=== PATIENT | female | born 1945 | race Caucasian/White ===

== ENCOUNTER 2018-06-24 15:10 | Inpatient (IN) | payer MEDICARE ==
[~2018-06-24] VITALS: Ht 165.1 cm; Wt 98.0 kg
[~2018-06-24 15:10] MED LIST: ACET500T33 PO; ESOM40CA25 PO; GABA300S PO; LEVO50TA5 PO; LISI-130 PO; LOVA40TA2 PO; MELO7.5T29 PO; METF500T16 PO; MULT1TAB52 PO; OMEP20CA5 PO; PARO30TA3 PO
[2018-06-24] MEDS ORDERED: IV NORMAL SALINE 1000ML BAG 1,000 ML IV SCH (16:10)
[2018-06-24] MEDS ORDERED: ONDANSETRON PF 4 MG/2 ML VIAL. IV ONE (16:15)
--- NOTE | 2018-06-24 16:31 | PHYS DOC ---
Past Medical History Past Medical History: Bronchitis, Diabetes-Type II, High Cholesterol, Hypertension, Hyperthyroid Past Surgical History: Cervical Fusion, Hysterectomy, Knee Replacement, Other Additional Past Surgical Histo: DILAT FOOT, CATARACTS, THYROIDECTOMY, BREAST REDUX Alcohol Use: Rarely Drug Use: None Adult General Chief Complaint Chief Complaint: NAUSEA/VOMITING/DIARRHA HPI HPI Patient is a 72 year old female who presents with states for the last week she' s had nausea and vomiting right after she eats and female. Patient does have a history of acid reflux and states that she does feel like is acting up more so after she is eating. Patient states she has the nausea and the burning in her epigastric especially after eating. Patient currently has no abdominal pain but has a slight headache and a 5 out of 10 frontal lobe. Review of Systems Review of Systems Constitutional: Denies fever or chills [] Eyes: Denies change in visual acuity, redness, or eye pain [] HENT: Denies nasal congestion or sore throat [] Respiratory: Denies cough or shortness of breath [] Cardiovascular: No additional information not addressed in HPI [] GI: epigastric abdominal pain, nausea, vomiting, denies bloody stools or diarrhea [] : Denies dysuria or hematuria [] Musculoskeletal: Denies back pain or joint pain [] Integument: Denies rash or skin lesions [] Neurologic: Denies headache, focal weakness or sensory changes [] Endocrine: Denies polyuria or polydipsia [] All other systems were reviewed and found to be within normal limits, except as documented in this note. Current Medications Current Medications Current Medications Medications (Trade) Dose Ordered Sig/Alexi Start Time Stop Time Status Last Admin Dose Admin Ceftriaxone Sodium (Rocephin) 1 gm 1X ONCE 06/24/18 20:45 06/24/18 20:46 DC 06/24/18 20:48 1 GM Info (CONTRAST GIVEN -- Rx MONITORING) 1 each PRN DAILY PRN 06/24/18 18:30 06/26/18 18:29 Iohexol (Omnipaque 300 Mg/ml) 75 ml 1X ONCE 06/24/18 18:30 06/24/18 18:31 DC 06/24/18 18:29 75 ML Ondansetron HCl (Zofran) 4 mg 1X ONCE 06/24/18 16:15 06/24/18 16:16 DC 06/24/18 18:27 4 MG Pantoprazole Sodium (PROTONIX VIAL for IV PUSH) 40 mg 1X ONCE 06/24/18 16:45 06/24/18 16:48 DC 06/24/18 18:27 40 MG Sodium Chloride 1,000 ml @ 1,000 mls/hr Q1H 06/24/18 16:10 06/24/18 17:09 DC 06/24/18 18:27 1,000 MLS/HR Allergies Allergies Allergies Coded Allergies Type Severity Reaction Last Updated Verified No Known Drug Allergies 01/15/15 No Physical Exam Physical Exam Constitutional: Well developed, well nourished, no acute distress, non-toxic appearance. [] HENT: Normocephalic, atraumatic, bilateral external ears normal, oropharynx moist, no oral exudates, nose normal. [] Eyes: PERRLA, EOMI, conjunctiva normal, no discharge. [] Neck: Normal range of motion, no tenderness, supple, no stridor. [] Cardiovascular:Heart rate regular rhythm, no murmur [] Lungs & Thorax: Bilateral breath sounds clear to auscultation [] Abdomen: Bowel sounds normal, soft, no tenderness, no masses, no pulsatile masses. [] Skin: Warm, dry, no erythema, no rash. [] Back: No tenderness, no CVA tenderness. [] Extremities: No tenderness, no cyanosis, no clubbing, ROM intact, no edema. [] Neurologic: Alert and oriented X 3, normal motor function, normal sensory function, no focal deficits noted. [] Psychologic: Affect normal, judgement normal, mood normal. Normal Physical Exam[] Current Patient Data Vital Signs Vital Signs Date Time Temp Pulse Resp B/P (MAP) Pulse Ox O2 Delivery O2 Flow Rate FiO2 06/24/18 19:34 190/81 (117) Room Air 06/24/18 18:52 66 20 97 06/24/18 16:16 98.7 98.7 Lab Values Laboratory Tests Test 06/24/18 17:24 06/24/18 19:30 White Blood Count 9.8 x10^3/uL (4.0-11.0) Red Blood Count 4.44 x10^6/uL (3.50-5.40) Hemoglobin 12.2 g/dL (12.0-15.5) Hematocrit 37.3 % (36.0-47.0) Mean Corpuscular Volume 84 fL (79-100) Mean Corpuscular Hemoglobin 27 pg (25-35) Mean Corpuscular Hemoglobin Concent 33 g/dL (31-37) Red Cell Distribution Width 14.8 % (11.5-14.5) H Platelet Count 234 x10^3/uL (140-400) Neutrophils (%) (Auto) 85 % (31-73) H Lymphocytes (%) (Auto) 9 % (24-48) L Monocytes (%) (Auto) 6 % (0-9) Eosinophils (%) (Auto) 0 % (0-3) Basophils (%) (Auto) 0 % (0-3) Neutrophils # (Auto) 8.3 x10^3uL (1.8-7.7) H Lymphocytes # (Auto) 0.8 x10^3/uL (1.0-4.8) L Monocytes # (Auto) 0.5 x10^3/uL (0.0-1.1) Eosinophils # (Auto) 0.0 x10^3/uL (0.0-0.7) Basophils # (Auto) 0.0 x10^3/uL (0.0-0.2) Segmented Neutrophils % 86 % (35-66) H Band Neutrophils % 1 % (0-9) Lymphocytes % 10 % (24-48) L Monocytes % 3 % (0-10) Platelet Estimate Adequate (ADEQUATE) Sodium Level 126 mmol/L (136-145) L Potassium Level 4.6 mmol/L (3.5-5.1) Chloride Level 93 mmol/L (98-107) L Carbon Dioxide Level 25 mmol/L (21-32) Anion Gap 8 (6-14) Blood Urea Nitrogen 15 mg/dL (7-20) Creatinine 0.8 mg/dL (0.6-1.0) Estimated GFR (Cockcroft-Gault) 70.3 BUN/Creatinine Ratio 19 (6-20) Glucose Level 111 mg/dL (70-99) H Calcium Level 9.1 mg/dL (8.5-10.1) Total Bilirubin 0.4 mg/dL (0.2-1.0) Aspartate Amino Transferase (AST) 18 U/L (15-37) Alanine Aminotransferase (ALT) 15 U/L (14-59) Alkaline Phosphatase 85 U/L (46-116) Troponin I Quantitative < 0.017 ng/mL (0.000-0.055) Total Protein 7.2 g/dL (6.4-8.2) Albumin 4.2 g/dL (3.4-5.0) Albumin/Globulin Ratio 1.4 (1.0-1.7) Lipase 171 U/L (73-393) Urine Collection Type Unknown Urine Color Yellow Urine Clarity Turbid Urine pH 5.5 Urine Specific [place] >=1.030 Urine Protein Negative mg/dL (NEG-TRACE) Urine Glucose (UA) Negative mg/dL (NEG) Urine Ketones (Stick) 40 mg/dL (NEG) Urine Blood Large (NEG) Urine Nitrite Negative (NEG) Urine Bilirubin Small (NEG) Urine Urobilinogen Dipstick 1.0 mg/dL (0.2 mg/dL) Urine Leukocyte Esterase Trace (NEG) Urine RBC 11-20 /HPF (0-2) Urine WBC 1-4 /HPF (0-4) Urine Squamous Epithelial Cells Mod /LPF Urine Bacteria Many /HPF (0-FEW) Urine Mucus Marked /LPF Laboratory Tests 06/24/18 17:24 Laboratory Tests 06/24/18 17:24 EKG EKG Sinus Rhythm and no STEMI Interpretation Time: [address] Metz Radiology/Procedures Radiology/Procedures [] Impressions: [facility] [address] [place] [address] IMAGING REPORT Signed PATIENT: ROBERT READ ACCOUNT: [id number] : 1945 LOCATION: ER AGE: 72 SEX: F EXAM STATUS: REG ER ORD. PHYSICIAN: ENOCH CAMPOS APRN REASON: Nausea vomiting, OMNI 300, 75ml PROCEDURE: CT ABD PELV W/ IV CONTRST ONLY CT ABD PELV W/ IV CONTRST ONLY Indication: Nausea and vomiting Technique: Postcontrast CT imaging was performed of the abdomen and pelvis, multiplanar reconstruction images submitted. One or more of the following individualized dose reduction techniques were utilized for this examination: 1. Automated exposure control 2. Adjustment of the mA and/or kV according to patient size 3. Use of iterative reconstruction technique. Comparison: August 07, 2014 Findings: There is no abnormality of the limited visualized lung bases. There are small to moderate-sized hiatal hernia. No focal abnormalities identified of the pancreas, spleen, liver. Gallbladder is present without obvious intraluminal abnormality by CT. Both kidneys and hands, no hydronephrosis. There is a small hypodense lesion of the superior right kidney about 0.8 cm, difficult to accurately characterize given small size, slightly larger than previously. Accurate evaluation of bowel is limited without oral contrast Bowel is not significantly dilated. There is scattered colonic diverticulosis, not associated with significant localized inflammatory type change. Segment of bowel in the left upper quadrant of the abdomen with internal stool density is likely cecum, somewhat more deviated to the left on this exam although previously was more centrally located. Appendix cannot be confidently identified. There is no free air or significant free fluid. There is multilevel lumbar facet degenerative change and degenerative disc disease. There is mild grade 1 anterior spondylolisthesis L4-5 and L5-S1. There is at least moderate spinal stenosis L4-5. IMPRESSION: 1. Cecum is deviated to the left upper quadrant, previously somewhat more centrally located, evidence of floppy cecum. Bowel is not significantly dilated. Appendix cannot be confidently identified. There is colonic diverticulosis greatest of the sigmoid colon without obvious evidence of diverticulitis. There is small to moderate size hiatal hernia. Electronically signed by: Krupa Govea MD (06/24/2018 6:42 PM) [facility] DICTATED and SIGNED BY: KRUPA GOVEA MD DATE: 06/24/18 184 Course & Med Decision Making Course & Med Decision Making Patient is a 72 year old female who presents with states for the last week she' s had nausea and vomiting right after she eats and female. Patient does have a history of acid reflux and states that she does feel like is acting up more so after she is eating. Patient states she has the nausea and the burning in her epigastric especially after eating. Patient currently has no abdominal pain but has a slight headache and a 5 out of 10 frontal lobe. Patient denies chest pain , abdominal pain, generalized body aches, nausea vomiting, diarrhea, bloody diarrhea, dysuria, dizziness, fever at this time. Alert and oriented. Speaks in full clear sentences. Skin is pink warm and dry. Mucous membranes are moist. 1+ peripheral edema and pedal's. Abdomen is soft and nontender. Lungs are clear in upper lobes but diminished in lower lobes. Chest xray shows no acute findings. CT ABD PELV shows 1. Cecum is deviated to the left upper quadrant, previously somewhat more centrally located, evidence of floppy cecum. Bowel is not significantly dilated. Appendix cannot be confidently identified. There is colonic diverticulosis greatest of the sigmoid colon without obvious evidence of diverticulitis. There is small to moderate size hiatal hernia. I have spoken to Dr Vazquez and he states to admit the patient and have GI see the patient and consult him. Patient also has a UTI and will be treated with antibiotics. Patient is given a dose of Rocephin in the ED. The patient was told that she has been be admitted to the hospital and she stated that [employer] her insurance would not cover the hospital stay. Patient then stated that she wanted to be transferred to [facility]. I have talked [facility] in the accepting physician and their household appliances salesperson declined to accept the patient because they are at capacity. I then called [facility] and they too declined to accept the patient because they're at capacity. I also called [facility] and they do not take [employer]. The patient then called [employer] and Levi said that since the patient was being admitted through the emergency room that they would cover inpatient stay. Patient has decided to stay for inpatient at our facility. Dragon Disclaimer Dragon Disclaimer This electronic medical record was generated, in whole or in part, using a voice recognition dictation system. Departure Departure Impression: Primary Impression: Vomiting Additional Impression: Mobile cecum Disposition: ADMITTED INPATIENT Admitting Physician: Suha Lowry Condition: STABLE Referrals: YKLAH SCOTT MD (PCP) Problem Qualifiers Primary Impression: Vomiting Vomiting type: unspecified Vomiting Intractability: non-intractable Nausea presence: with nausea Qualified Codes: R11.2 - Nausea with vomiting, unspecified ENOCH CAMPOS APRN Jun 24, 2018 16:31
[2018-06-24] MEDS ORDERED: PANTOPRAZOLE IV PUSH 40 MG VIAL. IVP ONE (16:45)
[2018-06-24 17:38] LABS: BASO % 0 % (0-3); EOS % 0 % (0-3); HEMATOCRIT 37.3 % (36.0-47.0); HEMOGLOBIN 12.2 g/dL (12.0-15.5); LYMPH # 0.8 x10^3/uL (1.0-4.8); LYMPH % 9 % (24-48); MEAN CORPUSCULAR HEMOGLOBIN 27 pg (25-35); MEAN CORPUSCULAR HGB CONC 33 g/dL (31-37); MEAN CORPUSCULAR VOLUME 84 fL (79-100); MONO # 0.5 x10^3/uL (0.0-1.1); MONO % 6 % (0-9); NEUT # 8.3 x10^3uL (1.8-7.7); NEUT % 85 % (31-73); PLATELET COUNT 234 x10^3/uL (140-400); RED BLOOD COUNT 4.44 x10^6/uL (3.50-5.40); RED CELL DISTRIBUTION WIDTH 14.8 % (11.5-14.5); WHITE BLOOD COUNT 9.8 x10^3/uL (4.0-11.0)
[2018-06-24 17:46] LABS: CALCIUM 9.1 mg/dL (8.5-10.1); CREATININE 0.8 mg/dL (0.6-1.0); GFR 70.3; POTASSIUM 4.6 mmol/L (3.5-5.1)
[2018-06-24 17:52] LABS: ALBUMIN 4.2 g/dL (3.4-5.0); ALBUMIN/GLOBULIN RATIO 1.4 (1.0-1.7); TOTAL BILIRUBIN 0.4 mg/dL (0.2-1.0); TOTAL PROTEIN 7.2 g/dL (6.4-8.2)
[2018-06-24 17:53] LABS: % BANDS 1 % (0-9); % LYMPHS 10 % (24-48); % MONOS 3 % (0-10); % SEGS 86 % (35-66); PLT ESTIMATE ADEQUATE (ADEQUATE)
[2018-06-24] MEDS ORDERED: IOHEXOL 300 MG/ML 100ML VIAL. IV ONE (18:30)
[2018-06-24] MEDS ORDERED: CONTRAST GIVEN. MC PRN (18:30)
--- NOTE | 2018-06-24 18:45 | RAD ---
CT ABD PELV W/ IV CONTRST ONLY Indication: Nausea and vomiting Technique: Postcontrast CT imaging was performed of the abdomen and pelvis, multiplanar reconstruction images submitted. One or more of the following individualized dose reduction techniques were utilized for this examination: 1. Automated exposure control 2. Adjustment of the mA and/or kV according to patient size 3. Use of iterative reconstruction technique. Comparison: August 07, 2014 Findings: There is no abnormality of the limited visualized lung bases. There are small to moderate-sized hiatal hernia. No focal abnormalities identified of the pancreas, spleen, liver. Gallbladder is present without obvious intraluminal abnormality by CT. Both kidneys and hands, no hydronephrosis. There is a small hypodense lesion of the superior right kidney about 0.8 cm, difficult to accurately characterize given small size, slightly larger than previously. Accurate evaluation of bowel is limited without oral contrast Bowel is not significantly dilated. There is scattered colonic diverticulosis, not associated with significant localized inflammatory type change. Segment of bowel in the left upper quadrant of the abdomen with internal stool density is likely cecum, somewhat more deviated to the left on this exam although previously was more centrally located. Appendix cannot be confidently identified. There is no free air or significant free fluid. There is multilevel lumbar facet degenerative change and degenerative disc disease. There is mild grade 1 anterior spondylolisthesis L4-5 and L5-S1. There is at least moderate spinal stenosis L4-5. IMPRESSION: 1. Cecum is deviated to the left upper quadrant, previously somewhat more centrally located, evidence of floppy cecum. Bowel is not significantly dilated. Appendix cannot be confidently identified. There is colonic diverticulosis greatest of the sigmoid colon without obvious evidence of diverticulitis. There is small to moderate size hiatal hernia. Electronically signed by: Lai Villalobos MD (06/24/2018 6:42 PM) [facility]
--- NOTE | 2018-06-24 18:53 | RAD ---
PORTABLE CHEST 1V History: EPIGASTRIC PAIN Comparison: August 07, 2014 Findings: AP portable view of the chest is submitted. Heart size is stable. There is no lobar infiltrate, pleural fluid, pneumothorax. Impression: 1. No acute radiographic abnormality is identified. Electronically signed by: Lai Villalobos MD (06/24/2018 6:50 PM) [facility]
[2018-06-24 19:43] LABS: BILIRUBIN,URINE SMALL (NEG); CLARITY,URINE TURBID; COLOR,URINE YELLOW; NITRITE,URINE NEGATIVE (NEG); PH,URINE 5.5; PROTEIN,URINE NEGATIVE (NEG-TRACE)
[2018-06-24 19:49] LABS: SQUAMOUS EPITHELIAL CELL,UR MOD /LPF
[2018-06-24 19:51] LABS: BACTERIA,URINE MANY /HPF (0-FEW)
[2018-06-24] MEDS ORDERED: cefTRIAXone IV Push 1 GM VIAL. IVP ONE (20:45)
[2018-06-25] VITALS (7 sets, daily range): BP systolic 112–169; BP diastolic 53–72
[2018-06-25] MEDS ORDERED: ACETAMINOPHEN 325 MG TABLET. PO PRN (00:45)
[2018-06-25] MEDS ORDERED: fentaNYL PF VIAL 100 MCG/2 ML VIAL IV PRN (00:45)
[2018-06-25] MEDS ORDERED: ONDANSETRON PF 4 MG/2 ML VIAL. IV PRN (00:45)
--- NOTE | 2018-06-25 02:52 | NUR ---
Only drinks occasionally. 4 times/year Addendum: 06/25/18 at 0318 by VÍCTOR GILMAN RN Amended: Links added.
--- NOTE | 2018-06-25 02:56 | NUR ---
Pt's sister (PARRISDENIA) stated pt. has lost about 100 lbs. in a year due to facility only having 2 meals/day plan. Addendum: 06/25/18 at 0318 by VÍCTOR GILMAN RN Amended: Links added.
[2018-06-25] MEDS ORDERED: LISI10TA2 PO (03:45)
--- NOTE | 2018-06-25 03:47 | NUR ---
The patient, ROBERT READ, 72 y/o, F was admitted by BARBARA REYES MD. Pt arrived on unit at 0120 by wheelchair. Pt. A&Ox4, RA, VSS with elevated BP. Pt.'s sister Starr (DPOA) at bedside and helped answer admission questions. Pt. was given written information regarding hospital policies, unit procedures and contact persons. Valuables were taken by sister Starr to her home. Wallet left in room with insurance card and some spare change. Call light within reach, bed low. Will continue to monitor.
--- NOTE | 2018-06-25 06:45 | NUR ---
Dr. Hill and Dr. Vazquez consulted this morning.
[2018-06-25] MEDS: IV NORMAL SALINE 1000ML BAG 1,000 ML IV SCH (09:30)
--- NOTE | 2018-06-25 09:36 | PDOC2 ---
CONSULT Date of Consult Date of Consult DATE: 06/25/18 TIME: 09:31 Reason for Consult Reason for Consult: N/V/D reflux Referring Physician Referring Physician: Termulo Identification/Chief Complaint Chief Complaint N/V/D Source Source: Chart review, Patient History of Present Illness Reason for Visit: 72 yo F present from [place] with c/o N/V/D, also notes reflux more of an issue recently. Chart notes that pt has lost 100 lbs recently. Pt seen in hospital room, somewhat poor historian. Currently comfortable. Past Medical History Cardiovascular: HTN, Syncope, Hyperlipidemia, Other Pulmonary: Asthma, Bronchitis CENTRAL NERVOUS SYSTEM: Migraine GI: Diverticulosis, GERD Heme/Onc: Other Psych: Anxiety, Depression Renal/: Chronic renal failure, Urinary Incontinence Endocrine: Diabetes, Hypothyroidism Past Surgical History Past Surgical History: Cataract Removal, Total knee replacement, Tubal Ligation , Hysterectomy, Other Family History Family History: Hypertension Social History ALCOHOL: occassional Drugs: None Lives: Care Home Current Problem List Problem List Problems Medical Problems: (1) Mobile cecum Status: Acute (2) Vomiting Status: Acute Current Medications Current Medications Current Medications Sodium Chloride 1,000 ml @ 1,000 mls/hr Q1H IV Last administered on 06/24/18at 18:27; Start 06/24/18 at 16:10; Stop 06/24/18 at 17:09; Status DC Ondansetron HCl (Zofran) 4 mg 1X ONCE IV Last administered on 06/24/18at 18:27 ; Start 06/24/18 at 16:15; Stop 06/24/18 at 16:16; Status DC Pantoprazole Sodium (PROTONIX VIAL for IV PUSH) 40 mg 1X ONCE IVP Last administered on 06/24/18at 18:27; Start 06/24/18 at 16:45; Stop 06/24/18 at 16:48 ; Status DC Iohexol (Omnipaque 300 Mg/ml) 75 ml 1X ONCE IV Last administered on 06/24/18at 18:29; Start 06/24/18 at 18:30; Stop 06/24/18 at 18:31; Status DC Info (CONTRAST GIVEN -- Rx MONITORING) 1 each PRN DAILY PRN MC SEE COMMENTS; Start 06/24/18 at 18:30; Stop 06/26/18 at 18:29 Ceftriaxone Sodium (Rocephin) 1 gm 1X ONCE IVP Last administered on 06/24/18at 20:48; Start 06/24/18 at 20:45; Stop 06/24/18 at 20:46; Status DC Ondansetron HCl (Zofran) 4 mg PRN Q8HRS PRN IV NAUSEA/VOMITING; Start 06/25/18 at 00:45; Stop 06/26/18 at 00:44 Fentanyl Citrate (Fentanyl 2ml Vial) 50 mcg PRN Q1HR PRN IV PAIN; Start at 00:45; Stop 06/26/18 at 00:44 Acetaminophen (Tylenol) 650 mg PRN Q4HRS PRN PO FEVER; Start 06/25/18 at 00:45 ; Stop 06/26/18 at 00:44 Sodium Chloride 1,000 ml @ 75 mls/hr [id number] IV ; Start 06/25/18 at 09:30; Status UNV Active Scripts Active Reported Lisinopril 10 Mg Tablet 1 Tab PO DAILY Multivitamins (Multivitamin) 1 Each Tablet 1 Tab PO DAILY Prilosec (Omeprazole) 20 Mg Capsule.dr 1 Cap PO DAILY Tylenol Extra Strength (Acetaminophen) 500 Mg Tablet 500 Mg PO Meloxicam 7.5 Mg Tablet 7.5 Mg PO DAILY Lovastatin 40 Mg Tablet 40 Mg PO HS Paroxetine Hcl 30 Mg Tablet 30 Mg PO DAILY Levothyroxine Sodium 50 Mcg Tablet 50 Mcg PO DAILYAC Allergies Allergies: Coded Allergies: No Known Drug Allergies (Unverified , 01/15/15) ROS Gastrointestinal: Yes Nausea, Yes Vomiting Physical Exam General: Alert, Cooperative, No acute distress HEENT: Atraumatic Lungs: Normal air movement Abdomen: Soft, No tenderness Extremities: No clubbing, No cyanosis Skin: No rashes, No breakdown Neuro: Normal speech, Sensation intact Psych/Mental Status: Mood NL Vitals VITALS Vital Signs Date Time Temp Pulse Resp B/P (MAP) Pulse Ox O2 Delivery O2 Flow Rate FiO2 06/25/18 07:00 98.1 67 17 122/63 (82) 97 Room Air 98.1 Labs Labs Laboratory Tests Test 06/24/18 17:24 06/24/18 19:30 06/25/18 02:38 White Blood Count 9.8 x10^3/uL (4.0-11.0) Red Blood Count 4.44 x10^6/uL (3.50-5.40) Hemoglobin 12.2 g/dL (12.0-15.5) Hematocrit 37.3 % (36.0-47.0) Mean Corpuscular Volume 84 fL (79-100) Mean Corpuscular Hemoglobin 27 pg (25-35) Mean Corpuscular Hemoglobin Concent 33 g/dL (31-37) Red Cell Distribution Width 14.8 % (11.5-14.5) Platelet Count 234 x10^3/uL (140-400) Neutrophils (%) (Auto) 85 % (31-73) Lymphocytes (%) (Auto) 9 % (24-48) Monocytes (%) (Auto) 6 % (0-9) Eosinophils (%) (Auto) 0 % (0-3) Basophils (%) (Auto) 0 % (0-3) Neutrophils # (Auto) 8.3 x10^3uL (1.8-7.7) Lymphocytes # (Auto) 0.8 x10^3/uL (1.0-4.8) Monocytes # (Auto) 0.5 x10^3/uL (0.0-1.1) Eosinophils # (Auto) 0.0 x10^3/uL (0.0-0.7) Basophils # (Auto) 0.0 x10^3/uL (0.0-0.2) Segmented Neutrophils % 86 % (35-66) Band Neutrophils % 1 % (0-9) Lymphocytes % 10 % (24-48) Monocytes % 3 % (0-10) Platelet Estimate Adequate (ADEQUATE) Sodium Level 126 mmol/L (136-145) Potassium Level 4.6 mmol/L (3.5-5.1) Chloride Level 93 mmol/L (98-107) Carbon Dioxide Level 25 mmol/L (21-32) Anion Gap 8 (6-14) Blood Urea Nitrogen 15 mg/dL (7-20) Creatinine 0.8 mg/dL (0.6-1.0) Estimated GFR (Cockcroft-Gault) 70.3 BUN/Creatinine Ratio 19 (6-20) Glucose Level 111 mg/dL (70-99) Calcium Level 9.1 mg/dL (8.5-10.1) Total Bilirubin 0.4 mg/dL (0.2-1.0) Aspartate Amino Transf (AST/SGOT) 18 U/L (15-37) Alanine Aminotransferase (ALT/SGPT) 15 U/L (14-59) Alkaline Phosphatase 85 U/L (46-116) Troponin I Quantitative < 0.017 ng/mL (0.000-0.055) Total Protein 7.2 g/dL (6.4-8.2) Albumin 4.2 g/dL (3.4-5.0) Albumin/Globulin Ratio 1.4 (1.0-1.7) Lipase 171 U/L (73-393) Urine Collection Type Unknown Urine Color Yellow Urine Clarity Turbid Urine pH 5.5 Urine Specific [place] >=1.030 Urine Protein Negative mg/dL (NEG-TRACE) Urine Glucose (UA) Negative mg/dL (NEG) Urine Ketones (Stick) 40 mg/dL (NEG) Urine Blood Large (NEG) Urine Nitrite Negative (NEG) Urine Bilirubin Small (NEG) Urine Urobilinogen Dipstick 1.0 mg/dL (0.2 mg/dL) Urine Leukocyte Esterase Trace (NEG) Urine RBC 11-20 /HPF (0-2) Urine WBC 1-4 /HPF (0-4) Urine Squamous Epithelial Cells Mod /LPF Urine Bacteria Many /HPF (0-FEW) Urine Mucus Marked /LPF Glucose (Fingerstick) 96 mg/dL (70-99) Laboratory Tests Test 06/24/18 17:24 06/24/18 19:30 06/25/18 02:38 White Blood Count 9.8 x10^3/uL (4.0-11.0) Red Blood Count 4.44 x10^6/uL (3.50-5.40) Hemoglobin 12.2 g/dL (12.0-15.5) Hematocrit 37.3 % (36.0-47.0) Mean Corpuscular Volume 84 fL (79-100) Mean Corpuscular Hemoglobin 27 pg (25-35) Mean Corpuscular Hemoglobin Concent 33 g/dL (31-37) Red Cell Distribution Width 14.8 % (11.5-14.5) Platelet Count 234 x10^3/uL (140-400) Neutrophils (%) (Auto) 85 % (31-73) Lymphocytes (%) (Auto) 9 % (24-48) Monocytes (%) (Auto) 6 % (0-9) Eosinophils (%) (Auto) 0 % (0-3) Basophils (%) (Auto) 0 % (0-3) Neutrophils # (Auto) 8.3 x10^3uL (1.8-7.7) Lymphocytes # (Auto) 0.8 x10^3/uL (1.0-4.8) Monocytes # (Auto) 0.5 x10^3/uL (0.0-1.1) Eosinophils # (Auto) 0.0 x10^3/uL (0.0-0.7) Basophils # (Auto) 0.0 x10^3/uL (0.0-0.2) Segmented Neutrophils % 86 % (35-66) Band Neutrophils % 1 % (0-9) Lymphocytes % 10 % (24-48) Monocytes % 3 % (0-10) Platelet Estimate Adequate (ADEQUATE) Sodium Level 126 mmol/L (136-145) Potassium Level 4.6 mmol/L (3.5-5.1) Chloride Level 93 mmol/L (98-107) Carbon Dioxide Level 25 mmol/L (21-32) Anion Gap 8 (6-14) Blood Urea Nitrogen 15 mg/dL (7-20) Creatinine 0.8 mg/dL (0.6-1.0) Estimated GFR (Cockcroft-Gault) 70.3 BUN/Creatinine Ratio 19 (6-20) Glucose Level 111 mg/dL (70-99) Calcium Level 9.1 mg/dL (8.5-10.1) Total Bilirubin 0.4 mg/dL (0.2-1.0) Aspartate Amino Transf (AST/SGOT) 18 U/L (15-37) Alanine Aminotransferase (ALT/SGPT) 15 U/L (14-59) Alkaline Phosphatase 85 U/L (46-116) Troponin I Quantitative < 0.017 ng/mL (0.000-0.055) Total Protein 7.2 g/dL (6.4-8.2) Albumin 4.2 g/dL (3.4-5.0) Albumin/Globulin Ratio 1.4 (1.0-1.7) Lipase 171 U/L (73-393) Urine Collection Type Unknown Urine Color Yellow Urine Clarity Turbid Urine pH 5.5 Urine Specific [place] >=1.030 Urine Protein Negative mg/dL (NEG-TRACE) Urine Glucose (UA) Negative mg/dL (NEG) Urine Ketones (Stick) 40 mg/dL (NEG) Urine Blood Large (NEG) Urine Nitrite Negative (NEG) Urine Bilirubin Small (NEG) Urine Urobilinogen Dipstick 1.0 mg/dL (0.2 mg/dL) Urine Leukocyte Esterase Trace (NEG) Urine RBC 11-20 /HPF (0-2) Urine WBC 1-4 /HPF (0-4) Urine Squamous Epithelial Cells Mod /LPF Urine Bacteria Many /HPF (0-FEW) Urine Mucus Marked /LPF Glucose (Fingerstick) 96 mg/dL (70-99) Images Images CT without obstruction, but mobile cecum Assessment/Plan Assessment/Plan N/V/D, suspect gastroenteritis agree with IV and supportive care agree with GI consultation. Mobile cecum may be contributing and pt may ultimately be helped by right colectomy, but favor w/u first. Thanks for consult! MAGDALENO LANE MD Jun 25, 2018 09:36
--- NOTE | 2018-06-25 11:17 | HP ---
ADMIT DATE: 06/25/2018 CHIEF COMPLAINT: Nausea, vomiting, diarrhea. HISTORY OF PRESENT ILLNESS: The patient is a pleasant 72-year-old female who presented to the ER with nausea, vomiting and diarrhea for the past week. It occurs mainly after she eats, rated at 5/10. She has associated weakness. She tried to increase her home meds, but that did not seem to help, describes as irritating. While in the ER, we did a CAT scan showing a mobile cecum. I have discussed the case with the ER physician. We are going to admit the patient and consult GI and General Surgery. PAST MEDICAL HISTORY: Bronchitis, diabetes, hypertension, hyperlipidemia, hyperthyroidism, cervical fusion, hysterectomy, knee replacement, foot surgery, cataract surgery, thyroidectomy, breast reduction. ALLERGIES: None. FAMILY HISTORY: Diabetes. SOCIAL HISTORY: She does not drink, smoke or take drugs. MEDICATIONS: Reviewed, please refer to the MRAD. She is on lovastatin, lisinopril, meloxicam, Tylenol, paroxetine, Prilosec, Synthroid, and vitamins. REVIEW OF SYSTEMS: GENERAL: No history of weight change, weakness or fevers. SKIN: No bruising, hair changes or rashes. EYES: No blurred, double or loss of vision. NOSE AND THROAT: No history of nosebleeds, hoarseness or sore throat. HEART: No history of palpitations, chest pain or shortness of breath on exertion. LUNGS: Denies cough, hemoptysis, wheezing or shortness of breath. GASTROINTESTINAL: Complains of abdominal pain and nausea. GENITOURINARY: No history of frequency, urgency, hesitancy or nocturia. NEUROLOGIC: Denies history of numbness, tingling, tremor or weakness. PSYCHIATRIC: No history of panic, anxiety or depression. ENDOCRINE: No history of heat or cold intolerance, polyuria or polydipsia. EXTREMITIES: Denies muscle weakness, joint pain, pain on walking or stiffness. PHYSICAL EXAMINATION: VITAL SIGNS: Temperature afebrile, pulse 98, respirations 18, blood pressure 144/90. HEART: Normal S1, S2. LUNGS: Clear to auscultation. ABDOMEN: Soft, tender in the epigastrium. Decreased bowel sounds. EXTREMITIES: No edema. SKIN: No rashes. ENDOCRINE: No thyromegaly. LYMPHATICS: No cervical nodes. HEMATOPOIETIC: No bruising. PSYCHIATRIC: She is stable. LABORATORY DATA: Hematology is normal. Electrolytes normal other than sodium of 126 and chloride of 93. Her glucose is slightly high at 111. Chest x-ray negative. CT of the abdomen shows evidence of "floppy cecum." There is also a [id number] sized hiatal hernia. ASSESSMENT AND PLAN: Nausea, vomiting, diarrhea, abdominal pain and a floppy cecum. The patient has been admitted. We will consult General Surgery and GI. DVT prophylaxis. Home meds, IV fluids, full code, p.r.nPorfirio Deras. ARIANNA LUCAS DO DR: KILEY/[email or web address] JOB#: [id number] / [id number]
--- NOTE | 2018-06-25 13:52 | PDOC2 ---
CONSULT Date of Consult Date of Consult DATE: 06/25/18 TIME: 13:50 Reason for Consult Reason for Consult: N/V abd pain/weight loss Past Medical History Cardiovascular: HTN, Syncope, Hyperlipidemia, Other Pulmonary: Asthma, Bronchitis CENTRAL NERVOUS SYSTEM: Migraine GI: Diverticulosis, GERD Heme/Onc: Other Psych: Anxiety, Depression Renal/: Chronic renal failure, Urinary Incontinence Endocrine: Diabetes, Hypothyroidism Past Surgical History Past Surgical History: Cataract Removal, Total knee replacement, Tubal Ligation , Hysterectomy, Other Family History Family History: Hypertension Social History ALCOHOL: occassional Drugs: None Lives: Group Home Current Problem List Problem List Problems Medical Problems: (1) Mobile cecum Status: Acute (2) Vomiting Status: Acute Current Medications Current Medications Current Medications Sodium Chloride 1,000 ml @ 1,000 mls/hr Q1H IV Last administered on 06/24/18 18:27; Start 06/24/18 at 16:10; Stop 06/24/18 at 17:09; Status DC Ondansetron HCl (Zofran) 4 mg 1X ONCE IV Last administered on 06/24/18 18:27 ; Start 06/24/18 at 16:15; Stop 06/24/18 at 16:16; Status DC Pantoprazole Sodium (PROTONIX VIAL for IV PUSH) 40 mg 1X ONCE IVP Last administered on 06/24/18 18:27; Start 06/24/18 at 16:45; Stop 06/24/18 at 16:48 ; Status DC Iohexol (Omnipaque 300 Mg/ml) 75 ml 1X ONCE IV Last administered on 06/24/18 18:29; Start 06/24/18 at 18:30; Stop 06/24/18 at 18:31; Status DC Info (CONTRAST GIVEN -- Rx MONITORING) 1 each PRN DAILY PRN MC SEE COMMENTS; Start 06/24/18 at 18:30; Stop 06/26/18 at 18:29 Ceftriaxone Sodium (Rocephin) 1 gm 1X ONCE IVP Last administered on 06/24/18at 20:48; Start 06/24/18 at 20:45; Stop 06/24/18 at 20:46; Status DC Ondansetron HCl (Zofran) 4 mg PRN Q8HRS PRN IV NAUSEA/VOMITING; Start 06/25/18 at 00:45; Stop 06/26/18 at 00:44 Fentanyl Citrate (Fentanyl 2ml Vial) 50 mcg PRN Q1HR PRN IV PAIN; Start at 00:45; Stop 06/26/18 at 00:44 Acetaminophen (Tylenol) 650 mg PRN Q4HRS PRN PO FEVER; Start 06/25/18 at 00:45 ; Stop 06/26/18 at 00:44 Sodium Chloride 1,000 ml @ 75 mls/hr [id number] IV ; Start 06/25/18 at 09:30 Ceftriaxone Sodium (Rocephin) 1 gm Q24H IVP ; Start 06/25/18 at 21:00 Lisinopril (Prinivil) 10 mg DAILY PO ; Start 06/26/18 at 09:00 Active Scripts Active Reported Lisinopril 10 Mg Tablet 1 Tab PO DAILY Multivitamins (Multivitamin) 1 Each Tablet 1 Tab PO DAILY Prilosec (Omeprazole) 20 Mg Capsule.dr 1 Cap PO DAILY Tylenol Extra Strength (Acetaminophen) 500 Mg Tablet 500 Mg PO Lovastatin 40 Mg Tablet 40 Mg PO HS Paroxetine Hcl 30 Mg Tablet 30 Mg PO DAILY Levothyroxine Sodium 50 Mcg Tablet 50 Mcg PO DAILYAC Allergies Allergies: Coded Allergies: No Known Drug Allergies (Unverified , 01/15/15) Vitals VITALS Vital Signs Date Time Temp Pulse Resp B/P (MAP) Pulse Ox O2 Delivery O2 Flow Rate FiO2 06/25/18 11:00 98.5 68 17 132/72 (92) 98 Room Air 98.5 Labs Labs Laboratory Tests Test 06/24/18 17:24 06/24/18 19:30 06/25/18 02:38 White Blood Count 9.8 x10^3/uL (4.0-11.0) Red Blood Count 4.44 x10^6/uL (3.50-5.40) Hemoglobin 12.2 g/dL (12.0-15.5) Hematocrit 37.3 % (36.0-47.0) Mean Corpuscular Volume 84 fL (79-100) Mean Corpuscular Hemoglobin 27 pg (25-35) Mean Corpuscular Hemoglobin Concent 33 g/dL (31-37) Red Cell Distribution Width 14.8 % (11.5-14.5) Platelet Count 234 x10^3/uL (140-400) Neutrophils (%) (Auto) 85 % (31-73) Lymphocytes (%) (Auto) 9 % (24-48) Monocytes (%) (Auto) 6 % (0-9) Eosinophils (%) (Auto) 0 % (0-3) Basophils (%) (Auto) 0 % (0-3) Neutrophils # (Auto) 8.3 x10^3uL (1.8-7.7) Lymphocytes # (Auto) 0.8 x10^3/uL (1.0-4.8) Monocytes # (Auto) 0.5 x10^3/uL (0.0-1.1) Eosinophils # (Auto) 0.0 x10^3/uL (0.0-0.7) Basophils # (Auto) 0.0 x10^3/uL (0.0-0.2) Segmented Neutrophils % 86 % (35-66) Band Neutrophils % 1 % (0-9) Lymphocytes % 10 % (24-48) Monocytes % 3 % (0-10) Platelet Estimate Adequate (ADEQUATE) Sodium Level 126 mmol/L (136-145) Potassium Level 4.6 mmol/L (3.5-5.1) Chloride Level 93 mmol/L (98-107) Carbon Dioxide Level 25 mmol/L (21-32) Anion Gap 8 (6-14) Blood Urea Nitrogen 15 mg/dL (7-20) Creatinine 0.8 mg/dL (0.6-1.0) Estimated GFR (Cockcroft-Gault) 70.3 BUN/Creatinine Ratio 19 (6-20) Glucose Level 111 mg/dL (70-99) Calcium Level 9.1 mg/dL (8.5-10.1) Total Bilirubin 0.4 mg/dL (0.2-1.0) Aspartate Amino Transf (AST/SGOT) 18 U/L (15-37) Alanine Aminotransferase (ALT/SGPT) 15 U/L (14-59) Alkaline Phosphatase 85 U/L (46-116) Troponin I Quantitative < 0.017 ng/mL (0.000-0.055) Total Protein 7.2 g/dL (6.4-8.2) Albumin 4.2 g/dL (3.4-5.0) Albumin/Globulin Ratio 1.4 (1.0-1.7) Lipase 171 U/L (73-393) Urine Collection Type Unknown Urine Color Yellow Urine Clarity Turbid Urine pH 5.5 Urine Specific [place] >=1.030 Urine Protein Negative mg/dL (NEG-TRACE) Urine Glucose (UA) Negative mg/dL (NEG) Urine Ketones (Stick) 40 mg/dL (NEG) Urine Blood Large (NEG) Urine Nitrite Negative (NEG) Urine Bilirubin Small (NEG) Urine Urobilinogen Dipstick 1.0 mg/dL (0.2 mg/dL) Urine Leukocyte Esterase Trace (NEG) Urine RBC 11-20 /HPF (0-2) Urine WBC 1-4 /HPF (0-4) Urine Squamous Epithelial Cells Mod /LPF Urine Bacteria Many /HPF (0-FEW) Urine Mucus Marked /LPF Glucose (Fingerstick) 96 mg/dL (70-99) Laboratory Tests Test 06/24/18 17:24 06/24/18 19:30 06/25/18 02:38 White Blood Count 9.8 x10^3/uL (4.0-11.0) Red Blood Count 4.44 x10^6/uL (3.50-5.40) Hemoglobin 12.2 g/dL (12.0-15.5) Hematocrit 37.3 % (36.0-47.0) Mean Corpuscular Volume 84 fL (79-100) Mean Corpuscular Hemoglobin 27 pg (25-35) Mean Corpuscular Hemoglobin Concent 33 g/dL (31-37) Red Cell Distribution Width 14.8 % (11.5-14.5) Platelet Count 234 x10^3/uL (140-400) Neutrophils (%) (Auto) 85 % (31-73) Lymphocytes (%) (Auto) 9 % (24-48) Monocytes (%) (Auto) 6 % (0-9) Eosinophils (%) (Auto) 0 % (0-3) Basophils (%) (Auto) 0 % (0-3) Neutrophils # (Auto) 8.3 x10^3uL (1.8-7.7) Lymphocytes # (Auto) 0.8 x10^3/uL (1.0-4.8) Monocytes # (Auto) 0.5 x10^3/uL (0.0-1.1) Eosinophils # (Auto) 0.0 x10^3/uL (0.0-0.7) Basophils # (Auto) 0.0 x10^3/uL (0.0-0.2) Segmented Neutrophils % 86 % (35-66) Band Neutrophils % 1 % (0-9) Lymphocytes % 10 % (24-48) Monocytes % 3 % (0-10) Platelet Estimate Adequate (ADEQUATE) Sodium Level 126 mmol/L (136-145) Potassium Level 4.6 mmol/L (3.5-5.1) Chloride Level 93 mmol/L (98-107) Carbon Dioxide Level 25 mmol/L (21-32) Anion Gap 8 (6-14) Blood Urea Nitrogen 15 mg/dL (7-20) Creatinine 0.8 mg/dL (0.6-1.0) Estimated GFR (Cockcroft-Gault) 70.3 BUN/Creatinine Ratio 19 (6-20) Glucose Level 111 mg/dL (70-99) Calcium Level 9.1 mg/dL (8.5-10.1) Total Bilirubin 0.4 mg/dL (0.2-1.0) Aspartate Amino Transf (AST/SGOT) 18 U/L (15-37) Alanine Aminotransferase (ALT/SGPT) 15 U/L (14-59) Alkaline Phosphatase 85 U/L (46-116) Troponin I Quantitative < 0.017 ng/mL (0.000-0.055) Total Protein 7.2 g/dL (6.4-8.2) Albumin 4.2 g/dL (3.4-5.0) Albumin/Globulin Ratio 1.4 (1.0-1.7) Lipase 171 U/L (73-393) Urine Collection Type Unknown Urine Color Yellow Urine Clarity Turbid Urine pH 5.5 Urine Specific [place] >=1.030 Urine Protein Negative mg/dL (NEG-TRACE) Urine Glucose (UA) Negative mg/dL (NEG) Urine Ketones (Stick) 40 mg/dL (NEG) Urine Blood Large (NEG) Urine Nitrite Negative (NEG) Urine Bilirubin Small (NEG) Urine Urobilinogen Dipstick 1.0 mg/dL (0.2 mg/dL) Urine Leukocyte Esterase Trace (NEG) Urine RBC 11-20 /HPF (0-2) Urine WBC 1-4 /HPF (0-4) Urine Squamous Epithelial Cells Mod /LPF Urine Bacteria Many /HPF (0-FEW) Urine Mucus Marked /LPF Glucose (Fingerstick) 96 mg/dL (70-99) Assessment/Plan Assessment/Plan N/V- with haital hernia and possible partial cecal volvulus. Most likely multifactorial in etiology Plan GES followed by UGi xray to assess hernia prior to possible endoscopic evaluation Full ntoe dictated JULIO SETPHENS MD Jun 25, 2018 13:52
--- NOTE | 2018-06-25 19:12 | CONS ---
DATE OF CONSULTATION: 06/25/2018 REFERRING PHYSICIAN: Dr. Quinn. REASON FOR CONSULTATION: Abnormal CT scan, hiatal hernia, possible multiple cecum. HISTORY OF PRESENT ILLNESS: A 72-year-old female who presented to the hospital with nausea, vomiting, diarrhea over the past week with increased difficulties after she eats. She states she has had a hiatal hernia with last endoscopy with Dr. Rabago approximately a year or year and half ago, which revealed a hiatal hernia at that time. She also has longstanding diabetes with questionable control and is seen in further evaluation. Denies any change in her bowel habits. She states that she has not undergone colonoscopy for 4 years. There has been no bleeding, diarrhea, or constipation. Hemoglobin is normal at 12.2 at this time and due to ongoing symptoms, GI consultation is requested. PAST MEDICAL HISTORY: Diabetes, hypertension, hyperlipidemia, hypothyroidism, status post hysterectomy, knee replacement, thyroidectomy, breast reduction. ALLERGIES: None. MEDICATIONS: Presently include lisinopril, Rocephin. SOCIAL HISTORY: She is retired. Does not drink or smoke. FAMILY HISTORY: Noncontributory. REVIEW OF SYSTEMS: Per records. PHYSICAL EXAMINATION: GENERAL: Reveals a well-nourished, well-developed female. VITAL SIGNS: Temperature 98.5, pulse 66, respirations 17, blood pressure is 132/72. HEENT: Normocephalic, atraumatic head. Pupils and extraocular muscles are not tested. Sclerae anicteric. NECK: Supple. LUNGS: Clear. CARDIOVASCULAR: Reveals an S1, S2 without S3, S4 or appreciable murmur. ABDOMEN: Soft abdomen, normal bowel sounds without appreciable hepatosplenomegaly. EXTREMITIES: Reveals no cyanosis, clubbing, edema. LABORATORY STUDIES: Hemoglobin 12.2, hematocrit 37.3, white count 9.8, platelet count is 234,000. Chemistry: Sodium 126, potassium 4.6, chloride 93, BUN 15, creatinine 0.8, glucose is 114, total bilirubin 0.4, calcium 9.1, AST of 18, ALT of 15, alkaline phosphatase of 85, total protein 7.2, albumin 4.2, lipase is 171. CT scan reveals floppy cecum, moderate sized hiatal hernia. IMPRESSION: Nausea and vomiting with 100-pound weight loss over the past several years, most likely is multifactorial etiology, gastroparesis, hiatal hernia certainly in the differential. Cecal volvulus is unlikely because of the chronic blood loss. The patient previously is deferred interval colonoscopies due to issues with the prep and living alone. Therefore, we will proceed with gastric emptying study and upper GI x-ray to further assess her hernia to assess for potential repair prior to possible endoscopic evaluation with EGD and/or colonoscopy. I thank, Dr. Quinn for allowing us to consult and participate in this patient's care. JULIO STEPHENS MD DR: LUCI/guanakito JOB#: [id number] / [id number]
[2018-06-25] MEDS: CALCIUM CARBONATE 500 MG TAB.CHEW PO PRN (22:23)
[2018-06-25] MEDS: ATORVASTATIN CALCIUM 10 MG TABLET. PO SCH (22:23)
[2018-06-25] MEDS: LACTOBACILLUS RHAMNOSUS GG 1 CAPSULE. PO SCH (22:23)
[2018-06-25] MEDS: cefTRIAXone IV Push 1 GM VIAL. IVP SCH (22:24)
[2018-06-26 03:00] VITALS: BP 124/76
[2018-06-26] MEDS: IV NORMAL SALINE 1000ML BAG 1,000 ML IV SCH ×2 (05:39→12:10)
[2018-06-26] MEDS: LEVOTHYROXINE 50 MCG TABLET PO SCH (06:00)
[2018-06-26 06:55] LABS: BASO % 1 % (0-3); EOS # 0.1 x10^3/uL (0.0-0.7); EOS % 2 % (0-3); HEMATOCRIT 32.2 % (36.0-47.0); HEMOGLOBIN 10.6 g/dL (12.0-15.5); LYMPH # 1.3 x10^3/uL (1.0-4.8); LYMPH % 27 % (24-48); MEAN CORPUSCULAR HEMOGLOBIN 28 pg (25-35); MEAN CORPUSCULAR HGB CONC 33 g/dL (31-37); MEAN CORPUSCULAR VOLUME 84 fL (79-100); MONO # 0.4 x10^3/uL (0.0-1.1); MONO % 8 % (0-9); NEUT % 62 % (31-73); PLATELET COUNT 197 x10^3/uL (140-400); RED BLOOD COUNT 3.84 x10^6/uL (3.50-5.40); RED CELL DISTRIBUTION WIDTH 14.6 % (11.5-14.5); WHITE BLOOD COUNT 4.8 x10^3/uL (4.0-11.0)
[2018-06-26 07:00] VITALS: BP 157/81
[2018-06-26 07:28] LABS: ALBUMIN 2.9 g/dL (3.4-5.0); ALBUMIN/GLOBULIN RATIO 0.9 (1.0-1.7); CALCIUM 8.3 mg/dL (8.5-10.1); CREATININE 0.6 mg/dL (0.6-1.0); POTASSIUM 3.5 mmol/L (3.5-5.1); TOTAL BILIRUBIN 0.3 mg/dL (0.2-1.0); TOTAL PROTEIN 6.2 g/dL (6.4-8.2)
[2018-06-26] MEDS ORDERED: PANTOPRAZOLE 40 MG TABLET.DR. PO SCH (07:30)
[2018-06-26] MEDS: PARoxetine 10 MG TABLET PO SCH (07:50)
[2018-06-26] MEDS: LISINOPRIL 10 MG TABLET PO SCH (07:50)
[2018-06-26] MEDS: LACTOBACILLUS RHAMNOSUS GG 1 CAPSULE. PO SCH ×2 (07:50→21:18)
[2018-06-26] MEDS: MULTIVITAMIN with MINERAL TABLET. PO SCH (07:50)
--- NOTE | 2018-06-26 07:50 | NUR ---
Chart review done. Pt admitted w/ n/v w/ notes indicating weakness. May benefit from PT/OT Eval and Treat. Addendum: 06/26/18 at 0750 by ASHLEY MILES OT Amended: Links added.
--- NOTE | 2018-06-26 08:57 | EKG ---
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
--- NOTE | 2018-06-26 10:39 | PDOC ---
LEONOR DANGELO DREDGE PIPEMAN 06/26/18 1039: SURGICAL PROGRESS NOTE Subjective no complaints just back from gastric emptying denies pain or n/v Vital Signs Vital Signs Date Time Temp Pulse Resp B/P (MAP) Pulse Ox O2 Delivery O2 Flow Rate FiO2 06/26/18 08:00 Room Air 06/26/18 07:00 98.0 72 18 157/81 (106) 98 98.0 I&O Intake and Output 06/26/18 06:59 Intake Total 475 ml Balance 475 ml Intake Oral 475 ml # Voids 5 # Bowel Movements 1 General: Alert, Oriented X3, Cooperative, No acute distress Abdomen: Soft, No tenderness Labs Laboratory Tests Test 06/24/18 17:24 06/24/18 19:30 06/25/18 02:38 06/25/18 02:49 White Blood Count 9.8 x10^3/uL (4.0-11.0) Red Blood Count 4.44 x10^6/uL (3.50-5.40) Hemoglobin 12.2 g/dL (12.0-15.5) Hematocrit 37.3 % (36.0-47.0) Mean Corpuscular Volume 84 fL (79-100) Mean Corpuscular Hemoglobin 27 pg (25-35) Mean Corpuscular Hemoglobin Concent 33 g/dL (31-37) Red Cell Distribution Width 14.8 % (11.5-14.5) Platelet Count 234 x10^3/uL (140-400) Neutrophils (%) (Auto) 85 % (31-73) Lymphocytes (%) (Auto) 9 % (24-48) Monocytes (%) (Auto) 6 % (0-9) Eosinophils (%) (Auto) 0 % (0-3) Basophils (%) (Auto) 0 % (0-3) Neutrophils # (Auto) 8.3 x10^3uL (1.8-7.7) Lymphocytes # (Auto) 0.8 x10^3/uL (1.0-4.8) Monocytes # (Auto) 0.5 x10^3/uL (0.0-1.1) Eosinophils # (Auto) 0.0 x10^3/uL (0.0-0.7) Basophils # (Auto) 0.0 x10^3/uL (0.0-0.2) Segmented Neutrophils % 86 % (35-66) Band Neutrophils % 1 % (0-9) Lymphocytes % 10 % (24-48) Monocytes % 3 % (0-10) Platelet Estimate Adequate (ADEQUATE) Sodium Level 126 mmol/L (136-145) Potassium Level 4.6 mmol/L (3.5-5.1) Chloride Level 93 mmol/L (98-107) Carbon Dioxide Level 25 mmol/L (21-32) Anion Gap 8 (6-14) Blood Urea Nitrogen 15 mg/dL (7-20) Creatinine 0.8 mg/dL (0.6-1.0) Estimated GFR (Cockcroft-Gault) 70.3 BUN/Creatinine Ratio 19 (6-20) Glucose Level 111 mg/dL (70-99) Calcium Level 9.1 mg/dL (8.5-10.1) Total Bilirubin 0.4 mg/dL (0.2-1.0) Aspartate Amino Transf (AST/SGOT) 18 U/L (15-37) Alanine Aminotransferase (ALT/SGPT) 15 U/L (14-59) Alkaline Phosphatase 85 U/L (46-116) Troponin I Quantitative < 0.017 ng/mL (0.000-0.055) Total Protein 7.2 g/dL (6.4-8.2) Albumin 4.2 g/dL (3.4-5.0) Albumin/Globulin Ratio 1.4 (1.0-1.7) Lipase 171 U/L (73-393) Urine Collection Type Unknown Urine Color Yellow Urine Clarity Turbid Urine pH 5.5 Urine Specific [place] >=1.030 Urine Protein Negative mg/dL (NEG-TRACE) Urine Glucose (UA) Negative mg/dL (NEG) Urine Ketones (Stick) 40 mg/dL (NEG) Urine Blood Large (NEG) Urine Nitrite Negative (NEG) Urine Bilirubin Small (NEG) Urine Urobilinogen Dipstick 1.0 mg/dL (0.2 mg/dL) Urine Leukocyte Esterase Trace (NEG) Urine RBC 11-20 /HPF (0-2) Urine WBC 1-4 /HPF (0-4) Urine Squamous Epithelial Cells Mod /LPF Urine Bacteria Many /HPF (0-FEW) Urine Mucus Marked /LPF Glucose (Fingerstick) 96 mg/dL (70-99) Nasal Screen MRSA (PCR) Negative (Negative) Test 06/26/18 06:11 White Blood Count 4.8 x10^3/uL (4.0-11.0) Red Blood Count 3.84 x10^6/uL (3.50-5.40) Hemoglobin 10.6 g/dL (12.0-15.5) Hematocrit 32.2 % (36.0-47.0) Mean Corpuscular Volume 84 fL (79-100) Mean Corpuscular Hemoglobin 28 pg (25-35) Mean Corpuscular Hemoglobin Concent 33 g/dL (31-37) Red Cell Distribution Width 14.6 % (11.5-14.5) Platelet Count 197 x10^3/uL (140-400) Neutrophils (%) (Auto) 62 % (31-73) Lymphocytes (%) (Auto) 27 % (24-48) Monocytes (%) (Auto) 8 % (0-9) Eosinophils (%) (Auto) 2 % (0-3) Basophils (%) (Auto) 1 % (0-3) Neutrophils # (Auto) 3.0 x10^3uL (1.8-7.7) Lymphocytes # (Auto) 1.3 x10^3/uL (1.0-4.8) Monocytes # (Auto) 0.4 x10^3/uL (0.0-1.1) Eosinophils # (Auto) 0.1 x10^3/uL (0.0-0.7) Basophils # (Auto) 0.0 x10^3/uL (0.0-0.2) Sodium Level 134 mmol/L (136-145) Potassium Level 3.5 mmol/L (3.5-5.1) Chloride Level 99 mmol/L (98-107) Carbon Dioxide Level 27 mmol/L (21-32) Anion Gap 8 (6-14) Blood Urea Nitrogen 8 mg/dL (7-20) Creatinine 0.6 mg/dL (0.6-1.0) Estimated GFR (Cockcroft-Gault) 98.0 BUN/Creatinine Ratio 13 (6-20) Glucose Level 89 mg/dL (70-99) Calcium Level 8.3 mg/dL (8.5-10.1) Total Bilirubin 0.3 mg/dL (0.2-1.0) Aspartate Amino Transf (AST/SGOT) 17 U/L (15-37) Alanine Aminotransferase (ALT/SGPT) 11 U/L (14-59) Alkaline Phosphatase 66 U/L (46-116) Total Protein 6.2 g/dL (6.4-8.2) Albumin 2.9 g/dL (3.4-5.0) Albumin/Globulin Ratio 0.9 (1.0-1.7) Laboratory Tests Test 06/26/18 06:11 White Blood Count 4.8 x10^3/uL (4.0-11.0) Red Blood Count 3.84 x10^6/uL (3.50-5.40) Hemoglobin 10.6 g/dL (12.0-15.5) Hematocrit 32.2 % (36.0-47.0) Mean Corpuscular Volume 84 fL (79-100) Mean Corpuscular Hemoglobin 28 pg (25-35) Mean Corpuscular Hemoglobin Concent 33 g/dL (31-37) Red Cell Distribution Width 14.6 % (11.5-14.5) Platelet Count 197 x10^3/uL (140-400) Neutrophils (%) (Auto) 62 % (31-73) Lymphocytes (%) (Auto) 27 % (24-48) Monocytes (%) (Auto) 8 % (0-9) Eosinophils (%) (Auto) 2 % (0-3) Basophils (%) (Auto) 1 % (0-3) Neutrophils # (Auto) 3.0 x10^3uL (1.8-7.7) Lymphocytes # (Auto) 1.3 x10^3/uL (1.0-4.8) Monocytes # (Auto) 0.4 x10^3/uL (0.0-1.1) Eosinophils # (Auto) 0.1 x10^3/uL (0.0-0.7) Basophils # (Auto) 0.0 x10^3/uL (0.0-0.2) Sodium Level 134 mmol/L (136-145) Potassium Level 3.5 mmol/L (3.5-5.1) Chloride Level 99 mmol/L (98-107) Carbon Dioxide Level 27 mmol/L (21-32) Anion Gap 8 (6-14) Blood Urea Nitrogen 8 mg/dL (7-20) Creatinine 0.6 mg/dL (0.6-1.0) Estimated GFR (Cockcroft-Gault) 98.0 BUN/Creatinine Ratio 13 (6-20) Glucose Level 89 mg/dL (70-99) Calcium Level 8.3 mg/dL (8.5-10.1) Total Bilirubin 0.3 mg/dL (0.2-1.0) Aspartate Amino Transf (AST/SGOT) 17 U/L (15-37) Alanine Aminotransferase (ALT/SGPT) 11 U/L (14-59) Alkaline Phosphatase 66 U/L (46-116) Total Protein 6.2 g/dL (6.4-8.2) Albumin 2.9 g/dL (3.4-5.0) Albumin/Globulin Ratio 0.9 (1.0-1.7) Problem List Problems Medical Problems: (1) Mobile cecum Status: Acute (2) Vomiting Status: Acute Assessment/Plan Gi workup MAGDALENO LANE MD 06/26/18 1417: SURGICAL PROGRESS NOTE Assessment/Plan Pt seen and examined. Agree with Ms. Dangelo's note Pt without new c/o, some reflux abd soft, NTTP cont w/u per GI LEONOR DANGELO APRN Jun 26, 2018 10:[address] MD Jun 26, 2018 14:17
--- NOTE | 2018-06-26 10:54 | PDOC ---
PROGRESS NOTES Chief Complaint Chief Complaint Abnormal abdominal CT: floppy cecum, small to moderate hernia, diverticulosis UTI: many bacteria, trace LE Nausea and Vomiting - resolved History of Present Illness History of Present Illness Patient seen and examined at bedside, just returned from gastric emptying study. Patient resting in NAD and has no new complaints. Nausea and vomiting has resolved. Upper GI Xray scheduled for later today. GI following. Patient feels like she is able to ambulate well with her walker. Vitals Vitals Vital Signs Date Time Temp Pulse Resp B/P (MAP) Pulse Ox O2 Delivery O2 Flow Rate FiO2 06/26/18 08:00 Room Air 06/26/18 07:00 98.0 72 18 157/81 (106) 98 98.0 Physical Exam General: Alert, Oriented X3, Cooperative, No acute distress Heart: Regular rate, No murmurs Lungs: Clear, Other Abdomen: Normal bowel sounds, Soft, No tenderness Extremities: No clubbing, No cyanosis Skin: No rashes, No breakdown Labs LABS Laboratory Tests Test 06/26/18 06:11 White Blood Count 4.8 x10^3/uL (4.0-11.0) Red Blood Count 3.84 x10^6/uL (3.50-5.40) Hemoglobin 10.6 g/dL (12.0-15.5) Hematocrit 32.2 % (36.0-47.0) Mean Corpuscular Volume 84 fL (79-100) Mean Corpuscular Hemoglobin 28 pg (25-35) Mean Corpuscular Hemoglobin Concent 33 g/dL (31-37) Red Cell Distribution Width 14.6 % (11.5-14.5) Platelet Count 197 x10^3/uL (140-400) Neutrophils (%) (Auto) 62 % (31-73) Lymphocytes (%) (Auto) 27 % (24-48) Monocytes (%) (Auto) 8 % (0-9) Eosinophils (%) (Auto) 2 % (0-3) Basophils (%) (Auto) 1 % (0-3) Neutrophils # (Auto) 3.0 x10^3uL (1.8-7.7) Lymphocytes # (Auto) 1.3 x10^3/uL (1.0-4.8) Monocytes # (Auto) 0.4 x10^3/uL (0.0-1.1) Eosinophils # (Auto) 0.1 x10^3/uL (0.0-0.7) Basophils # (Auto) 0.0 x10^3/uL (0.0-0.2) Sodium Level 134 mmol/L (136-145) Potassium Level 3.5 mmol/L (3.5-5.1) Chloride Level 99 mmol/L (98-107) Carbon Dioxide Level 27 mmol/L (21-32) Anion Gap 8 (6-14) Blood Urea Nitrogen 8 mg/dL (7-20) Creatinine 0.6 mg/dL (0.6-1.0) Estimated GFR (Cockcroft-Gault) 98.0 BUN/Creatinine Ratio 13 (6-20) Glucose Level 89 mg/dL (70-99) Calcium Level 8.3 mg/dL (8.5-10.1) Total Bilirubin 0.3 mg/dL (0.2-1.0) Aspartate Amino Transf (AST/SGOT) 17 U/L (15-37) Alanine Aminotransferase (ALT/SGPT) 11 U/L (14-59) Alkaline Phosphatase 66 U/L (46-116) Total Protein 6.2 g/dL (6.4-8.2) Albumin 2.9 g/dL (3.4-5.0) Albumin/Globulin Ratio 0.9 (1.0-1.7) Review of Systems Review of Systems Denies chest pain Denies nausea Denies vomiting Assessment and Plan Assessmemt and Plan Problems Medical Problems: (1) Mobile cecum Status: Acute (2) Vomiting Status: Acute Assessment: Abnormal abdominal CT: floppy cecum, small to moderate hernia, diverticulosis UTI: many bacteria, trace LE Nausea and Vomiting - resolved Plan: Appreciate GI input, Xrays scheduled for today Awaiting upper GI xray and gastric emptying study Continue ceftriaxone for UTI SNU eval PT/OT Continue home meds Continue IVF Review labs in the am Comment Review of Relevant I have reviewed the following items kyler (where applicable) has been applied. Labs Laboratory Tests Test 06/24/18 17:24 06/24/18 19:30 06/25/18 02:38 06/25/18 02:49 White Blood Count 9.8 x10^3/uL (4.0-11.0) Red Blood Count 4.44 x10^6/uL (3.50-5.40) Hemoglobin 12.2 g/dL (12.0-15.5) Hematocrit 37.3 % (36.0-47.0) Mean Corpuscular Volume 84 fL (79-100) Mean Corpuscular Hemoglobin 27 pg (25-35) Mean Corpuscular Hemoglobin Concent 33 g/dL (31-37) Red Cell Distribution Width 14.8 % (11.5-14.5) Platelet Count 234 x10^3/uL (140-400) Neutrophils (%) (Auto) 85 % (31-73) Lymphocytes (%) (Auto) 9 % (24-48) Monocytes (%) (Auto) 6 % (0-9) Eosinophils (%) (Auto) 0 % (0-3) Basophils (%) (Auto) 0 % (0-3) Neutrophils # (Auto) 8.3 x10^3uL (1.8-7.7) Lymphocytes # (Auto) 0.8 x10^3/uL (1.0-4.8) Monocytes # (Auto) 0.5 x10^3/uL (0.0-1.1) Eosinophils # (Auto) 0.0 x10^3/uL (0.0-0.7) Basophils # (Auto) 0.0 x10^3/uL (0.0-0.2) Segmented Neutrophils % 86 % (35-66) Band Neutrophils % 1 % (0-9) Lymphocytes % 10 % (24-48) Monocytes % 3 % (0-10) Platelet Estimate Adequate (ADEQUATE) Sodium Level 126 mmol/L (136-145) Potassium Level 4.6 mmol/L (3.5-5.1) Chloride Level 93 mmol/L (98-107) Carbon Dioxide Level 25 mmol/L (21-32) Anion Gap 8 (6-14) Blood Urea Nitrogen 15 mg/dL (7-20) Creatinine 0.8 mg/dL (0.6-1.0) Estimated GFR (Cockcroft-Gault) 70.3 BUN/Creatinine Ratio 19 (6-20) Glucose Level 111 mg/dL (70-99) Calcium Level 9.1 mg/dL (8.5-10.1) Total Bilirubin 0.4 mg/dL (0.2-1.0) Aspartate Amino Transf (AST/SGOT) 18 U/L (15-37) Alanine Aminotransferase (ALT/SGPT) 15 U/L (14-59) Alkaline Phosphatase 85 U/L (46-116) Troponin I Quantitative < 0.017 ng/mL (0.000-0.055) Total Protein 7.2 g/dL (6.4-8.2) Albumin 4.2 g/dL (3.4-5.0) Albumin/Globulin Ratio 1.4 (1.0-1.7) Lipase 171 U/L (73-393) Urine Collection Type Unknown Urine Color Yellow Urine Clarity Turbid Urine pH 5.5 Urine Specific House >=1.030 Urine Protein Negative mg/dL (NEG-TRACE) Urine Glucose (UA) Negative mg/dL (NEG) Urine Ketones (Stick) 40 mg/dL (NEG) Urine Blood Large (NEG) Urine Nitrite Negative (NEG) Urine Bilirubin Small (NEG) Urine Urobilinogen Dipstick 1.0 mg/dL (0.2 mg/dL) Urine Leukocyte Esterase Trace (NEG) Urine RBC 11-20 /HPF (0-2) Urine WBC 1-4 /HPF (0-4) Urine Squamous Epithelial Cells Mod /LPF Urine Bacteria Many /HPF (0-FEW) Urine Mucus Marked /LPF Glucose (Fingerstick) 96 mg/dL (70-99) Nasal Screen MRSA (PCR) Negative (Negative) Test 06/26/18 06:11 White Blood Count 4.8 x10^3/uL (4.0-11.0) Red Blood Count 3.84 x10^6/uL (3.50-5.40) Hemoglobin 10.6 g/dL (12.0-15.5) Hematocrit 32.2 % (36.0-47.0) Mean Corpuscular Volume 84 fL (79-100) Mean Corpuscular Hemoglobin 28 pg (25-35) Mean Corpuscular Hemoglobin Concent 33 g/dL (31-37) Red Cell Distribution Width 14.6 % (11.5-14.5) Platelet Count 197 x10^3/uL (140-400) Neutrophils (%) (Auto) 62 % (31-73) Lymphocytes (%) (Auto) 27 % (24-48) Monocytes (%) (Auto) 8 % (0-9) Eosinophils (%) (Auto) 2 % (0-3) Basophils (%) (Auto) 1 % (0-3) Neutrophils # (Auto) 3.0 x10^3uL (1.8-7.7) Lymphocytes # (Auto) 1.3 x10^3/uL (1.0-4.8) Monocytes # (Auto) 0.4 x10^3/uL (0.0-1.1) Eosinophils # (Auto) 0.1 x10^3/uL (0.0-0.7) Basophils # (Auto) 0.0 x10^3/uL (0.0-0.2) Sodium Level 134 mmol/L (136-145) Potassium Level 3.5 mmol/L (3.5-5.1) Chloride Level 99 mmol/L (98-107) Carbon Dioxide Level 27 mmol/L (21-32) Anion Gap 8 (6-14) Blood Urea Nitrogen 8 mg/dL (7-20) Creatinine 0.6 mg/dL (0.6-1.0) Estimated GFR (Cockcroft-Gault) 98.0 BUN/Creatinine Ratio 13 (6-20) Glucose Level 89 mg/dL (70-99) Calcium Level 8.3 mg/dL (8.5-10.1) Total Bilirubin 0.3 mg/dL (0.2-1.0) Aspartate Amino Transf (AST/SGOT) 17 U/L (15-37) Alanine Aminotransferase (ALT/SGPT) 11 U/L (14-59) Alkaline Phosphatase 66 U/L (46-116) Total Protein 6.2 g/dL (6.4-8.2) Albumin 2.9 g/dL (3.4-5.0) Albumin/Globulin Ratio 0.9 (1.0-1.7) Laboratory Tests Test 06/26/18 06:11 White Blood Count 4.8 x10^3/uL (4.0-11.0) Red Blood Count 3.84 x10^6/uL (3.50-5.40) Hemoglobin 10.6 g/dL (12.0-15.5) Hematocrit 32.2 % (36.0-47.0) Mean Corpuscular Volume 84 fL (79-100) Mean Corpuscular Hemoglobin 28 pg (25-35) Mean Corpuscular Hemoglobin Concent 33 g/dL (31-37) Red Cell Distribution Width 14.6 % (11.5-14.5) Platelet Count 197 x10^3/uL (140-400) Neutrophils (%) (Auto) 62 % (31-73) Lymphocytes (%) (Auto) 27 % (24-48) Monocytes (%) (Auto) 8 % (0-9) Eosinophils (%) (Auto) 2 % (0-3) Basophils (%) (Auto) 1 % (0-3) Neutrophils # (Auto) 3.0 x10^3uL (1.8-7.7) Lymphocytes # (Auto) 1.3 x10^3/uL (1.0-4.8) Monocytes # (Auto) 0.4 x10^3/uL (0.0-1.1) Eosinophils # (Auto) 0.1 x10^3/uL (0.0-0.7) Basophils # (Auto) 0.0 x10^3/uL (0.0-0.2) Sodium Level 134 mmol/L (136-145) Potassium Level 3.5 mmol/L (3.5-5.1) Chloride Level 99 mmol/L (98-107) Carbon Dioxide Level 27 mmol/L (21-32) Anion Gap 8 (6-14) Blood Urea Nitrogen 8 mg/dL (7-20) Creatinine 0.6 mg/dL (0.6-1.0) Estimated GFR (Cockcroft-Gault) 98.0 BUN/Creatinine Ratio 13 (6-20) Glucose Level 89 mg/dL (70-99) Calcium Level 8.3 mg/dL (8.5-10.1) Total Bilirubin 0.3 mg/dL (0.2-1.0) Aspartate Amino Transf (AST/SGOT) 17 U/L (15-37) Alanine Aminotransferase (ALT/SGPT) 11 U/L (14-59) Alkaline Phosphatase 66 U/L (46-116) Total Protein 6.2 g/dL (6.4-8.2) Albumin 2.9 g/dL (3.4-5.0) Albumin/Globulin Ratio 0.9 (1.0-1.7) Medications Current Medications Sodium Chloride 1,000 ml @ 1,000 mls/hr Q1H IV Last administered on 06/24/18 18:27; Start 06/24/18 at 16:10; Stop 06/24/18 at 17:09; Status DC Ondansetron HCl (Zofran) 4 mg 1X ONCE IV Last administered on 06/24/18 18:27 ; Start 06/24/18 at 16:15; Stop 06/24/18 at 16:16; Status DC Pantoprazole Sodium (PROTONIX VIAL for IV PUSH) 40 mg 1X ONCE IVP Last administered on 06/24/18 18:27; Start 06/24/18 at 16:45; Stop 06/24/18 at 16:48 ; Status DC Iohexol (Omnipaque 300 Mg/ml) 75 ml 1X ONCE IV Last administered on 06/24/18 18:29; Start 06/24/18 at 18:30; Stop 06/24/18 at 18:31; Status DC Info (CONTRAST GIVEN -- Rx MONITORING) 1 each PRN DAILY PRN MC SEE COMMENTS; Start 06/24/18 at 18:30; Stop 06/26/18 at 18:29 Ceftriaxone Sodium (Rocephin) 1 gm 1X ONCE IVP Last administered on 06/24/18at 20:48; Start 06/24/18 at 20:45; Stop 06/24/18 at 20:46; Status DC Ondansetron HCl (Zofran) 4 mg PRN Q8HRS PRN IV NAUSEA/VOMITING Last administered on 06/25/18at 19:14; Start 06/25/18 at 00:45; Stop 06/26/18 at 00:44 ; Status DC Fentanyl Citrate (Fentanyl 2ml Vial) 50 mcg PRN Q1HR PRN IV PAIN; Start at 00:45; Stop 06/26/18 at 00:44; Status DC Acetaminophen (Tylenol) 650 mg PRN Q4HRS PRN PO FEVER; Start 06/25/18 at 00:45 ; Stop 06/26/18 at 00:44; Status DC Sodium Chloride 1,000 ml @ 75 mls/hr [id number] IV Last administered on at 05:39; Start 06/25/18 at 09:30 Ceftriaxone Sodium (Rocephin) 1 gm Q24H IVP Last administered on 06/25/18 22: 24; Start 06/25/18 at 21:00 Lisinopril (Prinivil) 10 mg DAILY PO ; Start 06/26/18 at 09:00 Levothyroxine Sodium (Synthroid) 50 mcg DAILY06 PO ; Start 06/26/18 at 06:00 Atorvastatin Calcium (Lipitor) 10 mg QHS PO Last administered on 06/25/18at 22: 23; Start 06/25/18 at 21:00 Multivitamins (Thera M Plus) 1 tab DAILY PO ; Start 06/26/18 at 09:00 Pantoprazole Sodium (Protonix) 40 mg DAILYAC PO ; Start 06/26/18 at 07:30 Paroxetine HCl (Paxil) 30 mg DAILY PO ; Start 06/26/18 at 09:00 Lactobacillus Rhamnosus (Culturelle) 1 cap BID PO Last administered on at 22:23; Start 06/25/18 at 21:00 Calcium Carbonate/ Glycine (Tums) 1,000 mg PRN AFTMEALHC PRN PO INDIGESTION Last administered on 06/25/18at 22:23; Start 06/25/18 at 20:45 Active Scripts Active Reported Lisinopril 10 Mg Tablet 1 Tab PO DAILY Multivitamins (Multivitamin) 1 Each Tablet 1 Tab PO DAILY Prilosec (Omeprazole) 20 Mg Capsule.dr 1 Cap PO DAILY Tylenol Extra Strength (Acetaminophen) 500 Mg Tablet 500 Mg PO Lovastatin 40 Mg Tablet 40 Mg PO HS Paroxetine Hcl 30 Mg Tablet 30 Mg PO DAILY Levothyroxine Sodium 50 Mcg Tablet 50 Mcg PO DAILYAC Vitals/I & O Vital Sign - Last 24 Hours 06/25/18 06/25/18 06/25/18 06/25/18 11:00 15:00 19:00 20:00 Temp 98.5 98.1 98.3 98.5 98.1 98.3 Pulse 68 75 70 Resp 17 17 16 B/P (MAP) 132/72 (92) 125/58 (80) 115/56 (75) Pulse Ox 98 98 98 O2 Delivery Room Air Room Air Room Air Room Air 06/25/18 06/26/18 06/26/18 06/26/18 22:50 03:00 07:00 08:00 Temp 98.1 98.9 98.0 98.1 98.9 98.0 Pulse 69 66 72 Resp 16 18 18 B/P (MAP) 132/68 (89) 124/76 (92) 157/81 (106) Pulse Ox 96 94 98 O2 Delivery Room Air Room Air Room Air Room Air Intake and Output 06/25/18 06/25/18 06/26/18 15:00 23:00 07:00 Intake Total 350 ml 125 ml Balance 350 ml 125 ml ARIANNA LUCAS III DO Jun 26, 2018 10:54
--- NOTE | 2018-06-26 13:28 | PDOC ---
Subjective: Subjective: GES in process. Feels okay except has heartburn. Denies abd pain. Stooled early yesterday morning. Objective: Vital Signs: Vital Signs Date Time Temp Pulse Resp B/P (MAP) Pulse Ox O2 Delivery O2 Flow Rate FiO2 06/26/18 08:00 Room Air 06/26/18 07:00 98.0 72 18 157/81 (106) 98 98.0 Labs: Laboratory Tests Test 06/26/18 06:11 White Blood Count 4.8 x10^3/uL Red Blood Count 3.84 x10^6/uL Hemoglobin 10.6 g/dL Hematocrit 32.2 % Mean Corpuscular Volume 84 fL Mean Corpuscular Hemoglobin 28 pg Mean Corpuscular Hemoglobin Concent 33 g/dL Red Cell Distribution Width 14.6 % Platelet Count 197 x10^3/uL Neutrophils (%) (Auto) 62 % Lymphocytes (%) (Auto) 27 % Monocytes (%) (Auto) 8 % Eosinophils (%) (Auto) 2 % Basophils (%) (Auto) 1 % Neutrophils # (Auto) 3.0 x10^3uL Lymphocytes # (Auto) 1.3 x10^3/uL Monocytes # (Auto) 0.4 x10^3/uL Eosinophils # (Auto) 0.1 x10^3/uL Basophils # (Auto) 0.0 x10^3/uL Sodium Level 134 mmol/L Potassium Level 3.5 mmol/L Chloride Level 99 mmol/L Carbon Dioxide Level 27 mmol/L Anion Gap 8 Blood Urea Nitrogen 8 mg/dL Creatinine 0.6 mg/dL Estimated GFR (Cockcroft-Gault) 98.0 BUN/Creatinine Ratio 13 Glucose Level 89 mg/dL Calcium Level 8.3 mg/dL Total Bilirubin 0.3 mg/dL Aspartate Amino Transf (AST/SGOT) 17 U/L Alanine Aminotransferase (ALT/SGPT) 11 U/L Alkaline Phosphatase 66 U/L Total Protein 6.2 g/dL Albumin 2.9 g/dL Albumin/Globulin Ratio 0.9 Imaging: CT A/P IMPRESSION: 1. Cecum is deviated to the left upper quadrant, previously somewhat more centrally located, evidence of floppy cecum. Bowel is not significantly dilated. Appendix cannot be confidently identified. There is colonic diverticulosis greatest of the sigmoid colon without obvious evidence of diverticulitis. There is small to moderate size hiatal hernia. PE: GEN: NAD LUNGS: CTAB HEART: RRR ABD: NABS, S/ND/NT NEURO/PSYCH: A & O 3 A/P: N/v, weight loss Heartburn - on PPI here and at home Anemia Abnormal CT - "floppy cecum" -- Await GES. If unrevealing, consider UGI as next step prior to possible EGD and/ or colonoscopy. Continue PPI - will increase to BID. Check anemia parameters for completeness. BRENDA TAPIA Jun 26, 2018 13:28 JULIO STEPHENS MD Jun 26, 2018 13:32
[2018-06-26] MEDS ORDERED: POLYETHYLENE GLYCOL 3350 17 GM PACKET. PO PRN (13:30)
--- NOTE | 2018-06-26 14:25 | RAD ---
Radionuclide gastric emptying study, 06/26/2018: HISTORY: Nausea and vomiting for 3 weeks The study was performed utilizing a solid test meal radiolabeled with 2 mCi of technetium 99m sulfur colloid. The following gastric retention values were obtained: 1 hour- 51 percent (normal is less than 60 percent) 2 hours- 46 percent ( normal is less than 60 percent) 3 hours- 26 percent (normal is less than 30 percent) 4 hours- 16 percent (normal is less than 10 percent) A normal gastric T1/2 of 71 minutes was also calculated. IMPRESSION: Slightly increased retention of gastric contents at 4 hours as described above. Electronically signed by: Natanael Trevino MD (06/26/2018 2:22 PM) [facility]
[2018-06-26 15:00] VITALS: BP 146/72
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
[2018-06-26] MEDS: PANTOPRAZOLE 40 MG TABLET.DR. PO SCH (16:38)
[2018-06-26 19:00] VITALS: BP 121/68
[2018-06-26] MEDS: CALCIUM CARBONATE 500 MG TAB.CHEW PO PRN (19:57)
[2018-06-26] MEDS: ATORVASTATIN CALCIUM 10 MG TABLET. PO SCH (21:18)
[2018-06-26] MEDS: cefTRIAXone IV Push 1 GM VIAL. IVP SCH (21:18)
[2018-06-26 23:00] VITALS: BP 134/68
[2018-06-27] MEDS: IV NORMAL SALINE 1000ML BAG 1,000 ML IV SCH ×2 (02:58→17:19)
[2018-06-27 03:00] VITALS: BP 166/79
[2018-06-27] MEDS: LEVOTHYROXINE 50 MCG TABLET PO SCH (05:31)
--- NOTE | 2018-06-27 05:50 | NUR ---
RN paged MD regarding pain meds for patient due to stomach cramping/pain.
[2018-06-27] MEDS: PANTOPRAZOLE 40 MG TABLET.DR. PO SCH ×2 (06:35→16:30)
[2018-06-27 07:00] VITALS: BP 128/70
[2018-06-27] MEDS ORDERED: BARIUM SULFATE 60% 355 ML SUSP PO ONE (07:45)
[2018-06-27] MEDS ORDERED: SIMETHICONE/SOD BICARB/CITRIC ACID PACKET. PO ONE (07:45)
[2018-06-27] MEDS ORDERED: BARIUM SULFATE 340 GM SUSPENSION. PO ONE (07:45)
[2018-06-27 08:45] LABS: BASO % 1 % (0-3); EOS # 0.1 x10^3/uL (0.0-0.7); EOS % 2 % (0-3); HEMATOCRIT 35.4 % (36.0-47.0); HEMOGLOBIN 11.5 g/dL (12.0-15.5); LYMPH # 1.4 x10^3/uL (1.0-4.8); LYMPH % 26 % (24-48); MEAN CORPUSCULAR HEMOGLOBIN 28 pg (25-35); MEAN CORPUSCULAR HGB CONC 33 g/dL (31-37); MEAN CORPUSCULAR VOLUME 85 fL (79-100); MONO # 0.4 x10^3/uL (0.0-1.1); MONO % 7 % (0-9); NEUT # 3.5 x10^3uL (1.8-7.7); NEUT % 65 % (31-73); PLATELET COUNT 218 x10^3/uL (140-400); RED BLOOD COUNT 4.19 x10^6/uL (3.50-5.40); RED CELL DISTRIBUTION WIDTH 15.1 % (11.5-14.5); WHITE BLOOD COUNT 5.4 x10^3/uL (4.0-11.0)
[2018-06-27] MEDS: LACTOBACILLUS RHAMNOSUS GG 1 CAPSULE. PO SCH ×2 (09:06→21:33)
[2018-06-27] MEDS: MULTIVITAMIN with MINERAL TABLET. PO SCH (09:06)
[2018-06-27] MEDS: LISINOPRIL 10 MG TABLET PO SCH (09:07)
[2018-06-27 09:08] LABS: ALBUMIN 3.4 g/dL (3.4-5.0); CALCIUM 8.7 mg/dL (8.5-10.1); CREATININE 0.7 mg/dL (0.6-1.0); POTASSIUM 3.6 mmol/L (3.5-5.1); TOTAL BILIRUBIN 0.2 mg/dL (0.2-1.0); TOTAL PROTEIN 6.7 g/dL (6.4-8.2)
[2018-06-27] MEDS: PARoxetine 10 MG TABLET PO SCH (09:08)
--- NOTE | 2018-06-27 09:35 | PDOC ---
LEONOR DANGELO GAS [employer]TER 06/27/18 0935: SURGICAL PROGRESS NOTE Subjective continued upper abdominal pain Vital Signs Vital Signs Date Time Temp Pulse Resp B/P (MAP) Pulse Ox O2 Delivery O2 Flow Rate FiO2 06/27/18 09:07 90 128/70 06/27/18 07:00 98.0 18 96 Room Air 98.0 General: Alert, Oriented X3, Cooperative, No acute distress Abdomen: Soft, Other (TTP upper abdomen) Labs Laboratory Tests Test 06/26/18 06:11 06/27/18 07:47 White Blood Count 4.8 x10^3/uL (4.0-11.0) 5.4 x10^3/uL (4.0-11.0) Red Blood Count 3.84 x10^6/uL (3.50-5.40) 4.19 x10^6/uL (3.50-5.40) Hemoglobin 10.6 g/dL (12.0-15.5) 11.5 g/dL (12.0-15.5) Hematocrit 32.2 % (36.0-47.0) 35.4 % (36.0-47.0) Mean Corpuscular Volume 84 fL (79-100) 85 fL (79-100) Mean Corpuscular Hemoglobin 28 pg (25-35) 28 pg (25-35) Mean Corpuscular Hemoglobin Concent 33 g/dL (31-37) 33 g/dL (31-37) Red Cell Distribution Width 14.6 % (11.5-14.5) 15.1 % (11.5-14.5) Platelet Count 197 x10^3/uL (140-400) 218 x10^3/uL (140-400) Neutrophils (%) (Auto) 62 % (31-73) 65 % (31-73) Lymphocytes (%) (Auto) 27 % (24-48) 26 % (24-48) Monocytes (%) (Auto) 8 % (0-9) 7 % (0-9) Eosinophils (%) (Auto) 2 % (0-3) 2 % (0-3) Basophils (%) (Auto) 1 % (0-3) 1 % (0-3) Neutrophils # (Auto) 3.0 x10^3uL (1.8-7.7) 3.5 x10^3uL (1.8-7.7) Lymphocytes # (Auto) 1.3 x10^3/uL (1.0-4.8) 1.4 x10^3/uL (1.0-4.8) Monocytes # (Auto) 0.4 x10^3/uL (0.0-1.1) 0.4 x10^3/uL (0.0-1.1) Eosinophils # (Auto) 0.1 x10^3/uL (0.0-0.7) 0.1 x10^3/uL (0.0-0.7) Basophils # (Auto) 0.0 x10^3/uL (0.0-0.2) 0.0 x10^3/uL (0.0-0.2) Reticulocyte Count (auto) 1.3 % (0.5-2.5) Sodium Level 134 mmol/L (136-145) 135 mmol/L (136-145) Potassium Level 3.5 mmol/L (3.5-5.1) 3.6 mmol/L (3.5-5.1) Chloride Level 99 mmol/L (98-107) 98 mmol/L (98-107) Carbon Dioxide Level 27 mmol/L (21-32) 28 mmol/L (21-32) Anion Gap 8 (6-14) 9 (6-14) Blood Urea Nitrogen 8 mg/dL (7-20) 5 mg/dL (7-20) Creatinine 0.6 mg/dL (0.6-1.0) 0.7 mg/dL (0.6-1.0) Estimated GFR (Cockcroft-Gault) 98.0 82.0 BUN/Creatinine Ratio 13 (6-20) 7 (6-20) Glucose Level 89 mg/dL (70-99) 83 mg/dL (70-99) Calcium Level 8.3 mg/dL (8.5-10.1) 8.7 mg/dL (8.5-10.1) Iron Level 35 ug/dL (50-170) Total Iron Binding Capacity 247 ug/dL (250-450) Iron Saturation 14 % (15-34) Total Bilirubin 0.3 mg/dL (0.2-1.0) 0.2 mg/dL (0.2-1.0) Aspartate Amino Transf (AST/SGOT) 17 U/L (15-37) 20 U/L (15-37) Alanine Aminotransferase (ALT/SGPT) 11 U/L (14-59) 10 U/L (14-59) Alkaline Phosphatase 66 U/L (46-116) 72 U/L (46-116) Total Protein 6.2 g/dL (6.4-8.2) 6.7 g/dL (6.4-8.2) Albumin 2.9 g/dL (3.4-5.0) 3.4 g/dL (3.4-5.0) Albumin/Globulin Ratio 0.9 (1.0-1.7) 1.0 (1.0-1.7) Vitamin B12 Level 1341 pg/mL (247-911) Laboratory Tests Test 06/27/18 07:47 White Blood Count 5.4 x10^3/uL (4.0-11.0) Red Blood Count 4.19 x10^6/uL (3.50-5.40) Hemoglobin 11.5 g/dL (12.0-15.5) Hematocrit 35.4 % (36.0-47.0) Mean Corpuscular Volume 85 fL (79-100) Mean Corpuscular Hemoglobin 28 pg (25-35) Mean Corpuscular Hemoglobin Concent 33 g/dL (31-37) Red Cell Distribution Width 15.1 % (11.5-14.5) Platelet Count 218 x10^3/uL (140-400) Neutrophils (%) (Auto) 65 % (31-73) Lymphocytes (%) (Auto) 26 % (24-48) Monocytes (%) (Auto) 7 % (0-9) Eosinophils (%) (Auto) 2 % (0-3) Basophils (%) (Auto) 1 % (0-3) Neutrophils # (Auto) 3.5 x10^3uL (1.8-7.7) Lymphocytes # (Auto) 1.4 x10^3/uL (1.0-4.8) Monocytes # (Auto) 0.4 x10^3/uL (0.0-1.1) Eosinophils # (Auto) 0.1 x10^3/uL (0.0-0.7) Basophils # (Auto) 0.0 x10^3/uL (0.0-0.2) Sodium Level 135 mmol/L (136-145) Potassium Level 3.6 mmol/L (3.5-5.1) Chloride Level 98 mmol/L (98-107) Carbon Dioxide Level 28 mmol/L (21-32) Anion Gap 9 (6-14) Blood Urea Nitrogen 5 mg/dL (7-20) Creatinine 0.7 mg/dL (0.6-1.0) Estimated GFR (Cockcroft-Gault) 82.0 BUN/Creatinine Ratio 7 (6-20) Glucose Level 83 mg/dL (70-99) Calcium Level 8.7 mg/dL (8.5-10.1) Total Bilirubin 0.2 mg/dL (0.2-1.0) Aspartate Amino Transf (AST/SGOT) 20 U/L (15-37) Alanine Aminotransferase (ALT/SGPT) 10 U/L (14-59) Alkaline Phosphatase 72 U/L (46-116) Total Protein 6.7 g/dL (6.4-8.2) Albumin 3.4 g/dL (3.4-5.0) Albumin/Globulin Ratio 1.0 (1.0-1.7) Problem List Problems Medical Problems: (1) Mobile cecum Status: Acute (2) Vomiting Status: Acute Assessment/Plan noted upper GI planned work up per GI MAGDALENO LANE MD 06/27/18 1549: SURGICAL PROGRESS NOTE Assessment/Plan Pt seen and examined. Agree with Ms. Dangelo's note Pt with c/o mild abd upset abd soft, NTTP cont w/u per GI LEONOR DANGELO APRN Jun 27, 2018 09:[address] MD Jun 27, 2018 15:49
--- NOTE | 2018-06-27 10:47 | NUR ---
SW following. Discussed with RN, pt having procedure tomorrow. Will discharge home to [facility], with [facility] . SW will continue to follow.
[2018-06-27 11:00] VITALS: BP 147/79
--- NOTE | 2018-06-27 11:25 | PDOC ---
PROGRESS NOTES Chief Complaint Chief Complaint Abnormal abdominal CT: floppy cecum, small to moderate hernia, diverticulosis UTI: many bacteria, trace LE Nausea and Vomiting - resolved History of Present Illness History of Present Illness Patient seen and examined at bedside, patient was scheduled for Upper GI series today. Patient resting in NAD and has no new complaints. Nausea and vomiting has resolved.GI following. She has no new complaints. Discussed case with GI, upper GI series likely later today or tomorrow, patient is not NPO Vitals Vitals Vital Signs Date Time Temp Pulse Resp B/P (MAP) Pulse Ox O2 Delivery O2 Flow Rate FiO2 06/27/18 09:07 90 128/70 06/27/18 07:00 98.0 18 96 Room Air 98.0 Physical Exam General: Alert, Oriented X3, Cooperative, No acute distress Heart: Regular rate, No murmurs Lungs: Clear, Other Abdomen: Normal bowel sounds, Soft, Other (tender L and R upper quadrants) Extremities: No clubbing, No cyanosis, No edema Skin: No rashes, No breakdown, No significant lesion Labs LABS Laboratory Tests Test 06/27/18 07:47 White Blood Count 5.4 x10^3/uL (4.0-11.0) Red Blood Count 4.19 x10^6/uL (3.50-5.40) Hemoglobin 11.5 g/dL (12.0-15.5) Hematocrit 35.4 % (36.0-47.0) Mean Corpuscular Volume 85 fL (79-100) Mean Corpuscular Hemoglobin 28 pg (25-35) Mean Corpuscular Hemoglobin Concent 33 g/dL (31-37) Red Cell Distribution Width 15.1 % (11.5-14.5) Platelet Count 218 x10^3/uL (140-400) Neutrophils (%) (Auto) 65 % (31-73) Lymphocytes (%) (Auto) 26 % (24-48) Monocytes (%) (Auto) 7 % (0-9) Eosinophils (%) (Auto) 2 % (0-3) Basophils (%) (Auto) 1 % (0-3) Neutrophils # (Auto) 3.5 x10^3uL (1.8-7.7) Lymphocytes # (Auto) 1.4 x10^3/uL (1.0-4.8) Monocytes # (Auto) 0.4 x10^3/uL (0.0-1.1) Eosinophils # (Auto) 0.1 x10^3/uL (0.0-0.7) Basophils # (Auto) 0.0 x10^3/uL (0.0-0.2) Sodium Level 135 mmol/L (136-145) Potassium Level 3.6 mmol/L (3.5-5.1) Chloride Level 98 mmol/L (98-107) Carbon Dioxide Level 28 mmol/L (21-32) Anion Gap 9 (6-14) Blood Urea Nitrogen 5 mg/dL (7-20) Creatinine 0.7 mg/dL (0.6-1.0) Estimated GFR (Cockcroft-Gault) 82.0 BUN/Creatinine Ratio 7 (6-20) Glucose Level 83 mg/dL (70-99) Calcium Level 8.7 mg/dL (8.5-10.1) Total Bilirubin 0.2 mg/dL (0.2-1.0) Aspartate Amino Transf (AST/SGOT) 20 U/L (15-37) Alanine Aminotransferase (ALT/SGPT) 10 U/L (14-59) Alkaline Phosphatase 72 U/L (46-116) Total Protein 6.7 g/dL (6.4-8.2) Albumin 3.4 g/dL (3.4-5.0) Albumin/Globulin Ratio 1.0 (1.0-1.7) Review of Systems Review of Systems Reports stomach cramping Denies nausea, vomiting Assessment and Plan Assessmemt and Plan Problems Medical Problems: (1) Mobile cecum Status: Acute (2) Vomiting Status: Acute Assessment: Abnormal abdominal CT: floppy cecum, small to moderate hernia, diverticulosis UTI: many bacteria, trace LE Nausea and Vomiting - resolved Plan: Continue ceftriaxone Continue IVF Reviewed GES showed slightly increased retention of gastric contents at 4 hours Possible upper GI series later today Patient would like to discharge home with home health Review labs in the am PT/OT Comment Review of Relevant I have reviewed the following items kyler (where applicable) has been applied. Labs Laboratory Tests Test 06/26/18 06:11 06/27/18 07:47 White Blood Count 4.8 x10^3/uL (4.0-11.0) 5.4 x10^3/uL (4.0-11.0) Red Blood Count 3.84 x10^6/uL (3.50-5.40) 4.19 x10^6/uL (3.50-5.40) Hemoglobin 10.6 g/dL (12.0-15.5) 11.5 g/dL (12.0-15.5) Hematocrit 32.2 % (36.0-47.0) 35.4 % (36.0-47.0) Mean Corpuscular Volume 84 fL (79-100) 85 fL (79-100) Mean Corpuscular Hemoglobin 28 pg (25-35) 28 pg (25-35) Mean Corpuscular Hemoglobin Concent 33 g/dL (31-37) 33 g/dL (31-37) Red Cell Distribution Width 14.6 % (11.5-14.5) 15.1 % (11.5-14.5) Platelet Count 197 x10^3/uL (140-400) 218 x10^3/uL (140-400) Neutrophils (%) (Auto) 62 % (31-73) 65 % (31-73) Lymphocytes (%) (Auto) 27 % (24-48) 26 % (24-48) Monocytes (%) (Auto) 8 % (0-9) 7 % (0-9) Eosinophils (%) (Auto) 2 % (0-3) 2 % (0-3) Basophils (%) (Auto) 1 % (0-3) 1 % (0-3) Neutrophils # (Auto) 3.0 x10^3uL (1.8-7.7) 3.5 x10^3uL (1.8-7.7) Lymphocytes # (Auto) 1.3 x10^3/uL (1.0-4.8) 1.4 x10^3/uL (1.0-4.8) Monocytes # (Auto) 0.4 x10^3/uL (0.0-1.1) 0.4 x10^3/uL (0.0-1.1) Eosinophils # (Auto) 0.1 x10^3/uL (0.0-0.7) 0.1 x10^3/uL (0.0-0.7) Basophils # (Auto) 0.0 x10^3/uL (0.0-0.2) 0.0 x10^3/uL (0.0-0.2) Reticulocyte Count (auto) 1.3 % (0.5-2.5) Sodium Level 134 mmol/L (136-145) 135 mmol/L (136-145) Potassium Level 3.5 mmol/L (3.5-5.1) 3.6 mmol/L (3.5-5.1) Chloride Level 99 mmol/L (98-107) 98 mmol/L (98-107) Carbon Dioxide Level 27 mmol/L (21-32) 28 mmol/L (21-32) Anion Gap 8 (6-14) 9 (6-14) Blood Urea Nitrogen 8 mg/dL (7-20) 5 mg/dL (7-20) Creatinine 0.6 mg/dL (0.6-1.0) 0.7 mg/dL (0.6-1.0) Estimated GFR (Cockcroft-Gault) 98.0 82.0 BUN/Creatinine Ratio 13 (6-20) 7 (6-20) Glucose Level 89 mg/dL (70-99) 83 mg/dL (70-99) Calcium Level 8.3 mg/dL (8.5-10.1) 8.7 mg/dL (8.5-10.1) Iron Level 35 ug/dL (50-170) Total Iron Binding Capacity 247 ug/dL (250-450) Iron Saturation 14 % (15-34) Total Bilirubin 0.3 mg/dL (0.2-1.0) 0.2 mg/dL (0.2-1.0) Aspartate Amino Transf (AST/SGOT) 17 U/L (15-37) 20 U/L (15-37) Alanine Aminotransferase (ALT/SGPT) 11 U/L (14-59) 10 U/L (14-59) Alkaline Phosphatase 66 U/L (46-116) 72 U/L (46-116) Total Protein 6.2 g/dL (6.4-8.2) 6.7 g/dL (6.4-8.2) Albumin 2.9 g/dL (3.4-5.0) 3.4 g/dL (3.4-5.0) Albumin/Globulin Ratio 0.9 (1.0-1.7) 1.0 (1.0-1.7) Vitamin B12 Level 1341 pg/mL (247-911) Laboratory Tests Test 06/27/18 07:47 White Blood Count 5.4 x10^3/uL (4.0-11.0) Red Blood Count 4.19 x10^6/uL (3.50-5.40) Hemoglobin 11.5 g/dL (12.0-15.5) Hematocrit 35.4 % (36.0-47.0) Mean Corpuscular Volume 85 fL (79-100) Mean Corpuscular Hemoglobin 28 pg (25-35) Mean Corpuscular Hemoglobin Concent 33 g/dL (31-37) Red Cell Distribution Width 15.1 % (11.5-14.5) Platelet Count 218 x10^3/uL (140-400) Neutrophils (%) (Auto) 65 % (31-73) Lymphocytes (%) (Auto) 26 % (24-48) Monocytes (%) (Auto) 7 % (0-9) Eosinophils (%) (Auto) 2 % (0-3) Basophils (%) (Auto) 1 % (0-3) Neutrophils # (Auto) 3.5 x10^3uL (1.8-7.7) Lymphocytes # (Auto) 1.4 x10^3/uL (1.0-4.8) Monocytes # (Auto) 0.4 x10^3/uL (0.0-1.1) Eosinophils # (Auto) 0.1 x10^3/uL (0.0-0.7) Basophils # (Auto) 0.0 x10^3/uL (0.0-0.2) Sodium Level 135 mmol/L (136-145) Potassium Level 3.6 mmol/L (3.5-5.1) Chloride Level 98 mmol/L (98-107) Carbon Dioxide Level 28 mmol/L (21-32) Anion Gap 9 (6-14) Blood Urea Nitrogen 5 mg/dL (7-20) Creatinine 0.7 mg/dL (0.6-1.0) Estimated GFR (Cockcroft-Gault) 82.0 BUN/Creatinine Ratio 7 (6-20) Glucose Level 83 mg/dL (70-99) Calcium Level 8.7 mg/dL (8.5-10.1) Total Bilirubin 0.2 mg/dL (0.2-1.0) Aspartate Amino Transf (AST/SGOT) 20 U/L (15-37) Alanine Aminotransferase (ALT/SGPT) 10 U/L (14-59) Alkaline Phosphatase 72 U/L (46-116) Total Protein 6.7 g/dL (6.4-8.2) Albumin 3.4 g/dL (3.4-5.0) Albumin/Globulin Ratio 1.0 (1.0-1.7) Medications Current Medications Sodium Chloride 1,000 ml @ 1,000 mls/hr Q1H IV Last administered on 06/24/18 18:27; Start 06/24/18 at 16:10; Stop 06/24/18 at 17:09; Status DC Ondansetron HCl (Zofran) 4 mg 1X ONCE IV Last administered on 06/24/18 18:27 ; Start 06/24/18 at 16:15; Stop 06/24/18 at 16:16; Status DC Pantoprazole Sodium (PROTONIX VIAL for IV PUSH) 40 mg 1X ONCE IVP Last administered on 06/24/18 18:27; Start 06/24/18 at 16:45; Stop 06/24/18 at 16:48 ; Status DC Iohexol (Omnipaque 300 Mg/ml) 75 ml 1X ONCE IV Last administered on 06/24/18 18:29; Start 06/24/18 at 18:30; Stop 06/24/18 at 18:31; Status DC Info (CONTRAST GIVEN -- Rx MONITORING) 1 each PRN DAILY PRN MC SEE COMMENTS; Start 06/24/18 at 18:30; Stop 06/26/18 at 18:29; Status DC Ceftriaxone Sodium (Rocephin) 1 gm 1X ONCE IVP Last administered on 06/24/18at 20:48; Start 06/24/18 at 20:45; Stop 06/24/18 at 20:46; Status DC Ondansetron HCl (Zofran) 4 mg PRN Q8HRS PRN IV NAUSEA/VOMITING Last administered on 06/25/18at 19:14; Start 06/25/18 at 00:45; Stop 06/26/18 at 00:44 ; Status DC Fentanyl Citrate (Fentanyl 2ml Vial) 50 mcg PRN Q1HR PRN IV PAIN; Start at 00:45; Stop 06/26/18 at 00:44; Status DC Acetaminophen (Tylenol) 650 mg PRN Q4HRS PRN PO FEVER; Start 06/25/18 at 00:45 ; Stop 06/26/18 at 00:44; Status DC Sodium Chloride 1,000 ml @ 75 mls/hr [id number] IV Last administered on 02:58; Start 06/25/18 at 09:30 Ceftriaxone Sodium (Rocephin) 1 gm Q24H IVP Last administered on 06/26/18 21: 18; Start 06/25/18 at 21:00 Lisinopril (Prinivil) 10 mg DAILY PO Last administered on 06/27/18 09:07; Start 06/26/18 at 09:00 Levothyroxine Sodium (Synthroid) 50 mcg DAILY06 PO Last administered on 05:31; Start 06/26/18 at 06:00 Atorvastatin Calcium (Lipitor) 10 mg QHS PO Last administered on 06/26/18 21: 18; Start 06/25/18 at 21:00 Multivitamins (Thera M Plus) 1 tab DAILY PO Last administered on 06/27/18 09: 06; Start 06/26/18 at 09:00 Pantoprazole Sodium (Protonix) 40 mg DAILYAC PO ; Start 06/26/18 at 07:30; Stop 06/26/18 at 13:28; Status DC Paroxetine HCl (Paxil) 30 mg DAILY PO Last administered on 06/27/18 09:08; Start 06/26/18 at 09:00 Lactobacillus Rhamnosus (Culturelle) 1 cap BID PO Last administered on 09:06; Start 06/25/18 at 21:00 Calcium Carbonate/ Glycine (Tums) 1,000 mg PRN AFTMEALHC PRN PO INDIGESTION Last administered on 06/26/18 19:57; Start 06/25/18 at 20:45 Pantoprazole Sodium (Protonix) 40 mg BIDAC PO Last administered on 06/27/18 06 :35; Start 06/26/18 at 16:30 Polyethylene Glycol (miraLAX PACKET) 17 gm PRN DAILY PRN PO CONSTIPATION; Start 06/26/18 at 13:30 Barium Sulfate (Liquid E-Z Paque) 355 ml 1X ONCE PO ; Start 06/27/18 at 07:45; Stop 06/27/18 at 07:46; Status DC Barium Sulfate (E-Z-Hd) 340 gm 1X ONCE PO ; Start 06/27/18 at 07:45; Stop 06/27 at 07:46; Status DC Simethicone/ Sodium Bicarb/ Citric Ac (E-Z-Gas) 1 packet 1X ONCE PO ; Start at 07:45; Stop 06/27/18 at 07:46; Status DC Acetaminophen (Tylenol) 650 mg PRN Q6HRS PRN PO MILD PAIN; Start 06/27/18 at 10 :30 Active Scripts Active Reported Lisinopril 10 Mg Tablet 1 Tab PO DAILY Multivitamins (Multivitamin) 1 Each Tablet 1 Tab PO DAILY Prilosec (Omeprazole) 20 Mg Capsule.dr 1 Cap PO DAILY Tylenol Extra Strength (Acetaminophen) 500 Mg Tablet 500 Mg PO Lovastatin 40 Mg Tablet 40 Mg PO HS Paroxetine Hcl 30 Mg Tablet 30 Mg PO DAILY Levothyroxine Sodium 50 Mcg Tablet 50 Mcg PO DAILYAC Vitals/I & O Vital Sign - Last 24 Hours 06/26/18 06/26/18 06/26/18 06/26/18 15:00 19:00 20:35 23:00 Temp 97.8 98.4 98.2 97.8 98.4 98.2 Pulse 81 77 65 Resp 18 18 18 B/P (MAP) 146/72 (96) 121/68 (85) 134/68 (90) Pulse Ox 100 96 96 O2 Delivery Room Air Room Air Room Air Room Air 06/27/18 06/27/18 06/27/18 03:00 07:00 09:07 Temp 98.2 98.0 98.2 98.0 Pulse 74 90 90 Resp 18 18 B/P (MAP) 166/79 (108) 128/70 (89) 128/70 Pulse Ox 96 96 O2 Delivery Room Air Room Air ARIANNA LUCAS III DO Jun 27, 2018 11:25
--- NOTE | 2018-06-27 12:39 | PDOC ---
Subjective: Subjective: Has some mid abdominal discomfort. Heartburn is better. Says she ate breakfast so they can't do the test. No stool for a couple days. Objective: Objective: Dr. Quinn called this morning inquiring about possible discharge to rehab. Vital Signs: Vital Signs Date Time Temp Pulse Resp B/P (MAP) Pulse Ox O2 Delivery O2 Flow Rate FiO2 06/27/18 11:00 98.2 72 18 147/79 (101) 97 Room Air 98.2 Labs: Laboratory Tests Test 06/27/18 07:47 White Blood Count 5.4 x10^3/uL Red Blood Count 4.19 x10^6/uL Hemoglobin 11.5 g/dL Hematocrit 35.4 % Mean Corpuscular Volume 85 fL Mean Corpuscular Hemoglobin 28 pg Mean Corpuscular Hemoglobin Concent 33 g/dL Red Cell Distribution Width 15.1 % Platelet Count 218 x10^3/uL Neutrophils (%) (Auto) 65 % Lymphocytes (%) (Auto) 26 % Monocytes (%) (Auto) 7 % Eosinophils (%) (Auto) 2 % Basophils (%) (Auto) 1 % Neutrophils # (Auto) 3.5 x10^3uL Lymphocytes # (Auto) 1.4 x10^3/uL Monocytes # (Auto) 0.4 x10^3/uL Eosinophils # (Auto) 0.1 x10^3/uL Basophils # (Auto) 0.0 x10^3/uL Sodium Level 135 mmol/L Potassium Level 3.6 mmol/L Chloride Level 98 mmol/L Carbon Dioxide Level 28 mmol/L Anion Gap 9 Blood Urea Nitrogen 5 mg/dL Creatinine 0.7 mg/dL Estimated GFR (Cockcroft-Gault) 82.0 BUN/Creatinine Ratio 7 Glucose Level 83 mg/dL Calcium Level 8.7 mg/dL Total Bilirubin 0.2 mg/dL Aspartate Amino Transf (AST/SGOT) 20 U/L Alanine Aminotransferase (ALT/SGPT) 10 U/L Alkaline Phosphatase 72 U/L Total Protein 6.7 g/dL Albumin 3.4 g/dL Albumin/Globulin Ratio 1.0 Imaging: GES 06/26/18 1 hour- 51 percent (normal is less than 60 percent) 2 hours- 46 percent ( normal is less than 60 percent) 3 hours- 26 percent (normal is less than 30 percent) 4 hours- 16 percent (normal is less than 10 percent) A normal gastric T1/2 of 71 minutes was also calculated. IMPRESSION: Slightly increased retention of gastric contents at 4 hours as described above. PE: GEN: NAD LUNGS: CTAB HEART: RRR ABD: BS+, soft, vaguely periumbilical discomfort NEURO/PSYCH: A & O 3 A/P: Abd discomfort Heartburn - improved, continues on PPI Anemia - seems likely chronic illness Abnormal CT - "floppy cecum" Very slightly delayed gastric emptying -- Apparently UGI rescheduled to tomorrow. Continue PPI, increase Miralax. Try dicyclomine and/or GI cocktail. BRENDA TAPIA Jun 27, 2018 12:39
[2018-06-27] MEDS ORDERED: POLYETHYLENE GLYCOL 3350 17 GM PACKET. PO PRN (12:45)
[2018-06-27] MEDS ORDERED: LIDO:MAALOX 1:1 20 ML SINGLE DOSE. PO PRN (12:45)
[2018-06-27] MEDS: POLYETHYLENE GLYCOL 3350 17 GM PACKET. PO SCH (13:06)
[2018-06-27 15:00] VITALS: BP 141/75
[2018-06-27 19:25] VITALS: BP 163/82
[2018-06-27] MEDS: ATORVASTATIN CALCIUM 10 MG TABLET. PO SCH (21:33)
[2018-06-27] MEDS: cefTRIAXone IV Push 1 GM VIAL. IVP SCH (21:34)
[2018-06-27 23:39] VITALS: BP 142/75
[2018-06-28 03:10] VITALS: BP 130/66
[2018-06-28] MEDS: IV NORMAL SALINE 1000ML BAG 1,000 ML IV SCH ×2 (04:21→16:38)
[2018-06-28 05:05] LABS: BASO % 1 % (0-3); EOS # 0.1 x10^3/uL (0.0-0.7); EOS % 2 % (0-3); HEMATOCRIT 30.4 % (36.0-47.0); HEMOGLOBIN 10.2 g/dL (12.0-15.5); LYMPH # 1.6 x10^3/uL (1.0-4.8); LYMPH % 28 % (24-48); MEAN CORPUSCULAR HEMOGLOBIN 28 pg (25-35); MEAN CORPUSCULAR HGB CONC 34 g/dL (31-37); MEAN CORPUSCULAR VOLUME 83 fL (79-100); MONO # 0.4 x10^3/uL (0.0-1.1); MONO % 7 % (0-9); NEUT # 3.5 x10^3uL (1.8-7.7); NEUT % 63 % (31-73); PLATELET COUNT 187 x10^3/uL (140-400); RED BLOOD COUNT 3.66 x10^6/uL (3.50-5.40); RED CELL DISTRIBUTION WIDTH 14.4 % (11.5-14.5); WHITE BLOOD COUNT 5.6 x10^3/uL (4.0-11.0)
[2018-06-28 05:25] LABS: ALBUMIN/GLOBULIN RATIO 0.9 (1.0-1.7); CALCIUM 7.9 mg/dL (8.5-10.1); CREATININE 0.7 mg/dL (0.6-1.0); POTASSIUM 3.6 mmol/L (3.5-5.1); TOTAL BILIRUBIN 0.2 mg/dL (0.2-1.0); TOTAL PROTEIN 6.4 g/dL (6.4-8.2)
[2018-06-28] MEDS: LEVOTHYROXINE 50 MCG TABLET PO SCH (05:56)
[2018-06-28 07:00] VITALS: BP 148/74
[2018-06-28] MEDS: PANTOPRAZOLE 40 MG TABLET.DR. PO SCH ×2 (07:30→16:39)
[2018-06-28] MEDS ORDERED: BARIUM SULFATE 60% 355 ML SUSP PO ONE (08:45)
[2018-06-28] MEDS ORDERED: SIMETHICONE/SOD BICARB/CITRIC ACID PACKET. PO ONE (08:45)
[2018-06-28] MEDS ORDERED: BARIUM SULFATE 340 GM SUSPENSION. PO ONE (08:45)
[2018-06-28] MEDS: POLYETHYLENE GLYCOL 3350 17 GM PACKET. PO SCH (09:00)
[2018-06-28] MEDS: PARoxetine 10 MG TABLET PO SCH (09:00)
--- NOTE | 2018-06-28 09:05 | NUR ---
SW following. Discussed with RN, pt having procedure this morning. Pt to discharge back to [facility] with for PT/OT/RN. SW will continue to follow for discharge paperwork. RN notified.
--- NOTE | 2018-06-28 09:09 | PDOC ---
SURGICAL PROGRESS NOTE Subjective Pt with c/o upset stomach last night Vital Signs Vital Signs Date Time Temp Pulse Resp B/P (MAP) Pulse Ox O2 Delivery O2 Flow Rate FiO2 06/28/18 07:00 98.2 69 18 148/74 (98) 93 Room Air 98.2 I&O Intake and Output 06/28/18 06:59 Intake Total 1120 ml Balance 1120 ml Intake Oral 120 ml IV Total 1000 ml # Voids 4 General: Alert, Oriented X3, Cooperative, No acute distress Abdomen: Soft, Other (mild periumbilical TTP) Labs Laboratory Tests Test 06/27/18 07:47 06/28/18 03:25 White Blood Count 5.4 x10^3/uL (4.0-11.0) 5.6 x10^3/uL (4.0-11.0) Red Blood Count 4.19 x10^6/uL (3.50-5.40) 3.66 x10^6/uL (3.50-5.40) Hemoglobin 11.5 g/dL (12.0-15.5) 10.2 g/dL (12.0-15.5) Hematocrit 35.4 % (36.0-47.0) 30.4 % (36.0-47.0) Mean Corpuscular Volume 85 fL (79-100) 83 fL (79-100) Mean Corpuscular Hemoglobin 28 pg (25-35) 28 pg (25-35) Mean Corpuscular Hemoglobin Concent 33 g/dL (31-37) 34 g/dL (31-37) Red Cell Distribution Width 15.1 % (11.5-14.5) 14.4 % (11.5-14.5) Platelet Count 218 x10^3/uL (140-400) 187 x10^3/uL (140-400) Neutrophils (%) (Auto) 65 % (31-73) 63 % (31-73) Lymphocytes (%) (Auto) 26 % (24-48) 28 % (24-48) Monocytes (%) (Auto) 7 % (0-9) 7 % (0-9) Eosinophils (%) (Auto) 2 % (0-3) 2 % (0-3) Basophils (%) (Auto) 1 % (0-3) 1 % (0-3) Neutrophils # (Auto) 3.5 x10^3uL (1.8-7.7) 3.5 x10^3uL (1.8-7.7) Lymphocytes # (Auto) 1.4 x10^3/uL (1.0-4.8) 1.6 x10^3/uL (1.0-4.8) Monocytes # (Auto) 0.4 x10^3/uL (0.0-1.1) 0.4 x10^3/uL (0.0-1.1) Eosinophils # (Auto) 0.1 x10^3/uL (0.0-0.7) 0.1 x10^3/uL (0.0-0.7) Basophils # (Auto) 0.0 x10^3/uL (0.0-0.2) 0.0 x10^3/uL (0.0-0.2) Sodium Level 135 mmol/L (136-145) 130 mmol/L (136-145) Potassium Level 3.6 mmol/L (3.5-5.1) 3.6 mmol/L (3.5-5.1) Chloride Level 98 mmol/L (98-107) 95 mmol/L (98-107) Carbon Dioxide Level 28 mmol/L (21-32) 26 mmol/L (21-32) Anion Gap 9 (6-14) 9 (6-14) Blood Urea Nitrogen 5 mg/dL (7-20) 6 mg/dL (7-20) Creatinine 0.7 mg/dL (0.6-1.0) 0.7 mg/dL (0.6-1.0) Estimated GFR (Cockcroft-Gault) 82.0 82.0 BUN/Creatinine Ratio 7 (6-20) 9 (6-20) Glucose Level 83 mg/dL (70-99) 83 mg/dL (70-99) Calcium Level 8.7 mg/dL (8.5-10.1) 7.9 mg/dL (8.5-10.1) Total Bilirubin 0.2 mg/dL (0.2-1.0) 0.2 mg/dL (0.2-1.0) Aspartate Amino Transf (AST/SGOT) 20 U/L (15-37) 17 U/L (15-37) Alanine Aminotransferase (ALT/SGPT) 10 U/L (14-59) 11 U/L (14-59) Alkaline Phosphatase 72 U/L (46-116) 61 U/L (46-116) Total Protein 6.7 g/dL (6.4-8.2) 6.4 g/dL (6.4-8.2) Albumin 3.4 g/dL (3.4-5.0) 3.0 g/dL (3.4-5.0) Albumin/Globulin Ratio 1.0 (1.0-1.7) 0.9 (1.0-1.7) Laboratory Tests Test 06/28/18 03:25 White Blood Count 5.6 x10^3/uL (4.0-11.0) Red Blood Count 3.66 x10^6/uL (3.50-5.40) Hemoglobin 10.2 g/dL (12.0-15.5) Hematocrit 30.4 % (36.0-47.0) Mean Corpuscular Volume 83 fL (79-100) Mean Corpuscular Hemoglobin 28 pg (25-35) Mean Corpuscular Hemoglobin Concent 34 g/dL (31-37) Red Cell Distribution Width 14.4 % (11.5-14.5) Platelet Count 187 x10^3/uL (140-400) Neutrophils (%) (Auto) 63 % (31-73) Lymphocytes (%) (Auto) 28 % (24-48) Monocytes (%) (Auto) 7 % (0-9) Eosinophils (%) (Auto) 2 % (0-3) Basophils (%) (Auto) 1 % (0-3) Neutrophils # (Auto) 3.5 x10^3uL (1.8-7.7) Lymphocytes # (Auto) 1.6 x10^3/uL (1.0-4.8) Monocytes # (Auto) 0.4 x10^3/uL (0.0-1.1) Eosinophils # (Auto) 0.1 x10^3/uL (0.0-0.7) Basophils # (Auto) 0.0 x10^3/uL (0.0-0.2) Sodium Level 130 mmol/L (136-145) Potassium Level 3.6 mmol/L (3.5-5.1) Chloride Level 95 mmol/L (98-107) Carbon Dioxide Level 26 mmol/L (21-32) Anion Gap 9 (6-14) Blood Urea Nitrogen 6 mg/dL (7-20) Creatinine 0.7 mg/dL (0.6-1.0) Estimated GFR (Cockcroft-Gault) 82.0 BUN/Creatinine Ratio 9 (6-20) Glucose Level 83 mg/dL (70-99) Calcium Level 7.9 mg/dL (8.5-10.1) Total Bilirubin 0.2 mg/dL (0.2-1.0) Aspartate Amino Transf (AST/SGOT) 17 U/L (15-37) Alanine Aminotransferase (ALT/SGPT) 11 U/L (14-59) Alkaline Phosphatase 61 U/L (46-116) Total Protein 6.4 g/dL (6.4-8.2) Albumin 3.0 g/dL (3.4-5.0) Albumin/Globulin Ratio 0.9 (1.0-1.7) Problem List Problems Medical Problems: (1) Mobile cecum Status: Acute (2) Vomiting Status: Acute Assessment/Plan abd pain cont w/u per GI MAGDALENO LANE MD Jun 28, 2018 09:08
--- NOTE | 2018-06-28 09:25 | RAD ---
Upper GI, 06/28/2018: History: Nausea and vomiting The study was performed utilizing thin liquid barium. 2.9 minutes of fluoroscopy time was utilized. 13 static and dynamic fluoroscopic sequences were recorded. The study was partially limited by the patient's poor mobility. The swallowing mechanism is intact. There is a mildly prominent cricopharyngeal impression in the cervical esophagus without evidence of obstruction with the thin liquid. The esophageal peristalsis is mildly decreased with mild dilatation of the esophagus. There is a moderate-sized hiatal hernia. Gastroesophageal reflux was evident in the supine position. The stomach is otherwise unremarkable. The visualized proximal smiled bowel loops show no abnormality. IMPRESSION: 1. Moderate sized hiatal hernia with gastroesophageal reflux. 2. Mild presbyesophagus. 3. Mildly prominent cricopharyngeal impression in the cervical esophagus without evidence of associated obstruction.
[2018-06-28] MEDS: LACTOBACILLUS RHAMNOSUS GG 1 CAPSULE. PO SCH ×2 (09:55→21:01)
[2018-06-28] MEDS: MULTIVITAMIN with MINERAL TABLET. PO SCH (09:56)
[2018-06-28] MEDS: LISINOPRIL 10 MG TABLET PO SCH (09:56)
[2018-06-28] MEDS: ACETAMINOPHEN 325 MG TABLET. PO PRN (09:58)
--- NOTE | 2018-06-28 10:12 | PDOC ---
Objective: Objective: RN called and asked me to explain UGI results. Vital Signs: Vital Signs Date Time Temp Pulse Resp B/P (MAP) Pulse Ox O2 Delivery O2 Flow Rate FiO2 06/28/18 09:56 69 148/74 06/28/18 07:00 98.2 18 93 Room Air 98.2 Labs: Laboratory Tests Test 06/28/18 03:25 White Blood Count 5.6 x10^3/uL Red Blood Count 3.66 x10^6/uL Hemoglobin 10.2 g/dL Hematocrit 30.4 % Mean Corpuscular Volume 83 fL Mean Corpuscular Hemoglobin 28 pg Mean Corpuscular Hemoglobin Concent 34 g/dL Red Cell Distribution Width 14.4 % Platelet Count 187 x10^3/uL Neutrophils (%) (Auto) 63 % Lymphocytes (%) (Auto) 28 % Monocytes (%) (Auto) 7 % Eosinophils (%) (Auto) 2 % Basophils (%) (Auto) 1 % Neutrophils # (Auto) 3.5 x10^3uL Lymphocytes # (Auto) 1.6 x10^3/uL Monocytes # (Auto) 0.4 x10^3/uL Eosinophils # (Auto) 0.1 x10^3/uL Basophils # (Auto) 0.0 x10^3/uL Sodium Level 130 mmol/L Potassium Level 3.6 mmol/L Chloride Level 95 mmol/L Carbon Dioxide Level 26 mmol/L Anion Gap 9 Blood Urea Nitrogen 6 mg/dL Creatinine 0.7 mg/dL Estimated GFR (Cockcroft-Gault) 82.0 BUN/Creatinine Ratio 9 Glucose Level 83 mg/dL Calcium Level 7.9 mg/dL Total Bilirubin 0.2 mg/dL Aspartate Amino Transf (AST/SGOT) 17 U/L Alanine Aminotransferase (ALT/SGPT) 11 U/L Alkaline Phosphatase 61 U/L Total Protein 6.4 g/dL Albumin 3.0 g/dL Albumin/Globulin Ratio 0.9 Imaging: UGI 06/28 IMPRESSION: 1. Moderate sized hiatal hernia with gastroesophageal reflux. 2. Mild presbyesophagus. 3. Mildly prominent cricopharyngeal impression in the cervical esophagus without evidence of associated obstruction. PE: was out of room when I went by A/P: Abd discomfort - hiatal hernia, GERD, slightly delayed gastric emptying Presbyesophagus and prominent cricopharyngeal impression - no dysphagia complaints ACD Abnormal CT - "floppy cecum" -- Will return to discussed UGI results and check symptoms. Okay to resume diet per GI. BRENDA TAPIA Jun 28, 2018 10:12
[2018-06-28 11:00] VITALS: BP 111/60
--- NOTE | 2018-06-28 14:00 | PDOC ---
PROGRESS NOTES Chief Complaint Chief Complaint Abnormal abdominal CT: floppy cecum, Moderate hiatal hernia Delayed gastric emptying diverticulosis UTI: many bacteria, trace LE Nausea and Vomiting - resolved History of Present Illness History of Present Illness Patient seen and examined at bedside Underwent Upper GI series today. Patient resting in NAD and has no new complaints. Nausea and vomiting has resolved. GI following. Patient is not NPO Vitals Vitals Vital Signs Date Time Temp Pulse Resp B/P (MAP) Pulse Ox O2 Delivery O2 Flow Rate FiO2 06/28/18 11:00 98.0 73 18 111/60 (77) 95 Room Air 98.0 Physical Exam General: Alert, Oriented X3, Cooperative, No acute distress Heart: Regular rate, No murmurs Lungs: Clear, Other Abdomen: Soft, Other (mild periumbilical TTP) Extremities: No clubbing, No cyanosis, No edema Skin: No rashes, No breakdown, No significant lesion Labs LABS Laboratory Tests Test 06/28/18 03:25 White Blood Count 5.6 x10^3/uL (4.0-11.0) Red Blood Count 3.66 x10^6/uL (3.50-5.40) Hemoglobin 10.2 g/dL (12.0-15.5) Hematocrit 30.4 % (36.0-47.0) Mean Corpuscular Volume 83 fL (79-100) Mean Corpuscular Hemoglobin 28 pg (25-35) Mean Corpuscular Hemoglobin Concent 34 g/dL (31-37) Red Cell Distribution Width 14.4 % (11.5-14.5) Platelet Count 187 x10^3/uL (140-400) Neutrophils (%) (Auto) 63 % (31-73) Lymphocytes (%) (Auto) 28 % (24-48) Monocytes (%) (Auto) 7 % (0-9) Eosinophils (%) (Auto) 2 % (0-3) Basophils (%) (Auto) 1 % (0-3) Neutrophils # (Auto) 3.5 x10^3uL (1.8-7.7) Lymphocytes # (Auto) 1.6 x10^3/uL (1.0-4.8) Monocytes # (Auto) 0.4 x10^3/uL (0.0-1.1) Eosinophils # (Auto) 0.1 x10^3/uL (0.0-0.7) Basophils # (Auto) 0.0 x10^3/uL (0.0-0.2) Sodium Level 130 mmol/L (136-145) Potassium Level 3.6 mmol/L (3.5-5.1) Chloride Level 95 mmol/L (98-107) Carbon Dioxide Level 26 mmol/L (21-32) Anion Gap 9 (6-14) Blood Urea Nitrogen 6 mg/dL (7-20) Creatinine 0.7 mg/dL (0.6-1.0) Estimated GFR (Cockcroft-Gault) 82.0 BUN/Creatinine Ratio 9 (6-20) Glucose Level 83 mg/dL (70-99) Calcium Level 7.9 mg/dL (8.5-10.1) Total Bilirubin 0.2 mg/dL (0.2-1.0) Aspartate Amino Transf (AST/SGOT) 17 U/L (15-37) Alanine Aminotransferase (ALT/SGPT) 11 U/L (14-59) Alkaline Phosphatase 61 U/L (46-116) Total Protein 6.4 g/dL (6.4-8.2) Albumin 3.0 g/dL (3.4-5.0) Albumin/Globulin Ratio 0.9 (1.0-1.7) Review of Systems Review of Systems Pt reports some abd pain Denies CP, SOB, ALVAREZ, n/v/d Assessment and Plan Assessmemt and Plan Problems Medical Problems: (1) Mobile cecum Status: Acute (2) Vomiting Status: Acute Assessment: Abnormal abdominal CT: floppy cecum, Moderate hiatal hernia Delayed gastric emptying diverticulosis UTI: many bacteria, trace LE Nausea and Vomiting - resolved Plan: Continue ABx Reviewed GES showed slightly increased retention of gastric contents at 4 hours Reviewed upper GI series- no obstruction, mod hiatal hernia, mild presbyesophagus, prominent cricopharyngeal impression Review labs in the am PT/OT Plan to D/C when okay with GI, pt prefers to go home with HH Comment Review of Relevant I have reviewed the following items kyler (where applicable) has been applied. Labs Laboratory Tests Test 06/27/18 07:47 06/28/18 03:25 White Blood Count 5.4 x10^3/uL (4.0-11.0) 5.6 x10^3/uL (4.0-11.0) Red Blood Count 4.19 x10^6/uL (3.50-5.40) 3.66 x10^6/uL (3.50-5.40) Hemoglobin 11.5 g/dL (12.0-15.5) 10.2 g/dL (12.0-15.5) Hematocrit 35.4 % (36.0-47.0) 30.4 % (36.0-47.0) Mean Corpuscular Volume 85 fL (79-100) 83 fL (79-100) Mean Corpuscular Hemoglobin 28 pg (25-35) 28 pg (25-35) Mean Corpuscular Hemoglobin Concent 33 g/dL (31-37) 34 g/dL (31-37) Red Cell Distribution Width 15.1 % (11.5-14.5) 14.4 % (11.5-14.5) Platelet Count 218 x10^3/uL (140-400) 187 x10^3/uL (140-400) Neutrophils (%) (Auto) 65 % (31-73) 63 % (31-73) Lymphocytes (%) (Auto) 26 % (24-48) 28 % (24-48) Monocytes (%) (Auto) 7 % (0-9) 7 % (0-9) Eosinophils (%) (Auto) 2 % (0-3) 2 % (0-3) Basophils (%) (Auto) 1 % (0-3) 1 % (0-3) Neutrophils # (Auto) 3.5 x10^3uL (1.8-7.7) 3.5 x10^3uL (1.8-7.7) Lymphocytes # (Auto) 1.4 x10^3/uL (1.0-4.8) 1.6 x10^3/uL (1.0-4.8) Monocytes # (Auto) 0.4 x10^3/uL (0.0-1.1) 0.4 x10^3/uL (0.0-1.1) Eosinophils # (Auto) 0.1 x10^3/uL (0.0-0.7) 0.1 x10^3/uL (0.0-0.7) Basophils # (Auto) 0.0 x10^3/uL (0.0-0.2) 0.0 x10^3/uL (0.0-0.2) Sodium Level 135 mmol/L (136-145) 130 mmol/L (136-145) Potassium Level 3.6 mmol/L (3.5-5.1) 3.6 mmol/L (3.5-5.1) Chloride Level 98 mmol/L (98-107) 95 mmol/L (98-107) Carbon Dioxide Level 28 mmol/L (21-32) 26 mmol/L (21-32) Anion Gap 9 (6-14) 9 (6-14) Blood Urea Nitrogen 5 mg/dL (7-20) 6 mg/dL (7-20) Creatinine 0.7 mg/dL (0.6-1.0) 0.7 mg/dL (0.6-1.0) Estimated GFR (Cockcroft-Gault) 82.0 82.0 BUN/Creatinine Ratio 7 (6-20) 9 (6-20) Glucose Level 83 mg/dL (70-99) 83 mg/dL (70-99) Calcium Level 8.7 mg/dL (8.5-10.1) 7.9 mg/dL (8.5-10.1) Total Bilirubin 0.2 mg/dL (0.2-1.0) 0.2 mg/dL (0.2-1.0) Aspartate Amino Transf (AST/SGOT) 20 U/L (15-37) 17 U/L (15-37) Alanine Aminotransferase (ALT/SGPT) 10 U/L (14-59) 11 U/L (14-59) Alkaline Phosphatase 72 U/L (46-116) 61 U/L (46-116) Total Protein 6.7 g/dL (6.4-8.2) 6.4 g/dL (6.4-8.2) Albumin 3.4 g/dL (3.4-5.0) 3.0 g/dL (3.4-5.0) Albumin/Globulin Ratio 1.0 (1.0-1.7) 0.9 (1.0-1.7) Laboratory Tests Test 06/28/18 03:25 White Blood Count 5.6 x10^3/uL (4.0-11.0) Red Blood Count 3.66 x10^6/uL (3.50-5.40) Hemoglobin 10.2 g/dL (12.0-15.5) Hematocrit 30.4 % (36.0-47.0) Mean Corpuscular Volume 83 fL (79-100) Mean Corpuscular Hemoglobin 28 pg (25-35) Mean Corpuscular Hemoglobin Concent 34 g/dL (31-37) Red Cell Distribution Width 14.4 % (11.5-14.5) Platelet Count 187 x10^3/uL (140-400) Neutrophils (%) (Auto) 63 % (31-73) Lymphocytes (%) (Auto) 28 % (24-48) Monocytes (%) (Auto) 7 % (0-9) Eosinophils (%) (Auto) 2 % (0-3) Basophils (%) (Auto) 1 % (0-3) Neutrophils # (Auto) 3.5 x10^3uL (1.8-7.7) Lymphocytes # (Auto) 1.6 x10^3/uL (1.0-4.8) Monocytes # (Auto) 0.4 x10^3/uL (0.0-1.1) Eosinophils # (Auto) 0.1 x10^3/uL (0.0-0.7) Basophils # (Auto) 0.0 x10^3/uL (0.0-0.2) Sodium Level 130 mmol/L (136-145) Potassium Level 3.6 mmol/L (3.5-5.1) Chloride Level 95 mmol/L (98-107) Carbon Dioxide Level 26 mmol/L (21-32) Anion Gap 9 (6-14) Blood Urea Nitrogen 6 mg/dL (7-20) Creatinine 0.7 mg/dL (0.6-1.0) Estimated GFR (Cockcroft-Gault) 82.0 BUN/Creatinine Ratio 9 (6-20) Glucose Level 83 mg/dL (70-99) Calcium Level 7.9 mg/dL (8.5-10.1) Total Bilirubin 0.2 mg/dL (0.2-1.0) Aspartate Amino Transf (AST/SGOT) 17 U/L (15-37) Alanine Aminotransferase (ALT/SGPT) 11 U/L (14-59) Alkaline Phosphatase 61 U/L (46-116) Total Protein 6.4 g/dL (6.4-8.2) Albumin 3.0 g/dL (3.4-5.0) Albumin/Globulin Ratio 0.9 (1.0-1.7) Microbiology 06/24/18 Urine Culture - Final, Complete 06/24/18 Urine Culture Result 1 (DARRELL) - Final, Complete 06/24/18 Urine Culture Result 2 (DARRELL) - Final, Complete Medications Current Medications Sodium Chloride 1,000 ml @ 1,000 mls/hr Q1H IV Last administered on 06/24/18 18:27; Start 06/24/18 at 16:10; Stop 06/24/18 at 17:09; Status DC Ondansetron HCl (Zofran) 4 mg 1X ONCE IV Last administered on 06/24/18 18:27 ; Start 06/24/18 at 16:15; Stop 06/24/18 at 16:16; Status DC Pantoprazole Sodium (PROTONIX VIAL for IV PUSH) 40 mg 1X ONCE IVP Last administered on 06/24/18 18:27; Start 06/24/18 at 16:45; Stop 06/24/18 at 16:48 ; Status DC Iohexol (Omnipaque 300 Mg/ml) 75 ml 1X ONCE IV Last administered on 06/24/18 18:29; Start 06/24/18 at 18:30; Stop 06/24/18 at 18:31; Status DC Info (CONTRAST GIVEN -- Rx MONITORING) 1 each PRN DAILY PRN MC SEE COMMENTS; Start 06/24/18 at 18:30; Stop 06/26/18 at 18:29; Status DC Ceftriaxone Sodium (Rocephin) 1 gm 1X ONCE IVP Last administered on 06/24/18at 20:48; Start 06/24/18 at 20:45; Stop 06/24/18 at 20:46; Status DC Ondansetron HCl (Zofran) 4 mg PRN Q8HRS PRN IV NAUSEA/VOMITING Last administered on 06/25/18at 19:14; Start 06/25/18 at 00:45; Stop 06/26/18 at 00:44 ; Status DC Fentanyl Citrate (Fentanyl 2ml Vial) 50 mcg PRN Q1HR PRN IV PAIN; Start at 00:45; Stop 06/26/18 at 00:44; Status DC Acetaminophen (Tylenol) 650 mg PRN Q4HRS PRN PO FEVER; Start 06/25/18 at 00:45 ; Stop 06/26/18 at 00:44; Status DC Sodium Chloride 1,000 ml @ 75 mls/hr [id number] IV Last administered on 04:21; Start 06/25/18 at 09:30 Ceftriaxone Sodium (Rocephin) 1 gm Q24H IVP Last administered on 06/27/18 21: 34; Start 06/25/18 at 21:00 Lisinopril (Prinivil) 10 mg DAILY PO Last administered on 06/28/18 09:56; Start 06/26/18 at 09:00 Levothyroxine Sodium (Synthroid) 50 mcg DAILY06 PO Last administered on 05:31; Start 06/26/18 at 06:00 Atorvastatin Calcium (Lipitor) 10 mg QHS PO Last administered on 06/27/18 21: 33; Start 06/25/18 at 21:00 Multivitamins (Thera M Plus) 1 tab DAILY PO Last administered on 06/28/18 09: 56; Start 06/26/18 at 09:00 Pantoprazole Sodium (Protonix) 40 mg DAILYAC PO ; Start 06/26/18 at 07:30; Stop 06/26/18 at 13:28; Status DC Paroxetine HCl (Paxil) 30 mg DAILY PO Last administered on 06/27/18 09:08; Start 06/26/18 at 09:00; Stop 06/28/18 at 10:33; Status DC Lactobacillus Rhamnosus (Culturelle) 1 cap BID PO Last administered on 09:55; Start 06/25/18 at 21:00 Calcium Carbonate/ Glycine (Tums) 1,000 mg PRN AFTMEALHC PRN PO INDIGESTION Last administered on 06/26/18 19:57; Start 06/25/18 at 20:45 Pantoprazole Sodium (Protonix) 40 mg BIDAC PO Last administered on 06/27/18 06 :35; Start 06/26/18 at 16:30 Polyethylene Glycol (miraLAX PACKET) 17 gm PRN DAILY PRN PO CONSTIPATION; Start 06/26/18 at 13:30; Stop 06/27/18 at 12:37; Status DC Barium Sulfate (Liquid E-Z Paque) 355 ml 1X ONCE PO ; Start 06/27/18 at 07:45; Stop 06/27/18 at 07:46; Status DC Barium Sulfate (E-Z-Hd) 340 gm 1X ONCE PO ; Start 06/27/18 at 07:45; Stop 06/27 at 07:46; Status DC Simethicone/ Sodium Bicarb/ Citric Ac (E-Z-Gas) 1 packet 1X ONCE PO ; Start at 07:45; Stop 06/27/18 at 07:46; Status DC Acetaminophen (Tylenol) 650 mg PRN Q6HRS PRN PO MILD PAIN Last administered on 06/28/18at 09:58; Start 06/27/18 at 10:30 Polyethylene Glycol (miraLAX PACKET) 17 gm DAILY PO Last administered on at 13:06; Start 06/27/18 at 13:30 Polyethylene Glycol (miraLAX PACKET) 17 gm PRN DAILY PRN PO CONSTIPATION; Start 06/27/18 at 12:45 Dicyclomine HCl (Bentyl) 10 mg PRN TID PRN PO abd pain; Start 06/27/18 at 12:45 Multi-Ingredient Mouthwash/Gargle (Gi Cocktail) 20 ml PRN QID PRN PO CHEST PAIN ; Start 06/27/18 at 12:45 Barium Sulfate (E-Z-Hd) 340 gm 1X ONCE PO ; Start 06/28/18 at 08:45; Stop 06/28 at 08:48; Status DC Barium Sulfate (Liquid E-Z Paque) 355 ml 1X ONCE PO Last administered on at 09:00; Start 06/28/18 at 08:45; Stop 06/28/18 at 08:48; Status DC Simethicone/ Sodium Bicarb/ Citric Ac (E-Z-Gas) 1 packet 1X ONCE PO ; Start at 08:45; Stop 06/28/18 at 08:48; Status DC Active Scripts Active Reported Lisinopril 10 Mg Tablet 1 Tab PO DAILY Multivitamins (Multivitamin) 1 Each Tablet 1 Tab PO DAILY Prilosec (Omeprazole) 20 Mg Capsule. 1 Cap PO DAILY Tylenol Extra Strength (Acetaminophen) 500 Mg Tablet 500 Mg PO Lovastatin 40 Mg Tablet 40 Mg PO HS Paroxetine Hcl 30 Mg Tablet 30 Mg PO DAILY Levothyroxine Sodium 50 Mcg Tablet 50 Mcg PO DAILYAC Vitals/I & O Vital Sign - Last 24 Hours 06/27/18 06/27/18 06/27/18 06/27/18 15:00 19:25 19:59 23:39 Temp 98.0 98.5 98.5 98.0 98.5 98.5 Pulse 70 103 93 Resp 18 18 B/P (MAP) 141/75 (97) 163/82 (109) 142/75 (97) Pulse Ox 95 94 93 O2 Delivery Room Air Room Air Room Air Room Air 06/28/18 06/28/18 06/28/18 06/28/18 03:10 07:00 09:56 11:00 Temp 98.5 98.2 98.0 98.5 98.2 98.0 Pulse 67 69 69 73 Resp 18 B/P (MAP) 130/66 (87) 148/74 (98) 148/74 111/60 (77) Pulse Ox 94 93 95 O2 Delivery Room Air Room Air Room Air Intake and Output 06/27/18 06/27/18 06/28/18 15:00 23:00 07:00 Intake Total 1120 ml Balance 1120 ml ARIANNA LUCAS III DO Jun 28, 2018 14:00
[2018-06-28 15:00] VITALS: BP 128/68
[2018-06-28 19:00] VITALS: BP 184/94
[2018-06-28] MEDS: CALCIUM CARBONATE 500 MG TAB.CHEW PO PRN (19:36)
[2018-06-28] MEDS: cefTRIAXone IV Push 1 GM VIAL. IVP SCH (21:01)
[2018-06-28] MEDS: ATORVASTATIN CALCIUM 10 MG TABLET. PO SCH (21:01)
--- NOTE | 2018-06-28 22:03 | NUR ---
PT has recommended pt ambulates with SBA TID using WK, will share with 4N team. Pt has shown some signs of confusion, stating someone told her she was scheduled to get an EGD in the morning, (this nurse spoke with Radha Gann who confirmed that pt was not), pt also stated she vomited on the floor this evening, and that Analia MERCHANDISE PRESENTATION MANAGER had cleaned it up, however, this had not happened. Perhaps UTI may be causing some of the confusion, just want to update everybody. Also, pt has been has been on ADA diet since admission, not sure why her diet isn't cardiac? pls change for breakfast
[2018-06-28 23:00] VITALS: BP 147/85
[2018-06-29 03:00] VITALS: BP 145/74
[2018-06-29 03:25] LABS: BASO % 0 % (0-3); EOS # 0.1 x10^3/uL (0.0-0.7); EOS % 2 % (0-3); HEMATOCRIT 30.4 % (36.0-47.0); HEMOGLOBIN 10.2 g/dL (12.0-15.5); LYMPH # 1.3 x10^3/uL (1.0-4.8); LYMPH % 22 % (24-48); MEAN CORPUSCULAR HEMOGLOBIN 28 pg (25-35); MEAN CORPUSCULAR HGB CONC 34 g/dL (31-37); MEAN CORPUSCULAR VOLUME 83 fL (79-100); MONO # 0.5 x10^3/uL (0.0-1.1); MONO % 8 % (0-9); NEUT # 4.1 x10^3uL (1.8-7.7); NEUT % 68 % (31-73); PLATELET COUNT 188 x10^3/uL (140-400); RED BLOOD COUNT 3.68 x10^6/uL (3.50-5.40); RED CELL DISTRIBUTION WIDTH 14.5 % (11.5-14.5)
[2018-06-29 03:40] LABS: ALBUMIN 2.9 g/dL (3.4-5.0); CREATININE 0.5 mg/dL (0.6-1.0); GFR 120.9; POTASSIUM 3.7 mmol/L (3.5-5.1); TOTAL BILIRUBIN 0.4 mg/dL (0.2-1.0); TOTAL PROTEIN 5.9 g/dL (6.4-8.2)
[2018-06-29] MEDS: LEVOTHYROXINE 50 MCG TABLET PO SCH (05:48)
[2018-06-29] MEDS: IV NORMAL SALINE 1000ML BAG 1,000 ML IV SCH ×2 (05:49→20:32)
[2018-06-29 07:00] VITALS: BP 128/69
[2018-06-29] MEDS: POLYETHYLENE GLYCOL 3350 17 GM PACKET. PO SCH (08:29)
[2018-06-29] MEDS: LACTOBACILLUS RHAMNOSUS GG 1 CAPSULE. PO SCH ×2 (08:29→20:33)
[2018-06-29] MEDS: PANTOPRAZOLE 40 MG TABLET.DR. PO SCH ×2 (08:29→17:24)
[2018-06-29] MEDS: MULTIVITAMIN with MINERAL TABLET. PO SCH (08:29)
[2018-06-29] MEDS: LISINOPRIL 10 MG TABLET PO SCH (08:29)
--- NOTE | 2018-06-29 10:37 | PDOC ---
LEONOR DANGELO DEPUTY JAILER 06/29/18 1037: SURGICAL PROGRESS NOTE Subjective still with abdominal cramping eating some no emesis Vital Signs Vital Signs Date Time Temp Pulse Resp B/P (MAP) Pulse Ox O2 Delivery O2 Flow Rate FiO2 06/29/18 08:29 75 128/69 06/29/18 08:00 Room Air 06/29/18 07:00 97.9 16 100 97.9 I&O Intake and Output 06/29/18 06:59 Intake Total 300 ml Output Total 240 ml Balance 60 ml Intake Oral 300 ml Output Urine Total 240 ml # Voids 4 General: Alert, Oriented X3, Cooperative, No acute distress Abdomen: Soft Labs Laboratory Tests Test 06/28/18 03:25 06/29/18 02:55 White Blood Count 5.6 x10^3/uL (4.0-11.0) 6.0 x10^3/uL (4.0-11.0) Red Blood Count 3.66 x10^6/uL (3.50-5.40) 3.68 x10^6/uL (3.50-5.40) Hemoglobin 10.2 g/dL (12.0-15.5) 10.2 g/dL (12.0-15.5) Hematocrit 30.4 % (36.0-47.0) 30.4 % (36.0-47.0) Mean Corpuscular Volume 83 fL (79-100) 83 fL (79-100) Mean Corpuscular Hemoglobin 28 pg (25-35) 28 pg (25-35) Mean Corpuscular Hemoglobin Concent 34 g/dL (31-37) 34 g/dL (31-37) Red Cell Distribution Width 14.4 % (11.5-14.5) 14.5 % (11.5-14.5) Platelet Count 187 x10^3/uL (140-400) 188 x10^3/uL (140-400) Neutrophils (%) (Auto) 63 % (31-73) 68 % (31-73) Lymphocytes (%) (Auto) 28 % (24-48) 22 % (24-48) Monocytes (%) (Auto) 7 % (0-9) 8 % (0-9) Eosinophils (%) (Auto) 2 % (0-3) 2 % (0-3) Basophils (%) (Auto) 1 % (0-3) 0 % (0-3) Neutrophils # (Auto) 3.5 x10^3uL (1.8-7.7) 4.1 x10^3uL (1.8-7.7) Lymphocytes # (Auto) 1.6 x10^3/uL (1.0-4.8) 1.3 x10^3/uL (1.0-4.8) Monocytes # (Auto) 0.4 x10^3/uL (0.0-1.1) 0.5 x10^3/uL (0.0-1.1) Eosinophils # (Auto) 0.1 x10^3/uL (0.0-0.7) 0.1 x10^3/uL (0.0-0.7) Basophils # (Auto) 0.0 x10^3/uL (0.0-0.2) 0.0 x10^3/uL (0.0-0.2) Sodium Level 130 mmol/L (136-145) 123 mmol/L (136-145) Potassium Level 3.6 mmol/L (3.5-5.1) 3.7 mmol/L (3.5-5.1) Chloride Level 95 mmol/L (98-107) 90 mmol/L (98-107) Carbon Dioxide Level 26 mmol/L (21-32) 27 mmol/L (21-32) Anion Gap 9 (6-14) 6 (6-14) Blood Urea Nitrogen 6 mg/dL (7-20) 6 mg/dL (7-20) Creatinine 0.7 mg/dL (0.6-1.0) 0.5 mg/dL (0.6-1.0) Estimated GFR (Cockcroft-Gault) 82.0 120.9 BUN/Creatinine Ratio 9 (6-20) 12 (6-20) Glucose Level 83 mg/dL (70-99) 82 mg/dL (70-99) Calcium Level 7.9 mg/dL (8.5-10.1) 8.0 mg/dL (8.5-10.1) Total Bilirubin 0.2 mg/dL (0.2-1.0) 0.4 mg/dL (0.2-1.0) Aspartate Amino Transf (AST/SGOT) 17 U/L (15-37) 22 U/L (15-37) Alanine Aminotransferase (ALT/SGPT) 11 U/L (14-59) 11 U/L (14-59) Alkaline Phosphatase 61 U/L (46-116) 62 U/L (46-116) Total Protein 6.4 g/dL (6.4-8.2) 5.9 g/dL (6.4-8.2) Albumin 3.0 g/dL (3.4-5.0) 2.9 g/dL (3.4-5.0) Albumin/Globulin Ratio 0.9 (1.0-1.7) 1.0 (1.0-1.7) Laboratory Tests Test 06/29/18 02:55 White Blood Count 6.0 x10^3/uL (4.0-11.0) Red Blood Count 3.68 x10^6/uL (3.50-5.40) Hemoglobin 10.2 g/dL (12.0-15.5) Hematocrit 30.4 % (36.0-47.0) Mean Corpuscular Volume 83 fL (79-100) Mean Corpuscular Hemoglobin 28 pg (25-35) Mean Corpuscular Hemoglobin Concent 34 g/dL (31-37) Red Cell Distribution Width 14.5 % (11.5-14.5) Platelet Count 188 x10^3/uL (140-400) Neutrophils (%) (Auto) 68 % (31-73) Lymphocytes (%) (Auto) 22 % (24-48) Monocytes (%) (Auto) 8 % (0-9) Eosinophils (%) (Auto) 2 % (0-3) Basophils (%) (Auto) 0 % (0-3) Neutrophils # (Auto) 4.1 x10^3uL (1.8-7.7) Lymphocytes # (Auto) 1.3 x10^3/uL (1.0-4.8) Monocytes # (Auto) 0.5 x10^3/uL (0.0-1.1) Eosinophils # (Auto) 0.1 x10^3/uL (0.0-0.7) Basophils # (Auto) 0.0 x10^3/uL (0.0-0.2) Sodium Level 123 mmol/L (136-145) Potassium Level 3.7 mmol/L (3.5-5.1) Chloride Level 90 mmol/L (98-107) Carbon Dioxide Level 27 mmol/L (21-32) Anion Gap 6 (6-14) Blood Urea Nitrogen 6 mg/dL (7-20) Creatinine 0.5 mg/dL (0.6-1.0) Estimated GFR (Cockcroft-Gault) 120.9 BUN/Creatinine Ratio 12 (6-20) Glucose Level 82 mg/dL (70-99) Calcium Level 8.0 mg/dL (8.5-10.1) Total Bilirubin 0.4 mg/dL (0.2-1.0) Aspartate Amino Transf (AST/SGOT) 22 U/L (15-37) Alanine Aminotransferase (ALT/SGPT) 11 U/L (14-59) Alkaline Phosphatase 62 U/L (46-116) Total Protein 5.9 g/dL (6.4-8.2) Albumin 2.9 g/dL (3.4-5.0) Albumin/Globulin Ratio 1.0 (1.0-1.7) Problem List Problems Medical Problems: (1) Mobile cecum Status: Acute (2) Vomiting Status: Acute Assessment/Plan abd pain noted hyponatremia will review with MAGDALENO Donahue MD 06/29/18 1116: SURGICAL PROGRESS NOTE Assessment/Plan Pt seen and examined. Agree with Ms. Dangelo's note Pt now with large emesis, no stool since 06/25. abd soft, mild TTP cont w/u per GI hyponatremia noted, defer to primary poor surgical candidate LEONOR DANGELO APRN Jun 29, 2018 10:[address] MD Jun 29, 2018 11:16
--- NOTE | 2018-06-29 10:39 | PDOC ---
PROGRESS NOTES Chief Complaint Chief Complaint hyponatremia, euvolemic, has been on 75hr NS Abnormal abdominal CT: floppy cecum, Moderate hiatal hernia Delayed gastric emptying diverticulosis UTI Nausea and Vomiting - History of Present Illness History of Present Illness vomited again this AM appears wear and lethargic s/p Upper GI series yesterday, symptoms not much better Patient resting in NAD GI following. Vitals Vitals Vital Signs Date Time Temp Pulse Resp B/P (MAP) Pulse Ox O2 Delivery O2 Flow Rate FiO2 06/29/18 08:29 75 128/69 06/29/18 08:00 Room Air 06/29/18 07:00 97.9 16 100 97.9 Physical Exam General: Alert, Oriented X3, Cooperative, No acute distress Heart: Regular rate, No murmurs Lungs: Clear, Other Abdomen: Soft Extremities: No clubbing, No cyanosis, No edema Skin: No rashes, No breakdown, No significant lesion Labs LABS Laboratory Tests Test 06/29/18 02:55 White Blood Count 6.0 x10^3/uL (4.0-11.0) Red Blood Count 3.68 x10^6/uL (3.50-5.40) Hemoglobin 10.2 g/dL (12.0-15.5) Hematocrit 30.4 % (36.0-47.0) Mean Corpuscular Volume 83 fL (79-100) Mean Corpuscular Hemoglobin 28 pg (25-35) Mean Corpuscular Hemoglobin Concent 34 g/dL (31-37) Red Cell Distribution Width 14.5 % (11.5-14.5) Platelet Count 188 x10^3/uL (140-400) Neutrophils (%) (Auto) 68 % (31-73) Lymphocytes (%) (Auto) 22 % (24-48) Monocytes (%) (Auto) 8 % (0-9) Eosinophils (%) (Auto) 2 % (0-3) Basophils (%) (Auto) 0 % (0-3) Neutrophils # (Auto) 4.1 x10^3uL (1.8-7.7) Lymphocytes # (Auto) 1.3 x10^3/uL (1.0-4.8) Monocytes # (Auto) 0.5 x10^3/uL (0.0-1.1) Eosinophils # (Auto) 0.1 x10^3/uL (0.0-0.7) Basophils # (Auto) 0.0 x10^3/uL (0.0-0.2) Sodium Level 123 mmol/L (136-145) Potassium Level 3.7 mmol/L (3.5-5.1) Chloride Level 90 mmol/L (98-107) Carbon Dioxide Level 27 mmol/L (21-32) Anion Gap 6 (6-14) Blood Urea Nitrogen 6 mg/dL (7-20) Creatinine 0.5 mg/dL (0.6-1.0) Estimated GFR (Cockcroft-Gault) 120.9 BUN/Creatinine Ratio 12 (6-20) Glucose Level 82 mg/dL (70-99) Calcium Level 8.0 mg/dL (8.5-10.1) Total Bilirubin 0.4 mg/dL (0.2-1.0) Aspartate Amino Transf (AST/SGOT) 22 U/L (15-37) Alanine Aminotransferase (ALT/SGPT) 11 U/L (14-59) Alkaline Phosphatase 62 U/L (46-116) Total Protein 5.9 g/dL (6.4-8.2) Albumin 2.9 g/dL (3.4-5.0) Albumin/Globulin Ratio 1.0 (1.0-1.7) Review of Systems Review of Systems no pain + weakness, + nausea Assessment and Plan Assessmemt and Plan Problems Medical Problems: (1) Mobile cecum Status: Acute (2) Vomiting Status: Acute Comment Review of Relevant I have reviewed the following items kyler (where applicable) has been applied. Labs Laboratory Tests Test 06/28/18 03:25 06/29/18 02:55 White Blood Count 5.6 x10^3/uL (4.0-11.0) 6.0 x10^3/uL (4.0-11.0) Red Blood Count 3.66 x10^6/uL (3.50-5.40) 3.68 x10^6/uL (3.50-5.40) Hemoglobin 10.2 g/dL (12.0-15.5) 10.2 g/dL (12.0-15.5) Hematocrit 30.4 % (36.0-47.0) 30.4 % (36.0-47.0) Mean Corpuscular Volume 83 fL (79-100) 83 fL (79-100) Mean Corpuscular Hemoglobin 28 pg (25-35) 28 pg (25-35) Mean Corpuscular Hemoglobin Concent 34 g/dL (31-37) 34 g/dL (31-37) Red Cell Distribution Width 14.4 % (11.5-14.5) 14.5 % (11.5-14.5) Platelet Count 187 x10^3/uL (140-400) 188 x10^3/uL (140-400) Neutrophils (%) (Auto) 63 % (31-73) 68 % (31-73) Lymphocytes (%) (Auto) 28 % (24-48) 22 % (24-48) Monocytes (%) (Auto) 7 % (0-9) 8 % (0-9) Eosinophils (%) (Auto) 2 % (0-3) 2 % (0-3) Basophils (%) (Auto) 1 % (0-3) 0 % (0-3) Neutrophils # (Auto) 3.5 x10^3uL (1.8-7.7) 4.1 x10^3uL (1.8-7.7) Lymphocytes # (Auto) 1.6 x10^3/uL (1.0-4.8) 1.3 x10^3/uL (1.0-4.8) Monocytes # (Auto) 0.4 x10^3/uL (0.0-1.1) 0.5 x10^3/uL (0.0-1.1) Eosinophils # (Auto) 0.1 x10^3/uL (0.0-0.7) 0.1 x10^3/uL (0.0-0.7) Basophils # (Auto) 0.0 x10^3/uL (0.0-0.2) 0.0 x10^3/uL (0.0-0.2) Sodium Level 130 mmol/L (136-145) 123 mmol/L (136-145) Potassium Level 3.6 mmol/L (3.5-5.1) 3.7 mmol/L (3.5-5.1) Chloride Level 95 mmol/L (98-107) 90 mmol/L (98-107) Carbon Dioxide Level 26 mmol/L (21-32) 27 mmol/L (21-32) Anion Gap 9 (6-14) 6 (6-14) Blood Urea Nitrogen 6 mg/dL (7-20) 6 mg/dL (7-20) Creatinine 0.7 mg/dL (0.6-1.0) 0.5 mg/dL (0.6-1.0) Estimated GFR (Cockcroft-Gault) 82.0 120.9 BUN/Creatinine Ratio 9 (6-20) 12 (6-20) Glucose Level 83 mg/dL (70-99) 82 mg/dL (70-99) Calcium Level 7.9 mg/dL (8.5-10.1) 8.0 mg/dL (8.5-10.1) Total Bilirubin 0.2 mg/dL (0.2-1.0) 0.4 mg/dL (0.2-1.0) Aspartate Amino Transf (AST/SGOT) 17 U/L (15-37) 22 U/L (15-37) Alanine Aminotransferase (ALT/SGPT) 11 U/L (14-59) 11 U/L (14-59) Alkaline Phosphatase 61 U/L (46-116) 62 U/L (46-116) Total Protein 6.4 g/dL (6.4-8.2) 5.9 g/dL (6.4-8.2) Albumin 3.0 g/dL (3.4-5.0) 2.9 g/dL (3.4-5.0) Albumin/Globulin Ratio 0.9 (1.0-1.7) 1.0 (1.0-1.7) Laboratory Tests Test 06/29/18 02:55 White Blood Count 6.0 x10^3/uL (4.0-11.0) Red Blood Count 3.68 x10^6/uL (3.50-5.40) Hemoglobin 10.2 g/dL (12.0-15.5) Hematocrit 30.4 % (36.0-47.0) Mean Corpuscular Volume 83 fL (79-100) Mean Corpuscular Hemoglobin 28 pg (25-35) Mean Corpuscular Hemoglobin Concent 34 g/dL (31-37) Red Cell Distribution Width 14.5 % (11.5-14.5) Platelet Count 188 x10^3/uL (140-400) Neutrophils (%) (Auto) 68 % (31-73) Lymphocytes (%) (Auto) 22 % (24-48) Monocytes (%) (Auto) 8 % (0-9) Eosinophils (%) (Auto) 2 % (0-3) Basophils (%) (Auto) 0 % (0-3) Neutrophils # (Auto) 4.1 x10^3uL (1.8-7.7) Lymphocytes # (Auto) 1.3 x10^3/uL (1.0-4.8) Monocytes # (Auto) 0.5 x10^3/uL (0.0-1.1) Eosinophils # (Auto) 0.1 x10^3/uL (0.0-0.7) Basophils # (Auto) 0.0 x10^3/uL (0.0-0.2) Sodium Level 123 mmol/L (136-145) Potassium Level 3.7 mmol/L (3.5-5.1) Chloride Level 90 mmol/L (98-107) Carbon Dioxide Level 27 mmol/L (21-32) Anion Gap 6 (6-14) Blood Urea Nitrogen 6 mg/dL (7-20) Creatinine 0.5 mg/dL (0.6-1.0) Estimated GFR (Cockcroft-Gault) 120.9 BUN/Creatinine Ratio 12 (6-20) Glucose Level 82 mg/dL (70-99) Calcium Level 8.0 mg/dL (8.5-10.1) Total Bilirubin 0.4 mg/dL (0.2-1.0) Aspartate Amino Transf (AST/SGOT) 22 U/L (15-37) Alanine Aminotransferase (ALT/SGPT) 11 U/L (14-59) Alkaline Phosphatase 62 U/L (46-116) Total Protein 5.9 g/dL (6.4-8.2) Albumin 2.9 g/dL (3.4-5.0) Albumin/Globulin Ratio 1.0 (1.0-1.7) Microbiology 06/24/18 Urine Culture - Final, Complete 06/24/18 Urine Culture Result 1 (DARRELL) - Final, Complete 06/24/18 Urine Culture Result 2 (DARRELL) - Final, Complete Medications Current Medications Sodium Chloride 1,000 ml @ 1,000 mls/hr Q1H IV Last administered on 06/24/18 18:27; Start 06/24/18 at 16:10; Stop 06/24/18 at 17:09; Status DC Ondansetron HCl (Zofran) 4 mg 1X ONCE IV Last administered on 06/24/18 18:27 ; Start 06/24/18 at 16:15; Stop 06/24/18 at 16:16; Status DC Pantoprazole Sodium (PROTONIX VIAL for IV PUSH) 40 mg 1X ONCE IVP Last administered on 06/24/18 18:27; Start 06/24/18 at 16:45; Stop 06/24/18 at 16:48 ; Status DC Iohexol (Omnipaque 300 Mg/ml) 75 ml 1X ONCE IV Last administered on 06/24/18 18:29; Start 06/24/18 at 18:30; Stop 06/24/18 at 18:31; Status DC Info (CONTRAST GIVEN -- Rx MONITORING) 1 each PRN DAILY PRN MC SEE COMMENTS; Start 06/24/18 at 18:30; Stop 06/26/18 at 18:29; Status DC Ceftriaxone Sodium (Rocephin) 1 gm 1X ONCE IVP Last administered on 06/24/18 20:48; Start 06/24/18 at 20:45; Stop 06/24/18 at 20:46; Status DC Ondansetron HCl (Zofran) 4 mg PRN Q8HRS PRN IV NAUSEA/VOMITING Last administered on 06/25/18 19:14; Start 06/25/18 at 00:45; Stop 06/26/18 at 00:44 ; Status DC Fentanyl Citrate (Fentanyl 2ml Vial) 50 mcg PRN Q1HR PRN IV PAIN; Start at 00:45; Stop 06/26/18 at 00:44; Status DC Acetaminophen (Tylenol) 650 mg PRN Q4HRS PRN PO FEVER; Start 06/25/18 at 00:45 ; Stop 06/26/18 at 00:44; Status DC Sodium Chloride 1,000 ml @ 75 mls/hr [id number] IV Last administered on at 05:49; Start 06/25/18 at 09:30; Stop 06/29/18 at 09:47; Status DC Ceftriaxone Sodium (Rocephin) 1 gm Q24H IVP Last administered on 06/28/18 21: 01; Start 06/25/18 at 21:00 Lisinopril (Prinivil) 10 mg DAILY PO Last administered on 06/29/18 08:29; Start 06/26/18 at 09:00 Levothyroxine Sodium (Synthroid) 50 mcg DAILY06 PO Last administered on 05:48; Start 06/26/18 at 06:00 Atorvastatin Calcium (Lipitor) 10 mg QHS PO Last administered on 06/28/18 21: 01; Start 06/25/18 at 21:00 Multivitamins (Thera M Plus) 1 tab DAILY PO Last administered on 06/29/18 08: 29; Start 06/26/18 at 09:00 Pantoprazole Sodium (Protonix) 40 mg DAILYAC PO ; Start 06/26/18 at 07:30; Stop 06/26/18 at 13:28; Status DC Paroxetine HCl (Paxil) 30 mg DAILY PO Last administered on 06/27/18 09:08; Start 06/26/18 at 09:00; Stop 06/28/18 at 10:33; Status DC Lactobacillus Rhamnosus (Culturelle) 1 cap BID PO Last administered on 08:29; Start 06/25/18 at 21:00 Calcium Carbonate/ Glycine (Tums) 1,000 mg PRN AFTMEALHC PRN PO INDIGESTION Last administered on 06/28/18 19:36; Start 06/25/18 at 20:45 Pantoprazole Sodium (Protonix) 40 mg BIDAC PO Last administered on 06/29/18 08 :29; Start 06/26/18 at 16:30 Polyethylene Glycol (miraLAX PACKET) 17 gm PRN DAILY PRN PO CONSTIPATION; Start 06/26/18 at 13:30; Stop 06/27/18 at 12:37; Status DC Barium Sulfate (Liquid E-Z Paque) 355 ml 1X ONCE PO ; Start 06/27/18 at 07:45; Stop 06/27/18 at 07:46; Status DC Barium Sulfate (E-Z-Hd) 340 gm 1X ONCE PO ; Start 06/27/18 at 07:45; Stop 06/27 at 07:46; Status DC Simethicone/ Sodium Bicarb/ Citric Ac (E-Z-Gas) 1 packet 1X ONCE PO ; Start at 07:45; Stop 06/27/18 at 07:46; Status DC Acetaminophen (Tylenol) 650 mg PRN Q6HRS PRN PO MILD PAIN Last administered on 06/28/18at 09:58; Start 06/27/18 at 10:30 Polyethylene Glycol (miraLAX PACKET) 17 gm DAILY PO Last administered on at 08:29; Start 06/27/18 at 13:30 Polyethylene Glycol (miraLAX PACKET) 17 gm PRN DAILY PRN PO CONSTIPATION; Start 06/27/18 at 12:45 Dicyclomine HCl (Bentyl) 10 mg PRN TID PRN PO abd pain; Start 06/27/18 at 12:45 Multi-Ingredient Mouthwash/Gargle (Gi Cocktail) 20 ml PRN QID PRN PO CHEST PAIN ; Start 06/27/18 at 12:45 Barium Sulfate (E-Z-Hd) 340 gm 1X ONCE PO ; Start 06/28/18 at 08:45; Stop 06/28 at 08:48; Status DC Barium Sulfate (Liquid E-Z Paque) 355 ml 1X ONCE PO Last administered on at 09:00; Start 06/28/18 at 08:45; Stop 06/28/18 at 08:48; Status DC Simethicone/ Sodium Bicarb/ Citric Ac (E-Z-Gas) 1 packet 1X ONCE PO ; Start at 08:45; Stop 06/28/18 at 08:48; Status DC Active Scripts Active Reported Lisinopril 10 Mg Tablet 1 Tab PO DAILY Multivitamins (Multivitamin) 1 Each Tablet 1 Tab PO DAILY Prilosec (Omeprazole) 20 Mg Capsule.dr 1 Cap PO DAILY Tylenol Extra Strength (Acetaminophen) 500 Mg Tablet 500 Mg PO Lovastatin 40 Mg Tablet 40 Mg PO HS Paroxetine Hcl 30 Mg Tablet 30 Mg PO DAILY Levothyroxine Sodium 50 Mcg Tablet 50 Mcg PO DAILYAC Vitals/I & O Vital Sign - Last 24 Hours 3/06/28/18 06/28/18 06/28/18 11:00 15:00 19:00 20:00 Temp 98.0 98.0 98.2 98.0 98.0 98.2 Pulse 73 64 66 Resp 18 18 18 B/P (MAP) 111/60 (77) 128/68 (88) 184/94 (124) Pulse Ox 95 94 94 O2 Delivery Room Air Room Air Room Air Room Air 06/28/18 06/29/18 06/29/18 06/29/18 23:00 03:00 07:00 08:00 Temp 98.4 98.6 97.9 98.4 98.6 97.9 Pulse 70 66 75 Resp 18 18 16 B/P (MAP) 147/85 (105) 145/74 (97) 128/69 (88) Pulse Ox 95 97 100 O2 Delivery Room Air Room Air Room Air Room Air 06/29/18 08:29 Pulse 75 B/P (MAP) 128/69 Intake and Output 06/28/18 06/28/18 06/29/18 15:00 23:00 07:00 Intake Total 300 ml Output Total 240 ml Balance 300 ml -240 ml VENKATA CHAMBERLAIN MD Jun 29, 2018 10:39
[2018-06-29 11:00] VITALS: BP 137/65
--- NOTE | 2018-06-29 11:30 | NUR ---
SW following. Discussed with RN, pt sodium level has changed, possibly staying one more night before discharging back to [facility] with On license of [facility]. Referral has been faxed to [facility]. SW will continue to follow.
--- NOTE | 2018-06-29 11:38 | PDOC ---
Subjective: Subjective: Vomited this morning, has upper abd discomfort, hasn't stooled since Sun. Says "I've had EGDs in the past w/ Dr. Rabago" - seems to indicate she does not desire to repeat this exam, but hard to say. Objective: Objective: Reviewed nursing notes - questionable reports of vomiting last night. However, this morning, aide in room reports vomited breakfast. Today's RN says her family is here and says "the only reason she came here is for an EGD." Vital Signs: Vital Signs Date Time Temp Pulse Resp B/P (MAP) Pulse Ox O2 Delivery O2 Flow Rate FiO2 06/29/18 08:29 75 128/69 06/29/18 08:00 Room Air 06/29/18 07:00 97.9 16 100 97.9 Labs: Laboratory Tests Test 06/29/18 02:55 White Blood Count 6.0 x10^3/uL Red Blood Count 3.68 x10^6/uL Hemoglobin 10.2 g/dL Hematocrit 30.4 % Mean Corpuscular Volume 83 fL Mean Corpuscular Hemoglobin 28 pg Mean Corpuscular Hemoglobin Concent 34 g/dL Red Cell Distribution Width 14.5 % Platelet Count 188 x10^3/uL Neutrophils (%) (Auto) 68 % Lymphocytes (%) (Auto) 22 % Monocytes (%) (Auto) 8 % Eosinophils (%) (Auto) 2 % Basophils (%) (Auto) 0 % Neutrophils # (Auto) 4.1 x10^3uL Lymphocytes # (Auto) 1.3 x10^3/uL Monocytes # (Auto) 0.5 x10^3/uL Eosinophils # (Auto) 0.1 x10^3/uL Basophils # (Auto) 0.0 x10^3/uL Sodium Level 123 mmol/L Potassium Level 3.7 mmol/L Chloride Level 90 mmol/L Carbon Dioxide Level 27 mmol/L Anion Gap 6 Blood Urea Nitrogen 6 mg/dL Creatinine 0.5 mg/dL Estimated GFR (Cockcroft-Gault) 120.9 BUN/Creatinine Ratio 12 Glucose Level 82 mg/dL Calcium Level 8.0 mg/dL Total Bilirubin 0.4 mg/dL Aspartate Amino Transf (AST/SGOT) 22 U/L Alanine Aminotransferase (ALT/SGPT) 11 U/L Alkaline Phosphatase 62 U/L Total Protein 5.9 g/dL Albumin 2.9 g/dL Albumin/Globulin Ratio 1.0 PE: GEN: holding emesis basin LUNGS: room air HEART: RRR ABD: soft, quiet BS, vaguely tender epigastrium NEURO/PSYCH: A & O 3 A/P: Vomiting, upper abd discomfort Hiatal hernia, GERD, slightly delayed gastric emptying, presbyesophagus ACD, hyponatremia -- Need to review w/ Dr. Hill - previous recs to consider Fabi fundoplication if symptoms persist - now family requests EGD. BRENDA TAPIA Jun 29, 2018 11:38
--- NOTE | 2018-06-29 12:31 | PDOC2 ---
CONSULT Date of Consult Date of Consult DATE: 06/29/18 TIME: 12:25 Identification/Chief Complaint Chief Complaint ABD PAIN WITH N/V Source Source: Chart review History of Present Illness Reason for Visit: THIS IS A 72 YR OLD WITH N/V AND ABD PAIN. NOTED TO HAVE AN A LOW NA OF 126 ON ADMIT THEN 133 AND NOW 123. HAD BEEN ON PAXIL AT HOME. HAS RECEIVED SOME HYPOTONIC SALINE WELL AND ON AN DELMA-I. CURRENTLY UNDERGOING GI AND SURGERY EVAL. ASYMPTOMATIC WITH THE LOW NA. ALSO HAS A MILD UTI FOR WHICH SHE IS ON ANTIBIOTICS Past Medical History Cardiovascular: HTN, Syncope, Hyperlipidemia, Other Pulmonary: Asthma, Bronchitis CENTRAL NERVOUS SYSTEM: Migraine GI: Diverticulosis, GERD Heme/Onc: Other Psych: Anxiety, Depression Renal/: Chronic renal failure, Urinary Incontinence Endocrine: Diabetes, Hypothyroidism Past Surgical History Past Surgical History: Cataract Removal, Total knee replacement, Tubal Ligation , Hysterectomy, Other Family History Family History: Hypertension Social History ALCOHOL: occassional Drugs: None Lives: [facility] Current Problem List Problem List Problems Medical Problems: (1) Mobile cecum Status: Acute (2) Vomiting Status: Acute Current Medications Current Medications Current Medications Sodium Chloride 1,000 ml @ 1,000 mls/hr Q1H IV Last administered on 06/24/18at 18:27; Start 06/24/18 at 16:10; Stop 06/24/18 at 17:09; Status DC Ondansetron HCl (Zofran) 4 mg 1X ONCE IV Last administered on 06/24/18 18:27 ; Start 06/24/18 at 16:15; Stop 06/24/18 at 16:16; Status DC Pantoprazole Sodium (PROTONIX VIAL for IV PUSH) 40 mg 1X ONCE IVP Last administered on 06/24/18at 18:27; Start 06/24/18 at 16:45; Stop 06/24/18 at 16:48 ; Status DC Iohexol (Omnipaque 300 Mg/ml) 75 ml 1X ONCE IV Last administered on 06/24/18at 18:29; Start 06/24/18 at 18:30; Stop 06/24/18 at 18:31; Status DC Info (CONTRAST GIVEN -- Rx MONITORING) 1 each PRN DAILY PRN MC SEE COMMENTS; Start 06/24/18 at 18:30; Stop 06/26/18 at 18:29; Status DC Ceftriaxone Sodium (Rocephin) 1 gm 1X ONCE IVP Last administered on 06/24/18at 20:48; Start 06/24/18 at 20:45; Stop 06/24/18 at 20:46; Status DC Ondansetron HCl (Zofran) 4 mg PRN Q8HRS PRN IV NAUSEA/VOMITING Last administered on 06/25/18at 19:14; Start 06/25/18 at 00:45; Stop 06/26/18 at 00:44 ; Status DC Fentanyl Citrate (Fentanyl 2ml Vial) 50 mcg PRN Q1HR PRN IV PAIN; Start at 00:45; Stop 06/26/18 at 00:44; Status DC Acetaminophen (Tylenol) 650 mg PRN Q4HRS PRN PO FEVER; Start 06/25/18 at 00:45 ; Stop 06/26/18 at 00:44; Status DC Sodium Chloride 1,000 ml @ 75 mls/hr [id number] IV Last administered on at 05:49; Start 06/25/18 at 09:30; Stop 06/29/18 at 09:47; Status DC Ceftriaxone Sodium (Rocephin) 1 gm Q24H IVP Last administered on 06/28/18at 21: 01; Start 06/25/18 at 21:00 Lisinopril (Prinivil) 10 mg DAILY PO Last administered on 06/29/18 08:29; Start 06/26/18 at 09:00 Levothyroxine Sodium (Synthroid) 50 mcg DAILY06 PO Last administered on at 05:48; Start 06/26/18 at 06:00 Atorvastatin Calcium (Lipitor) 10 mg QHS PO Last administered on 06/28/18at 21: 01; Start 06/25/18 at 21:00 Multivitamins (Thera M Plus) 1 tab DAILY PO Last administered on 06/29/18at 08: 29; Start 06/26/18 at 09:00 Pantoprazole Sodium (Protonix) 40 mg DAILYAC PO ; Start 06/26/18 at 07:30; Stop 06/26/18 at 13:28; Status DC Paroxetine HCl (Paxil) 30 mg DAILY PO Last administered on 06/27/18at 09:08; Start 06/26/18 at 09:00; Stop 06/28/18 at 10:33; Status DC Lactobacillus Rhamnosus (Culturelle) 1 cap BID PO Last administered on at 08:29; Start 06/25/18 at 21:00 Calcium Carbonate/ Glycine (Tums) 1,000 mg PRN AFTMEALHC PRN PO INDIGESTION Last administered on 06/28/18at 19:36; Start 06/25/18 at 20:45 Pantoprazole Sodium (Protonix) 40 mg BIDAC PO Last administered on 06/29/18at 08 :29; Start 06/26/18 at 16:30 Polyethylene Glycol (miraLAX PACKET) 17 gm PRN DAILY PRN PO CONSTIPATION; Start 06/26/18 at 13:30; Stop 06/27/18 at 12:37; Status DC Barium Sulfate (Liquid E-Z Paque) 355 ml 1X ONCE PO ; Start 06/27/18 at 07:45; Stop 06/27/18 at 07:46; Status DC Barium Sulfate (E-Z-Hd) 340 gm 1X ONCE PO ; Start 06/27/18 at 07:45; Stop 06/27 at 07:46; Status DC Simethicone/ Sodium Bicarb/ Citric Ac (E-Z-Gas) 1 packet 1X ONCE PO ; Start at 07:45; Stop 06/27/18 at 07:46; Status DC Acetaminophen (Tylenol) 650 mg PRN Q6HRS PRN PO MILD PAIN Last administered on 06/28/18at 09:58; Start 06/27/18 at 10:30 Polyethylene Glycol (miraLAX PACKET) 17 gm DAILY PO Last administered on at 08:29; Start 06/27/18 at 13:30 Polyethylene Glycol (miraLAX PACKET) 17 gm PRN DAILY PRN PO CONSTIPATION; Start 06/27/18 at 12:45 Dicyclomine HCl (Bentyl) 10 mg PRN TID PRN PO abd pain; Start 06/27/18 at 12:45 Multi-Ingredient Mouthwash/Gargle (Gi Cocktail) 20 ml PRN QID PRN PO CHEST PAIN ; Start 06/27/18 at 12:45 Barium Sulfate (E-Z-Hd) 340 gm 1X ONCE PO ; Start 06/28/18 at 08:45; Stop 06/28 at 08:48; Status DC Barium Sulfate (Liquid E-Z Paque) 355 ml 1X ONCE PO Last administered on at 09:00; Start 06/28/18 at 08:45; Stop 06/28/18 at 08:48; Status DC Simethicone/ Sodium Bicarb/ Citric Ac (E-Z-Gas) 1 packet 1X ONCE PO ; Start at 08:45; Stop 06/28/18 at 08:48; Status DC Active Scripts Active Reported Lisinopril 10 Mg Tablet 1 Tab PO DAILY Multivitamins (Multivitamin) 1 Each Tablet 1 Tab PO DAILY Prilosec (Omeprazole) 20 Mg Capsule.dr 1 Cap PO DAILY Tylenol Extra Strength (Acetaminophen) 500 Mg Tablet 500 Mg PO Lovastatin 40 Mg Tablet 40 Mg PO HS Paroxetine Hcl 30 Mg Tablet 30 Mg PO DAILY Levothyroxine Sodium 50 Mcg Tablet 50 Mcg PO DAILYAC Allergies Allergies: Coded Allergies: No Known Drug Allergies (Unverified , 01/15/15) Physical Exam General: Alert, Cooperative, No acute distress HEENT: Atraumatic, PERRLA, EOMI, Mucous membr. moist/pink Lungs: Clear to auscultation Heart: Regular rate, Normal S1 Abdomen: Normal bowel sounds, Soft, No tenderness, Other Extremities: No clubbing, No cyanosis Skin: No breakdown Neuro: Normal speech, Sensation intact Psych/Mental Status: Mental status NL, Mood NL MUSCULOSKELETAL: No joint tenderness, No deformity, No swelling Vitals VITALS Vital Signs Date Time Temp Pulse Resp B/P (MAP) Pulse Ox O2 Delivery O2 Flow Rate FiO2 06/29/18 08:29 75 128/69 06/29/18 08:00 Room Air 06/29/18 07:00 97.9 16 100 97.9 Labs Labs Laboratory Tests Test 06/28/18 03:25 06/29/18 02:55 White Blood Count 5.6 x10^3/uL (4.0-11.0) 6.0 x10^3/uL (4.0-11.0) Red Blood Count 3.66 x10^6/uL (3.50-5.40) 3.68 x10^6/uL (3.50-5.40) Hemoglobin 10.2 g/dL (12.0-15.5) 10.2 g/dL (12.0-15.5) Hematocrit 30.4 % (36.0-47.0) 30.4 % (36.0-47.0) Mean Corpuscular Volume 83 fL (79-100) 83 fL (79-100) Mean Corpuscular Hemoglobin 28 pg (25-35) 28 pg (25-35) Mean Corpuscular Hemoglobin Concent 34 g/dL (31-37) 34 g/dL (31-37) Red Cell Distribution Width 14.4 % (11.5-14.5) 14.5 % (11.5-14.5) Platelet Count 187 x10^3/uL (140-400) 188 x10^3/uL (140-400) Neutrophils (%) (Auto) 63 % (31-73) 68 % (31-73) Lymphocytes (%) (Auto) 28 % (24-48) 22 % (24-48) Monocytes (%) (Auto) 7 % (0-9) 8 % (0-9) Eosinophils (%) (Auto) 2 % (0-3) 2 % (0-3) Basophils (%) (Auto) 1 % (0-3) 0 % (0-3) Neutrophils # (Auto) 3.5 x10^3uL (1.8-7.7) 4.1 x10^3uL (1.8-7.7) Lymphocytes # (Auto) 1.6 x10^3/uL (1.0-4.8) 1.3 x10^3/uL (1.0-4.8) Monocytes # (Auto) 0.4 x10^3/uL (0.0-1.1) 0.5 x10^3/uL (0.0-1.1) Eosinophils # (Auto) 0.1 x10^3/uL (0.0-0.7) 0.1 x10^3/uL (0.0-0.7) Basophils # (Auto) 0.0 x10^3/uL (0.0-0.2) 0.0 x10^3/uL (0.0-0.2) Sodium Level 130 mmol/L (136-145) 123 mmol/L (136-145) Potassium Level 3.6 mmol/L (3.5-5.1) 3.7 mmol/L (3.5-5.1) Chloride Level 95 mmol/L (98-107) 90 mmol/L (98-107) Carbon Dioxide Level 26 mmol/L (21-32) 27 mmol/L (21-32) Anion Gap 9 (6-14) 6 (6-14) Blood Urea Nitrogen 6 mg/dL (7-20) 6 mg/dL (7-20) Creatinine 0.7 mg/dL (0.6-1.0) 0.5 mg/dL (0.6-1.0) Estimated GFR (Cockcroft-Gault) 82.0 120.9 BUN/Creatinine Ratio 9 (6-20) 12 (6-20) Glucose Level 83 mg/dL (70-99) 82 mg/dL (70-99) Calcium Level 7.9 mg/dL (8.5-10.1) 8.0 mg/dL (8.5-10.1) Total Bilirubin 0.2 mg/dL (0.2-1.0) 0.4 mg/dL (0.2-1.0) Aspartate Amino Transf (AST/SGOT) 17 U/L (15-37) 22 U/L (15-37) Alanine Aminotransferase (ALT/SGPT) 11 U/L (14-59) 11 U/L (14-59) Alkaline Phosphatase 61 U/L (46-116) 62 U/L (46-116) Total Protein 6.4 g/dL (6.4-8.2) 5.9 g/dL (6.4-8.2) Albumin 3.0 g/dL (3.4-5.0) 2.9 g/dL (3.4-5.0) Albumin/Globulin Ratio 0.9 (1.0-1.7) 1.0 (1.0-1.7) Laboratory Tests Test 06/29/18 02:55 White Blood Count 6.0 x10^3/uL (4.0-11.0) Red Blood Count 3.68 x10^6/uL (3.50-5.40) Hemoglobin 10.2 g/dL (12.0-15.5) Hematocrit 30.4 % (36.0-47.0) Mean Corpuscular Volume 83 fL (79-100) Mean Corpuscular Hemoglobin 28 pg (25-35) Mean Corpuscular Hemoglobin Concent 34 g/dL (31-37) Red Cell Distribution Width 14.5 % (11.5-14.5) Platelet Count 188 x10^3/uL (140-400) Neutrophils (%) (Auto) 68 % (31-73) Lymphocytes (%) (Auto) 22 % (24-48) Monocytes (%) (Auto) 8 % (0-9) Eosinophils (%) (Auto) 2 % (0-3) Basophils (%) (Auto) 0 % (0-3) Neutrophils # (Auto) 4.1 x10^3uL (1.8-7.7) Lymphocytes # (Auto) 1.3 x10^3/uL (1.0-4.8) Monocytes # (Auto) 0.5 x10^3/uL (0.0-1.1) Eosinophils # (Auto) 0.1 x10^3/uL (0.0-0.7) Basophils # (Auto) 0.0 x10^3/uL (0.0-0.2) Sodium Level 123 mmol/L (136-145) Potassium Level 3.7 mmol/L (3.5-5.1) Chloride Level 90 mmol/L (98-107) Carbon Dioxide Level 27 mmol/L (21-32) Anion Gap 6 (6-14) Blood Urea Nitrogen 6 mg/dL (7-20) Creatinine 0.5 mg/dL (0.6-1.0) Estimated GFR (Cockcroft-Gault) 120.9 BUN/Creatinine Ratio 12 (6-20) Glucose Level 82 mg/dL (70-99) Calcium Level 8.0 mg/dL (8.5-10.1) Total Bilirubin 0.4 mg/dL (0.2-1.0) Aspartate Amino Transf (AST/SGOT) 22 U/L (15-37) Alanine Aminotransferase (ALT/SGPT) 11 U/L (14-59) Alkaline Phosphatase 62 U/L (46-116) Total Protein 5.9 g/dL (6.4-8.2) Albumin 2.9 g/dL (3.4-5.0) Albumin/Globulin Ratio 1.0 (1.0-1.7) Assessment/Plan Assessment/Plan IMP HYPONATREMIA UTI N/V ABD PAIN PLAN OFF SSRI D/C DELMA-I START NORVASC LABS IN AM LOW FLOW NS URINE LYTES AND TSH LUI JACKSON MD Jun 29, 2018 12:31
[2018-06-29] MEDS ORDERED: ONDANSETRON PF 4 MG/2 ML VIAL. IV PRN (12:45)
[2018-06-29 15:00] VITALS: BP 141/77
[2018-06-29 15:21] LABS: BILIRUBIN,URINE NEGATIVE (NEG); CLARITY,URINE CLEAR; COLOR,URINE YELLOW; NITRITE,URINE NEGATIVE (NEG); PROTEIN,URINE NEGATIVE (NEG-TRACE); UROBILINOGEN,URINE 0.2 mg/dL (0.2 mg/dL)
[2018-06-29 15:40] LABS: BACTERIA,URINE 0 /HPF (0-FEW); SQUAMOUS EPITHELIAL CELL,UR FEW /LPF; WBC,URINE 0 /HPF (0-4)
[2018-06-29 19:20] VITALS: BP 146/77
--- NOTE | 2018-06-29 19:46 | NUR ---
Dr. Díaz notified, regard to low NA-123. IVF restarted.
[2018-06-29] MEDS: ATORVASTATIN CALCIUM 10 MG TABLET. PO SCH (20:33)
[2018-06-29] MEDS: cefTRIAXone IV Push 1 GM VIAL. IVP SCH (20:34)
[2018-06-29] MEDS: ACETAMINOPHEN 325 MG TABLET. PO PRN (20:35)
[2018-06-29 23:15] VITALS: BP 136/77
[2018-06-30 02:10] LABS: UR POTASSIUM 25.8 mmol/L (Not Estab.)
[2018-06-30 03:17] VITALS: BP 132/74
[2018-06-30] MEDS: ACETAMINOPHEN 325 MG TABLET. PO PRN ×2 (03:45→13:40)
[2018-06-30] MEDS: LEVOTHYROXINE 50 MCG TABLET PO SCH (06:00)
[2018-06-30 07:00] VITALS: BP 146/70
[2018-06-30] MEDS ORDERED: IV RINGERS,LACTATED 1000ML 1,000 ML IV SCH (07:00)
[2018-06-30 07:23] LABS: BASO % 0 % (0-3); EOS # 0.1 x10^3/uL (0.0-0.7); EOS % 2 % (0-3); HEMATOCRIT 30.9 % (36.0-47.0); HEMOGLOBIN 10.3 g/dL (12.0-15.5); LYMPH # 0.8 x10^3/uL (1.0-4.8); LYMPH % 18 % (24-48); MEAN CORPUSCULAR HEMOGLOBIN 28 pg (25-35); MEAN CORPUSCULAR HGB CONC 34 g/dL (31-37); MEAN CORPUSCULAR VOLUME 82 fL (79-100); MONO # 0.4 x10^3/uL (0.0-1.1); MONO % 9 % (0-9); NEUT # 3.4 x10^3uL (1.8-7.7); NEUT % 71 % (31-73); PLATELET COUNT 172 x10^3/uL (140-400); RED BLOOD COUNT 3.76 x10^6/uL (3.50-5.40); RED CELL DISTRIBUTION WIDTH 14.5 % (11.5-14.5); WHITE BLOOD COUNT 4.7 x10^3/uL (4.0-11.0)
[2018-06-30] MEDS: PANTOPRAZOLE 40 MG TABLET.DR. PO SCH ×3 (07:30→16:30)
[2018-06-30 07:43] LABS: ALBUMIN 2.9 g/dL (3.4-5.0); CALCIUM 7.8 mg/dL (8.5-10.1); CREATININE 0.6 mg/dL (0.6-1.0); POTASSIUM 3.4 mmol/L (3.5-5.1); TOTAL BILIRUBIN 0.4 mg/dL (0.2-1.0); TOTAL PROTEIN 5.9 g/dL (6.4-8.2)
[2018-06-30 07:55] LABS: FREE T4 0.86 ng/dL (0.76-1.46); THYROID STIM HORMONE (TSH) 3.209 uIU/mL (0.358-3.74)
--- NOTE | 2018-06-30 08:58 | NUR ---
SW following. Discussed with RN, pt having an EGD today so possible will not discharge back to [facility] today. [facility] has accepted pt, just need home health orders faxed at discharge. JOEY will continue to follow.
--- NOTE | 2018-06-30 08:59 | PDOC ---
LEONOR OLIVAREZ LOSS CONTROL TECHNICIAN 06/30/18 0859: SURGICAL PROGRESS NOTE Subjective she reports not as much pain today Vital Signs Vital Signs Date Time Temp Pulse Resp B/P (MAP) Pulse Ox O2 Delivery O2 Flow Rate FiO2 06/30/18 07:00 97.5 62 16 146/70 (95) 97 Room Air 97.5 I&O Intake and Output 06/30/18 07:00 Intake Total 664 ml Balance 664 ml Intake Oral 240 ml IV Total 424 ml # Voids 6 General: Alert, Oriented X3, Cooperative Abdomen: Soft, No tenderness Labs Laboratory Tests Test 06/29/18 02:55 06/29/18 13:30 06/30/18 06:23 White Blood Count 6.0 x10^3/uL (4.0-11.0) 4.7 x10^3/uL (4.0-11.0) Red Blood Count 3.68 x10^6/uL (3.50-5.40) 3.76 x10^6/uL (3.50-5.40) Hemoglobin 10.2 g/dL (12.0-15.5) 10.3 g/dL (12.0-15.5) Hematocrit 30.4 % (36.0-47.0) 30.9 % (36.0-47.0) Mean Corpuscular Volume 83 fL (79-100) 82 fL (79-100) Mean Corpuscular Hemoglobin 28 pg (25-35) 28 pg (25-35) Mean Corpuscular Hemoglobin Concent 34 g/dL (31-37) 34 g/dL (31-37) Red Cell Distribution Width 14.5 % (11.5-14.5) 14.5 % (11.5-14.5) Platelet Count 188 x10^3/uL (140-400) 172 x10^3/uL (140-400) Neutrophils (%) (Auto) 68 % (31-73) 71 % (31-73) Lymphocytes (%) (Auto) 22 % (24-48) 18 % (24-48) Monocytes (%) (Auto) 8 % (0-9) 9 % (0-9) Eosinophils (%) (Auto) 2 % (0-3) 2 % (0-3) Basophils (%) (Auto) 0 % (0-3) 0 % (0-3) Neutrophils # (Auto) 4.1 x10^3uL (1.8-7.7) 3.4 x10^3uL (1.8-7.7) Lymphocytes # (Auto) 1.3 x10^3/uL (1.0-4.8) 0.8 x10^3/uL (1.0-4.8) Monocytes # (Auto) 0.5 x10^3/uL (0.0-1.1) 0.4 x10^3/uL (0.0-1.1) Eosinophils # (Auto) 0.1 x10^3/uL (0.0-0.7) 0.1 x10^3/uL (0.0-0.7) Basophils # (Auto) 0.0 x10^3/uL (0.0-0.2) 0.0 x10^3/uL (0.0-0.2) Sodium Level 123 mmol/L (136-145) 117 mmol/L (136-145) Potassium Level 3.7 mmol/L (3.5-5.1) 3.4 mmol/L (3.5-5.1) Chloride Level 90 mmol/L (98-107) 84 mmol/L (98-107) Carbon Dioxide Level 27 mmol/L (21-32) 24 mmol/L (21-32) Anion Gap 6 (6-14) 9 (6-14) Blood Urea Nitrogen 6 mg/dL (7-20) 5 mg/dL (7-20) Creatinine 0.5 mg/dL (0.6-1.0) 0.6 mg/dL (0.6-1.0) Estimated GFR (Cockcroft-Gault) 120.9 98.0 BUN/Creatinine Ratio 12 (6-20) 8 (6-20) Glucose Level 82 mg/dL (70-99) 75 mg/dL (70-99) Calcium Level 8.0 mg/dL (8.5-10.1) 7.8 mg/dL (8.5-10.1) Total Bilirubin 0.4 mg/dL (0.2-1.0) 0.4 mg/dL (0.2-1.0) Aspartate Amino Transf (AST/SGOT) 22 U/L (15-37) 24 U/L (15-37) Alanine Aminotransferase (ALT/SGPT) 11 U/L (14-59) 13 U/L (14-59) Alkaline Phosphatase 62 U/L (46-116) 64 U/L (46-116) Total Protein 5.9 g/dL (6.4-8.2) 5.9 g/dL (6.4-8.2) Albumin 2.9 g/dL (3.4-5.0) 2.9 g/dL (3.4-5.0) Albumin/Globulin Ratio 1.0 (1.0-1.7) 1.0 (1.0-1.7) Urine Collection Type Unknown Urine Color Yellow Urine Clarity Clear Urine pH 7.0 Urine Specific [place] 1.020 Urine Protein Negative mg/dL (NEG-TRACE) Urine Glucose (UA) Negative mg/dL (NEG) Urine Ketones (Stick) 40 mg/dL (NEG) Urine Blood Negative (NEG) Urine Nitrite Negative (NEG) Urine Bilirubin Negative (NEG) Urine Urobilinogen Dipstick 0.2 mg/dL (0.2 mg/dL) Urine Leukocyte Esterase Negative (NEG) Urine RBC 3-5 /HPF (0-2) Urine WBC 0 /HPF (0-4) Urine Squamous Epithelial Cells Few /LPF Urine Bacteria 0 /HPF (0-FEW) Urine Mucus Slight /LPF Urine Random Creatinine 63.2 mg/dL (Not Estab.) Urine Sodium 241 mmol/L (Not Estab.) Urine Potassium 25.8 mmol/L (Not Estab.) Urine Chloride 216 mmol/L (Not Estab.) Thyroid Stimulating Hormone (TSH) 3.209 uIU/mL (0.358-3.74) Free Thyroxine 0.86 ng/dL (0.76-1.46) Laboratory Tests Test 06/29/18 13:30 06/30/18 06:23 Urine Collection Type Unknown Urine Color Yellow Urine Clarity Clear Urine pH 7.0 Urine Specific [place] 1.020 Urine Protein Negative mg/dL (NEG-TRACE) Urine Glucose (UA) Negative mg/dL (NEG) Urine Ketones (Stick) 40 mg/dL (NEG) Urine Blood Negative (NEG) Urine Nitrite Negative (NEG) Urine Bilirubin Negative (NEG) Urine Urobilinogen Dipstick 0.2 mg/dL (0.2 mg/dL) Urine Leukocyte Esterase Negative (NEG) Urine RBC 3-5 /HPF (0-2) Urine WBC 0 /HPF (0-4) Urine Squamous Epithelial Cells Few /LPF Urine Bacteria 0 /HPF (0-FEW) Urine Mucus Slight /LPF Urine Random Creatinine 63.2 mg/dL (Not Estab.) Urine Sodium 241 mmol/L (Not Estab.) Urine Potassium 25.8 mmol/L (Not Estab.) Urine Chloride 216 mmol/L (Not Estab.) White Blood Count 4.7 x10^3/uL (4.0-11.0) Red Blood Count 3.76 x10^6/uL (3.50-5.40) Hemoglobin 10.3 g/dL (12.0-15.5) Hematocrit 30.9 % (36.0-47.0) Mean Corpuscular Volume 82 fL (79-100) Mean Corpuscular Hemoglobin 28 pg (25-35) Mean Corpuscular Hemoglobin Concent 34 g/dL (31-37) Red Cell Distribution Width 14.5 % (11.5-14.5) Platelet Count 172 x10^3/uL (140-400) Neutrophils (%) (Auto) 71 % (31-73) Lymphocytes (%) (Auto) 18 % (24-48) Monocytes (%) (Auto) 9 % (0-9) Eosinophils (%) (Auto) 2 % (0-3) Basophils (%) (Auto) 0 % (0-3) Neutrophils # (Auto) 3.4 x10^3uL (1.8-7.7) Lymphocytes # (Auto) 0.8 x10^3/uL (1.0-4.8) Monocytes # (Auto) 0.4 x10^3/uL (0.0-1.1) Eosinophils # (Auto) 0.1 x10^3/uL (0.0-0.7) Basophils # (Auto) 0.0 x10^3/uL (0.0-0.2) Sodium Level 117 mmol/L (136-145) Potassium Level 3.4 mmol/L (3.5-5.1) Chloride Level 84 mmol/L (98-107) Carbon Dioxide Level 24 mmol/L (21-32) Anion Gap 9 (6-14) Blood Urea Nitrogen 5 mg/dL (7-20) Creatinine 0.6 mg/dL (0.6-1.0) Estimated GFR (Cockcroft-Gault) 98.0 BUN/Creatinine Ratio 8 (6-20) Glucose Level 75 mg/dL (70-99) Calcium Level 7.8 mg/dL (8.5-10.1) Total Bilirubin 0.4 mg/dL (0.2-1.0) Aspartate Amino Transf (AST/SGOT) 24 U/L (15-37) Alanine Aminotransferase (ALT/SGPT) 13 U/L (14-59) Alkaline Phosphatase 64 U/L (46-116) Total Protein 5.9 g/dL (6.4-8.2) Albumin 2.9 g/dL (3.4-5.0) Albumin/Globulin Ratio 1.0 (1.0-1.7) Thyroid Stimulating Hormone (TSH) 3.209 uIU/mL (0.358-3.74) Free Thyroxine 0.86 ng/dL (0.76-1.46) Problem List Problems Medical Problems: (1) Mobile cecum Status: Acute (2) Vomiting Status: Acute Assessment/Plan plans for EGD noted GI recs for possible Fabi will review with MAGDALENO Garnica MD 06/30/18 1228: SURGICAL PROGRESS NOTE Assessment/Plan Pt seen and examined. Agree with Ms. Olivarez's note Pt notes persistent issues with nausea, reflux abd soft, pain at "6" agree with EGD, will ask Dr. Hankins to evaluate pt this weekend. LEONOR OLIVAREZ APRN Jun 30, 2018 08:[address] MD Jun 30, 2018 12:28
[2018-06-30] MEDS: MULTIVITAMIN with MINERAL TABLET. PO SCH ×2 (09:00→13:39)
[2018-06-30] MEDS: LACTOBACILLUS RHAMNOSUS GG 1 CAPSULE. PO SCH ×3 (09:00→20:52)
[2018-06-30] MEDS: LISINOPRIL 10 MG TABLET PO SCH (09:00)
[2018-06-30] MEDS: POLYETHYLENE GLYCOL 3350 17 GM PACKET. PO SCH ×2 (09:00→13:39)
[2018-06-30] MEDS: CEFDINIR 300 MG CAPSULE PO SCH ×3 (09:00→20:52)
[2018-06-30] MEDS ORDERED: SODIUM CHLORIDE 3 % 500 ML IV ONE (09:45)
[2018-06-30 11:00] VITALS: BP 158/68
--- NOTE | 2018-06-30 11:07 | PDOC ---
Subjective: Subjective: Headache and mid abd discomfort. Would like some pudding. Objective: Objective: EGD cancelled w/ hyponatremia. Vital Signs: Vital Signs Date Time Temp Pulse Resp B/P (MAP) Pulse Ox O2 Delivery O2 Flow Rate FiO2 06/30/18 07:00 97.5 62 16 146/70 (95) 97 Room Air 97.5 Labs: Laboratory Tests Test 06/29/18 13:30 06/30/18 06:23 Urine Collection Type Unknown Urine Color Yellow Urine Clarity Clear Urine pH 7.0 Urine Specific [place] 1.020 Urine Protein Negative mg/dL Urine Glucose (UA) Negative mg/dL Urine Ketones (Stick) 40 mg/dL Urine Blood Negative Urine Nitrite Negative Urine Bilirubin Negative Urine Urobilinogen Dipstick 0.2 mg/dL Urine Leukocyte Esterase Negative Urine RBC 3-5 /HPF Urine WBC 0 /HPF Urine Squamous Epithelial Cells Few /LPF Urine Bacteria 0 /HPF Urine Mucus Slight /LPF Urine Random Creatinine 63.2 mg/dL Urine Sodium 241 mmol/L Urine Potassium 25.8 mmol/L Urine Chloride 216 mmol/L White Blood Count 4.7 x10^3/uL Red Blood Count 3.76 x10^6/uL Hemoglobin 10.3 g/dL Hematocrit 30.9 % Mean Corpuscular Volume 82 fL Mean Corpuscular Hemoglobin 28 pg Mean Corpuscular Hemoglobin Concent 34 g/dL Red Cell Distribution Width 14.5 % Platelet Count 172 x10^3/uL Neutrophils (%) (Auto) 71 % Lymphocytes (%) (Auto) 18 % Monocytes (%) (Auto) 9 % Eosinophils (%) (Auto) 2 % Basophils (%) (Auto) 0 % Neutrophils # (Auto) 3.4 x10^3uL Lymphocytes # (Auto) 0.8 x10^3/uL Monocytes # (Auto) 0.4 x10^3/uL Eosinophils # (Auto) 0.1 x10^3/uL Basophils # (Auto) 0.0 x10^3/uL Sodium Level 117 mmol/L Potassium Level 3.4 mmol/L Chloride Level 84 mmol/L Carbon Dioxide Level 24 mmol/L Anion Gap 9 Blood Urea Nitrogen 5 mg/dL Creatinine 0.6 mg/dL Estimated GFR (Cockcroft-Gault) 98.0 BUN/Creatinine Ratio 8 Glucose Level 75 mg/dL Calcium Level 7.8 mg/dL Total Bilirubin 0.4 mg/dL Aspartate Amino Transf (AST/SGOT) 24 U/L Alanine Aminotransferase (ALT/SGPT) 13 U/L Alkaline Phosphatase 64 U/L Total Protein 5.9 g/dL Albumin 2.9 g/dL Albumin/Globulin Ratio 1.0 Thyroid Stimulating Hormone (TSH) 3.209 uIU/mL Free Thyroxine 0.86 ng/dL PE: GEN: NAD LUNGS: CTAB HEART: RRR ABD: NABS, S/ND, periumbilical/epigastric discomfort NEURO/PSYCH: A & O 3, quiet A/P: Vomiting, upper abd discomfort Hiatal hernia, GERD, slightly delayed gastric emptying Presbyesophagus - denies dysphagia ACD Hyponatremia - per renal -- Try full liquids per her request. If tolerates diet, can pursue EGD as outpt - previously d/w sister who had preferred inpt EGD - ?Tuesday per hyponatremia issues. Continue PPI. BRENDA TAPIA Jun 30, 2018 11:07
[2018-06-30] MEDS: IV NORMAL SALINE 1000ML BAG 1,000 ML IV SCH (11:39)
--- NOTE | 2018-06-30 11:45 | PDOC ---
Renal-Progress Notes Subjective Notes Notes TIRED History of Present Illness Hx of present illness STABLE Vitals Vitals Vital Signs Date Time Temp Pulse Resp B/P (MAP) Pulse Ox O2 Delivery O2 Flow Rate FiO2 06/30/18 07:00 97.5 62 16 146/70 (95) 97 Room Air 97.5 Weight Weight [ ] I.O. Intake and Output Intake and Output 06/30/18 06:59 Intake Total 664 ml Balance 664 ml Intake Oral 240 ml IV Total 424 ml # Voids 6 Labs Labs Laboratory Tests Test 06/29/18 13:30 06/30/18 06:23 Urine Collection Type Unknown Urine Color Yellow Urine Clarity Clear Urine pH 7.0 Urine Specific [place] 1.020 Urine Protein Negative mg/dL (NEG-TRACE) Urine Glucose (UA) Negative mg/dL (NEG) Urine Ketones (Stick) 40 mg/dL (NEG) Urine Blood Negative (NEG) Urine Nitrite Negative (NEG) Urine Bilirubin Negative (NEG) Urine Urobilinogen Dipstick 0.2 mg/dL (0.2 mg/dL) Urine Leukocyte Esterase Negative (NEG) Urine RBC 3-5 /HPF (0-2) Urine WBC 0 /HPF (0-4) Urine Squamous Epithelial Cells Few /LPF Urine Bacteria 0 /HPF (0-FEW) Urine Mucus Slight /LPF Urine Random Creatinine 63.2 mg/dL (Not Estab.) Urine Sodium 241 mmol/L (Not Estab.) Urine Potassium 25.8 mmol/L (Not Estab.) Urine Chloride 216 mmol/L (Not Estab.) White Blood Count 4.7 x10^3/uL (4.0-11.0) Red Blood Count 3.76 x10^6/uL (3.50-5.40) Hemoglobin 10.3 g/dL (12.0-15.5) Hematocrit 30.9 % (36.0-47.0) Mean Corpuscular Volume 82 fL (79-100) Mean Corpuscular Hemoglobin 28 pg (25-35) Mean Corpuscular Hemoglobin Concent 34 g/dL (31-37) Red Cell Distribution Width 14.5 % (11.5-14.5) Platelet Count 172 x10^3/uL (140-400) Neutrophils (%) (Auto) 71 % (31-73) Lymphocytes (%) (Auto) 18 % (24-48) Monocytes (%) (Auto) 9 % (0-9) Eosinophils (%) (Auto) 2 % (0-3) Basophils (%) (Auto) 0 % (0-3) Neutrophils # (Auto) 3.4 x10^3uL (1.8-7.7) Lymphocytes # (Auto) 0.8 x10^3/uL (1.0-4.8) Monocytes # (Auto) 0.4 x10^3/uL (0.0-1.1) Eosinophils # (Auto) 0.1 x10^3/uL (0.0-0.7) Basophils # (Auto) 0.0 x10^3/uL (0.0-0.2) Sodium Level 117 mmol/L (136-145) Potassium Level 3.4 mmol/L (3.5-5.1) Chloride Level 84 mmol/L (98-107) Carbon Dioxide Level 24 mmol/L (21-32) Anion Gap 9 (6-14) Blood Urea Nitrogen 5 mg/dL (7-20) Creatinine 0.6 mg/dL (0.6-1.0) Estimated GFR (Cockcroft-Gault) 98.0 BUN/Creatinine Ratio 8 (6-20) Glucose Level 75 mg/dL (70-99) Calcium Level 7.8 mg/dL (8.5-10.1) Total Bilirubin 0.4 mg/dL (0.2-1.0) Aspartate Amino Transf (AST/SGOT) 24 U/L (15-37) Alanine Aminotransferase (ALT/SGPT) 13 U/L (14-59) Alkaline Phosphatase 64 U/L (46-116) Total Protein 5.9 g/dL (6.4-8.2) Albumin 2.9 g/dL (3.4-5.0) Albumin/Globulin Ratio 1.0 (1.0-1.7) Thyroid Stimulating Hormone (TSH) 3.209 uIU/mL (0.358-3.74) Free Thyroxine 0.86 ng/dL (0.76-1.46) Micro Micro Microbiology 06/24/18 Urine Culture - Final, Complete 06/24/18 Urine Culture Result 1 (DARRELL) - Final, Complete 06/24/18 Urine Culture Result 2 (DARRELL) - Final, Complete Review of Systems Constitutional: yes: alert, oriented Ears/Nose/Throat: Yes: no symptom reported Eyes: Yes: no symptom reported Pulmonary: Yes no symptom reported Cardiovascular: Yes no symptom reported Gastrointestional: Yes: constipation Genitourinary: Yes: no symptom reported Musculoskeletal: Yes: muscle stiffness Skin: Yes no symptom reported Psychiatric/Neurological: Yes: no symptom reported Endocrine: Yes: no symptom reported Hematologic/Lymphatic: Yes: no symptom reported Physical Exam General Appearance: no apparent distress Skin: warm Respiratory: bilateral CTA Heart: S1S2 Abdomen: soft, bowel sounds present Genitourinary: bladder flat Extremities: pulses present Neurology: alert, oriented Assessment Assessment IMP HYPONATREMIA UTI N/V ABD PAIN PLAN OFF SSRI D/C DELMA-I START [facility] LABS IN AM 3% SALINE LUI JACKSON MD Jun 30, 2018 11:45
[2018-06-30] MEDS: DICYCLOMINE HCL 10 MG CAPSULE PO PRN (13:39)
[2018-06-30 13:48] LABS: CALCIUM 7.9 mg/dL (8.5-10.1); CREATININE 0.6 mg/dL (0.6-1.0); POTASSIUM 3.5 mmol/L (3.5-5.1)
[2018-06-30 15:00] VITALS: BP 126/60
--- NOTE | 2018-06-30 16:21 | PDOC ---
PROGRESS NOTES Chief Complaint Chief Complaint hyponatremia, SIADH Abnormal abdominal CT: floppy cecum, Moderate hiatal hernia Delayed gastric emptying diverticulosis UTI Nausea and Vomiting - History of Present Illness History of Present Illness start 3% NS renal following discussed with GI, egd on tuesday risk too high today with Na that low appears wear and lethargic s/p Upper GI series yesterday, symptoms not much better Patient resting in NAD discussed with sister Vitals Vitals Vital Signs Date Time Temp Pulse Resp B/P (MAP) Pulse Ox O2 Delivery O2 Flow Rate FiO2 06/30/18 15:00 97.7 67 18 126/60 (82) 95 Room Air 97.7 Physical Exam General: Alert, Oriented X3, Cooperative Heart: Regular rate, Normal S1 Lungs: Clear, Other Abdomen: Soft, No tenderness Extremities: No clubbing, No cyanosis Skin: No breakdown Labs LABS Laboratory Tests Test 06/30/18 06:23 06/30/18 13:15 White Blood Count 4.7 x10^3/uL (4.0-11.0) Red Blood Count 3.76 x10^6/uL (3.50-5.40) Hemoglobin 10.3 g/dL (12.0-15.5) Hematocrit 30.9 % (36.0-47.0) Mean Corpuscular Volume 82 fL (79-100) Mean Corpuscular Hemoglobin 28 pg (25-35) Mean Corpuscular Hemoglobin Concent 34 g/dL (31-37) Red Cell Distribution Width 14.5 % (11.5-14.5) Platelet Count 172 x10^3/uL (140-400) Neutrophils (%) (Auto) 71 % (31-73) Lymphocytes (%) (Auto) 18 % (24-48) Monocytes (%) (Auto) 9 % (0-9) Eosinophils (%) (Auto) 2 % (0-3) Basophils (%) (Auto) 0 % (0-3) Neutrophils # (Auto) 3.4 x10^3uL (1.8-7.7) Lymphocytes # (Auto) 0.8 x10^3/uL (1.0-4.8) Monocytes # (Auto) 0.4 x10^3/uL (0.0-1.1) Eosinophils # (Auto) 0.1 x10^3/uL (0.0-0.7) Basophils # (Auto) 0.0 x10^3/uL (0.0-0.2) Sodium Level 117 mmol/L (136-145) 119 mmol/L (136-145) Potassium Level 3.4 mmol/L (3.5-5.1) 3.5 mmol/L (3.5-5.1) Chloride Level 84 mmol/L (98-107) 84 mmol/L (98-107) Carbon Dioxide Level 24 mmol/L (21-32) 26 mmol/L (21-32) Anion Gap 9 (6-14) 9 (6-14) Blood Urea Nitrogen 5 mg/dL (7-20) 5 mg/dL (7-20) Creatinine 0.6 mg/dL (0.6-1.0) 0.6 mg/dL (0.6-1.0) Estimated GFR (Cockcroft-Gault) 98.0 98.0 BUN/Creatinine Ratio 8 (6-20) Glucose Level 75 mg/dL (70-99) 85 mg/dL (70-99) Calcium Level 7.8 mg/dL (8.5-10.1) 7.9 mg/dL (8.5-10.1) Total Bilirubin 0.4 mg/dL (0.2-1.0) Aspartate Amino Transf (AST/SGOT) 24 U/L (15-37) Alanine Aminotransferase (ALT/SGPT) 13 U/L (14-59) Alkaline Phosphatase 64 U/L (46-116) Total Protein 5.9 g/dL (6.4-8.2) Albumin 2.9 g/dL (3.4-5.0) Albumin/Globulin Ratio 1.0 (1.0-1.7) Thyroid Stimulating Hormone (TSH) 3.209 uIU/mL (0.358-3.74) Free Thyroxine 0.86 ng/dL (0.76-1.46) Assessment and Plan Assessmemt and Plan Problems Medical Problems: (1) Mobile cecum Status: Acute (2) Vomiting Status: Acute Comment Review of Relevant I have reviewed the following items kyler (where applicable) has been applied. Labs Laboratory Tests Test 06/29/18 02:55 06/29/18 13:30 06/30/18 06:23 06/30/18 13:15 White Blood Count 6.0 x10^3/uL (4.0-11.0) 4.7 x10^3/uL (4.0-11.0) Red Blood Count 3.68 x10^6/uL (3.50-5.40) 3.76 x10^6/uL (3.50-5.40) Hemoglobin 10.2 g/dL (12.0-15.5) 10.3 g/dL (12.0-15.5) Hematocrit 30.4 % (36.0-47.0) 30.9 % (36.0-47.0) Mean Corpuscular Volume 83 fL (79-100) 82 fL (79-100) Mean Corpuscular Hemoglobin 28 pg (25-35) 28 pg (25-35) Mean Corpuscular Hemoglobin Concent 34 g/dL (31-37) 34 g/dL (31-37) Red Cell Distribution Width 14.5 % (11.5-14.5) 14.5 % (11.5-14.5) Platelet Count 188 x10^3/uL (140-400) 172 x10^3/uL (140-400) Neutrophils (%) (Auto) 68 % (31-73) 71 % (31-73) Lymphocytes (%) (Auto) 22 % (24-48) 18 % (24-48) Monocytes (%) (Auto) 8 % (0-9) 9 % (0-9) Eosinophils (%) (Auto) 2 % (0-3) 2 % (0-3) Basophils (%) (Auto) 0 % (0-3) 0 % (0-3) Neutrophils # (Auto) 4.1 x10^3uL (1.8-7.7) 3.4 x10^3uL (1.8-7.7) Lymphocytes # (Auto) 1.3 x10^3/uL (1.0-4.8) 0.8 x10^3/uL (1.0-4.8) Monocytes # (Auto) 0.5 x10^3/uL (0.0-1.1) 0.4 x10^3/uL (0.0-1.1) Eosinophils # (Auto) 0.1 x10^3/uL (0.0-0.7) 0.1 x10^3/uL (0.0-0.7) Basophils # (Auto) 0.0 x10^3/uL (0.0-0.2) 0.0 x10^3/uL (0.0-0.2) Sodium Level 123 mmol/L (136-145) 117 mmol/L (136-145) 119 mmol/L (136-145) Potassium Level 3.7 mmol/L (3.5-5.1) 3.4 mmol/L (3.5-5.1) 3.5 mmol/L (3.5-5.1) Chloride Level 90 mmol/L (98-107) 84 mmol/L (98-107) 84 mmol/L (98-107) Carbon Dioxide Level 27 mmol/L (21-32) 24 mmol/L (21-32) 26 mmol/L (21-32) Anion Gap 6 (6-14) 9 (6-14) 9 (6-14) Blood Urea Nitrogen 6 mg/dL (7-20) 5 mg/dL (7-20) 5 mg/dL (7-20) Creatinine 0.5 mg/dL (0.6-1.0) 0.6 mg/dL (0.6-1.0) 0.6 mg/dL (0.6-1.0) Estimated GFR (Cockcroft-Gault) 120.9 98.0 98.0 BUN/Creatinine Ratio 12 (6-20) 8 (6-20) Glucose Level 82 mg/dL (70-99) 75 mg/dL (70-99) 85 mg/dL (70-99) Calcium Level 8.0 mg/dL (8.5-10.1) 7.8 mg/dL (8.5-10.1) 7.9 mg/dL (8.5-10.1) Total Bilirubin 0.4 mg/dL (0.2-1.0) 0.4 mg/dL (0.2-1.0) Aspartate Amino Transf (AST/SGOT) 22 U/L (15-37) 24 U/L (15-37) Alanine Aminotransferase (ALT/SGPT) 11 U/L (14-59) 13 U/L (14-59) Alkaline Phosphatase 62 U/L (46-116) 64 U/L (46-116) Total Protein 5.9 g/dL (6.4-8.2) 5.9 g/dL (6.4-8.2) Albumin 2.9 g/dL (3.4-5.0) 2.9 g/dL (3.4-5.0) Albumin/Globulin Ratio 1.0 (1.0-1.7) 1.0 (1.0-1.7) Urine Collection Type Unknown Urine Color Yellow Urine Clarity Clear Urine pH 7.0 Urine Specific [place] 1.020 Urine Protein Negative mg/dL (NEG-TRACE) Urine Glucose (UA) Negative mg/dL (NEG) Urine Ketones (Stick) 40 mg/dL (NEG) Urine Blood Negative (NEG) Urine Nitrite Negative (NEG) Urine Bilirubin Negative (NEG) Urine Urobilinogen Dipstick 0.2 mg/dL (0.2 mg/dL) Urine Leukocyte Esterase Negative (NEG) Urine RBC 3-5 /HPF (0-2) Urine WBC 0 /HPF (0-4) Urine Squamous Epithelial Cells Few /LPF Urine Bacteria 0 /HPF (0-FEW) Urine Mucus Slight /LPF Urine Random Creatinine 63.2 mg/dL (Not Estab.) Urine Sodium 241 mmol/L (Not Estab.) Urine Potassium 25.8 mmol/L (Not Estab.) Urine Chloride 216 mmol/L (Not Estab.) Thyroid Stimulating Hormone (TSH) 3.209 uIU/mL (0.358-3.74) Free Thyroxine 0.86 ng/dL (0.76-1.46) Laboratory Tests Test 06/30/18 06:23 06/30/18 13:15 White Blood Count 4.7 x10^3/uL (4.0-11.0) Red Blood Count 3.76 x10^6/uL (3.50-5.40) Hemoglobin 10.3 g/dL (12.0-15.5) Hematocrit 30.9 % (36.0-47.0) Mean Corpuscular Volume 82 fL (79-100) Mean Corpuscular Hemoglobin 28 pg (25-35) Mean Corpuscular Hemoglobin Concent 34 g/dL (31-37) Red Cell Distribution Width 14.5 % (11.5-14.5) Platelet Count 172 x10^3/uL (140-400) Neutrophils (%) (Auto) 71 % (31-73) Lymphocytes (%) (Auto) 18 % (24-48) Monocytes (%) (Auto) 9 % (0-9) Eosinophils (%) (Auto) 2 % (0-3) Basophils (%) (Auto) 0 % (0-3) Neutrophils # (Auto) 3.4 x10^3uL (1.8-7.7) Lymphocytes # (Auto) 0.8 x10^3/uL (1.0-4.8) Monocytes # (Auto) 0.4 x10^3/uL (0.0-1.1) Eosinophils # (Auto) 0.1 x10^3/uL (0.0-0.7) Basophils # (Auto) 0.0 x10^3/uL (0.0-0.2) Sodium Level 117 mmol/L (136-145) 119 mmol/L (136-145) Potassium Level 3.4 mmol/L (3.5-5.1) 3.5 mmol/L (3.5-5.1) Chloride Level 84 mmol/L (98-107) 84 mmol/L (98-107) Carbon Dioxide Level 24 mmol/L (21-32) 26 mmol/L (21-32) Anion Gap 9 (6-14) 9 (6-14) Blood Urea Nitrogen 5 mg/dL (7-20) 5 mg/dL (7-20) Creatinine 0.6 mg/dL (0.6-1.0) 0.6 mg/dL (0.6-1.0) Estimated GFR (Cockcroft-Gault) 98.0 98.0 BUN/Creatinine Ratio 8 (6-20) Glucose Level 75 mg/dL (70-99) 85 mg/dL (70-99) Calcium Level 7.8 mg/dL (8.5-10.1) 7.9 mg/dL (8.5-10.1) Total Bilirubin 0.4 mg/dL (0.2-1.0) Aspartate Amino Transf (AST/SGOT) 24 U/L (15-37) Alanine Aminotransferase (ALT/SGPT) 13 U/L (14-59) Alkaline Phosphatase 64 U/L (46-116) Total Protein 5.9 g/dL (6.4-8.2) Albumin 2.9 g/dL (3.4-5.0) Albumin/Globulin Ratio 1.0 (1.0-1.7) Thyroid Stimulating Hormone (TSH) 3.209 uIU/mL (0.358-3.74) Free Thyroxine 0.86 ng/dL (0.76-1.46) Microbiology 06/24/18 Urine Culture - Final, Complete 06/24/18 Urine Culture Result 1 (DARRELL) - Final, Complete 06/24/18 Urine Culture Result 2 (DARRELL) - Final, Complete Medications Current Medications Sodium Chloride 1,000 ml @ 1,000 mls/hr Q1H IV Last administered on 06/24/18 18:27; Start 06/24/18 at 16:10; Stop 06/24/18 at 17:09; Status DC Ondansetron HCl (Zofran) 4 mg 1X ONCE IV Last administered on 06/24/18 18:27 ; Start 06/24/18 at 16:15; Stop 06/24/18 at 16:16; Status DC Pantoprazole Sodium (PROTONIX VIAL for IV PUSH) 40 mg 1X ONCE IVP Last administered on 06/24/18 18:27; Start 06/24/18 at 16:45; Stop 06/24/18 at 16:48 ; Status DC Iohexol (Omnipaque 300 Mg/ml) 75 ml 1X ONCE IV Last administered on 06/24/18 18:29; Start 06/24/18 at 18:30; Stop 06/24/18 at 18:31; Status DC Info (CONTRAST GIVEN -- Rx MONITORING) 1 each PRN DAILY PRN MC SEE COMMENTS; Start 06/24/18 at 18:30; Stop 06/26/18 at 18:29; Status DC Ceftriaxone Sodium (Rocephin) 1 gm 1X ONCE IVP Last administered on 06/24/18at 20:48; Start 06/24/18 at 20:45; Stop 06/24/18 at 20:46; Status DC Ondansetron HCl (Zofran) 4 mg PRN Q8HRS PRN IV NAUSEA/VOMITING Last administered on 06/25/18 19:14; Start 06/25/18 at 00:45; Stop 06/26/18 at 00:44 ; Status DC Fentanyl Citrate (Fentanyl 2ml Vial) 50 mcg PRN Q1HR PRN IV PAIN; Start at 00:45; Stop 06/26/18 at 00:44; Status DC Acetaminophen (Tylenol) 650 mg PRN Q4HRS PRN PO FEVER; Start 06/25/18 at 00:45 ; Stop 06/26/18 at 00:44; Status DC Sodium Chloride 1,000 ml @ 75 mls/hr [id number] IV Last administered on 05:49; Start 06/25/18 at 09:30; Stop 06/29/18 at 09:47; Status DC Ceftriaxone Sodium (Rocephin) 1 gm Q24H IVP Last administered on 06/29/18at 20: 34; Start 06/25/18 at 21:00; Stop 06/29/18 at 23:59; Status DC Lisinopril (Prinivil) 10 mg DAILY PO Last administered on 06/29/18 08:29; Start 06/26/18 at 09:00; Stop 06/30/18 at 11:46; Status DC Levothyroxine Sodium (Synthroid) 50 mcg DAILY06 PO Last administered on 05:48; Start 06/26/18 at 06:00 Atorvastatin Calcium (Lipitor) 10 mg QHS PO Last administered on 06/29/18 20: 33; Start 06/25/18 at 21:00 Multivitamins (Thera M Plus) 1 tab DAILY PO Last administered on 06/30/18at 13: 39; Start 06/26/18 at 09:00 Pantoprazole Sodium (Protonix) 40 mg DAILYAC PO ; Start 06/26/18 at 07:30; Stop 06/26/18 at 13:28; Status DC Paroxetine HCl (Paxil) 30 mg DAILY PO Last administered on 06/27/18 09:08; Start 06/26/18 at 09:00; Stop 06/28/18 at 10:33; Status DC Lactobacillus Rhamnosus (Culturelle) 1 cap BID PO Last administered on at 13:42; Start 06/25/18 at 21:00 Calcium Carbonate/ Glycine (Tums) 1,000 mg PRN AFTMEALHC PRN PO INDIGESTION Last administered on 3/27/19at 19:36; Start 06/25/18 at 20:45 Pantoprazole Sodium (Protonix) 40 mg BIDAC PO Last administered on 06/30/18at 13 :39; Start 06/26/18 at 16:30 Polyethylene Glycol (miraLAX PACKET) 17 gm PRN DAILY PRN PO CONSTIPATION; Start 06/26/18 at 13:30; Stop 06/27/18 at 12:37; Status DC Barium Sulfate (Liquid E-Z Paque) 355 ml 1X ONCE PO ; Start 06/27/18 at 07:45; Stop 06/27/18 at 07:46; Status DC Barium Sulfate (E-Z-Hd) 340 gm 1X ONCE PO ; Start 06/27/18 at 07:45; Stop 06/27 at 07:46; Status DC Simethicone/ Sodium Bicarb/ Citric Ac (E-Z-Gas) 1 packet 1X ONCE PO ; Start at 07:45; Stop 06/27/18 at 07:46; Status DC Acetaminophen (Tylenol) 650 mg PRN Q6HRS PRN PO MILD PAIN Last administered on 06/30/18at 13:40; Start 06/27/18 at 10:30 Polyethylene Glycol (miraLAX PACKET) 17 gm DAILY PO Last administered on at 13:39; Start 06/27/18 at 13:30 Polyethylene Glycol (miraLAX PACKET) 17 gm PRN DAILY PRN PO CONSTIPATION; Start 06/27/18 at 12:45 Dicyclomine HCl (Bentyl) 10 mg PRN TID PRN PO abd pain Last administered on at 13:39; Start 06/27/18 at 12:45 Multi-Ingredient Mouthwash/Gargle (Gi Cocktail) 20 ml PRN QID PRN PO CHEST PAIN ; Start 06/27/18 at 12:45 Barium Sulfate (E-Z-Hd) 340 gm 1X ONCE PO ; Start 06/28/18 at 08:45; Stop 06/28 at 08:48; Status DC Barium Sulfate (Liquid E-Z Paque) 355 ml 1X ONCE PO Last administered on at 09:00; Start 06/28/18 at 08:45; Stop 06/28/18 at 08:48; Status DC Simethicone/ Sodium Bicarb/ Citric Ac (E-Z-Gas) 1 packet 1X ONCE PO ; Start at 08:45; Stop 06/28/18 at 08:48; Status DC Ondansetron HCl (Zofran) 4 mg PRN Q6HRS PRN IV NAUSEA/VOMITING Last administered on 06/30/18at 14:54; Start 06/29/18 at 12:45 Cefdinir (Omnicef) 300 mg BID PO Last administered on 06/30/18at 13:39; Start at 09:00 Ringer's Solution 1,000 ml @ 50 mls/hr Q20H IV ; Start 06/30/18 at 07:00; Stop 06/30/18 at 18:59 Sodium Chloride 1,000 ml @ 60 mls/hr [id number] IV Last administered on at 20:32; Start 06/29/18 at 20:00 Sodium Chloride 500 ml @ 50 mls/hr 1X ONCE IV Last administered on 06/30/18at 10:43; Start 06/30/18 at 09:45; Stop 06/30/18 at 19:44 Amlodipine Besylate (Norvasc) 5 mg DAILY PO ; Start 07/01/18 at 09:00 Active Scripts Active Reported Lisinopril 10 Mg Tablet 1 Tab PO DAILY Multivitamins (Multivitamin) 1 Each Tablet 1 Tab PO DAILY Prilosec (Omeprazole) 20 Mg Capsule.dr 1 Cap PO DAILY Tylenol Extra Strength (Acetaminophen) 500 Mg Tablet 500 Mg PO Lovastatin 40 Mg Tablet 40 Mg PO HS Paroxetine Hcl 30 Mg Tablet 30 Mg PO DAILY Levothyroxine Sodium 50 Mcg Tablet 50 Mcg PO DAILYAC Vitals/I & O Vital Sign - Last 24 Hours 06/29/18 06/29/18 06/29/18 06/30/18 19:20 20:00 23:15 03:17 Temp 98.5 98.6 98.6 98.5 98.6 98.6 Pulse 69 69 68 Resp 18 18 18 B/P (MAP) 146/77 (100) 136/77 (96) 132/74 (93) Pulse Ox 94 93 94 O2 Delivery Room Air Room Air Room Air Room Air 06/30/18 06/30/18 06/30/18 06/30/18 07:00 08:00 11:00 15:00 Temp 97.5 97.7 97.7 97.5 97.7 97.7 Pulse 62 67 67 Resp 16 16 18 B/P (MAP) 146/70 (95) 158/68 (98) 126/60 (82) Pulse Ox 97 97 95 O2 Delivery Room Air Room Air Room Air Room Air Intake and Output 06/29/18 06/29/18 06/30/18 15:00 23:00 07:00 Intake Total 240 ml 424 ml Balance 240 ml 424 ml VENKATA CHAMBERLAIN MD Jun 30, 2018 16:21
[2018-06-30 18:02] LABS: CALCIUM 7.9 mg/dL (8.5-10.1); CREATININE 0.7 mg/dL (0.6-1.0); POTASSIUM 3.4 mmol/L (3.5-5.1)
--- NOTE | 2018-06-30 18:25 | NUR ---
Critical sodium [address] Dela Cruz. Received orders to continue the hypertonic fluids @ 50mL/hr. Labs will be rechecked after infusion is complete.
[2018-06-30 19:00] VITALS: BP 142/67
[2018-06-30] MEDS: CALCIUM CARBONATE 500 MG TAB.CHEW PO PRN (19:15)
[2018-06-30] MEDS: ATORVASTATIN CALCIUM 10 MG TABLET. PO SCH (20:52)
[2018-06-30 23:00] VITALS: BP 138/70
[2018-07-01 02:55] LABS: ALBUMIN 2.9 g/dL (3.4-5.0); ALBUMIN/GLOBULIN RATIO 1.1 (1.0-1.7); CALCIUM 7.8 mg/dL (8.5-10.1); CREATININE 0.5 mg/dL (0.6-1.0); GFR 120.9; POTASSIUM 3.4 mmol/L (3.5-5.1); TOTAL BILIRUBIN 0.4 mg/dL (0.2-1.0); TOTAL PROTEIN 5.5 g/dL (6.4-8.2)
[2018-07-01 03:00] VITALS: BP 120/61
[2018-07-01 03:58] LABS: BASO % 1 % (0-3); EOS # 0.1 x10^3/uL (0.0-0.7); EOS % 2 % (0-3); HEMATOCRIT 30.9 % (36.0-47.0); HEMOGLOBIN 10.4 g/dL (12.0-15.5); LYMPH # 0.8 x10^3/uL (1.0-4.8); LYMPH % 18 % (24-48); MEAN CORPUSCULAR HEMOGLOBIN 28 pg (25-35); MEAN CORPUSCULAR HGB CONC 34 g/dL (31-37); MEAN CORPUSCULAR VOLUME 82 fL (79-100); MONO # 0.5 x10^3/uL (0.0-1.1); MONO % 12 % (0-9); NEUT # 2.9 x10^3uL (1.8-7.7); NEUT % 68 % (31-73); PLATELET COUNT 166 x10^3/uL (140-400); RED BLOOD COUNT 3.77 x10^6/uL (3.50-5.40); RED CELL DISTRIBUTION WIDTH 14.5 % (11.5-14.5); WHITE BLOOD COUNT 4.2 x10^3/uL (4.0-11.0)
[2018-07-01] MEDS: LEVOTHYROXINE 50 MCG TABLET PO SCH (05:54)
[2018-07-01] MEDS: IV NORMAL SALINE 1000ML BAG 1,000 ML IV SCH ×2 (05:54→22:00)
[2018-07-01 07:00] VITALS: BP 151/75
[2018-07-01] MEDS: POLYETHYLENE GLYCOL 3350 17 GM PACKET. PO SCH (09:00)
[2018-07-01] MEDS: CEFDINIR 300 MG CAPSULE PO SCH ×2 (09:29→21:01)
[2018-07-01] MEDS: LACTOBACILLUS RHAMNOSUS GG 1 CAPSULE. PO SCH ×2 (09:30→21:01)
[2018-07-01] MEDS: PANTOPRAZOLE 40 MG TABLET.DR. PO SCH ×2 (09:31→17:25)
[2018-07-01] MEDS: amLODIPine BESYLATE 5 MG TABLET PO SCH (09:31)
[2018-07-01 11:00] VITALS: BP 132/66
[2018-07-01] MEDS ORDERED: POTASSIUM CHLORIDE 20 MEQ TABLET.ER. PO ONE ×2 (11:30→17:17)
[2018-07-01] MEDS ORDERED: CALCIUM GLUCONATE 1,000 MG in IV DEXTROSE 5% 100ML 100 ML IV ONE (11:30)
[2018-07-01 15:00] VITALS: BP 141/72
--- NOTE | 2018-07-01 15:01 | PDOC ---
PROGRESS NOTES Subjective Subjective pt seen with sister, not much energy, but tolerating liquids Objective Objective Vital Signs Date Time Temp Pulse Resp B/P (MAP) Pulse Ox O2 Delivery O2 Flow Rate FiO2 07/01/18 09:31 79 151/75 07/01/18 07:00 18 94 Room Air 07/01/18 03:00 97.9 97.9 Intake and Output 07/01/18 07:00 Output Total 200 ml Balance -200 ml Output Urine Total 200 ml # Voids 5 Physical Exam Abdomen: Soft, No tenderness Heart: Regular rate Extremities: No clubbing, No cyanosis General: Alert, Oriented X3 Lungs: Clear to auscultation Assessment Assessment Problems Medical Problems: (1) Mobile cecum Status: Acute (2) Vomiting Status: Acute Plan Plan of Care Tolerating clears, EGD scheduled Tuesday. Current eval reviewed, mod to large hiatal hernia with no signs of obstruction; pt admitted with vomiting, long standing heartburn. Await EGD results, surgical repair of hernia and toupet fundoplication may be of benefit. Comment Review of Relevant I have reviewed the following items kyler (where applicable) has been applied. Labs Laboratory Tests Test 06/30/18 06:23 06/30/18 13:15 06/30/18 17:25 07/01/18 02:25 White Blood Count 4.7 x10^3/uL (4.0-11.0) 4.2 x10^3/uL (4.0-11.0) Red Blood Count 3.76 x10^6/uL (3.50-5.40) 3.77 x10^6/uL (3.50-5.40) Hemoglobin 10.3 g/dL (12.0-15.5) 10.4 g/dL (12.0-15.5) Hematocrit 30.9 % (36.0-47.0) 30.9 % (36.0-47.0) Mean Corpuscular Volume 82 fL (79-100) 82 fL (79-100) Mean Corpuscular Hemoglobin 28 pg (25-35) 28 pg (25-35) Mean Corpuscular Hemoglobin Concent 34 g/dL (31-37) 34 g/dL (31-37) Red Cell Distribution Width 14.5 % (11.5-14.5) 14.5 % (11.5-14.5) Platelet Count 172 x10^3/uL (140-400) 166 x10^3/uL (140-400) Neutrophils (%) (Auto) 71 % (31-73) 68 % (31-73) Lymphocytes (%) (Auto) 18 % (24-48) 18 % (24-48) Monocytes (%) (Auto) 9 % (0-9) 12 % (0-9) Eosinophils (%) (Auto) 2 % (0-3) 2 % (0-3) Basophils (%) (Auto) 0 % (0-3) 1 % (0-3) Neutrophils # (Auto) 3.4 x10^3uL (1.8-7.7) 2.9 x10^3uL (1.8-7.7) Lymphocytes # (Auto) 0.8 x10^3/uL (1.0-4.8) 0.8 x10^3/uL (1.0-4.8) Monocytes # (Auto) 0.4 x10^3/uL (0.0-1.1) 0.5 x10^3/uL (0.0-1.1) Eosinophils # (Auto) 0.1 x10^3/uL (0.0-0.7) 0.1 x10^3/uL (0.0-0.7) Basophils # (Auto) 0.0 x10^3/uL (0.0-0.2) 0.0 x10^3/uL (0.0-0.2) Sodium Level 117 mmol/L (136-145) 119 mmol/L (136-145) 117 mmol/L (136-145) 122 mmol/L (136-145) Potassium Level 3.4 mmol/L (3.5-5.1) 3.5 mmol/L (3.5-5.1) 3.4 mmol/L (3.5-5.1) 3.4 mmol/L (3.5-5.1) Chloride Level 84 mmol/L (98-107) 84 mmol/L (98-107) 84 mmol/L (98-107) 89 mmol/L (98-107) Carbon Dioxide Level 24 mmol/L (21-32) 26 mmol/L (21-32) 26 mmol/L (21-32) 25 mmol/L (21-32) Anion Gap 9 (6-14) 9 (6-14) 7 (6-14) 9 (6-14) Blood Urea Nitrogen 5 mg/dL (7-20) 5 mg/dL (7-20) 6 mg/dL (7-20) 4 mg/dL (7- 20) Creatinine 0.6 mg/dL (0.6-1.0) 0.6 mg/dL (0.6-1.0) 0.7 mg/dL (0.6-1.0) 0.5 mg/dL (0.6-1.0) Estimated GFR (Cockcroft-Gault) 98.0 98.0 82.0 120.9 BUN/Creatinine Ratio 8 (6-20) 8 (6-20) Glucose Level 75 mg/dL (70-99) 85 mg/dL (70-99) 118 mg/dL (70-99) 82 mg/dL (70-99) Calcium Level 7.8 mg/dL (8.5-10.1) 7.9 mg/dL (8.5-10.1) 7.9 mg/dL (8.5-10.1) 7.8 mg/dL (8.5-10.1) Total Bilirubin 0.4 mg/dL (0.2-1.0) 0.4 mg/dL (0.2-1.0) Aspartate Amino Transf (AST/SGOT) 24 U/L (15-37) 21 U/L (15-37) Alanine Aminotransferase (ALT/SGPT) 13 U/L (14-59) 13 U/L (14-59) Alkaline Phosphatase 64 U/L (46-116) 66 U/L (46-116) Total Protein 5.9 g/dL (6.4-8.2) 5.5 g/dL (6.4-8.2) Albumin 2.9 g/dL (3.4-5.0) 2.9 g/dL (3.4-5.0) Albumin/Globulin Ratio 1.0 (1.0-1.7) 1.1 (1.0-1.7) Thyroid Stimulating Hormone (TSH) 3.209 uIU/mL (0.358-3.74) Free Thyroxine 0.86 ng/dL (0.76-1.46) Laboratory Tests Test 06/30/18 17:25 07/01/18 02:25 Sodium Level 117 mmol/L (136-145) 122 mmol/L (136-145) Potassium Level 3.4 mmol/L (3.5-5.1) 3.4 mmol/L (3.5-5.1) Chloride Level 84 mmol/L (98-107) 89 mmol/L (98-107) Carbon Dioxide Level 26 mmol/L (21-32) 25 mmol/L (21-32) Anion Gap 7 (6-14) 9 (6-14) Blood Urea Nitrogen 6 mg/dL (7-20) 4 mg/dL (7-20) Creatinine 0.7 mg/dL (0.6-1.0) 0.5 mg/dL (0.6-1.0) Estimated GFR (Cockcroft-Gault) 82.0 120.9 Glucose Level 118 mg/dL (70-99) 82 mg/dL (70-99) Calcium Level 7.9 mg/dL (8.5-10.1) 7.8 mg/dL (8.5-10.1) White Blood Count 4.2 x10^3/uL (4.0-11.0) Red Blood Count 3.77 x10^6/uL (3.50-5.40) Hemoglobin 10.4 g/dL (12.0-15.5) Hematocrit 30.9 % (36.0-47.0) Mean Corpuscular Volume 82 fL (79-100) Mean Corpuscular Hemoglobin 28 pg (25-35) Mean Corpuscular Hemoglobin Concent 34 g/dL (31-37) Red Cell Distribution Width 14.5 % (11.5-14.5) Platelet Count 166 x10^3/uL (140-400) Neutrophils (%) (Auto) 68 % (31-73) Lymphocytes (%) (Auto) 18 % (24-48) Monocytes (%) (Auto) 12 % (0-9) Eosinophils (%) (Auto) 2 % (0-3) Basophils (%) (Auto) 1 % (0-3) Neutrophils # (Auto) 2.9 x10^3uL (1.8-7.7) Lymphocytes # (Auto) 0.8 x10^3/uL (1.0-4.8) Monocytes # (Auto) 0.5 x10^3/uL (0.0-1.1) Eosinophils # (Auto) 0.1 x10^3/uL (0.0-0.7) Basophils # (Auto) 0.0 x10^3/uL (0.0-0.2) BUN/Creatinine Ratio 8 (6-20) Total Bilirubin 0.4 mg/dL (0.2-1.0) Aspartate Amino Transf (AST/SGOT) 21 U/L (15-37) Alanine Aminotransferase (ALT/SGPT) 13 U/L (14-59) Alkaline Phosphatase 66 U/L (46-116) Total Protein 5.5 g/dL (6.4-8.2) Albumin 2.9 g/dL (3.4-5.0) Albumin/Globulin Ratio 1.1 (1.0-1.7) Microbiology 06/24/18 Urine Culture - Final, Complete 06/24/18 Urine Culture Result 1 (DARRELL) - Final, Complete 06/24/18 Urine Culture Result 2 (DARRELL) - Final, Complete Medications Current Medications Sodium Chloride 1,000 ml @ 1,000 mls/hr Q1H IV Last administered on 06/24/18 18:27; Start 06/24/18 at 16:10; Stop 06/24/18 at 17:09; Status DC Ondansetron HCl (Zofran) 4 mg 1X ONCE IV Last administered on 06/24/18 18:27 ; Start 06/24/18 at 16:15; Stop 06/24/18 at 16:16; Status DC Pantoprazole Sodium (PROTONIX VIAL for IV PUSH) 40 mg 1X ONCE IVP Last administered on 06/24/18 18:27; Start 06/24/18 at 16:45; Stop 06/24/18 at 16:48 ; Status DC Iohexol (Omnipaque 300 Mg/ml) 75 ml 1X ONCE IV Last administered on 06/24/18at 18:29; Start 06/24/18 at 18:30; Stop 06/24/18 at 18:31; Status DC Info (CONTRAST GIVEN -- Rx MONITORING) 1 each PRN DAILY PRN MC SEE COMMENTS; Start 06/24/18 at 18:30; Stop 06/26/18 at 18:29; Status DC Ceftriaxone Sodium (Rocephin) 1 gm 1X ONCE IVP Last administered on 06/24/18at 20:48; Start 06/24/18 at 20:45; Stop 06/24/18 at 20:46; Status DC Ondansetron HCl (Zofran) 4 mg PRN Q8HRS PRN IV NAUSEA/VOMITING Last administered on 06/25/18at 19:14; Start 06/25/18 at 00:45; Stop 06/26/18 at 00:44 ; Status DC Fentanyl Citrate (Fentanyl 2ml Vial) 50 mcg PRN Q1HR PRN IV PAIN; Start at 00:45; Stop 06/26/18 at 00:44; Status DC Acetaminophen (Tylenol) 650 mg PRN Q4HRS PRN PO FEVER; Start 06/25/18 at 00:45 ; Stop 06/26/18 at 00:44; Status DC Sodium Chloride 1,000 ml @ 75 mls/hr [id number] IV Last administered on at 05:49; Start 06/25/18 at 09:30; Stop 06/29/18 at 09:47; Status DC Ceftriaxone Sodium (Rocephin) 1 gm Q24H IVP Last administered on 06/29/18at 20: 34; Start 06/25/18 at 21:00; Stop 06/29/18 at 23:59; Status DC Lisinopril (Prinivil) 10 mg DAILY PO Last administered on 06/29/18at 08:29; Start 06/26/18 at 09:00; Stop 06/30/18 at 11:46; Status DC Levothyroxine Sodium (Synthroid) 50 mcg DAILY06 PO Last administered on 05:54; Start 06/26/18 at 06:00 Atorvastatin Calcium (Lipitor) 10 mg QHS PO Last administered on 06/30/18 20: 52; Start 06/25/18 at 21:00 Multivitamins (Thera M Plus) 1 tab DAILY PO Last administered on 06/30/18 13: 39; Start 06/26/18 at 09:00 Pantoprazole Sodium (Protonix) 40 mg DAILYAC PO ; Start 06/26/18 at 07:30; Stop 06/26/18 at 13:28; Status DC Paroxetine HCl (Paxil) 30 mg DAILY PO Last administered on 06/27/18at 09:08; Start 06/26/18 at 09:00; Stop 06/28/18 at 10:33; Status DC Lactobacillus Rhamnosus (Culturelle) 1 cap BID PO Last administered on 09:30; Start 06/25/18 at 21:00 Calcium Carbonate/ Glycine (Tums) 1,000 mg PRN AFTMEALHC PRN PO INDIGESTION Last administered on 06/30/18 19:15; Start 06/25/18 at 20:45 Pantoprazole Sodium (Protonix) 40 mg BIDAC PO Last administered on 07/01/18 09 :31; Start 06/26/18 at 16:30 Polyethylene Glycol (miraLAX PACKET) 17 gm PRN DAILY PRN PO CONSTIPATION; Start 06/26/18 at 13:30; Stop 06/27/18 at 12:37; Status DC Barium Sulfate (Liquid E-Z Paque) 355 ml 1X ONCE PO ; Start 06/27/18 at 07:45; Stop 06/27/18 at 07:46; Status DC Barium Sulfate (E-Z-Hd) 340 gm 1X ONCE PO ; Start 06/27/18 at 07:45; Stop 06/27 at 07:46; Status DC Simethicone/ Sodium Bicarb/ Citric Ac (E-Z-Gas) 1 packet 1X ONCE PO ; Start at 07:45; Stop 06/27/18 at 07:46; Status DC Acetaminophen (Tylenol) 650 mg PRN Q6HRS PRN PO MILD PAIN Last administered on 06/30/18at 13:40; Start 06/27/18 at 10:30 Polyethylene Glycol (miraLAX PACKET) 17 gm DAILY PO Last administered on at 13:39; Start 06/27/18 at 13:30 Polyethylene Glycol (miraLAX PACKET) 17 gm PRN DAILY PRN PO CONSTIPATION; Start 06/27/18 at 12:45 Dicyclomine HCl (Bentyl) 10 mg PRN TID PRN PO abd pain Last administered on at 13:39; Start 06/27/18 at 12:45 Multi-Ingredient Mouthwash/Gargle (Gi Cocktail) 20 ml PRN QID PRN PO CHEST PAIN ; Start 06/27/18 at 12:45 Barium Sulfate (E-Z-Hd) 340 gm 1X ONCE PO ; Start 06/28/18 at 08:45; Stop 06/28 at 08:48; Status DC Barium Sulfate (Liquid E-Z Paque) 355 ml 1X ONCE PO Last administered on at 09:00; Start 06/28/18 at 08:45; Stop 06/28/18 at 08:48; Status DC Simethicone/ Sodium Bicarb/ Citric Ac (E-Z-Gas) 1 packet 1X ONCE PO ; Start at 08:45; Stop 06/28/18 at 08:48; Status DC Ondansetron HCl (Zofran) 4 mg PRN Q6HRS PRN IV NAUSEA/VOMITING Last administered on 06/30/18at 14:54; Start 06/29/18 at 12:45 Cefdinir (Omnicef) 300 mg BID PO Last administered on 07/01/18at 09:29; Start at 09:00 Ringer's Solution 1,000 ml @ 50 mls/hr Q20H IV ; Start 06/30/18 at 07:00; Stop 06/30/18 at 18:59; Status DC Sodium Chloride 1,000 ml @ 60 mls/hr [id number] IV Last administered on at 05:54; Start 06/29/18 at 20:00 Sodium Chloride 500 ml @ 50 mls/hr 1X ONCE IV Last administered on 06/30/18at 10:43; Start 06/30/18 at 09:45; Stop 06/30/18 at 19:44; Status DC Amlodipine Besylate (Norvasc) 5 mg DAILY PO Last administered on 07/01/18at 09: 31; Start 07/01/18 at 09:00 Potassium Chloride (Klor-Con) 40 meq 1X ONCE PO ; Start 07/01/18 at 11:30; Stop 07/01/18 at 11:31; Status DC Calcium Gluconate 1000 mg/Dextrose 110 ml @ 220 mls/hr 1X ONCE IV ; Start at 11:30; Stop 07/01/18 at 11:59; Status UNV Active Scripts Active Reported Lisinopril 10 Mg Tablet 1 Tab PO DAILY Multivitamins (Multivitamin) 1 Each Tablet 1 Tab PO DAILY Prilosec (Omeprazole) 20 Mg Capsule.dr 1 Cap PO DAILY Tylenol Extra Strength (Acetaminophen) 500 Mg Tablet 500 Mg PO Lovastatin 40 Mg Tablet 40 Mg PO HS Paroxetine Hcl 30 Mg Tablet 30 Mg PO DAILY Levothyroxine Sodium 50 Mcg Tablet 50 Mcg PO DAILYAC Vitals/I & O Vital Sign - Last 24 Hours 06/30/18 06/30/18 06/30/18 06/30/18 15:00 19:00 20:00 23:00 Temp 97.7 98.7 98.3 97.7 98.7 98.3 Pulse 67 64 63 Resp 18 18 18 B/P (MAP) 126/60 (82) 142/67 (92) 138/70 (92) Pulse Ox 95 95 97 O2 Delivery Room Air Room Air Room Air Room Air 07/01/18 07/01/18 07/01/18 03:00 07:00 09:31 Temp 97.9 97.9 Pulse 64 79 79 Resp 18 18 B/P (MAP) 120/61 (80) 151/75 (100) 151/75 Pulse Ox 97 94 O2 Delivery Room Air Room Air Intake and Output 06/30/18 06/30/18 07/01/18 15:00 23:00 07:00 Output Total 200 ml Balance -200 ml JULIO PATEL MD Jul 01, 2018 15:01
--- NOTE | 2018-07-01 15:14 | PDOC ---
PROGRESS NOTES Chief Complaint Chief Complaint hyponatremia, SIADH Abnormal abdominal CT: cecum nt normal, Moderate hiatal hernia Delayed gastric emptying w. recurrent vomting and poor PO inake diverticulosis UTI Nausea and Vomiting - History of Present Illness History of Present Illness s/p 3% NS, now on 0.9%, labs better, feels better, PO intake better today and has not vomite d renal following discussed with GI, egd on tuesday still weak and lethargic Vitals Vitals Vital Signs Date Time Temp Pulse Resp B/P (MAP) Pulse Ox O2 Delivery O2 Flow Rate FiO2 07/01/18 09:31 79 151/75 07/01/18 07:00 18 94 Room Air 07/01/18 03:00 97.9 97.9 Physical Exam General: Alert, Oriented X3 Heart: Regular rate Lungs: Clear, Other Abdomen: Soft, No tenderness Extremities: No clubbing, No cyanosis Skin: No breakdown Labs LABS Laboratory Tests Test 06/30/18 17:25 07/01/18 02:25 Sodium Level 117 mmol/L (136-145) 122 mmol/L (136-145) Potassium Level 3.4 mmol/L (3.5-5.1) 3.4 mmol/L (3.5-5.1) Chloride Level 84 mmol/L (98-107) 89 mmol/L (98-107) Carbon Dioxide Level 26 mmol/L (21-32) 25 mmol/L (21-32) Anion Gap 7 (6-14) 9 (6-14) Blood Urea Nitrogen 6 mg/dL (7-20) 4 mg/dL (7-20) Creatinine 0.7 mg/dL (0.6-1.0) 0.5 mg/dL (0.6-1.0) Estimated GFR (Cockcroft-Gault) 82.0 120.9 Glucose Level 118 mg/dL (70-99) 82 mg/dL (70-99) Calcium Level 7.9 mg/dL (8.5-10.1) 7.8 mg/dL (8.5-10.1) White Blood Count 4.2 x10^3/uL (4.0-11.0) Red Blood Count 3.77 x10^6/uL (3.50-5.40) Hemoglobin 10.4 g/dL (12.0-15.5) Hematocrit 30.9 % (36.0-47.0) Mean Corpuscular Volume 82 fL (79-100) Mean Corpuscular Hemoglobin 28 pg (25-35) Mean Corpuscular Hemoglobin Concent 34 g/dL (31-37) Red Cell Distribution Width 14.5 % (11.5-14.5) Platelet Count 166 x10^3/uL (140-400) Neutrophils (%) (Auto) 68 % (31-73) Lymphocytes (%) (Auto) 18 % (24-48) Monocytes (%) (Auto) 12 % (0-9) Eosinophils (%) (Auto) 2 % (0-3) Basophils (%) (Auto) 1 % (0-3) Neutrophils # (Auto) 2.9 x10^3uL (1.8-7.7) Lymphocytes # (Auto) 0.8 x10^3/uL (1.0-4.8) Monocytes # (Auto) 0.5 x10^3/uL (0.0-1.1) Eosinophils # (Auto) 0.1 x10^3/uL (0.0-0.7) Basophils # (Auto) 0.0 x10^3/uL (0.0-0.2) BUN/Creatinine Ratio 8 (6-20) Total Bilirubin 0.4 mg/dL (0.2-1.0) Aspartate Amino Transf (AST/SGOT) 21 U/L (15-37) Alanine Aminotransferase (ALT/SGPT) 13 U/L (14-59) Alkaline Phosphatase 66 U/L (46-116) Total Protein 5.5 g/dL (6.4-8.2) Albumin 2.9 g/dL (3.4-5.0) Albumin/Globulin Ratio 1.1 (1.0-1.7) Assessment and Plan Assessmemt and Plan Problems Medical Problems: (1) Mobile cecum Status: Acute (2) Vomiting Status: Acute Comment Review of Relevant I have reviewed the following items kyler (where applicable) has been applied. Labs Laboratory Tests Test 06/30/18 06:23 06/30/18 13:15 06/30/18 17:25 07/01/18 02:25 White Blood Count 4.7 x10^3/uL (4.0-11.0) 4.2 x10^3/uL (4.0-11.0) Red Blood Count 3.76 x10^6/uL (3.50-5.40) 3.77 x10^6/uL (3.50-5.40) Hemoglobin 10.3 g/dL (12.0-15.5) 10.4 g/dL (12.0-15.5) Hematocrit 30.9 % (36.0-47.0) 30.9 % (36.0-47.0) Mean Corpuscular Volume 82 fL (79-100) 82 fL (79-100) Mean Corpuscular Hemoglobin 28 pg (25-35) 28 pg (25-35) Mean Corpuscular Hemoglobin Concent 34 g/dL (31-37) 34 g/dL (31-37) Red Cell Distribution Width 14.5 % (11.5-14.5) 14.5 % (11.5-14.5) Platelet Count 172 x10^3/uL (140-400) 166 x10^3/uL (140-400) Neutrophils (%) (Auto) 71 % (31-73) 68 % (31-73) Lymphocytes (%) (Auto) 18 % (24-48) 18 % (24-48) Monocytes (%) (Auto) 9 % (0-9) 12 % (0-9) Eosinophils (%) (Auto) 2 % (0-3) 2 % (0-3) Basophils (%) (Auto) 0 % (0-3) 1 % (0-3) Neutrophils # (Auto) 3.4 x10^3uL (1.8-7.7) 2.9 x10^3uL (1.8-7.7) Lymphocytes # (Auto) 0.8 x10^3/uL (1.0-4.8) 0.8 x10^3/uL (1.0-4.8) Monocytes # (Auto) 0.4 x10^3/uL (0.0-1.1) 0.5 x10^3/uL (0.0-1.1) Eosinophils # (Auto) 0.1 x10^3/uL (0.0-0.7) 0.1 x10^3/uL (0.0-0.7) Basophils # (Auto) 0.0 x10^3/uL (0.0-0.2) 0.0 x10^3/uL (0.0-0.2) Sodium Level 117 mmol/L (136-145) 119 mmol/L (136-145) 117 mmol/L (136-145) 122 mmol/L (136-145) Potassium Level 3.4 mmol/L (3.5-5.1) 3.5 mmol/L (3.5-5.1) 3.4 mmol/L (3.5-5.1) 3.4 mmol/L (3.5-5.1) Chloride Level 84 mmol/L (98-107) 84 mmol/L (98-107) 84 mmol/L (98-107) 89 mmol/L (98-107) Carbon Dioxide Level 24 mmol/L (21-32) 26 mmol/L (21-32) 26 mmol/L (21-32) 25 mmol/L (21-32) Anion Gap 9 (6-14) 9 (6-14) 7 (6-14) 9 (6-14) Blood Urea Nitrogen 5 mg/dL (7-20) 5 mg/dL (7-20) 6 mg/dL (7-20) 4 mg/dL (7- 20) Creatinine 0.6 mg/dL (0.6-1.0) 0.6 mg/dL (0.6-1.0) 0.7 mg/dL (0.6-1.0) 0.5 mg/dL (0.6-1.0) Estimated GFR (Cockcroft-Gault) 98.0 98.0 82.0 120.9 BUN/Creatinine Ratio 8 (6-20) 8 (6-20) Glucose Level 75 mg/dL (70-99) 85 mg/dL (70-99) 118 mg/dL (70-99) 82 mg/dL (70-99) Calcium Level 7.8 mg/dL (8.5-10.1) 7.9 mg/dL (8.5-10.1) 7.9 mg/dL (8.5-10.1) 7.8 mg/dL (8.5-10.1) Total Bilirubin 0.4 mg/dL (0.2-1.0) 0.4 mg/dL (0.2-1.0) Aspartate Amino Transf (AST/SGOT) 24 U/L (15-37) 21 U/L (15-37) Alanine Aminotransferase (ALT/SGPT) 13 U/L (14-59) 13 U/L (14-59) Alkaline Phosphatase 64 U/L (46-116) 66 U/L (46-116) Total Protein 5.9 g/dL (6.4-8.2) 5.5 g/dL (6.4-8.2) Albumin 2.9 g/dL (3.4-5.0) 2.9 g/dL (3.4-5.0) Albumin/Globulin Ratio 1.0 (1.0-1.7) 1.1 (1.0-1.7) Thyroid Stimulating Hormone (TSH) 3.209 uIU/mL (0.358-3.74) Free Thyroxine 0.86 ng/dL (0.76-1.46) Laboratory Tests Test 06/30/18 17:25 07/01/18 02:25 Sodium Level 117 mmol/L (136-145) 122 mmol/L (136-145) Potassium Level 3.4 mmol/L (3.5-5.1) 3.4 mmol/L (3.5-5.1) Chloride Level 84 mmol/L (98-107) 89 mmol/L (98-107) Carbon Dioxide Level 26 mmol/L (21-32) 25 mmol/L (21-32) Anion Gap 7 (6-14) 9 (6-14) Blood Urea Nitrogen 6 mg/dL (7-20) 4 mg/dL (7-20) Creatinine 0.7 mg/dL (0.6-1.0) 0.5 mg/dL (0.6-1.0) Estimated GFR (Cockcroft-Gault) 82.0 120.9 Glucose Level 118 mg/dL (70-99) 82 mg/dL (70-99) Calcium Level 7.9 mg/dL (8.5-10.1) 7.8 mg/dL (8.5-10.1) White Blood Count 4.2 x10^3/uL (4.0-11.0) Red Blood Count 3.77 x10^6/uL (3.50-5.40) Hemoglobin 10.4 g/dL (12.0-15.5) Hematocrit 30.9 % (36.0-47.0) Mean Corpuscular Volume 82 fL (79-100) Mean Corpuscular Hemoglobin 28 pg (25-35) Mean Corpuscular Hemoglobin Concent 34 g/dL (31-37) Red Cell Distribution Width 14.5 % (11.5-14.5) Platelet Count 166 x10^3/uL (140-400) Neutrophils (%) (Auto) 68 % (31-73) Lymphocytes (%) (Auto) 18 % (24-48) Monocytes (%) (Auto) 12 % (0-9) Eosinophils (%) (Auto) 2 % (0-3) Basophils (%) (Auto) 1 % (0-3) Neutrophils # (Auto) 2.9 x10^3uL (1.8-7.7) Lymphocytes # (Auto) 0.8 x10^3/uL (1.0-4.8) Monocytes # (Auto) 0.5 x10^3/uL (0.0-1.1) Eosinophils # (Auto) 0.1 x10^3/uL (0.0-0.7) Basophils # (Auto) 0.0 x10^3/uL (0.0-0.2) BUN/Creatinine Ratio 8 (6-20) Total Bilirubin 0.4 mg/dL (0.2-1.0) Aspartate Amino Transf (AST/SGOT) 21 U/L (15-37) Alanine Aminotransferase (ALT/SGPT) 13 U/L (14-59) Alkaline Phosphatase 66 U/L (46-116) Total Protein 5.5 g/dL (6.4-8.2) Albumin 2.9 g/dL (3.4-5.0) Albumin/Globulin Ratio 1.1 (1.0-1.7) Microbiology 06/24/18 Urine Culture - Final, Complete 06/24/18 Urine Culture Result 1 (DARRELL) - Final, Complete 06/24/18 Urine Culture Result 2 (DARRELL) - Final, Complete Medications Current Medications Sodium Chloride 1,000 ml @ 1,000 mls/hr Q1H IV Last administered on 06/24/18at 18:27; Start 06/24/18 at 16:10; Stop 06/24/18 at 17:09; Status DC Ondansetron HCl (Zofran) 4 mg 1X ONCE IV Last administered on 06/24/18 18:27 ; Start 06/24/18 at 16:15; Stop 06/24/18 at 16:16; Status DC Pantoprazole Sodium (PROTONIX VIAL for IV PUSH) 40 mg 1X ONCE IVP Last administered on 06/24/18 18:27; Start 06/24/18 at 16:45; Stop 06/24/18 at 16:48 ; Status DC Iohexol (Omnipaque 300 Mg/ml) 75 ml 1X ONCE IV Last administered on 06/24/18 18:29; Start 06/24/18 at 18:30; Stop 06/24/18 at 18:31; Status DC Info (CONTRAST GIVEN -- Rx MONITORING) 1 each PRN DAILY PRN MC SEE COMMENTS; Start 06/24/18 at 18:30; Stop 06/26/18 at 18:29; Status DC Ceftriaxone Sodium (Rocephin) 1 gm 1X ONCE IVP Last administered on 06/24/18at 20:48; Start 06/24/18 at 20:45; Stop 06/24/18 at 20:46; Status DC Ondansetron HCl (Zofran) 4 mg PRN Q8HRS PRN IV NAUSEA/VOMITING Last administered on 06/25/18at 19:14; Start 06/25/18 at 00:45; Stop 06/26/18 at 00:44 ; Status DC Fentanyl Citrate (Fentanyl 2ml Vial) 50 mcg PRN Q1HR PRN IV PAIN; Start at 00:45; Stop 06/26/18 at 00:44; Status DC Acetaminophen (Tylenol) 650 mg PRN Q4HRS PRN PO FEVER; Start 06/25/18 at 00:45 ; Stop 06/26/18 at 00:44; Status DC Sodium Chloride 1,000 ml @ 75 mls/hr [id number] IV Last administered on 05:49; Start 06/25/18 at 09:30; Stop 06/29/18 at 09:47; Status DC Ceftriaxone Sodium (Rocephin) 1 gm Q24H IVP Last administered on 06/29/18 20: 34; Start 06/25/18 at 21:00; Stop 06/29/18 at 23:59; Status DC Lisinopril (Prinivil) 10 mg DAILY PO Last administered on 06/29/18 08:29; Start 06/26/18 at 09:00; Stop 06/30/18 at 11:46; Status DC Levothyroxine Sodium (Synthroid) 50 mcg DAILY06 PO Last administered on 05:54; Start 06/26/18 at 06:00 Atorvastatin Calcium (Lipitor) 10 mg QHS PO Last administered on 06/30/18 20: 52; Start 06/25/18 at 21:00 Multivitamins (Thera M Plus) 1 tab DAILY PO Last administered on 06/30/18 13: 39; Start 06/26/18 at 09:00 Pantoprazole Sodium (Protonix) 40 mg DAILYAC PO ; Start 06/26/18 at 07:30; Stop 06/26/18 at 13:28; Status DC Paroxetine HCl (Paxil) 30 mg DAILY PO Last administered on 06/27/18 09:08; Start 06/26/18 at 09:00; Stop 06/28/18 at 10:33; Status DC Lactobacillus Rhamnosus (Culturelle) 1 cap BID PO Last administered on 09:30; Start 06/25/18 at 21:00 Calcium Carbonate/ Glycine (Tums) 1,000 mg PRN AFTMEALHC PRN PO INDIGESTION Last administered on 06/30/18 19:15; Start 06/25/18 at 20:45 Pantoprazole Sodium (Protonix) 40 mg BIDAC PO Last administered on 07/01/18 09 :31; Start 06/26/18 at 16:30 Polyethylene Glycol (miraLAX PACKET) 17 gm PRN DAILY PRN PO CONSTIPATION; Start 06/26/18 at 13:30; Stop 06/27/18 at 12:37; Status DC Barium Sulfate (Liquid E-Z Paque) 355 ml 1X ONCE PO ; Start 06/27/18 at 07:45; Stop 06/27/18 at 07:46; Status DC Barium Sulfate (E-Z-Hd) 340 gm 1X ONCE PO ; Start 06/27/18 at 07:45; Stop 06/27 at 07:46; Status DC Simethicone/ Sodium Bicarb/ Citric Ac (E-Z-Gas) 1 packet 1X ONCE PO ; Start at 07:45; Stop 06/27/18 at 07:46; Status DC Acetaminophen (Tylenol) 650 mg PRN Q6HRS PRN PO MILD PAIN Last administered on 06/30/18at 13:40; Start 06/27/18 at 10:30 Polyethylene Glycol (miraLAX PACKET) 17 gm DAILY PO Last administered on 13:39; Start 06/27/18 at 13:30 Polyethylene Glycol (miraLAX PACKET) 17 gm PRN DAILY PRN PO CONSTIPATION; Start 06/27/18 at 12:45 Dicyclomine HCl (Bentyl) 10 mg PRN TID PRN PO abd pain Last administered on 13:39; Start 06/27/18 at 12:45 Multi-Ingredient Mouthwash/Gargle (Gi Cocktail) 20 ml PRN QID PRN PO CHEST PAIN ; Start 06/27/18 at 12:45 Barium Sulfate (E-Z-Hd) 340 gm 1X ONCE PO ; Start 06/28/18 at 08:45; Stop 06/28 at 08:48; Status DC Barium Sulfate (Liquid E-Z Paque) 355 ml 1X ONCE PO Last administered on at 09:00; Start 06/28/18 at 08:45; Stop 06/28/18 at 08:48; Status DC Simethicone/ Sodium Bicarb/ Citric Ac (E-Z-Gas) 1 packet 1X ONCE PO ; Start at 08:45; Stop 06/28/18 at 08:48; Status DC Ondansetron HCl (Zofran) 4 mg PRN Q6HRS PRN IV NAUSEA/VOMITING Last administered on 06/30/18at 14:54; Start 06/29/18 at 12:45 Cefdinir (Omnicef) 300 mg BID PO Last administered on 07/01/18at 09:29; Start at 09:00 Ringer's Solution 1,000 ml @ 50 mls/hr Q20H IV ; Start 06/30/18 at 07:00; Stop 06/30/18 at 18:59; Status DC Sodium Chloride 1,000 ml @ 60 mls/hr [id number] IV Last administered on at 05:54; Start 06/29/18 at 20:00 Sodium Chloride 500 ml @ 50 mls/hr 1X ONCE IV Last administered on 06/30/18at 10:43; Start 06/30/18 at 09:45; Stop 06/30/18 at 19:44; Status DC Amlodipine Besylate (Norvasc) 5 mg DAILY PO Last administered on 07/01/18at 09: 31; Start 07/01/18 at 09:00 Potassium Chloride (Klor-Con) 40 meq 1X ONCE PO ; Start 07/01/18 at 11:30; Stop 07/01/18 at 11:31; Status DC Calcium Gluconate 1000 mg/Dextrose 110 ml @ 220 mls/hr 1X ONCE IV ; Start at 11:30; Stop 07/01/18 at 11:59; Status UNV Active Scripts Active Reported Lisinopril 10 Mg Tablet 1 Tab PO DAILY Multivitamins (Multivitamin) 1 Each Tablet 1 Tab PO DAILY Prilosec (Omeprazole) 20 Mg Capsule.dr 1 Cap PO DAILY Tylenol Extra Strength (Acetaminophen) 500 Mg Tablet 500 Mg PO Lovastatin 40 Mg Tablet 40 Mg PO HS Paroxetine Hcl 30 Mg Tablet 30 Mg PO DAILY Levothyroxine Sodium 50 Mcg Tablet 50 Mcg PO DAILYAC Vitals/I & O Vital Sign - Last 24 Hours 06/30/18 06/30/18 06/30/18 07/01/18 19:00 20:00 23:00 03:00 Temp 98.7 98.3 97.9 98.7 98.3 97.9 Pulse 64 63 64 Resp 18 18 18 B/P (MAP) 142/67 (92) 138/70 (92) 120/61 (80) Pulse Ox 95 97 97 O2 Delivery Room Air Room Air Room Air Room Air 07/01/18 07/01/18 07:00 09:31 Pulse 79 79 Resp 18 B/P (MAP) 151/75 (100) 151/75 Pulse Ox 94 O2 Delivery Room Air Intake and Output 06/30/18 06/30/18 07/01/18 14:59 22:59 06:59 Output Total 200 ml Balance -200 ml VENKATA CHAMBERLAIN MD Jul 01, 2018 15:14
--- NOTE | 2018-07-01 15:40 | PDOC ---
PROGRESS NOTES Subjective Subjective SEEN IN FOLLOW UP OF HYPONATREMIA Objective Objective Vital Signs Date Time Temp Pulse Resp B/P (MAP) Pulse Ox O2 Delivery O2 Flow Rate FiO2 07/01/18 11:00 98.4 81 18 132/66 (88) 93 Room Air 98.4 Intake and Output 07/01/18 07:00 Output Total 200 ml Balance -200 ml Output Urine Total 200 ml # Voids 5 Physical Exam Abdomen: Normal bowel sounds, Soft, No tenderness, No hepatosplenomegaly, No masses Heart: Regular rate, Normal S1, Normal S2, No murmurs, Gallops Extremities: No clubbing, No cyanosis, No edema, Normal pulses, No tenderness/ swelling General: Alert, Oriented X3, Cooperative, No acute distress Lungs: Clear to auscultation, Normal air movement Psych/Mental Status: Mental status NL, Mood NL Diagnosis Other HYPONATREMIA Assessment Assessment Problems Medical Problems: (1) Mobile cecum Status: Acute (2) Vomiting Status: Acute Plan Plan of Care SERUM SODIUM IS BETTER. CONT ISOTONIC SALINE Comment Review of Relevant I have reviewed the following items kyler (where applicable) has been applied. Labs Laboratory Tests Test 06/30/18 06:23 06/30/18 13:15 06/30/18 17:25 07/01/18 02:25 White Blood Count 4.7 x10^3/uL (4.0-11.0) 4.2 x10^3/uL (4.0-11.0) Red Blood Count 3.76 x10^6/uL (3.50-5.40) 3.77 x10^6/uL (3.50-5.40) Hemoglobin 10.3 g/dL (12.0-15.5) 10.4 g/dL (12.0-15.5) Hematocrit 30.9 % (36.0-47.0) 30.9 % (36.0-47.0) Mean Corpuscular Volume 82 fL (79-100) 82 fL (79-100) Mean Corpuscular Hemoglobin 28 pg (25-35) 28 pg (25-35) Mean Corpuscular Hemoglobin Concent 34 g/dL (31-37) 34 g/dL (31-37) Red Cell Distribution Width 14.5 % (11.5-14.5) 14.5 % (11.5-14.5) Platelet Count 172 x10^3/uL (140-400) 166 x10^3/uL (140-400) Neutrophils (%) (Auto) 71 % (31-73) 68 % (31-73) Lymphocytes (%) (Auto) 18 % (24-48) 18 % (24-48) Monocytes (%) (Auto) 9 % (0-9) 12 % (0-9) Eosinophils (%) (Auto) 2 % (0-3) 2 % (0-3) Basophils (%) (Auto) 0 % (0-3) 1 % (0-3) Neutrophils # (Auto) 3.4 x10^3uL (1.8-7.7) 2.9 x10^3uL (1.8-7.7) Lymphocytes # (Auto) 0.8 x10^3/uL (1.0-4.8) 0.8 x10^3/uL (1.0-4.8) Monocytes # (Auto) 0.4 x10^3/uL (0.0-1.1) 0.5 x10^3/uL (0.0-1.1) Eosinophils # (Auto) 0.1 x10^3/uL (0.0-0.7) 0.1 x10^3/uL (0.0-0.7) Basophils # (Auto) 0.0 x10^3/uL (0.0-0.2) 0.0 x10^3/uL (0.0-0.2) Sodium Level 117 mmol/L (136-145) 119 mmol/L (136-145) 117 mmol/L (136-145) 122 mmol/L (136-145) Potassium Level 3.4 mmol/L (3.5-5.1) 3.5 mmol/L (3.5-5.1) 3.4 mmol/L (3.5-5.1) 3.4 mmol/L (3.5-5.1) Chloride Level 84 mmol/L (98-107) 84 mmol/L (98-107) 84 mmol/L (98-107) 89 mmol/L (98-107) Carbon Dioxide Level 24 mmol/L (21-32) 26 mmol/L (21-32) 26 mmol/L (21-32) 25 mmol/L (21-32) Anion Gap 9 (6-14) 9 (6-14) 7 (6-14) 9 (6-14) Blood Urea Nitrogen 5 mg/dL (7-20) 5 mg/dL (7-20) 6 mg/dL (7-20) 4 mg/dL (7- 20) Creatinine 0.6 mg/dL (0.6-1.0) 0.6 mg/dL (0.6-1.0) 0.7 mg/dL (0.6-1.0) 0.5 mg/dL (0.6-1.0) Estimated GFR (Cockcroft-Gault) 98.0 98.0 82.0 120.9 BUN/Creatinine Ratio 8 (6-20) 8 (6-20) Glucose Level 75 mg/dL (70-99) 85 mg/dL (70-99) 118 mg/dL (70-99) 82 mg/dL (70-99) Calcium Level 7.8 mg/dL (8.5-10.1) 7.9 mg/dL (8.5-10.1) 7.9 mg/dL (8.5-10.1) 7.8 mg/dL (8.5-10.1) Total Bilirubin 0.4 mg/dL (0.2-1.0) 0.4 mg/dL (0.2-1.0) Aspartate Amino Transf (AST/SGOT) 24 U/L (15-37) 21 U/L (15-37) Alanine Aminotransferase (ALT/SGPT) 13 U/L (14-59) 13 U/L (14-59) Alkaline Phosphatase 64 U/L (46-116) 66 U/L (46-116) Total Protein 5.9 g/dL (6.4-8.2) 5.5 g/dL (6.4-8.2) Albumin 2.9 g/dL (3.4-5.0) 2.9 g/dL (3.4-5.0) Albumin/Globulin Ratio 1.0 (1.0-1.7) 1.1 (1.0-1.7) Thyroid Stimulating Hormone (TSH) 3.209 uIU/mL (0.358-3.74) Free Thyroxine 0.86 ng/dL (0.76-1.46) Laboratory Tests Test 06/30/18 17:25 07/01/18 02:25 Sodium Level 117 mmol/L (136-145) 122 mmol/L (136-145) Potassium Level 3.4 mmol/L (3.5-5.1) 3.4 mmol/L (3.5-5.1) Chloride Level 84 mmol/L (98-107) 89 mmol/L (98-107) Carbon Dioxide Level 26 mmol/L (21-32) 25 mmol/L (21-32) Anion Gap 7 (6-14) 9 (6-14) Blood Urea Nitrogen 6 mg/dL (7-20) 4 mg/dL (7-20) Creatinine 0.7 mg/dL (0.6-1.0) 0.5 mg/dL (0.6-1.0) Estimated GFR (Cockcroft-Gault) 82.0 120.9 Glucose Level 118 mg/dL (70-99) 82 mg/dL (70-99) Calcium Level 7.9 mg/dL (8.5-10.1) 7.8 mg/dL (8.5-10.1) White Blood Count 4.2 x10^3/uL (4.0-11.0) Red Blood Count 3.77 x10^6/uL (3.50-5.40) Hemoglobin 10.4 g/dL (12.0-15.5) Hematocrit 30.9 % (36.0-47.0) Mean Corpuscular Volume 82 fL (79-100) Mean Corpuscular Hemoglobin 28 pg (25-35) Mean Corpuscular Hemoglobin Concent 34 g/dL (31-37) Red Cell Distribution Width 14.5 % (11.5-14.5) Platelet Count 166 x10^3/uL (140-400) Neutrophils (%) (Auto) 68 % (31-73) Lymphocytes (%) (Auto) 18 % (24-48) Monocytes (%) (Auto) 12 % (0-9) Eosinophils (%) (Auto) 2 % (0-3) Basophils (%) (Auto) 1 % (0-3) Neutrophils # (Auto) 2.9 x10^3uL (1.8-7.7) Lymphocytes # (Auto) 0.8 x10^3/uL (1.0-4.8) Monocytes # (Auto) 0.5 x10^3/uL (0.0-1.1) Eosinophils # (Auto) 0.1 x10^3/uL (0.0-0.7) Basophils # (Auto) 0.0 x10^3/uL (0.0-0.2) BUN/Creatinine Ratio 8 (6-20) Total Bilirubin 0.4 mg/dL (0.2-1.0) Aspartate Amino Transf (AST/SGOT) 21 U/L (15-37) Alanine Aminotransferase (ALT/SGPT) 13 U/L (14-59) Alkaline Phosphatase 66 U/L (46-116) Total Protein 5.5 g/dL (6.4-8.2) Albumin 2.9 g/dL (3.4-5.0) Albumin/Globulin Ratio 1.1 (1.0-1.7) Microbiology 06/24/18 Urine Culture - Final, Complete 06/24/18 Urine Culture Result 1 (DARRELL) - Final, Complete 06/24/18 Urine Culture Result 2 (DARRELL) - Final, Complete Medications Current Medications Sodium Chloride 1,000 ml @ 1,000 mls/hr Q1H IV Last administered on 06/24/18 18:27; Start 06/24/18 at 16:10; Stop 06/24/18 at 17:09; Status DC Ondansetron HCl (Zofran) 4 mg 1X ONCE IV Last administered on 06/24/18 18:27 ; Start 06/24/18 at 16:15; Stop 06/24/18 at 16:16; Status DC Pantoprazole Sodium (PROTONIX VIAL for IV PUSH) 40 mg 1X ONCE IVP Last administered on 06/24/18 18:27; Start 06/24/18 at 16:45; Stop 06/24/18 at 16:48 ; Status DC Iohexol (Omnipaque 300 Mg/ml) 75 ml 1X ONCE IV Last administered on 06/24/18at 18:29; Start 06/24/18 at 18:30; Stop 06/24/18 at 18:31; Status DC Info (CONTRAST GIVEN -- Rx MONITORING) 1 each PRN DAILY PRN MC SEE COMMENTS; Start 06/24/18 at 18:30; Stop 06/26/18 at 18:29; Status DC Ceftriaxone Sodium (Rocephin) 1 gm 1X ONCE IVP Last administered on 06/24/18at 20:48; Start 06/24/18 at 20:45; Stop 06/24/18 at 20:46; Status DC Ondansetron HCl (Zofran) 4 mg PRN Q8HRS PRN IV NAUSEA/VOMITING Last administered on 06/25/18at 19:14; Start 06/25/18 at 00:45; Stop 06/26/18 at 00:44 ; Status DC Fentanyl Citrate (Fentanyl 2ml Vial) 50 mcg PRN Q1HR PRN IV PAIN; Start at 00:45; Stop 06/26/18 at 00:44; Status DC Acetaminophen (Tylenol) 650 mg PRN Q4HRS PRN PO FEVER; Start 06/25/18 at 00:45 ; Stop 06/26/18 at 00:44; Status DC Sodium Chloride 1,000 ml @ 75 mls/hr [id number] IV Last administered on at 05:49; Start 06/25/18 at 09:30; Stop 06/29/18 at 09:47; Status DC Ceftriaxone Sodium (Rocephin) 1 gm Q24H IVP Last administered on 06/29/18 20: 34; Start 06/25/18 at 21:00; Stop 06/29/18 at 23:59; Status DC Lisinopril (Prinivil) 10 mg DAILY PO Last administered on 06/29/18 08:29; Start 06/26/18 at 09:00; Stop 06/30/18 at 11:46; Status DC Levothyroxine Sodium (Synthroid) 50 mcg DAILY06 PO Last administered on 05:54; Start 06/26/18 at 06:00 Atorvastatin Calcium (Lipitor) 10 mg QHS PO Last administered on 06/30/18 20: 52; Start 06/25/18 at 21:00 Multivitamins (Thera M Plus) 1 tab DAILY PO Last administered on 06/30/18 13: 39; Start 06/26/18 at 09:00 Pantoprazole Sodium (Protonix) 40 mg DAILYAC PO ; Start 06/26/18 at 07:30; Stop 06/26/18 at 13:28; Status DC Paroxetine HCl (Paxil) 30 mg DAILY PO Last administered on 06/27/18 09:08; Start 06/26/18 at 09:00; Stop 06/28/18 at 10:33; Status DC Lactobacillus Rhamnosus (Culturelle) 1 cap BID PO Last administered on 09:30; Start 06/25/18 at 21:00 Calcium Carbonate/ Glycine (Tums) 1,000 mg PRN AFTMEALHC PRN PO INDIGESTION Last administered on 06/30/18 19:15; Start 06/25/18 at 20:45 Pantoprazole Sodium (Protonix) 40 mg BIDAC PO Last administered on 07/01/18 09 :31; Start 06/26/18 at 16:30 Polyethylene Glycol (miraLAX PACKET) 17 gm PRN DAILY PRN PO CONSTIPATION; Start 06/26/18 at 13:30; Stop 06/27/18 at 12:37; Status DC Barium Sulfate (Liquid E-Z Paque) 355 ml 1X ONCE PO ; Start 06/27/18 at 07:45; Stop 06/27/18 at 07:46; Status DC Barium Sulfate (E-Z-Hd) 340 gm 1X ONCE PO ; Start 06/27/18 at 07:45; Stop 06/27 at 07:46; Status DC Simethicone/ Sodium Bicarb/ Citric Ac (E-Z-Gas) 1 packet 1X ONCE PO ; Start at 07:45; Stop 06/27/18 at 07:46; Status DC Acetaminophen (Tylenol) 650 mg PRN Q6HRS PRN PO MILD PAIN Last administered on 06/30/18at 13:40; Start 06/27/18 at 10:30 Polyethylene Glycol (miraLAX PACKET) 17 gm DAILY PO Last administered on 13:39; Start 06/27/18 at 13:30 Polyethylene Glycol (miraLAX PACKET) 17 gm PRN DAILY PRN PO CONSTIPATION; Start 06/27/18 at 12:45 Dicyclomine HCl (Bentyl) 10 mg PRN TID PRN PO abd pain Last administered on 13:39; Start 06/27/18 at 12:45 Multi-Ingredient Mouthwash/Gargle (Gi Cocktail) 20 ml PRN QID PRN PO CHEST PAIN ; Start 06/27/18 at 12:45 Barium Sulfate (E-Z-Hd) 340 gm 1X ONCE PO ; Start 06/28/18 at 08:45; Stop 06/28 at 08:48; Status DC Barium Sulfate (Liquid E-Z Paque) 355 ml 1X ONCE PO Last administered on at 09:00; Start 06/28/18 at 08:45; Stop 06/28/18 at 08:48; Status DC Simethicone/ Sodium Bicarb/ Citric Ac (E-Z-Gas) 1 packet 1X ONCE PO ; Start at 08:45; Stop 06/28/18 at 08:48; Status DC Ondansetron HCl (Zofran) 4 mg PRN Q6HRS PRN IV NAUSEA/VOMITING Last administered on 06/30/18at 14:54; Start 06/29/18 at 12:45 Cefdinir (Omnicef) 300 mg BID PO Last administered on 07/01/18at 09:29; Start at 09:00 Ringer's Solution 1,000 ml @ 50 mls/hr Q20H IV ; Start 06/30/18 at 07:00; Stop 06/30/18 at 18:59; Status DC Sodium Chloride 1,000 ml @ 60 mls/hr [id number] IV Last administered on at 05:54; Start 06/29/18 at 20:00 Sodium Chloride 500 ml @ 50 mls/hr 1X ONCE IV Last administered on 06/30/18at 10:43; Start 06/30/18 at 09:45; Stop 06/30/18 at 19:44; Status DC Amlodipine Besylate (Norvasc) 5 mg DAILY PO Last administered on 07/01/18at 09: 31; Start 07/01/18 at 09:00 Potassium Chloride (Klor-Con) 40 meq 1X ONCE PO ; Start 07/01/18 at 11:30; Stop 07/01/18 at 11:31; Status DC Calcium Gluconate 1000 mg/Dextrose 110 ml @ 220 mls/hr 1X ONCE IV ; Start at 11:30; Stop 07/01/18 at 11:59; Status UNV Active Scripts Active Reported Lisinopril 10 Mg Tablet 1 Tab PO DAILY Multivitamins (Multivitamin) 1 Each Tablet 1 Tab PO DAILY Prilosec (Omeprazole) 20 Mg Capsule.dr 1 Cap PO DAILY Tylenol Extra Strength (Acetaminophen) 500 Mg Tablet 500 Mg PO Lovastatin 40 Mg Tablet 40 Mg PO HS Paroxetine Hcl 30 Mg Tablet 30 Mg PO DAILY Levothyroxine Sodium 50 Mcg Tablet 50 Mcg PO DAILYAC Vitals/I & O Vital Sign - Last 24 Hours 06/30/18 06/30/18 06/30/18 07/01/18 19:00 20:00 23:00 03:00 Temp 98.7 98.3 97.9 98.7 98.3 97.9 Pulse 64 63 64 Resp 18 18 18 B/P (MAP) 142/67 (92) 138/70 (92) 120/61 (80) Pulse Ox 95 97 97 O2 Delivery Room Air Room Air Room Air Room Air 07/01/18 07/01/18 07/01/18 07:00 09:31 11:00 Temp 98.4 98.4 Pulse 79 79 81 Resp 18 18 B/P (MAP) 151/75 (100) 151/75 132/66 (88) Pulse Ox 94 93 O2 Delivery Room Air Room Air Intake and Output 06/30/18 06/30/18 07/01/18 15:00 23:00 07:00 Output Total 200 ml Balance -200 ml YAJAIRA BARROSO MD Jul 01, 2018 15:40
[2018-07-01 16:16] LABS: CALCIUM 8.3 mg/dL (8.5-10.1); CREATININE 0.6 mg/dL (0.6-1.0); POTASSIUM 3.7 mmol/L (3.5-5.1)
[2018-07-01] MEDS: CALCIUM CARBONATE 500 MG TAB.CHEW PO PRN (17:25)
[2018-07-01 19:00] VITALS: BP 117/60
[2018-07-01] MEDS: ATORVASTATIN CALCIUM 10 MG TABLET. PO SCH (21:01)
[2018-07-01 23:00] VITALS: BP 134/73
[2018-07-02 03:00] VITALS: BP 123/68
[2018-07-02 03:57] LABS: BASO % 1 % (0-3); EOS # 0.1 x10^3/uL (0.0-0.7); EOS % 2 % (0-3); HEMATOCRIT 32.3 % (36.0-47.0); HEMOGLOBIN 10.9 g/dL (12.0-15.5); LYMPH % 22 % (24-48); MEAN CORPUSCULAR HEMOGLOBIN 28 pg (25-35); MEAN CORPUSCULAR HGB CONC 34 g/dL (31-37); MEAN CORPUSCULAR VOLUME 83 fL (79-100); MONO # 0.5 x10^3/uL (0.0-1.1); MONO % 11 % (0-9); NEUT % 65 % (31-73); PLATELET COUNT 179 x10^3/uL (140-400); RED CELL DISTRIBUTION WIDTH 14.5 % (11.5-14.5); WHITE BLOOD COUNT 4.6 x10^3/uL (4.0-11.0)
[2018-07-02 04:36] LABS: ALBUMIN/GLOBULIN RATIO 0.9 (1.0-1.7); CALCIUM 8.6 mg/dL (8.5-10.1); CREATININE 0.5 mg/dL (0.6-1.0); GFR 120.9; TOTAL BILIRUBIN 0.4 mg/dL (0.2-1.0); TOTAL PROTEIN 6.2 g/dL (6.4-8.2)
[2018-07-02] MEDS ORDERED: SODIUM CHLORIDE 3 % 500 ML IV ONE (05:00)
[2018-07-02] MEDS: LEVOTHYROXINE 50 MCG TABLET PO SCH (06:28)
[2018-07-02] MEDS: PANTOPRAZOLE 40 MG TABLET.DR. PO SCH ×2 (06:28→17:59)
[2018-07-02] MEDS: ACETAMINOPHEN 325 MG TABLET. PO PRN (06:28)
[2018-07-02 07:00] VITALS: BP 136/78
[2018-07-02] MEDS: POLYETHYLENE GLYCOL 3350 17 GM PACKET. PO SCH (08:01)
[2018-07-02] MEDS: CEFDINIR 300 MG CAPSULE PO SCH (08:32)
[2018-07-02] MEDS: MULTIVITAMIN with MINERAL TABLET. PO SCH (08:33)
[2018-07-02] MEDS: amLODIPine BESYLATE 5 MG TABLET PO SCH (08:33)
[2018-07-02] MEDS: LACTOBACILLUS RHAMNOSUS GG 1 CAPSULE. PO SCH ×2 (08:33→21:02)
--- NOTE | 2018-07-02 08:53 | PDOC ---
PROGRESS NOTES Chief Complaint Chief Complaint hyponatremia, SIADH Abnormal abdominal CT: cecum nt normal, Moderate hiatal hernia Delayed gastric emptying w. recurrent vomting and poor PO inake diverticulosis UTI Nausea and Vomiting - History of Present Illness History of Present Illness waiting for another saline NO n/v so far today Weak CAme from HIgh rise - might need SNU LAbs better PLAN: IVF per renal SW Snu screen EGD tuesday NPO post MN Vitals Vitals Vital Signs Date Time Temp Pulse Resp B/P (MAP) Pulse Ox O2 Delivery O2 Flow Rate FiO2 07/02/18 08:33 66 136/78 07/02/18 07:00 98.6 18 97 Room Air 98.6 Physical Exam General: Alert, Oriented X3, Cooperative, No acute distress Heart: Regular rate, Normal S1, Normal S2, No murmurs, Gallops Lungs: Clear, Other Abdomen: Normal bowel sounds, Soft, No tenderness, No hepatosplenomegaly, No masses Extremities: No clubbing, No cyanosis, No edema, Normal pulses, No tenderness/ swelling Skin: No breakdown Labs LABS Laboratory Tests Test 07/01/18 16:00 07/02/18 02:55 Sodium Level 123 mmol/L (136-145) 120 mmol/L (136-145) Potassium Level 3.7 mmol/L (3.5-5.1) 4.0 mmol/L (3.5-5.1) Chloride Level 88 mmol/L (98-107) 87 mmol/L (98-107) Carbon Dioxide Level 25 mmol/L (21-32) 26 mmol/L (21-32) Anion Gap 10 (6-14) 7 (6-14) Blood Urea Nitrogen 3 mg/dL (7-20) 3 mg/dL (7-20) Creatinine 0.6 mg/dL (0.6-1.0) 0.5 mg/dL (0.6-1.0) Estimated GFR (Cockcroft-Gault) 98.0 120.9 Glucose Level 95 mg/dL (70-99) 80 mg/dL (70-99) Calcium Level 8.3 mg/dL (8.5-10.1) 8.6 mg/dL (8.5-10.1) White Blood Count 4.6 x10^3/uL (4.0-11.0) Red Blood Count 3.90 x10^6/uL (3.50-5.40) Hemoglobin 10.9 g/dL (12.0-15.5) Hematocrit 32.3 % (36.0-47.0) Mean Corpuscular Volume 83 fL (79-100) Mean Corpuscular Hemoglobin 28 pg (25-35) Mean Corpuscular Hemoglobin Concent 34 g/dL (31-37) Red Cell Distribution Width 14.5 % (11.5-14.5) Platelet Count 179 x10^3/uL (140-400) Neutrophils (%) (Auto) 65 % (31-73) Lymphocytes (%) (Auto) 22 % (24-48) Monocytes (%) (Auto) 11 % (0-9) Eosinophils (%) (Auto) 2 % (0-3) Basophils (%) (Auto) 1 % (0-3) Neutrophils # (Auto) 3.0 x10^3uL (1.8-7.7) Lymphocytes # (Auto) 1.0 x10^3/uL (1.0-4.8) Monocytes # (Auto) 0.5 x10^3/uL (0.0-1.1) Eosinophils # (Auto) 0.1 x10^3/uL (0.0-0.7) Basophils # (Auto) 0.0 x10^3/uL (0.0-0.2) BUN/Creatinine Ratio 6 (6-20) Ionized Calcium 1.08 mmol/L (1.13-1.32) Total Bilirubin 0.4 mg/dL (0.2-1.0) Aspartate Amino Transf (AST/SGOT) 21 U/L (15-37) Alanine Aminotransferase (ALT/SGPT) 15 U/L (14-59) Alkaline Phosphatase 67 U/L (46-116) Total Protein 6.2 g/dL (6.4-8.2) Albumin 3.0 g/dL (3.4-5.0) Albumin/Globulin Ratio 0.9 (1.0-1.7) Review of Systems Review of Systems no cp, soa, n,.v, abd pain, fevers, mentation intact Assessment and Plan Assessmemt and Plan Problems Medical Problems: (1) Mobile cecum Status: Acute (2) Vomiting Status: Acute Comment Review of Relevant I have reviewed the following items kyler (where applicable) has been applied. Labs Laboratory Tests Test 06/30/18 13:15 06/30/18 17:25 07/01/18 02:25 07/01/18 16:00 Sodium Level 119 mmol/L (136-145) 117 mmol/L (136-145) 122 mmol/L (136-145) 123 mmol/L (136-145) Potassium Level 3.5 mmol/L (3.5-5.1) 3.4 mmol/L (3.5-5.1) 3.4 mmol/L (3.5-5.1) 3.7 mmol/L (3.5-5.1) Chloride Level 84 mmol/L (98-107) 84 mmol/L (98-107) 89 mmol/L (98-107) 88 mmol/L (98-107) Carbon Dioxide Level 26 mmol/L (21-32) 26 mmol/L (21-32) 25 mmol/L (21-32) 25 mmol/L (21-32) Anion Gap 9 (6-14) 7 (6-14) 9 (6-14) 10 (6-14) Blood Urea Nitrogen 5 mg/dL (7-20) 6 mg/dL (7-20) 4 mg/dL (7-20) 3 mg/dL (7- 20) Creatinine 0.6 mg/dL (0.6-1.0) 0.7 mg/dL (0.6-1.0) 0.5 mg/dL (0.6-1.0) 0.6 mg/dL (0.6-1.0) Estimated GFR (Cockcroft-Gault) 98.0 82.0 120.9 98.0 Glucose Level 85 mg/dL (70-99) 118 mg/dL (70-99) 82 mg/dL (70-99) 95 mg/dL (70-99) Calcium Level 7.9 mg/dL (8.5-10.1) 7.9 mg/dL (8.5-10.1) 7.8 mg/dL (8.5-10.1) 8.3 mg/dL (8.5-10.1) White Blood Count 4.2 x10^3/uL (4.0-11.0) Red Blood Count 3.77 x10^6/uL (3.50-5.40) Hemoglobin 10.4 g/dL (12.0-15.5) Hematocrit 30.9 % (36.0-47.0) Mean Corpuscular Volume 82 fL (79-100) Mean Corpuscular Hemoglobin 28 pg (25-35) Mean Corpuscular Hemoglobin Concent 34 g/dL (31-37) Red Cell Distribution Width 14.5 % (11.5-14.5) Platelet Count 166 x10^3/uL (140-400) Neutrophils (%) (Auto) 68 % (31-73) Lymphocytes (%) (Auto) 18 % (24-48) Monocytes (%) (Auto) 12 % (0-9) Eosinophils (%) (Auto) 2 % (0-3) Basophils (%) (Auto) 1 % (0-3) Neutrophils # (Auto) 2.9 x10^3uL (1.8-7.7) Lymphocytes # (Auto) 0.8 x10^3/uL (1.0-4.8) Monocytes # (Auto) 0.5 x10^3/uL (0.0-1.1) Eosinophils # (Auto) 0.1 x10^3/uL (0.0-0.7) Basophils # (Auto) 0.0 x10^3/uL (0.0-0.2) BUN/Creatinine Ratio 8 (6-20) Total Bilirubin 0.4 mg/dL (0.2-1.0) Aspartate Amino Transf (AST/SGOT) 21 U/L (15-37) Alanine Aminotransferase (ALT/SGPT) 13 U/L (14-59) Alkaline Phosphatase 66 U/L (46-116) Total Protein 5.5 g/dL (6.4-8.2) Albumin 2.9 g/dL (3.4-5.0) Albumin/Globulin Ratio 1.1 (1.0-1.7) Test 07/02/18 02:55 White Blood Count 4.6 x10^3/uL (4.0-11.0) Red Blood Count 3.90 x10^6/uL (3.50-5.40) Hemoglobin 10.9 g/dL (12.0-15.5) Hematocrit 32.3 % (36.0-47.0) Mean Corpuscular Volume 83 fL (79-100) Mean Corpuscular Hemoglobin 28 pg (25-35) Mean Corpuscular Hemoglobin Concent 34 g/dL (31-37) Red Cell Distribution Width 14.5 % (11.5-14.5) Platelet Count 179 x10^3/uL (140-400) Neutrophils (%) (Auto) 65 % (31-73) Lymphocytes (%) (Auto) 22 % (24-48) Monocytes (%) (Auto) 11 % (0-9) Eosinophils (%) (Auto) 2 % (0-3) Basophils (%) (Auto) 1 % (0-3) Neutrophils # (Auto) 3.0 x10^3uL (1.8-7.7) Lymphocytes # (Auto) 1.0 x10^3/uL (1.0-4.8) Monocytes # (Auto) 0.5 x10^3/uL (0.0-1.1) Eosinophils # (Auto) 0.1 x10^3/uL (0.0-0.7) Basophils # (Auto) 0.0 x10^3/uL (0.0-0.2) Sodium Level 120 mmol/L (136-145) Potassium Level 4.0 mmol/L (3.5-5.1) Chloride Level 87 mmol/L (98-107) Carbon Dioxide Level 26 mmol/L (21-32) Anion Gap 7 (6-14) Blood Urea Nitrogen 3 mg/dL (7-20) Creatinine 0.5 mg/dL (0.6-1.0) Estimated GFR (Cockcroft-Gault) 120.9 BUN/Creatinine Ratio 6 (6-20) Glucose Level 80 mg/dL (70-99) Calcium Level 8.6 mg/dL (8.5-10.1) Ionized Calcium 1.08 mmol/L (1.13-1.32) Total Bilirubin 0.4 mg/dL (0.2-1.0) Aspartate Amino Transf (AST/SGOT) 21 U/L (15-37) Alanine Aminotransferase (ALT/SGPT) 15 U/L (14-59) Alkaline Phosphatase 67 U/L (46-116) Total Protein 6.2 g/dL (6.4-8.2) Albumin 3.0 g/dL (3.4-5.0) Albumin/Globulin Ratio 0.9 (1.0-1.7) Laboratory Tests Test 07/01/18 16:00 07/02/18 02:55 Sodium Level 123 mmol/L (136-145) 120 mmol/L (136-145) Potassium Level 3.7 mmol/L (3.5-5.1) 4.0 mmol/L (3.5-5.1) Chloride Level 88 mmol/L (98-107) 87 mmol/L (98-107) Carbon Dioxide Level 25 mmol/L (21-32) 26 mmol/L (21-32) Anion Gap 10 (6-14) 7 (6-14) Blood Urea Nitrogen 3 mg/dL (7-20) 3 mg/dL (7-20) Creatinine 0.6 mg/dL (0.6-1.0) 0.5 mg/dL (0.6-1.0) Estimated GFR (Cockcroft-Gault) 98.0 120.9 Glucose Level 95 mg/dL (70-99) 80 mg/dL (70-99) Calcium Level 8.3 mg/dL (8.5-10.1) 8.6 mg/dL (8.5-10.1) White Blood Count 4.6 x10^3/uL (4.0-11.0) Red Blood Count 3.90 x10^6/uL (3.50-5.40) Hemoglobin 10.9 g/dL (12.0-15.5) Hematocrit 32.3 % (36.0-47.0) Mean Corpuscular Volume 83 fL (79-100) Mean Corpuscular Hemoglobin 28 pg (25-35) Mean Corpuscular Hemoglobin Concent 34 g/dL (31-37) Red Cell Distribution Width 14.5 % (11.5-14.5) Platelet Count 179 x10^3/uL (140-400) Neutrophils (%) (Auto) 65 % (31-73) Lymphocytes (%) (Auto) 22 % (24-48) Monocytes (%) (Auto) 11 % (0-9) Eosinophils (%) (Auto) 2 % (0-3) Basophils (%) (Auto) 1 % (0-3) Neutrophils # (Auto) 3.0 x10^3uL (1.8-7.7) Lymphocytes # (Auto) 1.0 x10^3/uL (1.0-4.8) Monocytes # (Auto) 0.5 x10^3/uL (0.0-1.1) Eosinophils # (Auto) 0.1 x10^3/uL (0.0-0.7) Basophils # (Auto) 0.0 x10^3/uL (0.0-0.2) BUN/Creatinine Ratio 6 (6-20) Ionized Calcium 1.08 mmol/L (1.13-1.32) Total Bilirubin 0.4 mg/dL (0.2-1.0) Aspartate Amino Transf (AST/SGOT) 21 U/L (15-37) Alanine Aminotransferase (ALT/SGPT) 15 U/L (14-59) Alkaline Phosphatase 67 U/L (46-116) Total Protein 6.2 g/dL (6.4-8.2) Albumin 3.0 g/dL (3.4-5.0) Albumin/Globulin Ratio 0.9 (1.0-1.7) Microbiology 06/24/18 Urine Culture - Final, Complete 06/24/18 Urine Culture Result 1 (DARRELL) - Final, Complete 06/24/18 Urine Culture Result 2 (DARRELL) - Final, Complete Medications Current Medications Sodium Chloride 1,000 ml @ 1,000 mls/hr Q1H IV Last administered on 06/24/18 18:27; Start 06/24/18 at 16:10; Stop 06/24/18 at 17:09; Status DC Ondansetron HCl (Zofran) 4 mg 1X ONCE IV Last administered on 06/24/18 18:27 ; Start 06/24/18 at 16:15; Stop 06/24/18 at 16:16; Status DC Pantoprazole Sodium (PROTONIX VIAL for IV PUSH) 40 mg 1X ONCE IVP Last administered on 06/24/18 18:27; Start 06/24/18 at 16:45; Stop 06/24/18 at 16:48 ; Status DC Iohexol (Omnipaque 300 Mg/ml) 75 ml 1X ONCE IV Last administered on 06/24/18at 18:29; Start 06/24/18 at 18:30; Stop 06/24/18 at 18:31; Status DC Info (CONTRAST GIVEN -- Rx MONITORING) 1 each PRN DAILY PRN MC SEE COMMENTS; Start 06/24/18 at 18:30; Stop 06/26/18 at 18:29; Status DC Ceftriaxone Sodium (Rocephin) 1 gm 1X ONCE IVP Last administered on 06/24/18at 20:48; Start 06/24/18 at 20:45; Stop 06/24/18 at 20:46; Status DC Ondansetron HCl (Zofran) 4 mg PRN Q8HRS PRN IV NAUSEA/VOMITING Last administered on 06/25/18at 19:14; Start 06/25/18 at 00:45; Stop 06/26/18 at 00:44 ; Status DC Fentanyl Citrate (Fentanyl 2ml Vial) 50 mcg PRN Q1HR PRN IV PAIN; Start at 00:45; Stop 06/26/18 at 00:44; Status DC Acetaminophen (Tylenol) 650 mg PRN Q4HRS PRN PO FEVER; Start 06/25/18 at 00:45 ; Stop 06/26/18 at 00:44; Status DC Sodium Chloride 1,000 ml @ 75 mls/hr [id number] IV Last administered on at 05:49; Start 06/25/18 at 09:30; Stop 06/29/18 at 09:47; Status DC Ceftriaxone Sodium (Rocephin) 1 gm Q24H IVP Last administered on 06/29/18at 20: 34; Start 06/25/18 at 21:00; Stop 06/29/18 at 23:59; Status DC Lisinopril (Prinivil) 10 mg DAILY PO Last administered on 06/29/18at 08:29; Start 06/26/18 at 09:00; Stop 06/30/18 at 11:46; Status DC Levothyroxine Sodium (Synthroid) 50 mcg DAILY06 PO Last administered on 06:28; Start 06/26/18 at 06:00 Atorvastatin Calcium (Lipitor) 10 mg QHS PO Last administered on 07/01/18at 21: 01; Start 06/25/18 at 21:00 Multivitamins (Thera M Plus) 1 tab DAILY PO Last administered on 07/02/18 08: 33; Start 06/26/18 at 09:00 Pantoprazole Sodium (Protonix) 40 mg DAILYAC PO ; Start 06/26/18 at 07:30; Stop 06/26/18 at 13:28; Status DC Paroxetine HCl (Paxil) 30 mg DAILY PO Last administered on 06/27/18 09:08; Start 06/26/18 at 09:00; Stop 06/28/18 at 10:33; Status DC Lactobacillus Rhamnosus (Culturelle) 1 cap BID PO Last administered on 08:33; Start 06/25/18 at 21:00 Calcium Carbonate/ Glycine (Tums) 1,000 mg PRN AFTMEALHC PRN PO INDIGESTION Last administered on 07/01/18 17:25; Start 06/25/18 at 20:45 Pantoprazole Sodium (Protonix) 40 mg BIDAC PO Last administered on 07/02/18 06 :28; Start 06/26/18 at 16:30 Polyethylene Glycol (miraLAX PACKET) 17 gm PRN DAILY PRN PO CONSTIPATION; Start 06/26/18 at 13:30; Stop 06/27/18 at 12:37; Status DC Barium Sulfate (Liquid E-Z Paque) 355 ml 1X ONCE PO ; Start 06/27/18 at 07:45; Stop 06/27/18 at 07:46; Status DC Barium Sulfate (E-Z-Hd) 340 gm 1X ONCE PO ; Start 06/27/18 at 07:45; Stop 06/27 at 07:46; Status DC Simethicone/ Sodium Bicarb/ Citric Ac (E-Z-Gas) 1 packet 1X ONCE PO ; Start at 07:45; Stop 06/27/18 at 07:46; Status DC Acetaminophen (Tylenol) 650 mg PRN Q6HRS PRN PO MILD PAIN Last administered on 07/02/18 06:28; Start 06/27/18 at 10:30 Polyethylene Glycol (miraLAX PACKET) 17 gm DAILY PO Last administered on at 13:39; Start 06/27/18 at 13:30 Polyethylene Glycol (miraLAX PACKET) 17 gm PRN DAILY PRN PO CONSTIPATION; Start 06/27/18 at 12:45 Dicyclomine HCl (Bentyl) 10 mg PRN TID PRN PO abd pain Last administered on at 13:39; Start 06/27/18 at 12:45 Multi-Ingredient Mouthwash/Gargle (Gi Cocktail) 20 ml PRN QID PRN PO CHEST PAIN ; Start 06/27/18 at 12:45 Barium Sulfate (E-Z-Hd) 340 gm 1X ONCE PO ; Start 06/28/18 at 08:45; Stop 06/28 at 08:48; Status DC Barium Sulfate (Liquid E-Z Paque) 355 ml 1X ONCE PO Last administered on at 09:00; Start 06/28/18 at 08:45; Stop 06/28/18 at 08:48; Status DC Simethicone/ Sodium Bicarb/ Citric Ac (E-Z-Gas) 1 packet 1X ONCE PO ; Start at 08:45; Stop 06/28/18 at 08:48; Status DC Ondansetron HCl (Zofran) 4 mg PRN Q6HRS PRN IV NAUSEA/VOMITING Last administered on 06/30/18at 14:54; Start 06/29/18 at 12:45 Cefdinir (Omnicef) 300 mg BID PO Last administered on 07/02/18at 08:32; Start at 09:00 Ringer's Solution 1,000 ml @ 50 mls/hr Q20H IV ; Start 06/30/18 at 07:00; Stop 06/30/18 at 18:59; Status DC Sodium Chloride 1,000 ml @ 60 mls/hr [id number] IV Last administered on at 05:54; Start 06/29/18 at 20:00 Sodium Chloride 500 ml @ 50 mls/hr 1X ONCE IV Last administered on 06/30/18at 10:43; Start 06/30/18 at 09:45; Stop 06/30/18 at 19:44; Status DC Amlodipine Besylate (Norvasc) 5 mg DAILY PO Last administered on 07/02/18at 08: 33; Start 07/01/18 at 09:00 Potassium Chloride (Klor-Con) 40 meq 1X ONCE PO ; Start 07/01/18 at 11:30; Stop 07/01/18 at 11:31; Status DC Calcium Gluconate 1000 mg/Dextrose 110 ml @ 220 mls/hr 1X ONCE IV ; Start at 11:30; Stop 07/01/18 at 11:59; Status UNV Potassium Chloride (Klor-Con) 40 meq 1X ONCE PO Last administered on at 17:25; Start 07/01/18 at 17:17; Stop 07/01/18 at 17:18; Status DC Sodium Chloride 500 ml @ 15 mls/hr 1X ONCE IV Last administered on 07/02/18at 05:25; Start 07/02/18 at 05:00; Stop 07/03/18 at 14:19 Active Scripts Active Reported Lisinopril 10 Mg Tablet 1 Tab PO DAILY Multivitamins (Multivitamin) 1 Each Tablet 1 Tab PO DAILY Prilosec (Omeprazole) 20 Mg Capsule.dr 1 Cap PO DAILY Tylenol Extra Strength (Acetaminophen) 500 Mg Tablet 500 Mg PO Lovastatin 40 Mg Tablet 40 Mg PO HS Paroxetine Hcl 30 Mg Tablet 30 Mg PO DAILY Levothyroxine Sodium 50 Mcg Tablet 50 Mcg PO DAILYAC Vitals/I & O Vital Sign - Last 24 Hours 07/01/18 07/01/18 07/01/18 07/01/18 09:31 11:00 15:00 19:00 Temp 98.4 98.4 99.5 98.4 98.4 99.5 Pulse 79 81 76 66 Resp 18 B/P (MAP) 151/75 132/66 (88) 141/72 (95) 117/60 (79) Pulse Ox 93 95 96 O2 Delivery Room Air Room Air 07/01/18 07/01/18 07/02/18 07/02/18 20:25 23:00 03:00 07:00 Temp 98.0 99.2 98.6 98.0 99.2 98.6 Pulse 71 71 66 Resp 18 18 18 B/P (MAP) 134/73 (93) 123/68 (86) 136/78 (97) Pulse Ox 95 93 97 O2 Delivery Room Air Room Air 07/02/18 08:33 Pulse 66 B/P (MAP) 136/78 Intake and Output 07/01/18 07/01/18 07/02/18 14:59 22:59 06:59 Intake Total 120 ml Output Total 3 ml 800 ml Balance -3 ml -680 ml TERMULO,BARBARA Y MD Jul 02, 2018 08:52
[2018-07-02 11:00] VITALS: BP 115/61
--- NOTE | 2018-07-02 11:47 | NUR ---
paged for NA update of 122. orders put in to recheck it in four hours and stay with the 3% for now. Will continue to monitor.
--- NOTE | 2018-07-02 13:06 | PDOC ---
PROGRESS NOTES Subjective Subjective feels weak, but kandi po well, no further nausea or vomiting Objective Objective Vital Signs Date Time Temp Pulse Resp B/P (MAP) Pulse Ox O2 Delivery O2 Flow Rate FiO2 07/02/18 11:00 97.3 66 18 115/61 (79) 94 Room Air 97.3 Intake and Output 07/02/18 07:00 Intake Total 120 ml Output Total 803 ml Balance -683 ml Intake Oral 120 ml Output Urine Total 800 ml Stool Total 3 ml # Voids 4 Physical Exam Abdomen: Soft, No tenderness Heart: Regular rate Extremities: No clubbing, No cyanosis General: Alert, Oriented X3, Cooperative HEENT: Atraumatic Lungs: Clear to auscultation Neuro: Normal speech, Strength at 5/5 X4 ext Psych/Mental Status: Mental status NL Assessment Assessment Problems Medical Problems: (1) Mobile cecum Status: Acute (2) Vomiting Status: Acute Plan Plan of Care EGD tomorrow per GI, will follow Comment Review of Relevant I have reviewed the following items kyler (where applicable) has been applied. Labs Laboratory Tests Test 06/30/18 13:15 06/30/18 17:25 07/01/18 02:25 07/01/18 16:00 Sodium Level 119 mmol/L (136-145) 117 mmol/L (136-145) 122 mmol/L (136-145) 123 mmol/L (136-145) Potassium Level 3.5 mmol/L (3.5-5.1) 3.4 mmol/L (3.5-5.1) 3.4 mmol/L (3.5-5.1) 3.7 mmol/L (3.5-5.1) Chloride Level 84 mmol/L (98-107) 84 mmol/L (98-107) 89 mmol/L (98-107) 88 mmol/L (98-107) Carbon Dioxide Level 26 mmol/L (21-32) 26 mmol/L (21-32) 25 mmol/L (21-32) 25 mmol/L (21-32) Anion Gap 9 (6-14) 7 (6-14) 9 (6-14) 10 (6-14) Blood Urea Nitrogen 5 mg/dL (7-20) 6 mg/dL (7-20) 4 mg/dL (7-20) 3 mg/dL (7- 20) Creatinine 0.6 mg/dL (0.6-1.0) 0.7 mg/dL (0.6-1.0) 0.5 mg/dL (0.6-1.0) 0.6 mg/dL (0.6-1.0) Estimated GFR (Cockcroft-Gault) 98.0 82.0 120.9 98.0 Glucose Level 85 mg/dL (70-99) 118 mg/dL (70-99) 82 mg/dL (70-99) 95 mg/dL (70-99) Calcium Level 7.9 mg/dL (8.5-10.1) 7.9 mg/dL (8.5-10.1) 7.8 mg/dL (8.5-10.1) 8.3 mg/dL (8.5-10.1) White Blood Count 4.2 x10^3/uL (4.0-11.0) Red Blood Count 3.77 x10^6/uL (3.50-5.40) Hemoglobin 10.4 g/dL (12.0-15.5) Hematocrit 30.9 % (36.0-47.0) Mean Corpuscular Volume 82 fL (79-100) Mean Corpuscular Hemoglobin 28 pg (25-35) Mean Corpuscular Hemoglobin Concent 34 g/dL (31-37) Red Cell Distribution Width 14.5 % (11.5-14.5) Platelet Count 166 x10^3/uL (140-400) Neutrophils (%) (Auto) 68 % (31-73) Lymphocytes (%) (Auto) 18 % (24-48) Monocytes (%) (Auto) 12 % (0-9) Eosinophils (%) (Auto) 2 % (0-3) Basophils (%) (Auto) 1 % (0-3) Neutrophils # (Auto) 2.9 x10^3uL (1.8-7.7) Lymphocytes # (Auto) 0.8 x10^3/uL (1.0-4.8) Monocytes # (Auto) 0.5 x10^3/uL (0.0-1.1) Eosinophils # (Auto) 0.1 x10^3/uL (0.0-0.7) Basophils # (Auto) 0.0 x10^3/uL (0.0-0.2) BUN/Creatinine Ratio 8 (6-20) Total Bilirubin 0.4 mg/dL (0.2-1.0) Aspartate Amino Transf (AST/SGOT) 21 U/L (15-37) Alanine Aminotransferase (ALT/SGPT) 13 U/L (14-59) Alkaline Phosphatase 66 U/L (46-116) Total Protein 5.5 g/dL (6.4-8.2) Albumin 2.9 g/dL (3.4-5.0) Albumin/Globulin Ratio 1.1 (1.0-1.7) Test 07/02/18 02:55 07/02/18 09:03 White Blood Count 4.6 x10^3/uL (4.0-11.0) Red Blood Count 3.90 x10^6/uL (3.50-5.40) Hemoglobin 10.9 g/dL (12.0-15.5) Hematocrit 32.3 % (36.0-47.0) Mean Corpuscular Volume 83 fL (79-100) Mean Corpuscular Hemoglobin 28 pg (25-35) Mean Corpuscular Hemoglobin Concent 34 g/dL (31-37) Red Cell Distribution Width 14.5 % (11.5-14.5) Platelet Count 179 x10^3/uL (140-400) Neutrophils (%) (Auto) 65 % (31-73) Lymphocytes (%) (Auto) 22 % (24-48) Monocytes (%) (Auto) 11 % (0-9) Eosinophils (%) (Auto) 2 % (0-3) Basophils (%) (Auto) 1 % (0-3) Neutrophils # (Auto) 3.0 x10^3uL (1.8-7.7) Lymphocytes # (Auto) 1.0 x10^3/uL (1.0-4.8) Monocytes # (Auto) 0.5 x10^3/uL (0.0-1.1) Eosinophils # (Auto) 0.1 x10^3/uL (0.0-0.7) Basophils # (Auto) 0.0 x10^3/uL (0.0-0.2) Sodium Level 120 mmol/L (136-145) 122 mmol/L (136-145) Potassium Level 4.0 mmol/L (3.5-5.1) Chloride Level 87 mmol/L (98-107) Carbon Dioxide Level 26 mmol/L (21-32) Anion Gap 7 (6-14) Blood Urea Nitrogen 3 mg/dL (7-20) Creatinine 0.5 mg/dL (0.6-1.0) Estimated GFR (Cockcroft-Gault) 120.9 BUN/Creatinine Ratio 6 (6-20) Glucose Level 80 mg/dL (70-99) Calcium Level 8.6 mg/dL (8.5-10.1) Ionized Calcium 1.08 mmol/L (1.13-1.32) Total Bilirubin 0.4 mg/dL (0.2-1.0) Aspartate Amino Transf (AST/SGOT) 21 U/L (15-37) Alanine Aminotransferase (ALT/SGPT) 15 U/L (14-59) Alkaline Phosphatase 67 U/L (46-116) Total Protein 6.2 g/dL (6.4-8.2) Albumin 3.0 g/dL (3.4-5.0) Albumin/Globulin Ratio 0.9 (1.0-1.7) Laboratory Tests Test 07/01/18 16:00 07/02/18 02:55 07/02/18 09:03 Sodium Level 123 mmol/L (136-145) 120 mmol/L (136-145) 122 mmol/L (136-145) Potassium Level 3.7 mmol/L (3.5-5.1) 4.0 mmol/L (3.5-5.1) Chloride Level 88 mmol/L (98-107) 87 mmol/L (98-107) Carbon Dioxide Level 25 mmol/L (21-32) 26 mmol/L (21-32) Anion Gap 10 (6-14) 7 (6-14) Blood Urea Nitrogen 3 mg/dL (7-20) 3 mg/dL (7-20) Creatinine 0.6 mg/dL (0.6-1.0) 0.5 mg/dL (0.6-1.0) Estimated GFR (Cockcroft-Gault) 98.0 120.9 Glucose Level 95 mg/dL (70-99) 80 mg/dL (70-99) Calcium Level 8.3 mg/dL (8.5-10.1) 8.6 mg/dL (8.5-10.1) White Blood Count 4.6 x10^3/uL (4.0-11.0) Red Blood Count 3.90 x10^6/uL (3.50-5.40) Hemoglobin 10.9 g/dL (12.0-15.5) Hematocrit 32.3 % (36.0-47.0) Mean Corpuscular Volume 83 fL (79-100) Mean Corpuscular Hemoglobin 28 pg (25-35) Mean Corpuscular Hemoglobin Concent 34 g/dL (31-37) Red Cell Distribution Width 14.5 % (11.5-14.5) Platelet Count 179 x10^3/uL (140-400) Neutrophils (%) (Auto) 65 % (31-73) Lymphocytes (%) (Auto) 22 % (24-48) Monocytes (%) (Auto) 11 % (0-9) Eosinophils (%) (Auto) 2 % (0-3) Basophils (%) (Auto) 1 % (0-3) Neutrophils # (Auto) 3.0 x10^3uL (1.8-7.7) Lymphocytes # (Auto) 1.0 x10^3/uL (1.0-4.8) Monocytes # (Auto) 0.5 x10^3/uL (0.0-1.1) Eosinophils # (Auto) 0.1 x10^3/uL (0.0-0.7) Basophils # (Auto) 0.0 x10^3/uL (0.0-0.2) BUN/Creatinine Ratio 6 (6-20) Ionized Calcium 1.08 mmol/L (1.13-1.32) Total Bilirubin 0.4 mg/dL (0.2-1.0) Aspartate Amino Transf (AST/SGOT) 21 U/L (15-37) Alanine Aminotransferase (ALT/SGPT) 15 U/L (14-59) Alkaline Phosphatase 67 U/L (46-116) Total Protein 6.2 g/dL (6.4-8.2) Albumin 3.0 g/dL (3.4-5.0) Albumin/Globulin Ratio 0.9 (1.0-1.7) Microbiology 06/24/18 Urine Culture - Final, Complete 06/24/18 Urine Culture Result 1 (DARRELL) - Final, Complete 06/24/18 Urine Culture Result 2 (DARRELL) - Final, Complete Medications Current Medications Sodium Chloride 1,000 ml @ 1,000 mls/hr Q1H IV Last administered on 06/24/18 18:27; Start 06/24/18 at 16:10; Stop 06/24/18 at 17:09; Status DC Ondansetron HCl (Zofran) 4 mg 1X ONCE IV Last administered on 06/24/18 18:27 ; Start 06/24/18 at 16:15; Stop 06/24/18 at 16:16; Status DC Pantoprazole Sodium (PROTONIX VIAL for IV PUSH) 40 mg 1X ONCE IVP Last administered on 06/24/18 18:27; Start 06/24/18 at 16:45; Stop 06/24/18 at 16:48 ; Status DC Iohexol (Omnipaque 300 Mg/ml) 75 ml 1X ONCE IV Last administered on 06/24/18 18:29; Start 06/24/18 at 18:30; Stop 06/24/18 at 18:31; Status DC Info (CONTRAST GIVEN -- Rx MONITORING) 1 each PRN DAILY PRN MC SEE COMMENTS; Start 06/24/18 at 18:30; Stop 06/26/18 at 18:29; Status DC Ceftriaxone Sodium (Rocephin) 1 gm 1X ONCE IVP Last administered on 06/24/18 20:48; Start 06/24/18 at 20:45; Stop 06/24/18 at 20:46; Status DC Ondansetron HCl (Zofran) 4 mg PRN Q8HRS PRN IV NAUSEA/VOMITING Last administered on 06/25/18 19:14; Start 06/25/18 at 00:45; Stop 06/26/18 at 00:44 ; Status DC Fentanyl Citrate (Fentanyl 2ml Vial) 50 mcg PRN Q1HR PRN IV PAIN; Start at 00:45; Stop 06/26/18 at 00:44; Status DC Acetaminophen (Tylenol) 650 mg PRN Q4HRS PRN PO FEVER; Start 06/25/18 at 00:45 ; Stop 06/26/18 at 00:44; Status DC Sodium Chloride 1,000 ml @ 75 mls/hr [id number] IV Last administered on 05:49; Start 06/25/18 at 09:30; Stop 06/29/18 at 09:47; Status DC Ceftriaxone Sodium (Rocephin) 1 gm Q24H IVP Last administered on 06/29/18 20: 34; Start 06/25/18 at 21:00; Stop 06/29/18 at 23:59; Status DC Lisinopril (Prinivil) 10 mg DAILY PO Last administered on 06/29/18 08:29; Start 06/26/18 at 09:00; Stop 06/30/18 at 11:46; Status DC Levothyroxine Sodium (Synthroid) 50 mcg DAILY06 PO Last administered on 06:28; Start 06/26/18 at 06:00 Atorvastatin Calcium (Lipitor) 10 mg QHS PO Last administered on 07/01/18 21: 01; Start 06/25/18 at 21:00 Multivitamins (Thera M Plus) 1 tab DAILY PO Last administered on 07/02/18 08: 33; Start 06/26/18 at 09:00 Pantoprazole Sodium (Protonix) 40 mg DAILYAC PO ; Start 06/26/18 at 07:30; Stop 06/26/18 at 13:28; Status DC Paroxetine HCl (Paxil) 30 mg DAILY PO Last administered on 06/27/18 09:08; Start 06/26/18 at 09:00; Stop 06/28/18 at 10:33; Status DC Lactobacillus Rhamnosus (Culturelle) 1 cap BID PO Last administered on 08:33; Start 06/25/18 at 21:00 Calcium Carbonate/ Glycine (Tums) 1,000 mg PRN AFTMEALHC PRN PO INDIGESTION Last administered on 07/01/18 17:25; Start 06/25/18 at 20:45 Pantoprazole Sodium (Protonix) 40 mg BIDAC PO Last administered on 07/02/18 06 :28; Start 06/26/18 at 16:30 Polyethylene Glycol (miraLAX PACKET) 17 gm PRN DAILY PRN PO CONSTIPATION; Start 06/26/18 at 13:30; Stop 06/27/18 at 12:37; Status DC Barium Sulfate (Liquid E-Z Paque) 355 ml 1X ONCE PO ; Start 06/27/18 at 07:45; Stop 06/27/18 at 07:46; Status DC Barium Sulfate (E-Z-Hd) 340 gm 1X ONCE PO ; Start 06/27/18 at 07:45; Stop 06/27 at 07:46; Status DC Simethicone/ Sodium Bicarb/ Citric Ac (E-Z-Gas) 1 packet 1X ONCE PO ; Start at 07:45; Stop 06/27/18 at 07:46; Status DC Acetaminophen (Tylenol) 650 mg PRN Q6HRS PRN PO MILD PAIN Last administered on 07/02/18at 06:28; Start 06/27/18 at 10:30 Polyethylene Glycol (miraLAX PACKET) 17 gm DAILY PO Last administered on at 13:39; Start 06/27/18 at 13:30 Polyethylene Glycol (miraLAX PACKET) 17 gm PRN DAILY PRN PO CONSTIPATION; Start 06/27/18 at 12:45 Dicyclomine HCl (Bentyl) 10 mg PRN TID PRN PO abd pain Last administered on at 13:39; Start 06/27/18 at 12:45 Multi-Ingredient Mouthwash/Gargle (Gi Cocktail) 20 ml PRN QID PRN PO CHEST PAIN ; Start 06/27/18 at 12:45 Barium Sulfate (E-Z-Hd) 340 gm 1X ONCE PO ; Start 06/28/18 at 08:45; Stop 06/28 at 08:48; Status DC Barium Sulfate (Liquid E-Z Paque) 355 ml 1X ONCE PO Last administered on at 09:00; Start 06/28/18 at 08:45; Stop 06/28/18 at 08:48; Status DC Simethicone/ Sodium Bicarb/ Citric Ac (E-Z-Gas) 1 packet 1X ONCE PO ; Start at 08:45; Stop 06/28/18 at 08:48; Status DC Ondansetron HCl (Zofran) 4 mg PRN Q6HRS PRN IV NAUSEA/VOMITING Last administered on 06/30/18at 14:54; Start 06/29/18 at 12:45 Cefdinir (Omnicef) 300 mg BID PO Last administered on 07/02/18at 08:32; Start at 09:00 Ringer's Solution 1,000 ml @ 50 mls/hr Q20H IV ; Start 06/30/18 at 07:00; Stop 06/30/18 at 18:59; Status DC Sodium Chloride 1,000 ml @ 60 mls/hr [id number] IV Last administered on at 05:54; Start 06/29/18 at 20:00 Sodium Chloride 500 ml @ 50 mls/hr 1X ONCE IV Last administered on 06/30/18at 10:43; Start 06/30/18 at 09:45; Stop 06/30/18 at 19:44; Status DC Amlodipine Besylate (Norvasc) 5 mg DAILY PO Last administered on 07/02/18at 08: 33; Start 07/01/18 at 09:00 Potassium Chloride (Klor-Con) 40 meq 1X ONCE PO ; Start 07/01/18 at 11:30; Stop 07/01/18 at 11:31; Status DC Calcium Gluconate 1000 mg/Dextrose 110 ml @ 220 mls/hr 1X ONCE IV ; Start at 11:30; Stop 07/01/18 at 11:59; Status UNV Potassium Chloride (Klor-Con) 40 meq 1X ONCE PO Last administered on at 17:25; Start 07/01/18 at 17:17; Stop 07/01/18 at 17:18; Status DC Sodium Chloride 500 ml @ 15 mls/hr 1X ONCE IV Last administered on 07/02/18at 05:25; Start 07/02/18 at 05:00; Stop 07/03/18 at 14:19 Active Scripts Active Reported Lisinopril 10 Mg Tablet 1 Tab PO DAILY Multivitamins (Multivitamin) 1 Each Tablet 1 Tab PO DAILY Prilosec (Omeprazole) 20 Mg Capsule.dr 1 Cap PO DAILY Tylenol Extra Strength (Acetaminophen) 500 Mg Tablet 500 Mg PO Lovastatin 40 Mg Tablet 40 Mg PO HS Paroxetine Hcl 30 Mg Tablet 30 Mg PO DAILY Levothyroxine Sodium 50 Mcg Tablet 50 Mcg PO DAILYAC Vitals/I & O Vital Sign - Last 24 Hours 07/01/18 07/01/18 07/01/18 3/30/19 15:00 19:00 20:25 23:00 Temp 98.4 99.5 98.0 98.4 99.5 98.0 Pulse 76 66 71 Resp 18 18 18 B/P (MAP) 141/72 (95) 117/60 (79) 134/73 (93) Pulse Ox 95 96 95 O2 Delivery Room Air Room Air 07/02/18 07/02/18 07/02/18 07/02/18 03:00 07:00 08:00 08:33 Temp 99.2 98.6 99.2 98.6 Pulse 71 66 66 Resp 18 18 B/P (MAP) 123/68 (86) 136/78 (97) 136/78 Pulse Ox 93 97 O2 Delivery Room Air Room Air 07/02/18 11:00 Temp 97.3 97.3 Pulse 66 Resp 18 B/P (MAP) 115/61 (79) Pulse Ox 94 O2 Delivery Room Air Intake and Output 07/01/18 07/01/18 07/02/18 15:00 23:00 07:00 Intake Total 120 ml Output Total 3 ml 800 ml Balance -3 ml -680 ml JULIO PATEL MD Jul 02, 2018 13:06
[2018-07-02] MEDS: IV NORMAL SALINE 1000ML BAG 1,000 ML IV SCH (14:40)
--- NOTE | 2018-07-02 14:47 | PDOC ---
PROGRESS NOTES Subjective Subjective SEEN IN FOLLOW UP OF HYONATREMIA Objective Objective Vital Signs Date Time Temp Pulse Resp B/P (MAP) Pulse Ox O2 Delivery O2 Flow Rate FiO2 07/02/18 11:00 97.3 66 18 115/61 (79) 94 Room Air 97.3 Intake and Output 07/02/18 07:00 Intake Total 120 ml Output Total 803 ml Balance -683 ml Intake Oral 120 ml Output Urine Total 800 ml Stool Total 3 ml # Voids 4 Physical Exam Abdomen: Normal bowel sounds, Soft, No tenderness, No hepatosplenomegaly, No masses Heart: Regular rate, Normal S1, Normal S2, No murmurs, Gallops Extremities: No clubbing, No cyanosis, No edema, Normal pulses, No tenderness/ swelling General: Alert, Oriented X3, Cooperative, No acute distress Lungs: Clear to auscultation, Normal air movement Psych/Mental Status: Mental status NL Diagnosis Other HYPONATREMIA Assessment Assessment Problems Medical Problems: (1) Mobile cecum Status: Acute (2) Vomiting Status: Acute Plan Plan of Care SERUM SODIUM NOT BETTER. WILL RESTART 3% NACL. START DEMECLOCYCLINE WAS ON PAXIL. LIKELY HAS SIADH. FOLLOW SERUM SODIUM Comment Review of Relevant I have reviewed the following items kyler (where applicable) has been applied. Labs Laboratory Tests Test 06/30/18 17:25 07/01/18 02:25 07/01/18 16:00 07/02/18 02:55 Sodium Level 117 mmol/L (136-145) 122 mmol/L (136-145) 123 mmol/L (136-145) 120 mmol/L (136-145) Potassium Level 3.4 mmol/L (3.5-5.1) 3.4 mmol/L (3.5-5.1) 3.7 mmol/L (3.5-5.1) 4.0 mmol/L (3.5-5.1) Chloride Level 84 mmol/L (98-107) 89 mmol/L (98-107) 88 mmol/L (98-107) 87 mmol/L (98-107) Carbon Dioxide Level 26 mmol/L (21-32) 25 mmol/L (21-32) 25 mmol/L (21-32) 26 mmol/L (21-32) Anion Gap 7 (6-14) 9 (6-14) 10 (6-14) 7 (6-14) Blood Urea Nitrogen 6 mg/dL (7-20) 4 mg/dL (7-20) 3 mg/dL (7-20) 3 mg/dL (7- 20) Creatinine 0.7 mg/dL (0.6-1.0) 0.5 mg/dL (0.6-1.0) 0.6 mg/dL (0.6-1.0) 0.5 mg/dL (0.6-1.0) Estimated GFR (Cockcroft-Gault) 82.0 120.9 98.0 120.9 Glucose Level 118 mg/dL (70-99) 82 mg/dL (70-99) 95 mg/dL (70-99) 80 mg/dL (70-99) Calcium Level 7.9 mg/dL (8.5-10.1) 7.8 mg/dL (8.5-10.1) 8.3 mg/dL (8.5-10.1) 8.6 mg/dL (8.5-10.1) White Blood Count 4.2 x10^3/uL (4.0-11.0) 4.6 x10^3/uL (4.0-11.0) Red Blood Count 3.77 x10^6/uL (3.50-5.40) 3.90 x10^6/uL (3.50-5.40) Hemoglobin 10.4 g/dL (12.0-15.5) 10.9 g/dL (12.0-15.5) Hematocrit 30.9 % (36.0-47.0) 32.3 % (36.0-47.0) Mean Corpuscular Volume 82 fL (79-100) 83 fL (79-100) Mean Corpuscular Hemoglobin 28 pg (25-35) 28 pg (25-35) Mean Corpuscular Hemoglobin Concent 34 g/dL (31-37) 34 g/dL (31-37) Red Cell Distribution Width 14.5 % (11.5-14.5) 14.5 % (11.5-14.5) Platelet Count 166 x10^3/uL (140-400) 179 x10^3/uL (140-400) Neutrophils (%) (Auto) 68 % (31-73) 65 % (31-73) Lymphocytes (%) (Auto) 18 % (24-48) 22 % (24-48) Monocytes (%) (Auto) 12 % (0-9) 11 % (0-9) Eosinophils (%) (Auto) 2 % (0-3) 2 % (0-3) Basophils (%) (Auto) 1 % (0-3) 1 % (0-3) Neutrophils # (Auto) 2.9 x10^3uL (1.8-7.7) 3.0 x10^3uL (1.8-7.7) Lymphocytes # (Auto) 0.8 x10^3/uL (1.0-4.8) 1.0 x10^3/uL (1.0-4.8) Monocytes # (Auto) 0.5 x10^3/uL (0.0-1.1) 0.5 x10^3/uL (0.0-1.1) Eosinophils # (Auto) 0.1 x10^3/uL (0.0-0.7) 0.1 x10^3/uL (0.0-0.7) Basophils # (Auto) 0.0 x10^3/uL (0.0-0.2) 0.0 x10^3/uL (0.0-0.2) BUN/Creatinine Ratio 8 (6-20) 6 (6-20) Total Bilirubin 0.4 mg/dL (0.2-1.0) 0.4 mg/dL (0.2-1.0) Aspartate Amino Transf (AST/SGOT) 21 U/L (15-37) 21 U/L (15-37) Alanine Aminotransferase (ALT/SGPT) 13 U/L (14-59) 15 U/L (14-59) Alkaline Phosphatase 66 U/L (46-116) 67 U/L (46-116) Total Protein 5.5 g/dL (6.4-8.2) 6.2 g/dL (6.4-8.2) Albumin 2.9 g/dL (3.4-5.0) 3.0 g/dL (3.4-5.0) Albumin/Globulin Ratio 1.1 (1.0-1.7) 0.9 (1.0-1.7) Ionized Calcium 1.08 mmol/L (1.13-1.32) Test 07/02/18 09:03 Sodium Level 122 mmol/L (136-145) Laboratory Tests Test 07/01/18 16:00 07/02/18 02:55 07/02/18 09:03 Sodium Level 123 mmol/L (136-145) 120 mmol/L (136-145) 122 mmol/L (136-145) Potassium Level 3.7 mmol/L (3.5-5.1) 4.0 mmol/L (3.5-5.1) Chloride Level 88 mmol/L (98-107) 87 mmol/L (98-107) Carbon Dioxide Level 25 mmol/L (21-32) 26 mmol/L (21-32) Anion Gap 10 (6-14) 7 (6-14) Blood Urea Nitrogen 3 mg/dL (7-20) 3 mg/dL (7-20) Creatinine 0.6 mg/dL (0.6-1.0) 0.5 mg/dL (0.6-1.0) Estimated GFR (Cockcroft-Gault) 98.0 120.9 Glucose Level 95 mg/dL (70-99) 80 mg/dL (70-99) Calcium Level 8.3 mg/dL (8.5-10.1) 8.6 mg/dL (8.5-10.1) White Blood Count 4.6 x10^3/uL (4.0-11.0) Red Blood Count 3.90 x10^6/uL (3.50-5.40) Hemoglobin 10.9 g/dL (12.0-15.5) Hematocrit 32.3 % (36.0-47.0) Mean Corpuscular Volume 83 fL (79-100) Mean Corpuscular Hemoglobin 28 pg (25-35) Mean Corpuscular Hemoglobin Concent 34 g/dL (31-37) Red Cell Distribution Width 14.5 % (11.5-14.5) Platelet Count 179 x10^3/uL (140-400) Neutrophils (%) (Auto) 65 % (31-73) Lymphocytes (%) (Auto) 22 % (24-48) Monocytes (%) (Auto) 11 % (0-9) Eosinophils (%) (Auto) 2 % (0-3) Basophils (%) (Auto) 1 % (0-3) Neutrophils # (Auto) 3.0 x10^3uL (1.8-7.7) Lymphocytes # (Auto) 1.0 x10^3/uL (1.0-4.8) Monocytes # (Auto) 0.5 x10^3/uL (0.0-1.1) Eosinophils # (Auto) 0.1 x10^3/uL (0.0-0.7) Basophils # (Auto) 0.0 x10^3/uL (0.0-0.2) BUN/Creatinine Ratio 6 (6-20) Ionized Calcium 1.08 mmol/L (1.13-1.32) Total Bilirubin 0.4 mg/dL (0.2-1.0) Aspartate Amino Transf (AST/SGOT) 21 U/L (15-37) Alanine Aminotransferase (ALT/SGPT) 15 U/L (14-59) Alkaline Phosphatase 67 U/L (46-116) Total Protein 6.2 g/dL (6.4-8.2) Albumin 3.0 g/dL (3.4-5.0) Albumin/Globulin Ratio 0.9 (1.0-1.7) Microbiology 06/24/18 Urine Culture - Final, Complete 06/24/18 Urine Culture Result 1 (DARRELL) - Final, Complete 06/24/18 Urine Culture Result 2 (DARRELL) - Final, Complete Medications Current Medications Sodium Chloride 1,000 ml @ 1,000 mls/hr Q1H IV Last administered on 06/24/18 18:27; Start 06/24/18 at 16:10; Stop 06/24/18 at 17:09; Status DC Ondansetron HCl (Zofran) 4 mg 1X ONCE IV Last administered on 06/24/18 18:27 ; Start 06/24/18 at 16:15; Stop 06/24/18 at 16:16; Status DC Pantoprazole Sodium (PROTONIX VIAL for IV PUSH) 40 mg 1X ONCE IVP Last administered on 06/24/18at 18:27; Start 06/24/18 at 16:45; Stop 06/24/18 at 16:48 ; Status DC Iohexol (Omnipaque 300 Mg/ml) 75 ml 1X ONCE IV Last administered on 06/24/18 18:29; Start 06/24/18 at 18:30; Stop 06/24/18 at 18:31; Status DC Info (CONTRAST GIVEN -- Rx MONITORING) 1 each PRN DAILY PRN MC SEE COMMENTS; Start 06/24/18 at 18:30; Stop 06/26/18 at 18:29; Status DC Ceftriaxone Sodium (Rocephin) 1 gm 1X ONCE IVP Last administered on 06/24/18at 20:48; Start 06/24/18 at 20:45; Stop 06/24/18 at 20:46; Status DC Ondansetron HCl (Zofran) 4 mg PRN Q8HRS PRN IV NAUSEA/VOMITING Last administered on 06/25/18 19:14; Start 06/25/18 at 00:45; Stop 06/26/18 at 00:44 ; Status DC Fentanyl Citrate (Fentanyl 2ml Vial) 50 mcg PRN Q1HR PRN IV PAIN; Start at 00:45; Stop 06/26/18 at 00:44; Status DC Acetaminophen (Tylenol) 650 mg PRN Q4HRS PRN PO FEVER; Start 06/25/18 at 00:45 ; Stop 06/26/18 at 00:44; Status DC Sodium Chloride 1,000 ml @ 75 mls/hr [id number] IV Last administered on 05:49; Start 06/25/18 at 09:30; Stop 06/29/18 at 09:47; Status DC Ceftriaxone Sodium (Rocephin) 1 gm Q24H IVP Last administered on 06/29/18 20: 34; Start 06/25/18 at 21:00; Stop 06/29/18 at 23:59; Status DC Lisinopril (Prinivil) 10 mg DAILY PO Last administered on 06/29/18 08:29; Start 06/26/18 at 09:00; Stop 06/30/18 at 11:46; Status DC Levothyroxine Sodium (Synthroid) 50 mcg DAILY06 PO Last administered on 06:28; Start 06/26/18 at 06:00 Atorvastatin Calcium (Lipitor) 10 mg QHS PO Last administered on 3/30/19at 21: 01; Start 06/25/18 at 21:00 Multivitamins (Thera M Plus) 1 tab DAILY PO Last administered on 07/02/18 08: 33; Start 06/26/18 at 09:00 Pantoprazole Sodium (Protonix) 40 mg DAILYAC PO ; Start 06/26/18 at 07:30; Stop 06/26/18 at 13:28; Status DC Paroxetine HCl (Paxil) 30 mg DAILY PO Last administered on 06/27/18 09:08; Start 06/26/18 at 09:00; Stop 06/28/18 at 10:33; Status DC Lactobacillus Rhamnosus (Culturelle) 1 cap BID PO Last administered on 08:33; Start 06/25/18 at 21:00 Calcium Carbonate/ Glycine (Tums) 1,000 mg PRN AFTMEALHC PRN PO INDIGESTION Last administered on 07/01/18 17:25; Start 06/25/18 at 20:45 Pantoprazole Sodium (Protonix) 40 mg BIDAC PO Last administered on 07/02/18 06 :28; Start 06/26/18 at 16:30 Polyethylene Glycol (miraLAX PACKET) 17 gm PRN DAILY PRN PO CONSTIPATION; Start 06/26/18 at 13:30; Stop 06/27/18 at 12:37; Status DC Barium Sulfate (Liquid E-Z Paque) 355 ml 1X ONCE PO ; Start 06/27/18 at 07:45; Stop 06/27/18 at 07:46; Status DC Barium Sulfate (E-Z-Hd) 340 gm 1X ONCE PO ; Start 06/27/18 at 07:45; Stop 06/27 at 07:46; Status DC Simethicone/ Sodium Bicarb/ Citric Ac (E-Z-Gas) 1 packet 1X ONCE PO ; Start at 07:45; Stop 06/27/18 at 07:46; Status DC Acetaminophen (Tylenol) 650 mg PRN Q6HRS PRN PO MILD PAIN Last administered on 07/02/18 06:28; Start 06/27/18 at 10:30 Polyethylene Glycol (miraLAX PACKET) 17 gm DAILY PO Last administered on at 13:39; Start 06/27/18 at 13:30 Polyethylene Glycol (miraLAX PACKET) 17 gm PRN DAILY PRN PO CONSTIPATION; Start 06/27/18 at 12:45 Dicyclomine HCl (Bentyl) 10 mg PRN TID PRN PO abd pain Last administered on at 13:39; Start 06/27/18 at 12:45 Multi-Ingredient Mouthwash/Gargle (Gi Cocktail) 20 ml PRN QID PRN PO CHEST PAIN ; Start 06/27/18 at 12:45 Barium Sulfate (E-Z-Hd) 340 gm 1X ONCE PO ; Start 06/28/18 at 08:45; Stop 06/28 at 08:48; Status DC Barium Sulfate (Liquid E-Z Paque) 355 ml 1X ONCE PO Last administered on at 09:00; Start 06/28/18 at 08:45; Stop 06/28/18 at 08:48; Status DC Simethicone/ Sodium Bicarb/ Citric Ac (E-Z-Gas) 1 packet 1X ONCE PO ; Start at 08:45; Stop 06/28/18 at 08:48; Status DC Ondansetron HCl (Zofran) 4 mg PRN Q6HRS PRN IV NAUSEA/VOMITING Last administered on 06/30/18at 14:54; Start 06/29/18 at 12:45 Cefdinir (Omnicef) 300 mg BID PO Last administered on 07/02/18at 08:32; Start at 09:00 Ringer's Solution 1,000 ml @ 50 mls/hr Q20H IV ; Start 06/30/18 at 07:00; Stop 06/30/18 at 18:59; Status DC Sodium Chloride 1,000 ml @ 60 mls/hr [id number] IV Last administered on at 05:54; Start 06/29/18 at 20:00 Sodium Chloride 500 ml @ 50 mls/hr 1X ONCE IV Last administered on 06/30/18at 10:43; Start 06/30/18 at 09:45; Stop 06/30/18 at 19:44; Status DC Amlodipine Besylate (Norvasc) 5 mg DAILY PO Last administered on 07/02/18at 08: 33; Start 07/01/18 at 09:00 Potassium Chloride (Klor-Con) 40 meq 1X ONCE PO ; Start 07/01/18 at 11:30; Stop 07/01/18 at 11:31; Status DC Calcium Gluconate 1000 mg/Dextrose 110 ml @ 220 mls/hr 1X ONCE IV ; Start at 11:30; Stop 07/01/18 at 11:59; Status UNV Potassium Chloride (Klor-Con) 40 meq 1X ONCE PO Last administered on at 17:25; Start 07/01/18 at 17:17; Stop 07/01/18 at 17:18; Status DC Sodium Chloride 500 ml @ 15 mls/hr 1X ONCE IV Last administered on 07/02/18at 05:25; Start 07/02/18 at 05:00; Stop 07/03/18 at 14:19 Demeclocycline HCl (Declomycin) 300 mg Q12HR PO ; Start 07/02/18 at 14:30 Active Scripts Active Reported Lisinopril 10 Mg Tablet 1 Tab PO DAILY Multivitamins (Multivitamin) 1 Each Tablet 1 Tab PO DAILY Prilosec (Omeprazole) 20 Mg Capsule.dr 1 Cap PO DAILY Tylenol Extra Strength (Acetaminophen) 500 Mg Tablet 500 Mg PO Lovastatin 40 Mg Tablet 40 Mg PO HS Paroxetine Hcl 30 Mg Tablet 30 Mg PO DAILY Levothyroxine Sodium 50 Mcg Tablet 50 Mcg PO DAILYAC Vitals/I & O Vital Sign - Last 24 Hours 07/01/18 07/01/18 07/01/18 07/01/18 15:00 19:00 20:25 23:00 Temp 98.4 99.5 98.0 98.4 99.5 98.0 Pulse 76 66 71 Resp 18 18 18 B/P (MAP) 141/72 (95) 117/60 (79) 134/73 (93) Pulse Ox 95 96 95 O2 Delivery Room Air Room Air 07/02/18 07/02/18 07/02/18 07/02/18 03:00 07:00 08:00 08:33 Temp 99.2 98.6 99.2 98.6 Pulse 71 66 66 Resp 18 18 B/P (MAP) 123/68 (86) 136/78 (97) 136/78 Pulse Ox 93 97 O2 Delivery Room Air Room Air 07/02/18 11:00 Temp 97.3 97.3 Pulse 66 Resp 18 B/P (MAP) 115/61 (79) Pulse Ox 94 O2 Delivery Room Air Intake and Output 07/01/18 07/01/18 07/02/18 15:00 23:00 07:00 Intake Total 120 ml Output Total 3 ml 800 ml Balance -3 ml -680 ml YAJAIRA BARROSO MD Jul 02, 2018 14:47
[2018-07-02 15:00] VITALS: BP 124/70
[2018-07-02 16:07] LABS: CALCIUM 8.3 mg/dL (8.5-10.1); CREATININE 0.6 mg/dL (0.6-1.0); POTASSIUM 4.1 mmol/L (3.5-5.1)
[2018-07-02] MEDS: DEMECLOCYCLINE HCL 150 MG TABLET. PO SCH ×2 (16:14→21:02)
[2018-07-02 19:00] VITALS: BP 116/60
[2018-07-02] MEDS: ATORVASTATIN CALCIUM 10 MG TABLET. PO SCH (21:02)
[2018-07-02 23:00] VITALS: BP 151/89
[2018-07-03] VITALS (11 sets, daily range): BP systolic 110–164; BP diastolic 48–81
[2018-07-03] MEDS: DICYCLOMINE HCL 10 MG CAPSULE PO PRN (01:13)
[2018-07-03 05:26] LABS: CALCIUM 8.4 mg/dL (8.5-10.1); CREATININE 0.5 mg/dL (0.6-1.0); GFR 120.9; POTASSIUM 3.8 mmol/L (3.5-5.1)
[2018-07-03] MEDS: LEVOTHYROXINE 50 MCG TABLET PO SCH (06:00)
[2018-07-03] MEDS: PANTOPRAZOLE 40 MG TABLET.DR. PO SCH ×2 (07:38→18:10)
[2018-07-03] MEDS: IV NORMAL SALINE 1000ML BAG 1,000 ML IV SCH (07:38)
--- NOTE | 2018-07-03 08:33 | PDOC ---
[facility]OR[facility] TECHNICIAN 07/03/18 0833: SURGICAL PROGRESS NOTE Subjective some cramping abdominal pain yesterday no emesis possible EGD today Vital Signs Vital Signs Date Time Temp Pulse Resp B/P (MAP) Pulse Ox O2 Delivery O2 Flow Rate FiO2 07/03/18 07:00 98.1 69 20 142/80 (100) 98 Room Air 98.1 I&O Intake and Output 07/03/18 07:00 Intake Total 0 ml Output Total 1000 ml Balance -1000 ml Intake Oral 0 ml Output Urine Total 1000 ml # Voids 6 # Bowel Movements 2 General: Alert, Oriented X3, Cooperative, No acute distress Abdomen: Soft, No tenderness Labs Laboratory Tests Test 07/01/18 16:00 07/02/18 02:55 07/02/18 09:03 07/02/18 15:45 Sodium Level 123 mmol/L (136-145) 120 mmol/L (136-145) 122 mmol/L (136-145) 122 mmol/L (136-145) Potassium Level 3.7 mmol/L (3.5-5.1) 4.0 mmol/L (3.5-5.1) 4.1 mmol/L (3.5-5.1) Chloride Level 88 mmol/L (98-107) 87 mmol/L (98-107) 87 mmol/L (98-107) Carbon Dioxide Level 25 mmol/L (21-32) 26 mmol/L (21-32) 27 mmol/L (21-32) Anion Gap 10 (6-14) 7 (6-14) 8 (6-14) Blood Urea Nitrogen 3 mg/dL (7-20) 3 mg/dL (7-20) 1 mg/dL (7-20) Creatinine 0.6 mg/dL (0.6-1.0) 0.5 mg/dL (0.6-1.0) 0.6 mg/dL (0.6-1.0) Estimated GFR (Cockcroft-Gault) 98.0 120.9 98.0 Glucose Level 95 mg/dL (70-99) 80 mg/dL (70-99) 93 mg/dL (70-99) Calcium Level 8.3 mg/dL (8.5-10.1) 8.6 mg/dL (8.5-10.1) 8.3 mg/dL (8.5-10.1) White Blood Count 4.6 x10^3/uL (4.0-11.0) Red Blood Count 3.90 x10^6/uL (3.50-5.40) Hemoglobin 10.9 g/dL (12.0-15.5) Hematocrit 32.3 % (36.0-47.0) Mean Corpuscular Volume 83 fL (79-100) Mean Corpuscular Hemoglobin 28 pg (25-35) Mean Corpuscular Hemoglobin Concent 34 g/dL (31-37) Red Cell Distribution Width 14.5 % (11.5-14.5) Platelet Count 179 x10^3/uL (140-400) Neutrophils (%) (Auto) 65 % (31-73) Lymphocytes (%) (Auto) 22 % (24-48) Monocytes (%) (Auto) 11 % (0-9) Eosinophils (%) (Auto) 2 % (0-3) Basophils (%) (Auto) 1 % (0-3) Neutrophils # (Auto) 3.0 x10^3uL (1.8-7.7) Lymphocytes # (Auto) 1.0 x10^3/uL (1.0-4.8) Monocytes # (Auto) 0.5 x10^3/uL (0.0-1.1) Eosinophils # (Auto) 0.1 x10^3/uL (0.0-0.7) Basophils # (Auto) 0.0 x10^3/uL (0.0-0.2) BUN/Creatinine Ratio 6 (6-20) Ionized Calcium 1.08 mmol/L (1.13-1.32) Total Bilirubin 0.4 mg/dL (0.2-1.0) Aspartate Amino Transf (AST/SGOT) 21 U/L (15-37) Alanine Aminotransferase (ALT/SGPT) 15 U/L (14-59) Alkaline Phosphatase 67 U/L (46-116) Total Protein 6.2 g/dL (6.4-8.2) Albumin 3.0 g/dL (3.4-5.0) Albumin/Globulin Ratio 0.9 (1.0-1.7) Test 07/03/18 03:15 Sodium Level 119 mmol/L (136-145) Potassium Level 3.8 mmol/L (3.5-5.1) Chloride Level 86 mmol/L (98-107) Carbon Dioxide Level 27 mmol/L (21-32) Anion Gap 6 (6-14) Blood Urea Nitrogen 2 mg/dL (7-20) Creatinine 0.5 mg/dL (0.6-1.0) Estimated GFR (Cockcroft-Gault) 120.9 Glucose Level 77 mg/dL (70-99) Calcium Level 8.4 mg/dL (8.5-10.1) Laboratory Tests Test 07/02/18 09:03 07/02/18 15:45 07/03/18 03:15 Sodium Level 122 mmol/L (136-145) 122 mmol/L (136-145) 119 mmol/L (136-145) Potassium Level 4.1 mmol/L (3.5-5.1) 3.8 mmol/L (3.5-5.1) Chloride Level 87 mmol/L (98-107) 86 mmol/L (98-107) Carbon Dioxide Level 27 mmol/L (21-32) 27 mmol/L (21-32) Anion Gap 8 (6-14) 6 (6-14) Blood Urea Nitrogen 1 mg/dL (7-20) 2 mg/dL (7-20) Creatinine 0.6 mg/dL (0.6-1.0) 0.5 mg/dL (0.6-1.0) Estimated GFR (Cockcroft-Gault) 98.0 120.9 Glucose Level 93 mg/dL (70-99) 77 mg/dL (70-99) Calcium Level 8.3 mg/dL (8.5-10.1) 8.4 mg/dL (8.5-10.1) Problem List Problems Medical Problems: (1) Mobile cecum Status: Acute (2) Vomiting Status: Acute Assessment/Plan hyponatremia, renal following possible EGD today JULIO PATEL MD 07/03/18 1200: SURGICAL PROGRESS NOTE Assessment/Plan Await EGD results [facility] TECHNICIAN Jul 03, 2018 08:33 JULIO PATEL MD Jul 03, 2018 12:00
--- NOTE | 2018-07-03 08:36 | PDOC ---
PROGRESS NOTES Chief Complaint Chief Complaint Hyponatremia SIADH Abnormal abdominal CT: cecum nt normal, Moderate hiatal hernia Delayed gastric emptying w. recurrent vomting and poor PO inake diverticulosis UTI Nausea and Vomiting History of Present Illness History of Present Illness NO n/v so far today Weak, otherwise no new complaints Might need SNU Labs worse, possibly for EGD today PLAN: IVF per renal, Demeclocycline per renal as well SW Snu screen EGD NPO post MN Vitals Vitals Vital Signs Date Time Temp Pulse Resp B/P (MAP) Pulse Ox O2 Delivery O2 Flow Rate FiO2 07/03/18 07:00 98.1 69 20 142/80 (100) 98 Room Air 98.1 Physical Exam General: Alert, Oriented X3, Cooperative, No acute distress Heart: Regular rate, Normal S1, Normal S2, No murmurs, Gallops Lungs: Clear, Other Abdomen: Soft, No tenderness Extremities: No clubbing, No cyanosis, No edema, Normal pulses, No tenderness/ swelling Skin: No breakdown Labs LABS Laboratory Tests Test 07/02/18 09:03 07/02/18 15:45 07/03/18 03:15 Sodium Level 122 mmol/L (136-145) 122 mmol/L (136-145) 119 mmol/L (136-145) Potassium Level 4.1 mmol/L (3.5-5.1) 3.8 mmol/L (3.5-5.1) Chloride Level 87 mmol/L (98-107) 86 mmol/L (98-107) Carbon Dioxide Level 27 mmol/L (21-32) 27 mmol/L (21-32) Anion Gap 8 (6-14) 6 (6-14) Blood Urea Nitrogen 1 mg/dL (7-20) 2 mg/dL (7-20) Creatinine 0.6 mg/dL (0.6-1.0) 0.5 mg/dL (0.6-1.0) Estimated GFR (Cockcroft-Gault) 98.0 120.9 Glucose Level 93 mg/dL (70-99) 77 mg/dL (70-99) Calcium Level 8.3 mg/dL (8.5-10.1) 8.4 mg/dL (8.5-10.1) Assessment and Plan Assessmemt and Plan Problems Medical Problems: (1) Mobile cecum Status: Acute (2) Vomiting Status: Acute Comment Review of Relevant I have reviewed the following items kyler (where applicable) has been applied. Labs Laboratory Tests Test 07/01/18 16:00 07/02/18 02:55 07/02/18 09:03 07/02/18 15:45 Sodium Level 123 mmol/L (136-145) 120 mmol/L (136-145) 122 mmol/L (136-145) 122 mmol/L (136-145) Potassium Level 3.7 mmol/L (3.5-5.1) 4.0 mmol/L (3.5-5.1) 4.1 mmol/L (3.5-5.1) Chloride Level 88 mmol/L (98-107) 87 mmol/L (98-107) 87 mmol/L (98-107) Carbon Dioxide Level 25 mmol/L (21-32) 26 mmol/L (21-32) 27 mmol/L (21-32) Anion Gap 10 (6-14) 7 (6-14) 8 (6-14) Blood Urea Nitrogen 3 mg/dL (7-20) 3 mg/dL (7-20) 1 mg/dL (7-20) Creatinine 0.6 mg/dL (0.6-1.0) 0.5 mg/dL (0.6-1.0) 0.6 mg/dL (0.6-1.0) Estimated GFR (Cockcroft-Gault) 98.0 120.9 98.0 Glucose Level 95 mg/dL (70-99) 80 mg/dL (70-99) 93 mg/dL (70-99) Calcium Level 8.3 mg/dL (8.5-10.1) 8.6 mg/dL (8.5-10.1) 8.3 mg/dL (8.5-10.1) White Blood Count 4.6 x10^3/uL (4.0-11.0) Red Blood Count 3.90 x10^6/uL (3.50-5.40) Hemoglobin 10.9 g/dL (12.0-15.5) Hematocrit 32.3 % (36.0-47.0) Mean Corpuscular Volume 83 fL (79-100) Mean Corpuscular Hemoglobin 28 pg (25-35) Mean Corpuscular Hemoglobin Concent 34 g/dL (31-37) Red Cell Distribution Width 14.5 % (11.5-14.5) Platelet Count 179 x10^3/uL (140-400) Neutrophils (%) (Auto) 65 % (31-73) Lymphocytes (%) (Auto) 22 % (24-48) Monocytes (%) (Auto) 11 % (0-9) Eosinophils (%) (Auto) 2 % (0-3) Basophils (%) (Auto) 1 % (0-3) Neutrophils # (Auto) 3.0 x10^3uL (1.8-7.7) Lymphocytes # (Auto) 1.0 x10^3/uL (1.0-4.8) Monocytes # (Auto) 0.5 x10^3/uL (0.0-1.1) Eosinophils # (Auto) 0.1 x10^3/uL (0.0-0.7) Basophils # (Auto) 0.0 x10^3/uL (0.0-0.2) BUN/Creatinine Ratio 6 (6-20) Ionized Calcium 1.08 mmol/L (1.13-1.32) Total Bilirubin 0.4 mg/dL (0.2-1.0) Aspartate Amino Transf (AST/SGOT) 21 U/L (15-37) Alanine Aminotransferase (ALT/SGPT) 15 U/L (14-59) Alkaline Phosphatase 67 U/L (46-116) Total Protein 6.2 g/dL (6.4-8.2) Albumin 3.0 g/dL (3.4-5.0) Albumin/Globulin Ratio 0.9 (1.0-1.7) Test 07/03/18 03:15 Sodium Level 119 mmol/L (136-145) Potassium Level 3.8 mmol/L (3.5-5.1) Chloride Level 86 mmol/L (98-107) Carbon Dioxide Level 27 mmol/L (21-32) Anion Gap 6 (6-14) Blood Urea Nitrogen 2 mg/dL (7-20) Creatinine 0.5 mg/dL (0.6-1.0) Estimated GFR (Cockcroft-Gault) 120.9 Glucose Level 77 mg/dL (70-99) Calcium Level 8.4 mg/dL (8.5-10.1) Laboratory Tests Test 07/02/18 09:03 07/02/18 15:45 07/03/18 03:15 Sodium Level 122 mmol/L (136-145) 122 mmol/L (136-145) 119 mmol/L (136-145) Potassium Level 4.1 mmol/L (3.5-5.1) 3.8 mmol/L (3.5-5.1) Chloride Level 87 mmol/L (98-107) 86 mmol/L (98-107) Carbon Dioxide Level 27 mmol/L (21-32) 27 mmol/L (21-32) Anion Gap 8 (6-14) 6 (6-14) Blood Urea Nitrogen 1 mg/dL (7-20) 2 mg/dL (7-20) Creatinine 0.6 mg/dL (0.6-1.0) 0.5 mg/dL (0.6-1.0) Estimated GFR (Cockcroft-Gault) 98.0 120.9 Glucose Level 93 mg/dL (70-99) 77 mg/dL (70-99) Calcium Level 8.3 mg/dL (8.5-10.1) 8.4 mg/dL (8.5-10.1) Microbiology 06/24/18 Urine Culture - Final, Complete 06/24/18 Urine Culture Result 1 (DARERLL) - Final, Complete 06/24/18 Urine Culture Result 2 (DARRELL) - Final, Complete Medications Current Medications Sodium Chloride 1,000 ml @ 1,000 mls/hr Q1H IV Last administered on 06/24/18 18:27; Start 06/24/18 at 16:10; Stop 06/24/18 at 17:09; Status DC Ondansetron HCl (Zofran) 4 mg 1X ONCE IV Last administered on 06/24/18 18:27 ; Start 06/24/18 at 16:15; Stop 06/24/18 at 16:16; Status DC Pantoprazole Sodium (PROTONIX VIAL for IV PUSH) 40 mg 1X ONCE IVP Last administered on 06/24/18 18:27; Start 06/24/18 at 16:45; Stop 06/24/18 at 16:48 ; Status DC Iohexol (Omnipaque 300 Mg/ml) 75 ml 1X ONCE IV Last administered on 06/24/18 18:29; Start 06/24/18 at 18:30; Stop 06/24/18 at 18:31; Status DC Info (CONTRAST GIVEN -- Rx MONITORING) 1 each PRN DAILY PRN MC SEE COMMENTS; Start 06/24/18 at 18:30; Stop 06/26/18 at 18:29; Status DC Ceftriaxone Sodium (Rocephin) 1 gm 1X ONCE IVP Last administered on 06/24/18 20:48; Start 06/24/18 at 20:45; Stop 06/24/18 at 20:46; Status DC Ondansetron HCl (Zofran) 4 mg PRN Q8HRS PRN IV NAUSEA/VOMITING Last administered on 06/25/18 19:14; Start 06/25/18 at 00:45; Stop 06/26/18 at 00:44 ; Status DC Fentanyl Citrate (Fentanyl 2ml Vial) 50 mcg PRN Q1HR PRN IV PAIN; Start at 00:45; Stop 06/26/18 at 00:44; Status DC Acetaminophen (Tylenol) 650 mg PRN Q4HRS PRN PO FEVER; Start 06/25/18 at 00:45 ; Stop 06/26/18 at 00:44; Status DC Sodium Chloride 1,000 ml @ 75 mls/hr [id number] IV Last administered on 05:49; Start 06/25/18 at 09:30; Stop 06/29/18 at 09:47; Status DC Ceftriaxone Sodium (Rocephin) 1 gm Q24H IVP Last administered on 06/29/18at 20: 34; Start 06/25/18 at 21:00; Stop 06/29/18 at 23:59; Status DC Lisinopril (Prinivil) 10 mg DAILY PO Last administered on 06/29/18 08:29; Start 06/26/18 at 09:00; Stop 06/30/18 at 11:46; Status DC Levothyroxine Sodium (Synthroid) 50 mcg DAILY06 PO Last administered on 06:28; Start 06/26/18 at 06:00 Atorvastatin Calcium (Lipitor) 10 mg QHS PO Last administered on 07/02/18at 21: 02; Start 06/25/18 at 21:00 Multivitamins (Thera M Plus) 1 tab DAILY PO Last administered on 07/02/18at 08: 33; Start 06/26/18 at 09:00 Pantoprazole Sodium (Protonix) 40 mg DAILYAC PO ; Start 06/26/18 at 07:30; Stop 06/26/18 at 13:28; Status DC Paroxetine HCl (Paxil) 30 mg DAILY PO Last administered on 06/27/18at 09:08; Start 06/26/18 at 09:00; Stop 06/28/18 at 10:33; Status DC Lactobacillus Rhamnosus (Culturelle) 1 cap BID PO Last administered on at 21:02; Start 06/25/18 at 21:00 Calcium Carbonate/ Glycine (Tums) 1,000 mg PRN AFTMEALHC PRN PO INDIGESTION Last administered on 07/01/18at 17:25; Start 06/25/18 at 20:45 Pantoprazole Sodium (Protonix) 40 mg BIDAC PO Last administered on 07/02/18at 17 :59; Start 06/26/18 at 16:30 Polyethylene Glycol (miraLAX PACKET) 17 gm PRN DAILY PRN PO CONSTIPATION; Start 06/26/18 at 13:30; Stop 06/27/18 at 12:37; Status DC Barium Sulfate (Liquid E-Z Paque) 355 ml 1X ONCE PO ; Start 06/27/18 at 07:45; Stop 06/27/18 at 07:46; Status DC Barium Sulfate (E-Z-Hd) 340 gm 1X ONCE PO ; Start 06/27/18 at 07:45; Stop 06/27 at 07:46; Status DC Simethicone/ Sodium Bicarb/ Citric Ac (E-Z-Gas) 1 packet 1X ONCE PO ; Start at 07:45; Stop 06/27/18 at 07:46; Status DC Acetaminophen (Tylenol) 650 mg PRN Q6HRS PRN PO MILD PAIN Last administered on 07/02/18at 06:28; Start 06/27/18 at 10:30 Polyethylene Glycol (miraLAX PACKET) 17 gm DAILY PO Last administered on at 13:39; Start 06/27/18 at 13:30 Polyethylene Glycol (miraLAX PACKET) 17 gm PRN DAILY PRN PO CONSTIPATION; Start 06/27/18 at 12:45 Dicyclomine HCl (Bentyl) 10 mg PRN TID PRN PO abd pain Last administered on 07/03at 01:13; Start 06/27/18 at 12:45 Multi-Ingredient Mouthwash/Gargle (Gi Cocktail) 20 ml PRN QID PRN PO CHEST PAIN ; Start 06/27/18 at 12:45 Barium Sulfate (E-Z-Hd) 340 gm 1X ONCE PO ; Start 06/28/18 at 08:45; Stop 06/28 at 08:48; Status DC Barium Sulfate (Liquid E-Z Paque) 355 ml 1X ONCE PO Last administered on at 09:00; Start 06/28/18 at 08:45; Stop 06/28/18 at 08:48; Status DC Simethicone/ Sodium Bicarb/ Citric Ac (E-Z-Gas) 1 packet 1X ONCE PO ; Start at 08:45; Stop 06/28/18 at 08:48; Status DC Ondansetron HCl (Zofran) 4 mg PRN Q6HRS PRN IV NAUSEA/VOMITING Last administered on 06/30/18at 14:54; Start 06/29/18 at 12:45 Cefdinir (Omnicef) 300 mg BID PO Last administered on 07/02/18at 08:32; Start at 09:00; Stop 07/02/18 at 15:02; Status DC Ringer's Solution 1,000 ml @ 50 mls/hr Q20H IV ; Start 06/30/18 at 07:00; Stop 06/30/18 at 18:59; Status DC Sodium Chloride 1,000 ml @ 60 mls/hr [id number] IV Last administered on at 05:54; Start 06/29/18 at 20:00; Stop 07/03/18 at 07:38; Status DC Sodium Chloride 500 ml @ 50 mls/hr 1X ONCE IV Last administered on 06/30/18at 10:43; Start 06/30/18 at 09:45; Stop 06/30/18 at 19:44; Status DC Amlodipine Besylate (Norvasc) 5 mg DAILY PO Last administered on 07/02/18at 08: 33; Start 07/01/18 at 09:00 Potassium Chloride (Klor-Con) 40 meq 1X ONCE PO ; Start 07/01/18 at 11:30; Stop 07/01/18 at 11:31; Status DC Calcium Gluconate 1000 mg/Dextrose 110 ml @ 220 mls/hr 1X ONCE IV ; Start at 11:30; Stop 07/01/18 at 11:59; Status UNV Potassium Chloride (Klor-Con) 40 meq 1X ONCE PO Last administered on at 17:25; Start 07/01/18 at 17:17; Stop 07/01/18 at 17:18; Status DC Sodium Chloride 500 ml @ 15 mls/hr 1X ONCE IV Last administered on 07/02/18at 05:25; Start 07/02/18 at 05:00; Stop 07/03/18 at 14:19 Demeclocycline HCl (Declomycin) 300 mg Q12HR PO Last administered on 07/02/18at 21:02; Start 07/02/18 at 14:30 Active Scripts Active Reported Lisinopril 10 Mg Tablet 1 Tab PO DAILY Multivitamins (Multivitamin) 1 Each Tablet 1 Tab PO DAILY Prilosec (Omeprazole) 20 Mg Capsule.dr 1 Cap PO DAILY Tylenol Extra Strength (Acetaminophen) 500 Mg Tablet 500 Mg PO Lovastatin 40 Mg Tablet 40 Mg PO HS Paroxetine Hcl 30 Mg Tablet 30 Mg PO DAILY Levothyroxine Sodium 50 Mcg Tablet 50 Mcg PO DAILYAC Vitals/I & O Vital Sign - Last 24 Hours 07/02/18 07/02/18 07/02/18 07/02/18 11:00 15:00 19:00 20:00 Temp 97.3 98.0 98.1 97.3 98.0 98.1 Pulse 66 64 67 Resp 18 18 18 B/P (MAP) 115/61 (79) 124/70 (88) 116/60 (78) Pulse Ox 94 98 94 O2 Delivery Room Air Room Air Room Air Room Air 07/02/18 07/03/18 07/03/18 23:00 03:00 07:00 Temp 97.7 98.2 98.1 97.7 98.2 98.1 Pulse 78 68 69 Resp 18 18 20 B/P (MAP) 151/89 (109) 131/72 (91) 142/80 (100) Pulse Ox 99 94 98 O2 Delivery Room Air Room Air Room Air Intake and Output 07/02/18 07/02/18 07/03/18 14:59 22:59 06:59 Intake Total 0 ml Output Total 1000 ml Balance -1000 ml 0 ml RO BELL MD Jul 03, 2018 08:36
[2018-07-03] MEDS: amLODIPine BESYLATE 5 MG TABLET PO SCH (09:00)
--- NOTE | 2018-07-03 10:09 | NUR ---
Dr. Díaz and Dr. Pandey notified of critical Na 118. Orders for PICC line in order to infuse 3% sodium solution at higher rate obtained. Rhona RN (nursing supervisor chlorine liquefaction) notified of need for PICC. Pt inform of POC and consents, will continue to monitor closely.
[2018-07-03] MEDS: MULTIVITAMIN with MINERAL TABLET. PO SCH (10:11)
[2018-07-03] MEDS: LACTOBACILLUS RHAMNOSUS GG 1 CAPSULE. PO SCH ×2 (10:11→21:03)
[2018-07-03] MEDS: POLYETHYLENE GLYCOL 3350 17 GM PACKET. PO SCH (10:11)
[2018-07-03] MEDS ORDERED: SODIUM CHLORIDE 3 % 500 ML IV ONE (10:30)
[2018-07-03] MEDS: DEMECLOCYCLINE HCL 150 MG TABLET. PO SCH ×2 (10:38→21:04)
[2018-07-03] MEDS ORDERED: IV RINGERS,LACTATED 1000ML 1,000 ML IV SCH (11:14)
[2018-07-03] MEDS ORDERED: PROPOFOL 20 ML IV ONE (11:52)
--- NOTE | 2018-07-03 12:26 | PDOC4 ---
Operative Note Operative Note EGD Meds propofol per anesthesia Pre-op dx dysphagia/hx hiatal hernia/abnl UGI Post-op dx medium sized hiatal hernia Plan surgery consult for possible repair once hyponatremia corrected advance diet as tolerated JULIO STEPHENS MD Jul 03, 2018 12:25
[2018-07-03] MEDS: ACETAMINOPHEN 325 MG TABLET. PO PRN (13:28)
--- NOTE | 2018-07-03 14:08 | PDOC ---
Renal-Progress Notes Subjective Notes Notes NOTHING NEW History of Present Illness Hx of present illness STABLE Vitals Vitals Vital Signs Date Time Temp Pulse Resp B/P (MAP) Pulse Ox O2 Delivery O2 Flow Rate FiO2 07/03/18 13:10 97.2 73 18 121/77 (92) 97 Room Air 97.2 Weight Weight [ ] I.O. Intake and Output Intake and Output 07/03/18 07:00 Intake Total 0 ml Output Total 1000 ml Balance -1000 ml Intake Oral 0 ml Output Urine Total 1000 ml # Voids 6 # Bowel Movements 2 Labs Labs Laboratory Tests Test 07/02/18 15:45 07/03/18 03:15 07/03/18 09:35 Sodium Level 122 mmol/L (136-145) 119 mmol/L (136-145) 118 mmol/L (136-145) Potassium Level 4.1 mmol/L (3.5-5.1) 3.8 mmol/L (3.5-5.1) Chloride Level 87 mmol/L (98-107) 86 mmol/L (98-107) Carbon Dioxide Level 27 mmol/L (21-32) 27 mmol/L (21-32) Anion Gap 8 (6-14) 6 (6-14) Blood Urea Nitrogen 1 mg/dL (7-20) 2 mg/dL (7-20) Creatinine 0.6 mg/dL (0.6-1.0) 0.5 mg/dL (0.6-1.0) Estimated GFR (Cockcroft-Gault) 98.0 120.9 Glucose Level 93 mg/dL (70-99) 77 mg/dL (70-99) Calcium Level 8.3 mg/dL (8.5-10.1) 8.4 mg/dL (8.5-10.1) Micro Micro Microbiology 06/24/18 Urine Culture - Final, Complete 06/24/18 Urine Culture Result 1 (DARRELL) - Final, Complete 06/24/18 Urine Culture Result 2 (DARRELL) - Final, Complete Review of Systems Constitutional: yes: alert, oriented Ears/Nose/Throat: Yes: no symptom reported Eyes: Yes: no symptom reported Pulmonary: Yes no symptom reported Cardiovascular: Yes no symptom reported Gastrointestional: Yes: constipation Genitourinary: Yes: no symptom reported Musculoskeletal: Yes: muscle stiffness Skin: Yes no symptom reported Psychiatric/Neurological: Yes: no symptom reported Endocrine: Yes: no symptom reported Hematologic/Lymphatic: Yes: no symptom reported Physical Exam General Appearance: no apparent distress Skin: warm Respiratory: bilateral CTA Heart: S1S2 Abdomen: soft, bowel sounds present Genitourinary: bladder flat Extremities: pulses present Neurology: alert, oriented Assessment Assessment IMP ACUTE HYPONATREMIA-NOT ANY BETTER CHRONIC HYPONATREMIA WITH NA IN THE 125-130 RANGE UTI N/V ABD PAIN PLAN OFF SSRI OFF DELMA-I 3% SALINE HAS NOT HAD MUCH DUE TO LACK OF CENTRAL ACCESS WILL INFUSE SLOWLY VIA PERIPHERAL TILL PICC IN PLACE CONT DECLOMYCIN ENDOSCOPY TODAY LUI JACKSON MD Jul 03, 2018 14:08
--- NOTE | 2018-07-03 16:11 | NUR ---
SW following. Discussed with RN, pt had an EGD this morning and has low sodium. Original discharge plan was to discharge home to [facility] with [facility]. OT is recommending SNU, PT has not been able to work with pt due to low sodium and procedure. SW met with pt to discuss discharge recommendation of SNU. Pt is in agreement and would like referral sent to [facility]. SW awaiting PT notes in order to fax complete SNU referral. SW will continue to follow.
[2018-07-03] MEDS: ATORVASTATIN CALCIUM 10 MG TABLET. PO SCH (21:04)
[2018-07-03] MEDS: CALCIUM CARBONATE 500 MG TAB.CHEW PO PRN (21:04)
[2018-07-04 03:00] VITALS: BP 163/80
[2018-07-04] MEDS: LEVOTHYROXINE 50 MCG TABLET PO SCH (05:52)
[2018-07-04 06:39] LABS: CALCIUM 8.5 mg/dL (8.5-10.1); CREATININE 0.4 mg/dL (0.6-1.0); GFR 156.5
[2018-07-04 06:40] LABS: POTASSIUM 3.9 mmol/L (3.5-5.1)
[2018-07-04 07:00] VITALS: BP 127/64
--- NOTE | 2018-07-04 08:21 | NUR ---
SW following. SW contacted therapy to discuss when PT would be working with pt so SW can fax referral to [facility] for SNU. Pt's insurance will need to authorize pt's SNU stay. SW will continue to follow.
[2018-07-04] MEDS: POLYETHYLENE GLYCOL 3350 17 GM PACKET. PO SCH (08:41)
[2018-07-04] MEDS: LACTOBACILLUS RHAMNOSUS GG 1 CAPSULE. PO SCH ×2 (08:42→20:33)
[2018-07-04] MEDS: DEMECLOCYCLINE HCL 150 MG TABLET. PO SCH ×2 (08:42→20:33)
[2018-07-04] MEDS: MULTIVITAMIN with MINERAL TABLET. PO SCH (08:42)
[2018-07-04] MEDS: PANTOPRAZOLE 40 MG TABLET.DR. PO SCH ×2 (08:45→16:00)
[2018-07-04] MEDS: amLODIPine BESYLATE 5 MG TABLET PO SCH (08:56)
--- NOTE | 2018-07-04 09:51 | PDOC ---
PROGRESS NOTES Chief Complaint Chief Complaint Hyponatremia SIADH Abnormal abdominal CT: cecum nt normal, Moderate hiatal hernia Delayed gastric emptying w. recurrent vomting and poor PO inake diverticulosis UTI Nausea and Vomiting History of Present Illness History of Present Illness NO n/v so far today. Ate eggs Weak, otherwise no new complaints EGD on 07/03 revealed - medium sized hiatal hernia. General surgery consulted, patient declines to have surgical correction. Labs better today, sodium 123. Seen ambulating with PT today PLAN: IVF per renal, Demeclocycline per renal as well Cont to advance diet per GI recs SW Snu screen Vitals Vitals Vital Signs Date Time Temp Pulse Resp B/P (MAP) Pulse Ox O2 Delivery O2 Flow Rate FiO2 07/04/18 08:56 85 127/64 07/04/18 07:00 97.9 16 97 Room Air 97.9 Physical Exam General: Alert, Oriented X3, Cooperative, No acute distress Heart: Regular rate, Normal S1, Normal S2, No murmurs, Gallops Lungs: Clear, Other Abdomen: Soft, No tenderness Extremities: No clubbing, No cyanosis, No edema, Normal pulses, No tenderness/ swelling Skin: No breakdown Labs LABS Laboratory Tests Test 07/04/18 05:50 Sodium Level 123 mmol/L (136-145) Potassium Level 3.9 mmol/L (3.5-5.1) Chloride Level 91 mmol/L (98-107) Carbon Dioxide Level 24 mmol/L (21-32) Anion Gap 8 (6-14) Blood Urea Nitrogen 4 mg/dL (7-20) Creatinine 0.4 mg/dL (0.6-1.0) Estimated GFR (Cockcroft-Gault) 156.5 Glucose Level 84 mg/dL (70-99) Calcium Level 8.5 mg/dL (8.5-10.1) Assessment and Plan Assessmemt and Plan Problems Medical Problems: (1) Mobile cecum Status: Acute (2) Vomiting Status: Acute Comment Review of Relevant I have reviewed the following items kyler (where applicable) has been applied. Labs Laboratory Tests Test 07/02/18 15:45 07/03/18 03:15 07/03/18 09:35 07/04/18 05:50 Sodium Level 122 mmol/L (136-145) 119 mmol/L (136-145) 118 mmol/L (136-145) 123 mmol/L (136-145) Potassium Level 4.1 mmol/L (3.5-5.1) 3.8 mmol/L (3.5-5.1) 3.9 mmol/L (3.5-5.1) Chloride Level 87 mmol/L (98-107) 86 mmol/L (98-107) 91 mmol/L (98-107) Carbon Dioxide Level 27 mmol/L (21-32) 27 mmol/L (21-32) 24 mmol/L (21-32) Anion Gap 8 (6-14) 6 (6-14) 8 (6-14) Blood Urea Nitrogen 1 mg/dL (7-20) 2 mg/dL (7-20) 4 mg/dL (7-20) Creatinine 0.6 mg/dL (0.6-1.0) 0.5 mg/dL (0.6-1.0) 0.4 mg/dL (0.6-1.0) Estimated GFR (Cockcroft-Gault) 98.0 120.9 156.5 Glucose Level 93 mg/dL (70-99) 77 mg/dL (70-99) 84 mg/dL (70-99) Calcium Level 8.3 mg/dL (8.5-10.1) 8.4 mg/dL (8.5-10.1) 8.5 mg/dL (8.5-10.1) Laboratory Tests Test 07/04/18 05:50 Sodium Level 123 mmol/L (136-145) Potassium Level 3.9 mmol/L (3.5-5.1) Chloride Level 91 mmol/L (98-107) Carbon Dioxide Level 24 mmol/L (21-32) Anion Gap 8 (6-14) Blood Urea Nitrogen 4 mg/dL (7-20) Creatinine 0.4 mg/dL (0.6-1.0) Estimated GFR (Cockcroft-Gault) 156.5 Glucose Level 84 mg/dL (70-99) Calcium Level 8.5 mg/dL (8.5-10.1) Microbiology 06/24/18 Urine Culture - Final, Complete 06/24/18 Urine Culture Result 1 (DARRELL) - Final, Complete 06/24/18 Urine Culture Result 2 (DARRELL) - Final, Complete Medications Current Medications Sodium Chloride 1,000 ml @ 1,000 mls/hr Q1H IV Last administered on 06/24/18 18:27; Start 06/24/18 at 16:10; Stop 06/24/18 at 17:09; Status DC Ondansetron HCl (Zofran) 4 mg 1X ONCE IV Last administered on 06/24/18 18:27 ; Start 06/24/18 at 16:15; Stop 06/24/18 at 16:16; Status DC Pantoprazole Sodium (PROTONIX VIAL for IV PUSH) 40 mg 1X ONCE IVP Last administered on 06/24/18 18:27; Start 06/24/18 at 16:45; Stop 06/24/18 at 16:48 ; Status DC Iohexol (Omnipaque 300 Mg/ml) 75 ml 1X ONCE IV Last administered on 06/24/18 18:29; Start 06/24/18 at 18:30; Stop 06/24/18 at 18:31; Status DC Info (CONTRAST GIVEN -- Rx MONITORING) 1 each PRN DAILY PRN MC SEE COMMENTS; Start 06/24/18 at 18:30; Stop 06/26/18 at 18:29; Status DC Ceftriaxone Sodium (Rocephin) 1 gm 1X ONCE IVP Last administered on 06/24/18 20:48; Start 06/24/18 at 20:45; Stop 06/24/18 at 20:46; Status DC Ondansetron HCl (Zofran) 4 mg PRN Q8HRS PRN IV NAUSEA/VOMITING Last administered on 06/25/18 19:14; Start 06/25/18 at 00:45; Stop 06/26/18 at 00:44 ; Status DC Fentanyl Citrate (Fentanyl 2ml Vial) 50 mcg PRN Q1HR PRN IV PAIN; Start at 00:45; Stop 06/26/18 at 00:44; Status DC Acetaminophen (Tylenol) 650 mg PRN Q4HRS PRN PO FEVER; Start 06/25/18 at 00:45 ; Stop 06/26/18 at 00:44; Status DC Sodium Chloride 1,000 ml @ 75 mls/hr [id number] IV Last administered on at 05:49; Start 06/25/18 at 09:30; Stop 06/29/18 at 09:47; Status DC Ceftriaxone Sodium (Rocephin) 1 gm Q24H IVP Last administered on 06/29/18at 20: 34; Start 06/25/18 at 21:00; Stop 06/29/18 at 23:59; Status DC Lisinopril (Prinivil) 10 mg DAILY PO Last administered on 06/29/18 08:29; Start 06/26/18 at 09:00; Stop 06/30/18 at 11:46; Status DC Levothyroxine Sodium (Synthroid) 50 mcg DAILY06 PO Last administered on 05:52; Start 06/26/18 at 06:00 Atorvastatin Calcium (Lipitor) 10 mg QHS PO Last administered on 07/03/18 21:04 ; Start 06/25/18 at 21:00 Multivitamins (Thera M Plus) 1 tab DAILY PO Last administered on 07/04/18 08:42 ; Start 06/26/18 at 09:00 Pantoprazole Sodium (Protonix) 40 mg DAILYAC PO ; Start 06/26/18 at 07:30; Stop 06/26/18 at 13:28; Status DC Paroxetine HCl (Paxil) 30 mg DAILY PO Last administered on 06/27/18 09:08; Start 06/26/18 at 09:00; Stop 06/28/18 at 10:33; Status DC Lactobacillus Rhamnosus (Culturelle) 1 cap BID PO Last administered on 08:42; Start 06/25/18 at 21:00 Calcium Carbonate/ Glycine (Tums) 1,000 mg PRN AFTMEALHC PRN PO INDIGESTION Last administered on 07/03/18 21:04; Start 06/25/18 at 20:45 Pantoprazole Sodium (Protonix) 40 mg BIDAC PO Last administered on 07/04/18 08: 45; Start 06/26/18 at 16:30 Polyethylene Glycol (miraLAX PACKET) 17 gm PRN DAILY PRN PO CONSTIPATION; Start 06/26/18 at 13:30; Stop 06/27/18 at 12:37; Status DC Barium Sulfate (Liquid E-Z Paque) 355 ml 1X ONCE PO ; Start 06/27/18 at 07:45; Stop 06/27/18 at 07:46; Status DC Barium Sulfate (E-Z-Hd) 340 gm 1X ONCE PO ; Start 06/27/18 at 07:45; Stop 06/27 at 07:46; Status DC Simethicone/ Sodium Bicarb/ Citric Ac (E-Z-Gas) 1 packet 1X ONCE PO ; Start at 07:45; Stop 06/27/18 at 07:46; Status DC Acetaminophen (Tylenol) 650 mg PRN Q6HRS PRN PO MILD PAIN Last administered on 07/03/18at 13:28; Start 06/27/18 at 10:30 Polyethylene Glycol (miraLAX PACKET) 17 gm DAILY PO Last administered on 08:41; Start 06/27/18 at 13:30 Polyethylene Glycol (miraLAX PACKET) 17 gm PRN DAILY PRN PO CONSTIPATION; Start 06/27/18 at 12:45 Dicyclomine HCl (Bentyl) 10 mg PRN TID PRN PO abd pain Last administered on 07/03at 01:13; Start 06/27/18 at 12:45 Multi-Ingredient Mouthwash/Gargle (Gi Cocktail) 20 ml PRN QID PRN PO CHEST PAIN ; Start 06/27/18 at 12:45 Barium Sulfate (E-Z-Hd) 340 gm 1X ONCE PO ; Start 06/28/18 at 08:45; Stop 06/28 at 08:48; Status DC Barium Sulfate (Liquid E-Z Paque) 355 ml 1X ONCE PO Last administered on at 09:00; Start 06/28/18 at 08:45; Stop 06/28/18 at 08:48; Status DC Simethicone/ Sodium Bicarb/ Citric Ac (E-Z-Gas) 1 packet 1X ONCE PO ; Start at 08:45; Stop 06/28/18 at 08:48; Status DC Ondansetron HCl (Zofran) 4 mg PRN Q6HRS PRN IV NAUSEA/VOMITING Last administered on 06/30/18at 14:54; Start 06/29/18 at 12:45 Cefdinir (Omnicef) 300 mg BID PO Last administered on 07/02/18at 08:32; Start at 09:00; Stop 07/02/18 at 15:02; Status DC Ringer's Solution 1,000 ml @ 50 mls/hr Q20H IV ; Start 06/30/18 at 07:00; Stop 06/30/18 at 18:59; Status DC Sodium Chloride 1,000 ml @ 60 mls/hr [id number] IV Last administered on at 05:54; Start 06/29/18 at 20:00; Stop 07/03/18 at 07:38; Status DC Sodium Chloride 500 ml @ 50 mls/hr 1X ONCE IV Last administered on 06/30/18at 10:43; Start 06/30/18 at 09:45; Stop 06/30/18 at 19:44; Status DC Amlodipine Besylate (Norvasc) 5 mg DAILY PO Last administered on 07/04/18at 08:56 ; Start 07/01/18 at 09:00 Potassium Chloride (Klor-Con) 40 meq 1X ONCE PO ; Start 07/01/18 at 11:30; Stop 07/01/18 at 11:31; Status DC Calcium Gluconate 1000 mg/Dextrose 110 ml @ 220 mls/hr 1X ONCE IV ; Start at 11:30; Stop 07/01/18 at 11:59; Status UNV Potassium Chloride (Klor-Con) 40 meq 1X ONCE PO Last administered on at 17:25; Start 07/01/18 at 17:17; Stop 07/01/18 at 17:18; Status DC Sodium Chloride 500 ml @ 15 mls/hr 1X ONCE IV Last administered on 07/02/18at 05:25; Start 07/02/18 at 05:00; Stop 07/03/18 at 10:15; Status DC Demeclocycline HCl (Declomycin) 300 mg Q12HR PO Last administered on 07/04/18at 08:42; Start 07/02/18 at 14:30 Sodium Chloride 500 ml @ 30 mls/hr 1X ONCE IV Last administered on 07/03/18at 13:32; Start 07/03/18 at 10:30; Stop 07/04/18 at 03:09; Status DC Ringer's Solution 1,000 ml @ 50 mls/hr Q20H IV Last administered on 07/03/18at 11:14; Start 07/03/18 at 11:14; Stop 07/03/18 at 23:13; Status DC Active Scripts Active Reported Lisinopril 10 Mg Tablet 1 Tab PO DAILY Multivitamins (Multivitamin) 1 Each Tablet 1 Tab PO DAILY Prilosec (Omeprazole) 20 Mg Capsule.dr 1 Cap PO DAILY Tylenol Extra Strength (Acetaminophen) 500 Mg Tablet 500 Mg PO Lovastatin 40 Mg Tablet 40 Mg PO HS Paroxetine Hcl 30 Mg Tablet 30 Mg PO DAILY Levothyroxine Sodium 50 Mcg Tablet 50 Mcg PO DAILYAC Vitals/I & O Vital Sign - Last 24 Hours 07/03/18 07/03/18 07/03/18 07/03/18 11:46 12:25 12:35 12:45 Temp 98.2 97.8 97.8 97.8 98.2 97.8 97.8 97.8 Pulse 77 86 79 85 Resp 20 20 18 20 B/P (MAP) 164/91 143/70 150/72 Pulse Ox 98 98 99 96 O2 Delivery Room Air Room Air 07/03/18 07/03/18 07/03/18 07/03/18 12:50 13:10 13:30 13:45 Temp 97.8 97.2 97.8 97.2 Pulse 84 73 72 77 Resp 20 18 B/P (MAP) 157/73 121/77 (92) 140/48 (78) 138/63 (88) Pulse Ox 97 97 100 O2 Delivery Room Air Room Air Room Air Room Air 07/03/18 07/03/18 07/03/18 07/03/18 14:00 14:15 14:45 15:15 Pulse 82 79 68 67 B/P (MAP) 142/66 (91) 131/61 (84) 135/68 (90) 126/58 (80) Pulse Ox 97 O2 Delivery Room Air Room Air Room Air Room Air 07/03/18 07/03/18 07/03/18 07/04/18 19:00 20:00 23:00 03:00 Temp 98.0 98.7 98.1 98.0 98.7 98.1 Pulse 67 65 68 Resp 18 18 18 B/P (MAP) 110/54 (72) 164/81 (108) 163/80 (107) Pulse Ox 97 99 98 O2 Delivery Room Air Room Air Room Air Room Air 07/04/18 07/04/18 07:00 08:56 Temp 97.9 97.9 Pulse 85 85 Resp 16 B/P (MAP) 127/64 (85) 127/64 Pulse Ox 97 O2 Delivery Room Air Intake and Output 07/03/18 07/03/18 07/04/18 14:59 22:59 06:59 Intake Total 400 ml 174 ml 0 ml Balance 400 ml 174 ml 0 ml RO BELL MD Jul 04, 2018 09:51
--- NOTE | 2018-07-04 10:31 | PDOC ---
LEONOR DANGELO [employer] BU[employer]DER 07/04/18 1031: SURGICAL PROGRESS NOTE Subjective d/w pt--she is not interested in hernia surgery Vital Signs Vital Signs Date Time Temp Pulse Resp B/P (MAP) Pulse Ox O2 Delivery O2 Flow Rate FiO2 07/04/18 08:56 85 127/64 07/04/18 07:00 97.9 16 97 Room Air 97.9 I&O Intake and Output 07/04/18 07:00 Intake Total 574 ml Balance 574 ml Intake Oral 0 ml IV Total 574 ml # Voids 4 General: Alert, Oriented X3, Cooperative, No acute distress Abdomen: Soft, No tenderness Labs Laboratory Tests Test 07/02/18 15:45 07/03/18 03:15 07/03/18 09:35 07/04/18 05:50 Sodium Level 122 mmol/L (136-145) 119 mmol/L (136-145) 118 mmol/L (136-145) 123 mmol/L (136-145) Potassium Level 4.1 mmol/L (3.5-5.1) 3.8 mmol/L (3.5-5.1) 3.9 mmol/L (3.5-5.1) Chloride Level 87 mmol/L (98-107) 86 mmol/L (98-107) 91 mmol/L (98-107) Carbon Dioxide Level 27 mmol/L (21-32) 27 mmol/L (21-32) 24 mmol/L (21-32) Anion Gap 8 (6-14) 6 (6-14) 8 (6-14) Blood Urea Nitrogen 1 mg/dL (7-20) 2 mg/dL (7-20) 4 mg/dL (7-20) Creatinine 0.6 mg/dL (0.6-1.0) 0.5 mg/dL (0.6-1.0) 0.4 mg/dL (0.6-1.0) Estimated GFR (Cockcroft-Gault) 98.0 120.9 156.5 Glucose Level 93 mg/dL (70-99) 77 mg/dL (70-99) 84 mg/dL (70-99) Calcium Level 8.3 mg/dL (8.5-10.1) 8.4 mg/dL (8.5-10.1) 8.5 mg/dL (8.5-10.1) Laboratory Tests Test 07/04/18 05:50 Sodium Level 123 mmol/L (136-145) Potassium Level 3.9 mmol/L (3.5-5.1) Chloride Level 91 mmol/L (98-107) Carbon Dioxide Level 24 mmol/L (21-32) Anion Gap 8 (6-14) Blood Urea Nitrogen 4 mg/dL (7-20) Creatinine 0.4 mg/dL (0.6-1.0) Estimated GFR (Cockcroft-Gault) 156.5 Glucose Level 84 mg/dL (70-99) Calcium Level 8.5 mg/dL (8.5-10.1) Problem List Problems Medical Problems: (1) Mobile cecum Status: Acute (2) Vomiting Status: Acute Assessment/Plan pt not interested in surgery will sign off JULIO PATEL MD 07/05/18 0754: SURGICAL PROGRESS NOTE Assessment/Plan Reviewed, please call if she changes her mind or we can assist in the future LEONOR DANGELO APRN Jul 04, 2018 10:31 JULIO PATEL MD Jul 05, 2018 07:54
--- NOTE | 2018-07-04 10:45 | PDOC ---
Subjective: Subjective: Feeling better. Ate scrambled eggs for breakfast, no n/v, no abd pain, stooled yesterday. Objective: Objective: Reviewed chart - declined hernia repair. Vital Signs: Vital Signs Date Time Temp Pulse Resp B/P (MAP) Pulse Ox O2 Delivery O2 Flow Rate FiO2 07/04/18 08:56 85 127/64 07/04/18 07:00 97.9 16 97 Room Air 97.9 Labs: Laboratory Tests Test 07/04/18 05:50 Sodium Level 123 mmol/L Potassium Level 3.9 mmol/L Chloride Level 91 mmol/L Carbon Dioxide Level 24 mmol/L Anion Gap 8 Blood Urea Nitrogen 4 mg/dL Creatinine 0.4 mg/dL Estimated GFR (Cockcroft-Gault) 156.5 Glucose Level 84 mg/dL Calcium Level 8.5 mg/dL Imaging: EGD 07/03 medium sized hiatal hernia PE: GEN: NAD LUNGS: CTAB HEART: RRR ABD: S/ND/NT NEURO/PSYCH: A & O 3 A/P: Vomiting, upper abd discomfort - resolved -medium hiatal hernia, GERD on PPI, slightly delayed gastric emptying (16% retention at 4 hrs), presbyesophagus (denies dysphagia) ACD - stable Hyponatremia - on declomycin per renal -- Stable GI-briggs. BRENDA TAPIA Jul 04, 2018 10:45
[2018-07-04 11:00] VITALS: BP 120/71
[2018-07-04] MEDS ORDERED: SODIUM CHLORIDE 3 % 300 ML IV ONE (12:00)
--- NOTE | 2018-07-04 13:01 | PDOC ---
Renal-Progress Notes Subjective Notes Notes WEAKNESS History of Present Illness Hx of present illness IMPROVED SOME OVERALL Vitals Vitals Vital Signs Date Time Temp Pulse Resp B/P (MAP) Pulse Ox O2 Delivery O2 Flow Rate FiO2 07/04/18 11:00 98.1 82 18 120/71 (87) 98 Room Air 98.1 Weight Weight [ ] I.O. Intake and Output Intake and Output 07/04/18 07:00 Intake Total 574 ml Balance 574 ml Intake Oral 0 ml IV Total 574 ml # Voids 4 Labs Labs Laboratory Tests Test 07/04/18 05:50 Sodium Level 123 mmol/L (136-145) Potassium Level 3.9 mmol/L (3.5-5.1) Chloride Level 91 mmol/L (98-107) Carbon Dioxide Level 24 mmol/L (21-32) Anion Gap 8 (6-14) Blood Urea Nitrogen 4 mg/dL (7-20) Creatinine 0.4 mg/dL (0.6-1.0) Estimated GFR (Cockcroft-Gault) 156.5 Glucose Level 84 mg/dL (70-99) Calcium Level 8.5 mg/dL (8.5-10.1) Micro Micro Microbiology 06/24/18 Urine Culture - Final, Complete 06/24/18 Urine Culture Result 1 (DARRELL) - Final, Complete 06/24/18 Urine Culture Result 2 (DARRELL) - Final, Complete Review of Systems Constitutional: yes: alert, oriented Ears/Nose/Throat: Yes: no symptom reported Eyes: Yes: no symptom reported Pulmonary: Yes no symptom reported Cardiovascular: Yes no symptom reported Gastrointestional: Yes: constipation Genitourinary: Yes: no symptom reported Musculoskeletal: Yes: muscle stiffness Skin: Yes no symptom reported Psychiatric/Neurological: Yes: no symptom reported Endocrine: Yes: no symptom reported Hematologic/Lymphatic: Yes: no symptom reported Physical Exam General Appearance: no apparent distress Skin: warm Respiratory: bilateral CTA Heart: S1S2 Abdomen: soft, bowel sounds present Genitourinary: bladder flat Extremities: pulses present Neurology: alert, oriented Assessment Assessment IMP ACUTE HYPONATREMIA-SLOWLY IMPROVING CHRONIC HYPONATREMIA WITH NA IN THE 125-130 RANGE UTI N/V ABD PAIN PLAN OFF SSRI OFF DELMA-I 3% SALINE VIA CENTRAL VEINS INFUSION TODAY CONT DECLOMYCIN LUI JACKSON MD Jul 04, 2018 13:01
--- NOTE | 2018-07-04 13:35 | NUR ---
SW faxed referral to [facility], pt has been accepted pending insurance auth. JOEY will continue to follow.
[2018-07-04 15:00] VITALS: BP 129/72
[2018-07-04 19:00] VITALS: BP 117/50
[2018-07-04] MEDS: ATORVASTATIN CALCIUM 10 MG TABLET. PO SCH (20:33)
[2018-07-04] MEDS: ACETAMINOPHEN 325 MG TABLET. PO PRN (20:45)
[2018-07-04 23:00] VITALS: BP 131/64
[2018-07-05 03:00] VITALS: BP 149/75
[2018-07-05] MEDS: LEVOTHYROXINE 50 MCG TABLET PO SCH (05:17)
[2018-07-05] MEDS: PANTOPRAZOLE 40 MG TABLET.DR. PO SCH ×2 (05:29→15:58)
[2018-07-05 05:56] LABS: CALCIUM 8.6 mg/dL (8.5-10.1); CREATININE 0.5 mg/dL (0.6-1.0); GFR 120.9; POTASSIUM 3.5 mmol/L (3.5-5.1); URIC ACID 1.3 mg/dL (2.6-6.0)
[2018-07-05 07:00] VITALS: BP 153/86
[2018-07-05] MEDS: POLYETHYLENE GLYCOL 3350 17 GM PACKET. PO SCH (08:25)
[2018-07-05] MEDS: LACTOBACILLUS RHAMNOSUS GG 1 CAPSULE. PO SCH ×2 (08:25→20:52)
[2018-07-05] MEDS: DEMECLOCYCLINE HCL 150 MG TABLET. PO SCH ×2 (08:26→20:52)
[2018-07-05] MEDS: amLODIPine BESYLATE 5 MG TABLET PO SCH (08:26)
[2018-07-05] MEDS: MULTIVITAMIN with MINERAL TABLET. PO SCH (08:27)
--- NOTE | 2018-07-05 08:47 | PDOC ---
PROGRESS NOTES Chief Complaint Chief Complaint Hyponatremia SIADH Abnormal abdominal CT: cecum nt normal, Moderate hiatal hernia Delayed gastric emptying w. recurrent vomting and poor PO inake diverticulosis UTI Nausea and Vomiting History of Present Illness History of Present Illness EGD on 07/03 revealed - medium sized hiatal hernia. General surgery consulted, patient declines to have surgical correction. Labs better today, sodium 129. Seen ambulating with PT today. Her confusion has improved along with her sodium levels. NO n/v so far today. Ate eggs again. has some early satiety Weak, otherwise no new complaints She is now off 3% saline fluids today PLAN: Demeclocycline per renal as well as d/c her 3% saline Cont to advance diet per GI recs SW Snu screen, likely today Vitals Vitals Vital Signs Date Time Temp Pulse Resp B/P (MAP) Pulse Ox O2 Delivery O2 Flow Rate FiO2 07/05/18 08:26 93 153/80 07/05/18 03:00 98.0 18 99 Room Air 98.0 Physical Exam General: Alert, Oriented X3, Cooperative, No acute distress Heart: Regular rate, Normal S1, Normal S2, No murmurs, Gallops Lungs: Clear, Other Abdomen: Soft, No tenderness Extremities: No clubbing, No cyanosis, No edema, Normal pulses, No tenderness/ swelling Skin: No breakdown Labs LABS Laboratory Tests Test 07/05/18 05:18 Sodium Level 129 mmol/L (136-145) Potassium Level 3.5 mmol/L (3.5-5.1) Chloride Level 94 mmol/L (98-107) Carbon Dioxide Level 25 mmol/L (21-32) Anion Gap 10 (6-14) Blood Urea Nitrogen 6 mg/dL (7-20) Creatinine 0.5 mg/dL (0.6-1.0) Estimated GFR (Cockcroft-Gault) 120.9 Glucose Level 90 mg/dL (70-99) Uric Acid 1.3 mg/dL (2.6-6.0) Calcium Level 8.6 mg/dL (8.5-10.1) Assessment and Plan Assessmemt and Plan Problems Medical Problems: (1) Mobile cecum Status: Acute (2) Vomiting Status: Acute Comment Review of Relevant I have reviewed the following items kyler (where applicable) has been applied. Labs Laboratory Tests Test 4/1/19 09:35 07/04/18 05:50 07/05/18 05:18 Sodium Level 118 mmol/L (136-145) 123 mmol/L (136-145) 129 mmol/L (136-145) Potassium Level 3.9 mmol/L (3.5-5.1) 3.5 mmol/L (3.5-5.1) Chloride Level 91 mmol/L (98-107) 94 mmol/L (98-107) Carbon Dioxide Level 24 mmol/L (21-32) 25 mmol/L (21-32) Anion Gap 8 (6-14) 10 (6-14) Blood Urea Nitrogen 4 mg/dL (7-20) 6 mg/dL (7-20) Creatinine 0.4 mg/dL (0.6-1.0) 0.5 mg/dL (0.6-1.0) Estimated GFR (Cockcroft-Gault) 156.5 120.9 Glucose Level 84 mg/dL (70-99) 90 mg/dL (70-99) Calcium Level 8.5 mg/dL (8.5-10.1) 8.6 mg/dL (8.5-10.1) Uric Acid 1.3 mg/dL (2.6-6.0) Laboratory Tests Test 07/05/18 05:18 Sodium Level 129 mmol/L (136-145) Potassium Level 3.5 mmol/L (3.5-5.1) Chloride Level 94 mmol/L (98-107) Carbon Dioxide Level 25 mmol/L (21-32) Anion Gap 10 (6-14) Blood Urea Nitrogen 6 mg/dL (7-20) Creatinine 0.5 mg/dL (0.6-1.0) Estimated GFR (Cockcroft-Gault) 120.9 Glucose Level 90 mg/dL (70-99) Uric Acid 1.3 mg/dL (2.6-6.0) Calcium Level 8.6 mg/dL (8.5-10.1) Microbiology 06/24/18 Urine Culture - Final, Complete 06/24/18 Urine Culture Result 1 (DRARELL) - Final, Complete 06/24/18 Urine Culture Result 2 (DARRELL) - Final, Complete Medications Current Medications Sodium Chloride 1,000 ml @ 1,000 mls/hr Q1H IV Last administered on 06/24/18at 18:27; Start 3/23/19 at 16:10; Stop 06/24/18 at 17:09; Status DC Ondansetron HCl (Zofran) 4 mg 1X ONCE IV Last administered on 06/24/18 18:27 ; Start 06/24/18 at 16:15; Stop 06/24/18 at 16:16; Status DC Pantoprazole Sodium (PROTONIX VIAL for IV PUSH) 40 mg 1X ONCE IVP Last administered on 06/24/18 18:27; Start 06/24/18 at 16:45; Stop 06/24/18 at 16:48 ; Status DC Iohexol (Omnipaque 300 Mg/ml) 75 ml 1X ONCE IV Last administered on 06/24/18at 18:29; Start 06/24/18 at 18:30; Stop 06/24/18 at 18:31; Status DC Info (CONTRAST GIVEN -- Rx MONITORING) 1 each PRN DAILY PRN MC SEE COMMENTS; Start 06/24/18 at 18:30; Stop 06/26/18 at 18:29; Status DC Ceftriaxone Sodium (Rocephin) 1 gm 1X ONCE IVP Last administered on 06/24/18at 20:48; Start 06/24/18 at 20:45; Stop 06/24/18 at 20:46; Status DC Ondansetron HCl (Zofran) 4 mg PRN Q8HRS PRN IV NAUSEA/VOMITING Last administered on 06/25/18at 19:14; Start 06/25/18 at 00:45; Stop 06/26/18 at 00:44 ; Status DC Fentanyl Citrate (Fentanyl 2ml Vial) 50 mcg PRN Q1HR PRN IV PAIN; Start at 00:45; Stop 06/26/18 at 00:44; Status DC Acetaminophen (Tylenol) 650 mg PRN Q4HRS PRN PO FEVER; Start 06/25/18 at 00:45 ; Stop 06/26/18 at 00:44; Status DC Sodium Chloride 1,000 ml @ 75 mls/hr [id number] IV Last administered on at 05:49; Start 06/25/18 at 09:30; Stop 06/29/18 at 09:47; Status DC Ceftriaxone Sodium (Rocephin) 1 gm Q24H IVP Last administered on 06/29/18 20: 34; Start 06/25/18 at 21:00; Stop 06/29/18 at 23:59; Status DC Lisinopril (Prinivil) 10 mg DAILY PO Last administered on 06/29/18 08:29; Start 06/26/18 at 09:00; Stop 06/30/18 at 11:46; Status DC Levothyroxine Sodium (Synthroid) 50 mcg DAILY06 PO Last administered on 05:17; Start 06/26/18 at 06:00 Atorvastatin Calcium (Lipitor) 10 mg QHS PO Last administered on 07/04/18 20:33 ; Start 06/25/18 at 21:00 Multivitamins (Thera M Plus) 1 tab DAILY PO Last administered on 07/05/18 08:27 ; Start 06/26/18 at 09:00 Pantoprazole Sodium (Protonix) 40 mg DAILYAC PO ; Start 06/26/18 at 07:30; Stop 06/26/18 at 13:28; Status DC Paroxetine HCl (Paxil) 30 mg DAILY PO Last administered on 06/27/18 09:08; Start 06/26/18 at 09:00; Stop 06/28/18 at 10:33; Status DC Lactobacillus Rhamnosus (Culturelle) 1 cap BID PO Last administered on 08:25; Start 06/25/18 at 21:00 Calcium Carbonate/ Glycine (Tums) 1,000 mg PRN AFTMEALHC PRN PO INDIGESTION Last administered on 07/03/18 21:04; Start 06/25/18 at 20:45 Pantoprazole Sodium (Protonix) 40 mg BIDAC PO Last administered on 07/05/18 05: 29; Start 06/26/18 at 16:30 Polyethylene Glycol (miraLAX PACKET) 17 gm PRN DAILY PRN PO CONSTIPATION; Start 06/26/18 at 13:30; Stop 06/27/18 at 12:37; Status DC Barium Sulfate (Liquid E-Z Paque) 355 ml 1X ONCE PO ; Start 06/27/18 at 07:45; Stop 06/27/18 at 07:46; Status DC Barium Sulfate (E-Z-Hd) 340 gm 1X ONCE PO ; Start 06/27/18 at 07:45; Stop 06/27 at 07:46; Status DC Simethicone/ Sodium Bicarb/ Citric Ac (E-Z-Gas) 1 packet 1X ONCE PO ; Start at 07:45; Stop 06/27/18 at 07:46; Status DC Acetaminophen (Tylenol) 650 mg PRN Q6HRS PRN PO MILD PAIN Last administered on 07/04/18 20:45; Start 06/27/18 at 10:30 Polyethylene Glycol (miraLAX PACKET) 17 gm DAILY PO Last administered on 08:25; Start 06/27/18 at 13:30 Polyethylene Glycol (miraLAX PACKET) 17 gm PRN DAILY PRN PO CONSTIPATION; Start 06/27/18 at 12:45 Dicyclomine HCl (Bentyl) 10 mg PRN TID PRN PO abd pain Last administered on 07/03 01:13; Start 06/27/18 at 12:45 Multi-Ingredient Mouthwash/Gargle (Gi Cocktail) 20 ml PRN QID PRN PO CHEST PAIN ; Start 06/27/18 at 12:45 Barium Sulfate (E-Z-Hd) 340 gm 1X ONCE PO ; Start 06/28/18 at 08:45; Stop 06/28 at 08:48; Status DC Barium Sulfate (Liquid E-Z Paque) 355 ml 1X ONCE PO Last administered on at 09:00; Start 06/28/18 at 08:45; Stop 06/28/18 at 08:48; Status DC Simethicone/ Sodium Bicarb/ Citric Ac (E-Z-Gas) 1 packet 1X ONCE PO ; Start at 08:45; Stop 06/28/18 at 08:48; Status DC Ondansetron HCl (Zofran) 4 mg PRN Q6HRS PRN IV NAUSEA/VOMITING Last administered on 06/30/18at 14:54; Start 06/29/18 at 12:45 Cefdinir (Omnicef) 300 mg BID PO Last administered on 07/02/18at 08:32; Start at 09:00; Stop 07/02/18 at 15:02; Status DC Ringer's Solution 1,000 ml @ 50 mls/hr Q20H IV ; Start 06/30/18 at 07:00; Stop 06/30/18 at 18:59; Status DC Sodium Chloride 1,000 ml @ 60 mls/hr [id number] IV Last administered on at 05:54; Start 06/29/18 at 20:00; Stop 07/03/18 at 07:38; Status DC Sodium Chloride 500 ml @ 50 mls/hr 1X ONCE IV Last administered on 06/30/18at 10:43; Start 06/30/18 at 09:45; Stop 06/30/18 at 19:44; Status DC Amlodipine Besylate (Norvasc) 5 mg DAILY PO Last administered on 07/05/18at 08:26 ; Start 07/01/18 at 09:00 Potassium Chloride (Klor-Con) 40 meq 1X ONCE PO ; Start 07/01/18 at 11:30; Stop 07/01/18 at 11:31; Status DC Calcium Gluconate 1000 mg/Dextrose 110 ml @ 220 mls/hr 1X ONCE IV ; Start at 11:30; Stop 07/01/18 at 11:59; Status UNV Potassium Chloride (Klor-Con) 40 meq 1X ONCE PO Last administered on at 17:25; Start 07/01/18 at 17:17; Stop 07/01/18 at 17:18; Status DC Sodium Chloride 500 ml @ 15 mls/hr 1X ONCE IV Last administered on 07/02/18at 05:25; Start 07/02/18 at 05:00; Stop 07/03/18 at 10:15; Status DC Demeclocycline HCl (Declomycin) 300 mg Q12HR PO Last administered on 07/05/18at 08:26; Start 07/02/18 at 14:30 Sodium Chloride 500 ml @ 30 mls/hr 1X ONCE IV Last administered on 07/03/18at 13:32; Start 07/03/18 at 10:30; Stop 07/04/18 at 03:09; Status DC Ringer's Solution 1,000 ml @ 50 mls/hr Q20H IV Last administered on 07/03/18at 11:14; Start 07/03/18 at 11:14; Stop 07/03/18 at 23:13; Status DC Sodium Chloride 300 ml @ 50 mls/hr 1X ONCE IV Last administered on 07/04/18at 13:06; Start 07/04/18 at 12:00; Stop 07/04/18 at 17:59; Status DC Active Scripts Active Reported Lisinopril 10 Mg Tablet 1 Tab PO DAILY Multivitamins (Multivitamin) 1 Each Tablet 1 Tab PO DAILY Prilosec (Omeprazole) 20 Mg Capsule.dr 1 Cap PO DAILY Tylenol Extra Strength (Acetaminophen) 500 Mg Tablet 500 Mg PO Lovastatin 40 Mg Tablet 40 Mg PO HS Paroxetine Hcl 30 Mg Tablet 30 Mg PO DAILY Levothyroxine Sodium 50 Mcg Tablet 50 Mcg PO DAILYAC Vitals/I & O Vital Sign - Last 24 Hours 07/04/18 07/04/18 07/04/18 07/04/18 08:56 11:00 15:00 19:00 Temp 98.1 97.9 98.7 98.1 97.9 98.7 Pulse 85 82 62 75 Resp 18 16 18 B/P (MAP) 127/64 120/71 (87) 129/72 (91) 117/50 (72) Pulse Ox 98 100 96 O2 Delivery Room Air Room Air Room Air 07/04/18 07/04/18 07/05/18 07/05/18 20:42 23:00 03:00 08:26 Temp 98.3 98.0 98.3 98.0 Pulse 74 75 93 Resp 18 18 B/P (MAP) 131/64 (86) 149/75 (99) 153/80 Pulse Ox 95 99 O2 Delivery Room Air Room Air Room Air Intake and Output 07/04/18 07/04/18 07/05/18 15:00 23:00 07:00 Intake Total 900 ml Balance 900 ml RO BELL MD Jul 05, 2018 08:47
--- NOTE | 2018-07-05 10:43 | NUR ---
SW following. Discussed with RN, pt has been accepted at [facility], pending insurance auth. [facility] notified [facility], Levi is wanting some updated therapy notes as well as a physician progress note documenting pt's cognitive status and documentation stating the IV has stopped or plans to stop it. Dr. Vazquez and RN notified. [facility] will continue to follow.
[2018-07-05 11:00] VITALS: BP 123/64
--- NOTE | 2018-07-05 12:19 | PDOC ---
Subjective: Subjective: Eating better, denies pain. Objective: Objective: D/w RNs - DC to [facility] today. Vital Signs: Vital Signs Date Time Temp Pulse Resp B/P (MAP) Pulse Ox O2 Delivery O2 Flow Rate FiO2 07/05/18 08:26 93 153/80 07/05/18 08:00 Room Air 07/05/18 07:00 98.3 18 99 98.3 PE: GEN: NAD LUNGS: CTAB HEART: RRR ABD: S/ND/NT NEURO/PSYCH: A & O 3 A/P: Vomiting, upper abd discomfort - resolved -medium hiatal hernia ---> declines repair -GERD on PPI -mild gastroparesis ACD, hyponatremia -- DC per primary. Follow-up w/ GI PRN. BRENDA TAPIA Jul 05, 2018 12:19
--- NOTE | 2018-07-05 12:26 | PDOC ---
Renal-Progress Notes Subjective Notes Notes NO NEW COMPLAINTS History of Present Illness Hx of present illness BETTER Vitals Vitals Vital Signs Date Time Temp Pulse Resp B/P (MAP) Pulse Ox O2 Delivery O2 Flow Rate FiO2 07/05/18 08:26 93 153/80 07/05/18 08:00 Room Air 07/05/18 07:00 98.3 18 99 98.3 Weight Weight [ ] I.O. Intake and Output Intake and Output 07/05/18 07:00 Intake Total 900 ml Balance 900 ml Intake Oral 900 ml # Voids 4 Labs Labs Laboratory Tests Test 07/05/18 05:18 Sodium Level 129 mmol/L (136-145) Potassium Level 3.5 mmol/L (3.5-5.1) Chloride Level 94 mmol/L (98-107) Carbon Dioxide Level 25 mmol/L (21-32) Anion Gap 10 (6-14) Blood Urea Nitrogen 6 mg/dL (7-20) Creatinine 0.5 mg/dL (0.6-1.0) Estimated GFR (Cockcroft-Gault) 120.9 Glucose Level 90 mg/dL (70-99) Uric Acid 1.3 mg/dL (2.6-6.0) Calcium Level 8.6 mg/dL (8.5-10.1) Micro Micro Microbiology 06/24/18 Urine Culture - Final, Complete 06/24/18 Urine Culture Result 1 (DARRELL) - Final, Complete 06/24/18 Urine Culture Result 2 (DARRELL) - Final, Complete Review of Systems Constitutional: yes: alert, oriented Ears/Nose/Throat: Yes: no symptom reported Eyes: Yes: no symptom reported Pulmonary: Yes no symptom reported Cardiovascular: Yes no symptom reported Gastrointestional: Yes: constipation Genitourinary: Yes: no symptom reported Musculoskeletal: Yes: muscle stiffness Skin: Yes no symptom reported Psychiatric/Neurological: Yes: no symptom reported Endocrine: Yes: no symptom reported Hematologic/Lymphatic: Yes: no symptom reported Physical Exam General Appearance: no apparent distress Skin: warm Respiratory: bilateral CTA Heart: S1S2 Abdomen: soft, bowel sounds present Genitourinary: bladder flat Extremities: pulses present Neurology: alert, oriented Assessment Assessment IMP ACUTE HYPONATREMIA-IMPROVED WITH NA OF 129 CHRONIC HYPONATREMIA WITH NA IN THE 125-130 RANGE UTI N/V ABD PAIN PLAN OFF SSRI OFF DELMA-I CONT DECLOMYCIN LUI JACKSON MD Jul 05, 2018 12:26
[2018-07-05] MEDS: ACETAMINOPHEN 325 MG TABLET. PO PRN ×2 (12:43→20:52)
[2018-07-05] MEDS ORDERED: Demeclocycline Hcl PO (13:34)
[2018-07-05] MEDS ORDERED: DICY10CA3 PO (13:34)
[2018-07-05] MEDS ORDERED: POLY17PO28 PO (13:34)
[2018-07-05] MEDS ORDERED: AMLO5TAB10 PO (13:34)
--- NOTE | 2018-07-05 13:35 | SNU/HH DC ---
DISCHARGE ORDERS DISCHARGE INFORMATION: DISCHARGE DATE: Jul 07, 2018 FINAL DIAGNOSIS Problems Medical Problems: (1) Mobile cecum Status: Acute (2) Vomiting Status: Acute CONDITION ON DISCHARGE: Stable CODE STATUS: Code Status: Full FCI: SNF STAY <30 DAYS: Yes POST DISCHARGE ORDERS: ACTIVITY ORDERS: Activity as tolerated WEIGHT BEARING STATUS: As tolerated DIET AFTER DISCHARGE: Regular CHECKS AFTER DISCHARGE: CHECKS AFTER DISCHARGE: Check blood sugar, ac/hs FOLLOW-UP: PHYSICIAN FOLLOW-UP: GI - Dr. Robby Hill- 30 days TREATMENT/EQUIPMENT ORDERS: Physical Therapy For: Evalulation/Treatment Occupational Therapy For: Evaluation/Treatment DISCHARGE MEDICATIONS: Home Meds Active Scripts Nystatin (NYSTOP) 60 Gm Powder, 1 SUMA TP TID for Intertrigo for 14 Days, #21 MISC Prov:RO BELL MD 07/07/18 Polyethylene Glycol 3350 (POLYETHYLENE GLYCOL 3350) 17 Gm Powd.pack, 17 GM PO DAILY for Constipation for 30 Days, #30 PKT Prov:RO BELL MD 07/05/18 Amlodipine Besylate (AMLODIPINE BESYLATE) 5 Mg Tablet, 5 MG PO DAILY for HTN for 30 Days, #30 TAB Prov:RO BELL MD 07/05/18 Dicyclomine Hcl (DICYCLOMINE HCL) 10 Mg Capsule, 10 MG PO PRN TID PRN for abd pain for 30 Days, #90 CAP Prov:RO BELL MD 07/05/18 [Demeclocycline Hcl] 150 MG TABLET No Conflict Check, 300 MG PO Q12HR for SIADH for 30 Days, #120 Prov:RO BELL MD 07/05/18 Reported Medications Lisinopril (LISINOPRIL) 10 Mg Tablet, 1 TAB PO DAILY for HTN, #30 TAB 5 Refills 06/25/18 Multivitamin (MULTIVITAMINS) 1 Each Tablet, 1 TAB PO DAILY, #90 TAB 3 Refills 01/15/15 Omeprazole (PRILOSEC) 20 Mg Capsule.dr, 1 CAP PO DAILY, #90 CAP 1 Refill 01/15/15 Acetaminophen (TYLENOL EXTRA STRENGTH) 500 Mg Tablet, 500 MG PO 10/17/13 Lovastatin (LOVASTATIN) 40 Mg Tablet, 40 MG PO HS, TAB 10/17/13 Paroxetine Hcl (PAROXETINE HCL) 30 Mg Tablet, 30 MG PO DAILY, TAB 10/17/13 Levothyroxine Sodium (LEVOTHYROXINE SODIUM) 50 Mcg Tablet, 50 MCG PO DAILYAC for THYROID SUPPLEMENT, #30 TAB 0 Refills 10/17/13 RO BELL MD Jul 05, 2018 13:35
--- NOTE | 2018-07-05 13:43 | PDOC3 ---
Discharge Summary Visit Information Date of Admission: Jun 25, 2018 Date of Discharge: Jul 07, 2018 Admitting Diagnosis: Symptomatic hiatal hernia, mobile cecum, intractable NV Final Diagnosis Problems Medical Problems: (1) Mobile cecum Status: Acute (2) Vomiting Status: Acute Brief Hospital Course Allergies Allergies Coded Allergies Type Severity Reaction Last Updated Verified No Known Drug Allergies 07/03/18 No Vital Signs Vital Signs Date Time Temp Pulse Resp B/P (MAP) Pulse Ox O2 Delivery O2 Flow Rate FiO2 07/05/18 11:00 97.7 69 18 123/64 (83) 96 Room Air 97.7 Lab Results Laboratory Tests Test 07/04/18 05:50 07/05/18 05:18 Sodium Level 123 mmol/L (136-145) 129 mmol/L (136-145) Potassium Level 3.9 mmol/L (3.5-5.1) 3.5 mmol/L (3.5-5.1) Chloride Level 91 mmol/L (98-107) 94 mmol/L (98-107) Carbon Dioxide Level 24 mmol/L (21-32) 25 mmol/L (21-32) Anion Gap 8 (6-14) 10 (6-14) Blood Urea Nitrogen 4 mg/dL (7-20) 6 mg/dL (7-20) Creatinine 0.4 mg/dL (0.6-1.0) 0.5 mg/dL (0.6-1.0) Estimated GFR (Cockcroft-Gault) 156.5 120.9 Glucose Level 84 mg/dL (70-99) 90 mg/dL (70-99) Calcium Level 8.5 mg/dL (8.5-10.1) 8.6 mg/dL (8.5-10.1) Uric Acid 1.3 mg/dL (2.6-6.0) Laboratory Tests Test 07/05/18 05:18 Sodium Level 129 mmol/L (136-145) Potassium Level 3.5 mmol/L (3.5-5.1) Chloride Level 94 mmol/L (98-107) Carbon Dioxide Level 25 mmol/L (21-32) Anion Gap 10 (6-14) Blood Urea Nitrogen 6 mg/dL (7-20) Creatinine 0.5 mg/dL (0.6-1.0) Estimated GFR (Cockcroft-Gault) 120.9 Glucose Level 90 mg/dL (70-99) Uric Acid 1.3 mg/dL (2.6-6.0) Calcium Level 8.6 mg/dL (8.5-10.1) Brief Hospital Course Ms. Kilpatrick is a 72-year-old female w/ PMHx Bronchitis, diabetes, hypertension , hyperlipidemia, hyperthyroidism, cervical fusion, hysterectomy, knee replacement, foot surgery, cataract surgery, thyroidectomy, breast reduction who presented to the ER with nausea, vomiting and diarrhea for the past week as well as some confusion. It occurs mainly after she eats, rated at 5/10. She has associated weakness. She tried to increase her home meds, but that did not seem to help, describes as irritating. While in the ER, we did a CAT scan showing a mobile cecum. I have consulted GI and General Surgery. EGD on 07/03 revealed - medium sized hiatal hernia. General surgery consulted, patient declines to have surgical correction. She was found to have sodium of 119 as well, seen by nephrology for what appears to be SIADH based on labs and was started on hypertonic saline and demeclocycline with improvement and on the day of discharge labs better today, sodium 129. Seen ambulating with PT today. Her confusion has improved along with her sodium levels. NO n/v so far today. Ate eggs again. has some early satiety Weak, otherwise no new complaints. She is now off 3% saline fluids today Assessment: Hyponatremia SIADH Abnormal abdominal CT: cecum nt normal, Moderate hiatal hernia Delayed gastric emptying w. recurrent vomting and poor PO inake diverticulosis UTI Nausea and Vomiting PLAN: Demeclocycline per renal as well as d/c her 3% saline Cont to advance diet per GI recs She does not wish for ashli fundoplication for her symptomatic hiatal hernia, will go with frequent small meals, GI soft SW Snu screen, was delayed to payor approval Greater than 30 minutes spent on discharge Discharge Information Condition at Discharge: Improved Follow Up: Weeks (2) Disposition/Orders: D/C to Another Facility Scheduled Amlodipine Besylate (Amlodipine Besylate) 5 Mg Tablet, 5 MG PO DAILY for HTN for 30 Days, #30 Prescribed by: RO BELL MD on 07/05/18 6648 Levothyroxine Sodium (Levothyroxine Sodium) 50 Mcg Tablet, 50 MCG PO DAILYAC for THYROID SUPPLEMENT, #30 Ref 0 (Reported) Entered as Reported by: NIKKO OQUENDO on 10/17/131126 Last Taken: UNKNOWN on Unknown Date & Time Last Action: Converted on 06/25 by OCTAVIO ENGLE Lisinopril (Lisinopril) 10 Mg Tablet, 1 TAB PO DAILY for HTN, #30 Ref 5 ( Reported) Entered as Reported by: VÍCTOR GILMAN on 06/25/18344 Last Action: Continued on 06/25/181336 by OCTAVIO ENGLE Lovastatin (Lovastatin) 40 Mg Tablet, 40 MG PO HS, (Reported) Entered as Reported by: NIKKO OQUENDO on 10/17/131126 Last Taken: UNKNOWN on Unknown Date & Time Last Action: Converted on 06/25 by OCTAVIO ENGLE Multivitamin (Multivitamins) 1 Each Tablet, 1 TAB PO DAILY, #90 Ref 3 (Reported) Entered as Reported by: DAJUAN OSORIO on 01/15/15 145 Last Taken: UNKNOWN on Unknown Date & Time Last Action: Converted on 06/25 by OCTAVIO ENGLE Nystatin (Nystop) 60 Gm Powder, 1 SUMA TP TID for Intertrigo for 14 Days, #21 Prescribed by: RO BELL MD on 07/07/18 1110 Omeprazole (Prilosec) 20 Mg Capsule.dr, 1 CAP PO DAILY, #90 Ref 1 (Reported) Entered as Reported by: DAJUAN OSORIO on 01/15/151455 Last Taken: UNKNOWN on Unknown Date & Time Last Action: Converted on 06/25 by OCTAVIO ENGLE Paroxetine Hcl (Paroxetine Hcl) 30 Mg Tablet, 30 MG PO DAILY, (Reported) Entered as Reported by: NIKKO OQUENDO on 10/17/131126 Last Taken: UNKNOWN on Unknown Date & Time Last Action: Converted on 06/25 by OCTAVIO ENGLE Polyethylene Glycol 3350 (Polyethylene Glycol 3350) 17 Gm Powd.pack, 17 GM PO DAILY for Constipation for 30 Days, #30 Prescribed by: RO BELL MD on 07/05/18 1334 [Demeclocycline Hcl] 150 MG TABLET, 300 MG PO Q12HR for SIADH for 30 Days, #120 Prescribed by: RO BELL MD on 07/05/18 1334 Scheduled PRN Dicyclomine Hcl (Dicyclomine Hcl) 10 Mg Capsule, 10 MG PO PRN TID PRN for abd pain for 30 Days, #90 Prescribed by: RO BELL MD on 07/05/18 1334 Miscellaneous Medications Acetaminophen (Tylenol Extra Strength) 500 Mg Tablet, 500 MG PO, (Reported) Entered as Reported by: NIKKO OQUENDO on 10/17/13 1129 RO BELL MD Jul 05, 2018 13:43
--- NOTE | 2018-07-05 14:45 | NUR ---
JOEY faxed discharge paperwork to [facility], still pending insurance. RN notified.
[2018-07-05 15:00] VITALS: BP 110/60
[2018-07-05] MEDS: CALCIUM CARBONATE 500 MG TAB.CHEW PO PRN ×2 (17:43→22:31)
[2018-07-05 19:00] VITALS: BP 135/60
[2018-07-05] MEDS: ATORVASTATIN CALCIUM 10 MG TABLET. PO SCH (20:52)
[2018-07-05 23:00] VITALS: BP 149/73
[2018-07-06 03:00] VITALS: BP 148/74
[2018-07-06] MEDS: PANTOPRAZOLE 40 MG TABLET.DR. PO SCH ×2 (06:11→16:12)
[2018-07-06] MEDS: LEVOTHYROXINE 50 MCG TABLET PO SCH (06:11)
[2018-07-06 07:00] VITALS: BP 166/83
--- NOTE | 2018-07-06 08:08 | PDOC ---
PROGRESS NOTES Chief Complaint Chief Complaint Hyponatremia SIADH Abnormal abdominal CT: cecum nt normal, Moderate hiatal hernia Delayed gastric emptying w. recurrent vomting and poor PO inake diverticulosis UTI Nausea and Vomiting History of Present Illness History of Present Illness EGD on 07/03 revealed - medium sized hiatal hernia. General surgery consulted, patient declines to have surgical correction. 07/05: Labs better today, sodium 129. Seen ambulating with PT today. Her confusion has improved along with her sodium levels. NO n/v so far today. Ate eggs again. has some early satiety. Weak, otherwise no new complaints. She has now been off 3% saline fluids for 24 hours. PLAN: Demeclocycline per renal as well as d/c her 3% saline Cont to advance diet per GI recs SW SNF screen, likely today Vitals Vitals Vital Signs Date Time Temp Pulse Resp B/P (MAP) Pulse Ox O2 Delivery O2 Flow Rate FiO2 07/06/18 07:00 97.6 69 17 166/83 (110) 98 Room Air 97.6 Physical Exam General: Alert, Oriented X3, Cooperative, No acute distress Heart: Regular rate, Normal S1, Normal S2, No murmurs, Gallops Lungs: Clear, Other Abdomen: Soft, No tenderness Extremities: No clubbing, No cyanosis, No edema, Normal pulses, No tenderness/ swelling Skin: No breakdown Assessment and Plan Assessmemt and Plan Problems Medical Problems: (1) Mobile cecum Status: Acute (2) Vomiting Status: Acute Comment Review of Relevant I have reviewed the following items kyler (where applicable) has been applied. Labs Laboratory Tests Test 07/05/18 05:18 Sodium Level 129 mmol/L (136-145) Potassium Level 3.5 mmol/L (3.5-5.1) Chloride Level 94 mmol/L (98-107) Carbon Dioxide Level 25 mmol/L (21-32) Anion Gap 10 (6-14) Blood Urea Nitrogen 6 mg/dL (7-20) Creatinine 0.5 mg/dL (0.6-1.0) Estimated GFR (Cockcroft-Gault) 120.9 Glucose Level 90 mg/dL (70-99) Uric Acid 1.3 mg/dL (2.6-6.0) Calcium Level 8.6 mg/dL (8.5-10.1) Microbiology 06/24/18 Urine Culture - Final, Complete 06/24/18 Urine Culture Result 1 (DARRELL) - Final, Complete 06/24/18 Urine Culture Result 2 (DARRELL) - Final, Complete Medications Current Medications Sodium Chloride 1,000 ml @ 1,000 mls/hr Q1H IV Last administered on 06/24/18 18:27; Start 06/24/18 at 16:10; Stop 06/24/18 at 17:09; Status DC Ondansetron HCl (Zofran) 4 mg 1X ONCE IV Last administered on 06/24/18 18:27 ; Start 06/24/18 at 16:15; Stop 06/24/18 at 16:16; Status DC Pantoprazole Sodium (PROTONIX VIAL for IV PUSH) 40 mg 1X ONCE IVP Last administered on 06/24/18 18:27; Start 06/24/18 at 16:45; Stop 06/24/18 at 16:48 ; Status DC Iohexol (Omnipaque 300 Mg/ml) 75 ml 1X ONCE IV Last administered on 06/24/18 18:29; Start 06/24/18 at 18:30; Stop 06/24/18 at 18:31; Status DC Info (CONTRAST GIVEN -- Rx MONITORING) 1 each PRN DAILY PRN MC SEE COMMENTS; Start 06/24/18 at 18:30; Stop 06/26/18 at 18:29; Status DC Ceftriaxone Sodium (Rocephin) 1 gm 1X ONCE IVP Last administered on 06/24/18 20:48; Start 06/24/18 at 20:45; Stop 06/24/18 at 20:46; Status DC Ondansetron HCl (Zofran) 4 mg PRN Q8HRS PRN IV NAUSEA/VOMITING Last administered on 06/25/18 19:14; Start 06/25/18 at 00:45; Stop 06/26/18 at 00:44 ; Status DC Fentanyl Citrate (Fentanyl 2ml Vial) 50 mcg PRN Q1HR PRN IV PAIN; Start at 00:45; Stop 06/26/18 at 00:44; Status DC Acetaminophen (Tylenol) 650 mg PRN Q4HRS PRN PO FEVER; Start 06/25/18 at 00:45 ; Stop 06/26/18 at 00:44; Status DC Sodium Chloride 1,000 ml @ 75 mls/hr [id number] IV Last administered on 05:49; Start 06/25/18 at 09:30; Stop 06/29/18 at 09:47; Status DC Ceftriaxone Sodium (Rocephin) 1 gm Q24H IVP Last administered on 06/29/18 20: 34; Start 06/25/18 at 21:00; Stop 06/29/18 at 23:59; Status DC Lisinopril (Prinivil) 10 mg DAILY PO Last administered on 06/29/18 08:29; Start 06/26/18 at 09:00; Stop 06/30/18 at 11:46; Status DC Levothyroxine Sodium (Synthroid) 50 mcg DAILY06 PO Last administered on 06:11; Start 06/26/18 at 06:00 Atorvastatin Calcium (Lipitor) 10 mg QHS PO Last administered on 07/05/18 20:52 ; Start 06/25/18 at 21:00 Multivitamins (Thera M Plus) 1 tab DAILY PO Last administered on 07/05/18 08:27 ; Start 06/26/18 at 09:00 Pantoprazole Sodium (Protonix) 40 mg DAILYAC PO ; Start 06/26/18 at 07:30; Stop 06/26/18 at 13:28; Status DC Paroxetine HCl (Paxil) 30 mg DAILY PO Last administered on 06/27/18 09:08; Start 06/26/18 at 09:00; Stop 06/28/18 at 10:33; Status DC Lactobacillus Rhamnosus (Culturelle) 1 cap BID PO Last administered on 20:52; Start 06/25/18 at 21:00 Calcium Carbonate/ Glycine (Tums) 1,000 mg PRN AFTMEALHC PRN PO INDIGESTION Last administered on 07/05/18 22:31; Start 06/25/18 at 20:45 Pantoprazole Sodium (Protonix) 40 mg BIDAC PO Last administered on 07/06/18 06: 11; Start 06/26/18 at 16:30 Polyethylene Glycol (miraLAX PACKET) 17 gm PRN DAILY PRN PO CONSTIPATION; Start 06/26/18 at 13:30; Stop 06/27/18 at 12:37; Status DC Barium Sulfate (Liquid E-Z Paque) 355 ml 1X ONCE PO ; Start 06/27/18 at 07:45; Stop 06/27/18 at 07:46; Status DC Barium Sulfate (E-Z-Hd) 340 gm 1X ONCE PO ; Start 06/27/18 at 07:45; Stop 06/27 at 07:46; Status DC Simethicone/ Sodium Bicarb/ Citric Ac (E-Z-Gas) 1 packet 1X ONCE PO ; Start at 07:45; Stop 06/27/18 at 07:46; Status DC Acetaminophen (Tylenol) 650 mg PRN Q6HRS PRN PO MILD PAIN Last administered on 07/05/18 20:52; Start 06/27/18 at 10:30 Polyethylene Glycol (miraLAX PACKET) 17 gm DAILY PO Last administered on 08:25; Start 06/27/18 at 13:30 Polyethylene Glycol (miraLAX PACKET) 17 gm PRN DAILY PRN PO CONSTIPATION; Start 06/27/18 at 12:45 Dicyclomine HCl (Bentyl) 10 mg PRN TID PRN PO abd pain Last administered on 07/03at 01:13; Start 06/27/18 at 12:45 Multi-Ingredient Mouthwash/Gargle (Gi Cocktail) 20 ml PRN QID PRN PO CHEST PAIN ; Start 06/27/18 at 12:45 Barium Sulfate (E-Z-Hd) 340 gm 1X ONCE PO ; Start 06/28/18 at 08:45; Stop 06/28 at 08:48; Status DC Barium Sulfate (Liquid E-Z Paque) 355 ml 1X ONCE PO Last administered on at 09:00; Start 06/28/18 at 08:45; Stop 06/28/18 at 08:48; Status DC Simethicone/ Sodium Bicarb/ Citric Ac (E-Z-Gas) 1 packet 1X ONCE PO ; Start at 08:45; Stop 06/28/18 at 08:48; Status DC Ondansetron HCl (Zofran) 4 mg PRN Q6HRS PRN IV NAUSEA/VOMITING Last administered on 06/30/18at 14:54; Start 06/29/18 at 12:45 Cefdinir (Omnicef) 300 mg BID PO Last administered on 07/02/18at 08:32; Start at 09:00; Stop 07/02/18 at 15:02; Status DC Ringer's Solution 1,000 ml @ 50 mls/hr Q20H IV ; Start 06/30/18 at 07:00; Stop 06/30/18 at 18:59; Status DC Sodium Chloride 1,000 ml @ 60 mls/hr [id number] IV Last administered on at 05:54; Start 06/29/18 at 20:00; Stop 07/03/18 at 07:38; Status DC Sodium Chloride 500 ml @ 50 mls/hr 1X ONCE IV Last administered on 06/30/18at 10:43; Start 06/30/18 at 09:45; Stop 06/30/18 at 19:44; Status DC Amlodipine Besylate (Norvasc) 5 mg DAILY PO Last administered on 07/05/18at 08:26 ; Start 07/01/18 at 09:00 Potassium Chloride (Klor-Con) 40 meq 1X ONCE PO ; Start 07/01/18 at 11:30; Stop 07/01/18 at 11:31; Status DC Calcium Gluconate 1000 mg/Dextrose 110 ml @ 220 mls/hr 1X ONCE IV ; Start at 11:30; Stop 07/01/18 at 11:59; Status UNV Potassium Chloride (Klor-Con) 40 meq 1X ONCE PO Last administered on at 17:25; Start 07/01/18 at 17:17; Stop 07/01/18 at 17:18; Status DC Sodium Chloride 500 ml @ 15 mls/hr 1X ONCE IV Last administered on 07/02/18at 05:25; Start 07/02/18 at 05:00; Stop 07/03/18 at 10:15; Status DC Demeclocycline HCl (Declomycin) 300 mg Q12HR PO Last administered on 07/05/18at 20:52; Start 07/02/18 at 14:30 Sodium Chloride 500 ml @ 30 mls/hr 1X ONCE IV Last administered on 07/03/18at 13:32; Start 07/03/18 at 10:30; Stop 07/04/18 at 03:09; Status DC Ringer's Solution 1,000 ml @ 50 mls/hr Q20H IV Last administered on 07/03/18at 11:14; Start 07/03/18 at 11:14; Stop 07/03/18 at 23:13; Status DC Sodium Chloride 300 ml @ 50 mls/hr 1X ONCE IV Last administered on 07/04/18at 13:06; Start 07/04/18 at 12:00; Stop 07/04/18 at 17:59; Status DC Active Scripts Active Polyethylene Glycol 3350 17 Gm Powd.pack 17 Gm PO DAILY 30 Days Amlodipine Besylate 5 Mg Tablet 5 Mg PO DAILY 30 Days Dicyclomine Hcl 10 Mg Capsule 10 Mg PO PRN TID PRN 30 Days [Demeclocycline Hcl] 150 MG Tablet 300 Mg PO Q12HR 30 Days Reported Lisinopril 10 Mg Tablet 1 Tab PO DAILY Multivitamins (Multivitamin) 1 Each Tablet 1 Tab PO DAILY Prilosec (Omeprazole) 20 Mg Capsule.dr 1 Cap PO DAILY Tylenol Extra Strength (Acetaminophen) 500 Mg Tablet 500 Mg PO Lovastatin 40 Mg Tablet 40 Mg PO HS Paroxetine Hcl 30 Mg Tablet 30 Mg PO DAILY Levothyroxine Sodium 50 Mcg Tablet 50 Mcg PO DAILYAC Vitals/I & O Vital Sign - Last 24 Hours 07/05/18 07/05/18 07/05/18 07/05/18 08:26 11:00 15:00 19:00 Temp 97.7 97.6 98.0 97.7 97.6 98.0 Pulse 93 69 80 74 Resp 18 16 18 B/P (MAP) 153/80 123/64 (83) 110/60 (77) 135/60 (85) Pulse Ox 96 100 96 O2 Delivery Room Air Room Air Room Air 07/05/18 07/05/18 07/06/18 07/06/18 20:30 23:00 03:00 07:00 Temp 97.9 98.5 97.6 97.9 98.5 97.6 Pulse 74 72 69 Resp 18 18 17 B/P (MAP) 149/73 (98) 148/74 (98) 166/83 (110) Pulse Ox 95 93 98 O2 Delivery Room Air Room Air Room Air Room Air Intake and Output 4/3/19 4/3/19 4/4/19 15:00 23:00 07:00 Intake Total 300 ml 150 ml Balance 300 ml 150 ml RO BELL MD Jul 06, 2018 08:08
[2018-07-06] MEDS: POLYETHYLENE GLYCOL 3350 17 GM PACKET. PO SCH (08:13)
[2018-07-06] MEDS: DEMECLOCYCLINE HCL 150 MG TABLET. PO SCH ×2 (08:13→20:38)
[2018-07-06] MEDS: amLODIPine BESYLATE 5 MG TABLET PO SCH (08:13)
[2018-07-06] MEDS: LACTOBACILLUS RHAMNOSUS GG 1 CAPSULE. PO SCH ×2 (08:13→20:38)
[2018-07-06] MEDS: MULTIVITAMIN with MINERAL TABLET. PO SCH (08:14)
[2018-07-06 09:38] LABS: ALBUMIN 3.3 g/dL (3.4-5.0); CALCIUM 8.7 mg/dL (8.5-10.1); CREATININE 0.6 mg/dL (0.6-1.0); PHOSPHORUS 3.8 mg/dL (2.6-4.7); POTASSIUM 3.6 mmol/L (3.5-5.1)
[2018-07-06 11:00] VITALS: BP 130/68
--- NOTE | 2018-07-06 11:06 | NUR ---
SW following. Discussed with RN, pt accepted at [facility], pending insurance approval. SW will continue to follow.
--- NOTE | 2018-07-06 11:16 | PDOC ---
Subjective: Subjective: Some nausea today. No pain. Just stooled. Objective: Objective: Reviewed chart - awaiting insurance approval for DC. Vital Signs: Vital Signs Date Time Temp Pulse Resp B/P (MAP) Pulse Ox O2 Delivery O2 Flow Rate FiO2 07/06/18 08:13 69 166/83 07/06/18 08:00 Room Air 07/06/18 07:00 97.6 17 98 97.6 Labs: Laboratory Tests Test 07/06/18 08:50 Sodium Level 126 mmol/L Potassium Level 3.6 mmol/L Chloride Level 91 mmol/L Carbon Dioxide Level 25 mmol/L Anion Gap 10 Blood Urea Nitrogen 5 mg/dL Creatinine 0.6 mg/dL Estimated GFR (Cockcroft-Gault) 98.0 Glucose Level 114 mg/dL Calcium Level 8.7 mg/dL Phosphorus Level 3.8 mg/dL Albumin 3.3 g/dL PE: GEN: NAD LUNGS: CTAB HEART: RRR ABD: NABS, S/ND/NT NEURO/PSYCH: A & O 3, quieter today A/P: Nausea -hiatal hernia, GERD, mild gastroparesis ACD, hyponatremia -- Continue PPI, awaiting DC. BRENDA TAPIA Jul 06, 2018 11:16
[2018-07-06 15:00] VITALS: BP 163/70
[2018-07-06] MEDS: ACETAMINOPHEN 325 MG TABLET. PO PRN ×2 (15:14→23:14)
[2018-07-06 19:00] VITALS: BP 147/75
[2018-07-06] MEDS: ATORVASTATIN CALCIUM 10 MG TABLET. PO SCH (20:38)
[2018-07-06 23:00] VITALS: BP 136/64
[2018-07-06] MEDS: CALCIUM CARBONATE 500 MG TAB.CHEW PO PRN (23:14)
[2018-07-07 03:00] VITALS: BP 135/67
[2018-07-07] MEDS: PANTOPRAZOLE 40 MG TABLET.DR. PO SCH (05:59)
[2018-07-07] MEDS: LEVOTHYROXINE 50 MCG TABLET PO SCH (05:59)
--- NOTE | 2018-07-07 06:14 | NUR ---
Pt complain of sore throat. Dr. Vazquez notified. Orders received. Will continue to monitor.
[2018-07-07] MEDS ORDERED: BENZOCAINE/MENTHOL LOZENGE. PO PRN (06:15)
[2018-07-07 07:00] VITALS: BP 149/80
--- NOTE | 2018-07-07 08:26 | PDOC ---
PROGRESS NOTES Chief Complaint Chief Complaint Hyponatremia SIADH Abnormal abdominal CT: cecum nt normal, Moderate hiatal hernia Delayed gastric emptying w. recurrent vomting and poor PO inake diverticulosis UTI Nausea and Vomiting History of Present Illness History of Present Illness EGD on 07/03 revealed - medium sized hiatal hernia. General surgery consulted, patient declines to have surgical correction. 07/05: Labs better today, sodium 129. Seen ambulating with PT today. Her confusion has improved along with her sodium levels. Some dimas intertrigo this morning, groin irritation. NO n/v so far today. Ate eggs again. has some early satiety. Weak, otherwise no new complaints. She has now been off 3% saline fluids for 48 hours. PLAN: Demeclocycline per renal as well as d/c her 3% saline Cont to advance diet per GI recs SW SNF screen, likely today, was delayed the past few days Vitals Vitals Vital Signs Date Time Temp Pulse Resp B/P (MAP) Pulse Ox O2 Delivery O2 Flow Rate FiO2 07/07/18 07:00 98.0 71 17 149/80 (103) 96 Room Air 98.0 Physical Exam General: Alert, Oriented X3, Cooperative, No acute distress Heart: Regular rate, Normal S1, Normal S2, No murmurs, Gallops Lungs: Clear, Other Abdomen: Soft, No tenderness Extremities: No clubbing, No cyanosis, No edema, Normal pulses, No tenderness/ swelling Skin: No breakdown Labs LABS Laboratory Tests Test 07/06/18 08:50 Sodium Level 126 mmol/L (136-145) Potassium Level 3.6 mmol/L (3.5-5.1) Chloride Level 91 mmol/L (98-107) Carbon Dioxide Level 25 mmol/L (21-32) Anion Gap 10 (6-14) Blood Urea Nitrogen 5 mg/dL (7-20) Creatinine 0.6 mg/dL (0.6-1.0) Estimated GFR (Cockcroft-Gault) 98.0 Glucose Level 114 mg/dL (70-99) Calcium Level 8.7 mg/dL (8.5-10.1) Phosphorus Level 3.8 mg/dL (2.6-4.7) Albumin 3.3 g/dL (3.4-5.0) Assessment and Plan Assessmemt and Plan Problems Medical Problems: (1) Mobile cecum Status: Acute (2) Vomiting Status: Acute Comment Review of Relevant I have reviewed the following items kyler (where applicable) has been applied. Labs Laboratory Tests Test 07/06/18 08:50 Sodium Level 126 mmol/L (136-145) Potassium Level 3.6 mmol/L (3.5-5.1) Chloride Level 91 mmol/L (98-107) Carbon Dioxide Level 25 mmol/L (21-32) Anion Gap 10 (6-14) Blood Urea Nitrogen 5 mg/dL (7-20) Creatinine 0.6 mg/dL (0.6-1.0) Estimated GFR (Cockcroft-Gault) 98.0 Glucose Level 114 mg/dL (70-99) Calcium Level 8.7 mg/dL (8.5-10.1) Phosphorus Level 3.8 mg/dL (2.6-4.7) Albumin 3.3 g/dL (3.4-5.0) Laboratory Tests Test 07/06/18 08:50 Sodium Level 126 mmol/L (136-145) Potassium Level 3.6 mmol/L (3.5-5.1) Chloride Level 91 mmol/L (98-107) Carbon Dioxide Level 25 mmol/L (21-32) Anion Gap 10 (6-14) Blood Urea Nitrogen 5 mg/dL (7-20) Creatinine 0.6 mg/dL (0.6-1.0) Estimated GFR (Cockcroft-Gault) 98.0 Glucose Level 114 mg/dL (70-99) Calcium Level 8.7 mg/dL (8.5-10.1) Phosphorus Level 3.8 mg/dL (2.6-4.7) Albumin 3.3 g/dL (3.4-5.0) Microbiology 06/24/18 Urine Culture - Final, Complete 06/24/18 Urine Culture Result 1 (DARRELL) - Final, Complete 06/24/18 Urine Culture Result 2 (DARRELL) - Final, Complete Medications Current Medications Sodium Chloride 1,000 ml @ 1,000 mls/hr Q1H IV Last administered on 06/24/18at 18:27; Start 06/24/18 at 16:10; Stop 06/24/18 at 17:09; Status DC Ondansetron HCl (Zofran) 4 mg 1X ONCE IV Last administered on 06/24/18at 18:27 ; Start 06/24/18 at 16:15; Stop 06/24/18 at 16:16; Status DC Pantoprazole Sodium (PROTONIX VIAL for IV PUSH) 40 mg 1X ONCE IVP Last administered on 06/24/18 18:27; Start 06/24/18 at 16:45; Stop 06/24/18 at 16:48 ; Status DC Iohexol (Omnipaque 300 Mg/ml) 75 ml 1X ONCE IV Last administered on 06/24/18 18:29; Start 06/24/18 at 18:30; Stop 06/24/18 at 18:31; Status DC Info (CONTRAST GIVEN -- Rx MONITORING) 1 each PRN DAILY PRN MC SEE COMMENTS; Start 06/24/18 at 18:30; Stop 06/26/18 at 18:29; Status DC Ceftriaxone Sodium (Rocephin) 1 gm 1X ONCE IVP Last administered on 06/24/18 20:48; Start 06/24/18 at 20:45; Stop 06/24/18 at 20:46; Status DC Ondansetron HCl (Zofran) 4 mg PRN Q8HRS PRN IV NAUSEA/VOMITING Last administered on 06/25/18 19:14; Start 06/25/18 at 00:45; Stop 06/26/18 at 00:44 ; Status DC Fentanyl Citrate (Fentanyl 2ml Vial) 50 mcg PRN Q1HR PRN IV PAIN; Start at 00:45; Stop 06/26/18 at 00:44; Status DC Acetaminophen (Tylenol) 650 mg PRN Q4HRS PRN PO FEVER; Start 06/25/18 at 00:45 ; Stop 06/26/18 at 00:44; Status DC Sodium Chloride 1,000 ml @ 75 mls/hr [id number] IV Last administered on 05:49; Start 06/25/18 at 09:30; Stop 06/29/18 at 09:47; Status DC Ceftriaxone Sodium (Rocephin) 1 gm Q24H IVP Last administered on 06/29/18 20: 34; Start 06/25/18 at 21:00; Stop 06/29/18 at 23:59; Status DC Lisinopril (Prinivil) 10 mg DAILY PO Last administered on 06/29/18 08:29; Start 06/26/18 at 09:00; Stop 06/30/18 at 11:46; Status DC Levothyroxine Sodium (Synthroid) 50 mcg DAILY06 PO Last administered on 05:59; Start 06/26/18 at 06:00 Atorvastatin Calcium (Lipitor) 10 mg QHS PO Last administered on 07/06/18 20:38 ; Start 06/25/18 at 21:00 Multivitamins (Thera M Plus) 1 tab DAILY PO Last administered on 07/06/18 08:14 ; Start 06/26/18 at 09:00 Pantoprazole Sodium (Protonix) 40 mg DAILYAC PO ; Start 06/26/18 at 07:30; Stop 06/26/18 at 13:28; Status DC Paroxetine HCl (Paxil) 30 mg DAILY PO Last administered on 06/27/18 09:08; Start 06/26/18 at 09:00; Stop 06/28/18 at 10:33; Status DC Lactobacillus Rhamnosus (Culturelle) 1 cap BID PO Last administered on 20:38; Start 06/25/18 at 21:00 Calcium Carbonate/ Glycine (Tums) 1,000 mg PRN AFTMEALHC PRN PO INDIGESTION Last administered on 07/06/18 23:14; Start 06/25/18 at 20:45 Pantoprazole Sodium (Protonix) 40 mg BIDAC PO Last administered on 07/07/18 05: 59; Start 06/26/18 at 16:30 Polyethylene Glycol (miraLAX PACKET) 17 gm PRN DAILY PRN PO CONSTIPATION; Start 06/26/18 at 13:30; Stop 06/27/18 at 12:37; Status DC Barium Sulfate (Liquid E-Z Paque) 355 ml 1X ONCE PO ; Start 06/27/18 at 07:45; Stop 06/27/18 at 07:46; Status DC Barium Sulfate (E-Z-Hd) 340 gm 1X ONCE PO ; Start 06/27/18 at 07:45; Stop 06/27 at 07:46; Status DC Simethicone/ Sodium Bicarb/ Citric Ac (E-Z-Gas) 1 packet 1X ONCE PO ; Start at 07:45; Stop 06/27/18 at 07:46; Status DC Acetaminophen (Tylenol) 650 mg PRN Q6HRS PRN PO MILD PAIN Last administered on 07/06/18 23:14; Start 06/27/18 at 10:30 Polyethylene Glycol (miraLAX PACKET) 17 gm DAILY PO Last administered on 08:13; Start 06/27/18 at 13:30 Polyethylene Glycol (miraLAX PACKET) 17 gm PRN DAILY PRN PO CONSTIPATION; Start 06/27/18 at 12:45 Dicyclomine HCl (Bentyl) 10 mg PRN TID PRN PO abd pain Last administered on 07/03 01:13; Start 06/27/18 at 12:45 Multi-Ingredient Mouthwash/Gargle (Gi Cocktail) 20 ml PRN QID PRN PO CHEST PAIN ; Start 06/27/18 at 12:45 Barium Sulfate (E-Z-Hd) 340 gm 1X ONCE PO ; Start 06/28/18 at 08:45; Stop 06/28 at 08:48; Status DC Barium Sulfate (Liquid E-Z Paque) 355 ml 1X ONCE PO Last administered on at 09:00; Start 06/28/18 at 08:45; Stop 06/28/18 at 08:48; Status DC Simethicone/ Sodium Bicarb/ Citric Ac (E-Z-Gas) 1 packet 1X ONCE PO ; Start at 08:45; Stop 06/28/18 at 08:48; Status DC Ondansetron HCl (Zofran) 4 mg PRN Q6HRS PRN IV NAUSEA/VOMITING Last administered on 06/30/18at 14:54; Start 06/29/18 at 12:45 Cefdinir (Omnicef) 300 mg BID PO Last administered on 07/02/18at 08:32; Start at 09:00; Stop 07/02/18 at 15:02; Status DC Ringer's Solution 1,000 ml @ 50 mls/hr Q20H IV ; Start 06/30/18 at 07:00; Stop 06/30/18 at 18:59; Status DC Sodium Chloride 1,000 ml @ 60 mls/hr [id number] IV Last administered on at 05:54; Start 06/29/18 at 20:00; Stop 07/03/18 at 07:38; Status DC Sodium Chloride 500 ml @ 50 mls/hr 1X ONCE IV Last administered on 06/30/18at 10:43; Start 06/30/18 at 09:45; Stop 06/30/18 at 19:44; Status DC Amlodipine Besylate (Norvasc) 5 mg DAILY PO Last administered on 07/06/18at 08:13 ; Start 07/01/18 at 09:00 Potassium Chloride (Klor-Con) 40 meq 1X ONCE PO ; Start 07/01/18 at 11:30; Stop 07/01/18 at 11:31; Status DC Calcium Gluconate 1000 mg/Dextrose 110 ml @ 220 mls/hr 1X ONCE IV ; Start at 11:30; Stop 07/01/18 at 11:59; Status UNV Potassium Chloride (Klor-Con) 40 meq 1X ONCE PO Last administered on at 17:25; Start 07/01/18 at 17:17; Stop 07/01/18 at 17:18; Status DC Sodium Chloride 500 ml @ 15 mls/hr 1X ONCE IV Last administered on 07/02/18at 05:25; Start 07/02/18 at 05:00; Stop 07/03/18 at 10:15; Status DC Demeclocycline HCl (Declomycin) 300 mg Q12HR PO Last administered on 07/06/18at 20:38; Start 07/02/18 at 14:30 Sodium Chloride 500 ml @ 30 mls/hr 1X ONCE IV Last administered on 07/03/18at 13:32; Start 07/03/18 at 10:30; Stop 07/04/18 at 03:09; Status DC Ringer's Solution 1,000 ml @ 50 mls/hr Q20H IV Last administered on 07/03/18at 11:14; Start 07/03/18 at 11:14; Stop 07/03/18 at 23:13; Status DC Sodium Chloride 300 ml @ 50 mls/hr 1X ONCE IV Last administered on 07/04/18at 13:06; Start 07/04/18 at 12:00; Stop 07/04/18 at 17:59; Status DC Throat Lozenges (Cepacol Sore Throat Lozenge) 1 chivo PRN Q1HR PRN PO SORE THROAT Last administered on 07/07/18at 07:12; Start 07/07/18 at 06:15 Active Scripts Active Polyethylene Glycol 3350 17 Gm Powd.pack 17 Gm PO DAILY 30 Days Amlodipine Besylate 5 Mg Tablet 5 Mg PO DAILY 30 Days Dicyclomine Hcl 10 Mg Capsule 10 Mg PO PRN TID PRN 30 Days [Demeclocycline Hcl] 150 MG Tablet 300 Mg PO Q12HR 30 Days Reported Lisinopril 10 Mg Tablet 1 Tab PO DAILY Multivitamins (Multivitamin) 1 Each Tablet 1 Tab PO DAILY Prilosec (Omeprazole) 20 Mg Capsule.dr 1 Cap PO DAILY Tylenol Extra Strength (Acetaminophen) 500 Mg Tablet 500 Mg PO Lovastatin 40 Mg Tablet 40 Mg PO HS Paroxetine Hcl 30 Mg Tablet 30 Mg PO DAILY Levothyroxine Sodium 50 Mcg Tablet 50 Mcg PO DAILYAC Vitals/I & O Vital Sign - Last 24 Hours 07/06/18 07/06/18 07/06/18 07/06/18 11:00 15:00 19:00 20:40 Temp 98.2 97.5 98.2 98.2 97.5 98.2 Pulse 71 69 71 Resp 18 18 B/P (MAP) 130/68 (88) 163/70 (101) 147/75 (99) Pulse Ox 97 98 98 O2 Delivery Room Air Room Air Room Air Room Air 07/06/18 07/07/18 07/07/18 23:00 03:00 07:00 Temp 98.3 98.1 98.0 98.3 98.1 98.0 Pulse 85 79 71 Resp 18 18 17 B/P (MAP) 136/64 (88) 135/67 (89) 149/80 (103) Pulse Ox 98 97 96 O2 Delivery Room Air Room Air Room Air Intake and Output 07/06/18 07/06/18 07/07/18 15:00 23:00 07:00 Intake Total 300 ml 75 ml 120 ml Balance 300 ml 75 ml 120 ml RO BELL MD Jul 07, 2018 08:26
[2018-07-07] MEDS: POLYETHYLENE GLYCOL 3350 17 GM PACKET. PO SCH ×2 (09:00→09:07)
[2018-07-07] MEDS: MULTIVITAMIN with MINERAL TABLET. PO SCH (09:07)
[2018-07-07] MEDS: amLODIPine BESYLATE 5 MG TABLET PO SCH (09:07)
[2018-07-07] MEDS: DEMECLOCYCLINE HCL 150 MG TABLET. PO SCH (09:07)
[2018-07-07] MEDS: LACTOBACILLUS RHAMNOSUS GG 1 CAPSULE. PO SCH (09:07)
--- NOTE | 2018-07-07 09:19 | PDOC ---
Subjective: Subjective: Nausea is better. Ate "a little." Denies abd pain. Says stooling. Objective: Objective: D/w RN - doesn't want to advance beyond full liquids but asked for eggs this morning. Awaiting insurance for DC. Vital Signs: Vital Signs Date Time Temp Pulse Resp B/P (MAP) Pulse Ox O2 Delivery O2 Flow Rate FiO2 07/07/18 09:07 71 149/80 07/07/18 07:00 98.0 17 96 Room Air 98.0 PE: GEN: NAD LUNGS: CTAB HEART: RRR ABD: S/ND/NT NEURO/PSYCH: A & O 3, flat A/P: Nausea - better -- Stable from GI standpoint, awaiting DC. BRENDA TAPIA Jul 07, 2018 09:19
--- NOTE | 2018-07-07 09:30 | NUR ---
Pt has been accepted at [facility] and will have a bed available upon dc.
[2018-07-07 11:00] VITALS: BP 129/69
[2018-07-07] MEDS ORDERED: NYST60PO TP (11:10)
[2018-07-07 12:33] LABS: CALCIUM 8.9 mg/dL (8.5-10.1); CREATININE 0.7 mg/dL (0.6-1.0); POTASSIUM 3.9 mmol/L (3.5-5.1)
[2018-07-07] MEDS ORDERED: NYSTATIN TOPICAL POWDER 15GM BOTTLE. TP SCH (14:00)
--- NOTE | 2018-07-07 14:28 | NUR ---
JOEY following up with pt dc plan. Pt will tentatively dc today and go to [facility] ([facility] at 1700. Pt will be transported by [facility]. JOEY phoned and faxed orders, phone: [phone], fax: [phone]. Pt choice and pt's rights forms were signed by pt and placed in chart. Pt, pts sister Starr, and pt's RN have been notified.
--- NOTE | 2018-07-07 14:58 | PDOC ---
SUBJECTIVE ROS No complaints currently, states had some phlegm this am Denies dizziness, worked with PT, Using bedside commode ACcurate I/O not recorded, pt states urinating well OBJECTIVE Vital Signs Vital Signs Date Time Temp Pulse Resp B/P (MAP) Pulse Ox O2 Delivery O2 Flow Rate FiO2 07/07/18 11:00 97.7 86 18 129/69 (89) 94 Room Air 97.7 I & 0 Intake and Output 07/07/18 07:00 Intake Total 495 ml Balance 495 ml Intake Oral 495 ml # Voids 4 # Bowel Movements 3 PHYSICAL EXAM Physical Exam General: Alert, Oriented X3, Cooperative, No acute distress Heart: Regular rate, Normal S1, Normal S2, No murmurs, Gallops Lungs: Clear, Other Abdomen: Soft, No tenderness Extremities: No clubbing, No cyanosis, No edema, Normal pulses, No tenderness/ swelling Skin: No breakdown DIAGNOSIS/ASSESSMENT Assessment & Plan Acute Hyponatremia - Recd 3% Saline , improved to 129 Currently on demeclocycline , off SSRI's and DELMA-I Na decreasing again now to 123 today , asymptomatic If primary planning to dc to LTAC will need close monitoring of serum Na Restrict fluids to 1000 mls , if symptomatic may need to restart 3% Chronic Hyponatremia -Na 125-130 range UTI N/V- resolved ABD PAIN- resolved Discussed with RN COMMENT/RELEVANT DATA Meds Current Medications Medications (Trade) Dose Ordered Sig/Alexi Start Time Stop Time Status Last Admin Dose Admin Acetaminophen (Tylenol) 650 mg PRN Q6HRS PRN 06/27/18 10:30 07/06/18 23:14 650 MG Amlodipine Besylate (Norvasc) 5 mg DAILY 07/01/18 09:00 07/07/18 09:07 5 MG Atorvastatin Calcium (Lipitor) 10 mg QHS 06/25/18 21:00 07/06/18 20:38 10 MG Barium Sulfate (E-Z-Hd) 340 gm 1X ONCE 06/28/18 08:45 06/28/18 08:48 DC Barium Sulfate (Liquid E-Z Paque) 355 ml 1X ONCE 06/28/18 08:45 06/28/18 08:48 DC 06/28/18 09:00 355 ML Calcium Carbonate/ Glycine (Tums) 1,000 mg PRN AFTMEALHC PRN 06/25/18 20:45 07/06/18 23:14 1,000 MG Calcium Gluconate 1000 mg/Dextrose 110 ml @ 220 mls/hr 1X ONCE 07/01/18 11:30 07/01/18 11:59 UNV Cefdinir (Omnicef) 300 mg BID 06/30/18 09:00 07/02/18 15:02 DC 07/02/18 08:32 300 MG Ceftriaxone Sodium (Rocephin) 1 gm Q24H 06/25/18 21:00 06/29/18 23:59 DC 06/29/18 20:34 1 GM Demeclocycline HCl (Declomycin) 300 mg Q12HR 07/02/18 14:30 07/07/18 09:07 300 MG Dicyclomine HCl (Bentyl) 10 mg PRN TID PRN 06/27/18 12:45 07/03/18 01:13 10 MG Fentanyl Citrate (Fentanyl 2ml Vial) 50 mcg PRN Q1HR PRN 06/25/18 00:45 06/26/18 00:44 DC Info (CONTRAST GIVEN -- Rx MONITORING) 1 each PRN DAILY PRN 06/24/18 18:30 06/26/18 18:29 DC Iohexol (Omnipaque 300 Mg/ml) 75 ml 1X ONCE 06/24/18 18:30 06/24/18 18:31 DC 06/24/18 18:29 75 ML Lactobacillus Rhamnosus (Culturelle) 1 cap BID 06/25/18 21:00 07/07/18 09:07 1 CAP Levothyroxine Sodium (Synthroid) 50 mcg DAILY06 06/26/18 06:00 07/07/18 05:59 50 MCG Lisinopril (Prinivil) 10 mg DAILY 06/26/18 09:00 06/30/18 11:46 DC 06/29/18 08:29 10 MG Multi-Ingredient Mouthwash/Gargle (Gi Cocktail) 20 ml PRN QID PRN 06/27/18 12:45 Multivitamins (Thera M Plus) 1 tab DAILY 06/26/18 09:00 07/07/18 09:07 1 TAB Nystatin (Nystop) 1 abdoulaye TID 07/07/18 14:00 07/07/18 14:23 1 ABDOULAYE Ondansetron HCl (Zofran) 4 mg PRN Q6HRS PRN 06/29/18 12:45 06/30/18 14:54 4 MG Pantoprazole Sodium (PROTONIX VIAL for IV PUSH) 40 mg 1X ONCE 06/24/18 16:45 06/24/18 16:48 DC 06/24/18 18:27 40 MG Pantoprazole Sodium (Protonix) 40 mg BIDAC 06/26/18 16:30 07/07/18 05:59 40 MG Paroxetine HCl (Paxil) 30 mg DAILY 06/26/18 09:00 06/28/18 10:33 DC 06/27/18 09:08 30 MG Polyethylene Glycol (miraLAX PACKET) 17 gm PRN DAILY PRN 06/27/18 12:45 Potassium Chloride (Klor-Con) 40 meq 1X ONCE 07/01/18 17:17 07/01/18 17:18 DC 07/01/18 17:25 40 MEQ Ringer's Solution 1,000 ml @ 50 mls/hr Q20H 07/03/18 11:14 07/03/18 23:13 DC 07/03/18 11:14 50 MLS/HR Simethicone/ Sodium Bicarb/ Citric Ac (E-Z-Gas) 1 packet 1X ONCE 06/28/18 08:45 06/28/18 08:48 DC Sodium Chloride 300 ml @ 50 mls/hr 1X ONCE 07/04/18 12:00 07/04/18 17:59 DC 07/04/18 13:06 50 MLS/HR Throat Lozenges (Cepacol Sore Throat Lozenge) 1 warren PRN Q1HR PRN 07/07/18 06:15 07/07/18 07:12 1 [facility] Lab Laboratory Tests Test 07/07/18 12:00 Sodium Level 123 mmol/L (136-145) Potassium Level 3.9 mmol/L (3.5-5.1) Chloride Level 86 mmol/L (98-107) Carbon Dioxide Level 25 mmol/L (21-32) Anion Gap 12 (6-14) Blood Urea Nitrogen 6 mg/dL (7-20) Creatinine 0.7 mg/dL (0.6-1.0) Estimated GFR (Cockcroft-Gault) 82.0 Glucose Level 121 mg/dL (70-99) Calcium Level 8.9 mg/dL (8.5-10.1) Results All relevant outside records, renal labs, imaging studies, telemetry/EKG's were reviewed. MELISSA DENNY MD Jul 07, 2018 14:58
[2018-07-07 15:00] VITALS: BP 115/70
--- NOTE | 2018-07-07 17:00 | NUR ---
Pt discharged to [facility] by w/c transport provided by receiving facility. Report given to Nurse Crum. LARISA midline removed prior to discharge, occlusive dressing applied. Nurse notified that Pt has excoriation in roxy area r/t having several episodes of bowel incontinence yesterday. Nystatin powder has been applied since this morning. All belongings returned.
== END 2018-07-07 17:00 | DRG 643 ==
LOC: ER 15:10 → 4 NORTH 06-25 00:14
PROVIDERS: ADMIT Internal Medicine; ATTEND Internal Medicine
PROC: 0DJ08ZZ Inspection of Upper Intestinal Tract, Via Natural or Artificial Opening Endoscopic (ICD-10-PCS; principal; 2018-07-03 12:00)
DX: E22.2 Syndrome of inappropriate secretion of antidiuretic hormone (principal); G93.41 Metabolic encephalopathy; N39.0 Urinary tract infection, site not specified; Q43.3 Congenital malformations of intestinal fixation; K44.9 Diaphragmatic hernia without obstruction or gangrene; K57.30 Diverticulosis of large intestine without perforation or abscess without bleeding; I12.9 Hypertensive chronic kidney disease with stage 1 through stage 4 chronic kidney disease, or unspecified chronic kidney disease; N18.9 Chronic kidney disease, unspecified; K30 Functional dyspepsia; K22.8 Other specified diseases of esophagus; K21.9 Gastro-esophageal reflux disease without esophagitis; E11.43 Type 2 diabetes mellitus with diabetic autonomic (poly)neuropathy; E11.22 Type 2 diabetes mellitus with diabetic chronic kidney disease; E78.00 Pure hypercholesterolemia, unspecified; E78.5 Hyperlipidemia, unspecified; E89.0 Postprocedural hypothyroidism; J45.909 Unspecified asthma, uncomplicated; K31.84 Gastroparesis; Z96.659 Presence of unspecified artificial knee joint; D64.9 Anemia, unspecified; F41.9 Anxiety disorder, unspecified; F32.9 Major depressive disorder, single episode, unspecified; G43.909 Migraine, unspecified, not intractable, without status migrainosus; Z83.3 Family history of diabetes mellitus; Z90.710 Acquired absence of both cervix and uterus; Z82.49 Family history of ischemic heart disease and other diseases of the circulatory system; B37.2 Candidiasis of skin and nail
CPT/HCPCS: 36415; 43235; 71045; 74177; 74240; 78264; 80048; 80053; 80069; 81001; 82310; 82436; 82570; 82607; 82962; 83540; 83550; 83690; 83935; 84133; 84295; 84300; 84439; 84443; 84484; 84550; 85007; 85025; 85045; 87086; 87641; 93005; 96361; 96374; 96375; A9541; C9113; J0696; J2405; J2704; J3490; J7030; J7120; Q9967; 97116; 97530; 97535; 99284-25